=== PATIENT | male | born 1960 | race Caucasian/White ===

== ENCOUNTER 2016-12-02 17:38 | Emergency (ER) | payer MEDICAID ==
[2016-12-02] MEDS ORDERED: MVI, Adult with Vitamin K 10 ML, Thiamine 100 MG, Folic Acid 1 MG, Magnesium Sulfate 3 ... IV SCH ×5 (18:30)
[2016-12-02] MEDS ORDERED: Pantoprazole 40 MG Tab.CR PO SCH (18:30)
[2016-12-02] MEDS ORDERED: Magnesium Sulfate (4.06 MEQ/ML) 1 GM/2 ML SDV ONE (18:43)
[2016-12-02 20:31] VITALS: BP 132/75
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
--- NOTE | 2016-12-03 09:22 | CR ---
Chest 1V Frontal HISTORY: Cough FINDINGS: The heart and vascular structures are normal in appearance. No infiltrates or effusions ar e demonstrated. The skeletal structures are unremarkable. IMPRESSION: Negative exam.
== END 2016-12-02 21:24 | disposition other institution (70) ==
LOC: JP.ED 17:38
DX: F10.229 Alcohol dependence with intoxication, unspecified (principal); Z79.899 Other long term (current) drug therapy; Z79.84 Long term (current) use of oral hypoglycemic drugs; E11.9 Type 2 diabetes mellitus without complications; Z90.49 Acquired absence of other specified parts of digestive tract
CPT/HCPCS: 36415; 71010; 80053; 80305; 81001; 85025; 85610; 87804; 96365; 99284; 99285; A9270; G0480; J3411; J3475; J7040; J3490

== ENCOUNTER 2017-01-02 16:30 | Emergency (ER) | payer MEDICAID ==
[2017-01-02] MEDS ORDERED: Aluminum Hydroxide/Magnesium Hydroxide/Simethicone Susp 30 ML Cup PO ONE (18:21)
[2017-01-02] MEDS ORDERED: Sodium Chloride 0.9% 1,000 ML IV SCH (18:30)
--- NOTE | 2017-01-02 18:53 | EDM.PDOC ---
ED HISTORY OF PRESENT ILLNESS - General Chief Complaint: Chest Pain Stated Complaint: illness Time Seen by Provider: 01/02/17 18:10 Source: Reports: Patient History Limitations: Reports: No limitations - History of Present Illness INITIAL COMMENTS - FREE TEXT/NARRATIVE: This patient arrives by EMS with alcohol intoxication and asking to go to detox. is a known alcoholic and has been to detox number of times. He says he' s been drinking for about 2 days and drank a large bottle of vodka today. His last drink was about an hour before arrival for about 2 PM. He also complained of some vague substernal chest pain he says it lasted about an hour but then later said he still has a little bit now. - Related Data Allergies/ADRs: Allergies Allergy/AdvReac Type Severity Reaction Status Date / Time zolpidem tartrate Allergy Cannot Verified 01/02/17 16:43 [From Maite] Remember Home Meds: Home Meds Aspirin [Halfprin] 81 mg PO DAILY 10/17/14 [History] Gabapentin 900 mg PO BID 12/04/14 [History] Simvastatin 40 mg PO BEDTIME 12/04/14 [History] traZODone 100 - 200 mg PO BEDTIME 12/04/14 [History] Insulin Glarg,Human.Rec.Analog [Lantus Solostar] 30 unit SQ BEDTIME 04/03/15 [ History] Venlafaxine HCl [Venlafaxine ER] 225 mg PO DAILY 04/03/15 [History] Metoprolol Tartrate [Lopressor] 50 mg PO BID 04/05/15 [History] metFORMIN [Glucophage] 1,000 mg PO BIDAC 03/11/16 [History] Multivit-Min/FA/Lycopene/Lut [Certavite Sr-Antioxidant Tab] 1 tab PO DAILY 06/16 [History] Pantoprazole [ProTONIX] 40 mg PO DAILY #30 tab.cr 06/17/16 [Rx] Insulin Aspart [NovoLOG] 2 units SQ ASDIRECTED 08/21/16 [History] Lisinopril [Lisinopril] 1 tab PO DAILY 09/28/16 [History] Past Medical History Cardiovascular History: Reports: High cholesterol, Hypertension Other Cardiovascular History: Past chest pain Questionable [place] in past. Gastrointestinal History: Reports: Pancreatitis Musculoskeletal History: Reports: Fracture Other Musculoskeletal History: fx toe Neurological History: Reports: Head trauma Psychiatric History: Reports: Addiction, Anxiety, Depression, Other (see below) Other Psychiatric History: Alcohol abuse. Endocrine/Metabolic History: Reports: Diabetes, type II - Infectious Disease History Infectious Disease History: Reports: Chicken pox, Measles, Mumps - Past Surgical History HEENT Surgical History: Reports: Adenoidectomy GI Surgical History: Reports: Appendectomy Social & Family History - Family History Family Medical History: Noncontributory - Tobacco Use Smoking Status *Q: Light Tobacco Smoker Years of Tobacco use: 26 Packs/Tins Daily: 1 Used Tobacco, but Quit: No Second Hand Smoke Exposure: Yes - Caffeine Use Caffeine Use: Reports: Coffee, Soda - Alcohol Use Days Per Week of Alcohol Use: 7 Number of Drinks Per Day: 20 Total Drinks Per Week: 140 - Recreational Drug Use Recreational Drug Use: No ED ROS GENERAL - Review of Systems Review Of Systems: See Below Constitutional: Reports: no symptoms HEENT: Reports: No symptoms Respiratory: Reports: No Symptoms Cardiovascular: Reports: Chest pain Endocrine: Reports: no symptoms GI/Abdominal: Reports: No symptoms : Reports: no symptoms Musculoskeletal: Reports: no symptoms Skin: Reports: no symptoms Neurological: Reports: Other Psychiatric: Reports: No symptoms Hematologic/Lymphatic: Reports: no symptoms Immunologic: Reports: no symptoms ED EXAM, GENERAL - Physical Exam Exam: See Below Exam Limited By: No limitations General Appearance: alert, WD/WN, no apparent distress Eye Exam: bilateral eye: normal inspection Ears: normal external exam Nose: normal inspection Throat/Mouth: Normal inspection Head: atraumatic Neck: normal inspection Respiratory/Chest: lungs clear Cardiovascular: normal peripheral pulses, regular rate, rhythm, no murmur GI/Abdominal: non tender Extremities: normal inspection Neurological: alert, oriented, CN II-XII intact, normal cognition (Does not appear obviously intoxicated) Psychiatric: normal affect Skin Exam: Warm Course - Vital Signs Last Recorded V/S: Last Vital Signs Temp 37.7 C 01/02/17 19:25 Pulse 114 H 01/02/17 19:25 Resp 16 01/02/17 19:25 BP 163/78 H 01/02/17 19:25 Pulse Ox 93 L 01/02/17 19:25 - Orders/Labs/Meds Orders: Active Orders 24 hr Category Date Time Status EKG Documentation Completion [RC] ASDIRECTED Care 01/02/17 18:21 Active Sodium Chloride 0.9% [Normal Saline] 1,000 ml Med 01/02/17 18:30 Active IV ASDIRECTED Sodium Chloride 0.9% [Saline Flush] Med 01/02/17 18:20 Active 10 ml FLUSH ASDIRECTED PRN Saline Lock Insert [OM.PC] Urgent Oth 01/02/17 18:20 Ordered EKG 12 Lead [EK] Urgent Ther 01/02/17 18:20 Ordered Medication Orders Sodium Chloride (Normal Saline) 1,000 mls @ 999 mls/hr IV ASDIRECTED RIKKI Last Admin: 01/02/17 19:20 Dose: 999 mls/hr Sodium Chloride (Saline Flush) 10 ml FLUSH ASDIRECTED PRN PRN Reason: Keep Vein Open Last Admin: 01/02/17 19:23 Dose: 10 ml Labs: Laboratory Tests 01/02/17 01/02/17 01/02/17 Range/Units 18:31 18:31 18:31 WBC 9.1 (4.5-11.0) K/uL RBC 4.28 L (4.30-5.90) M/uL Hgb 14.1 (12.0-15.0) g/dL Hct 39.7 L (40.0-54.0) % MCV 93 (80-98) fL MCH 33 H (27-31) pg MCHC 36 (32-36) % Plt Count 239 (150-400) K/uL Neut % (Auto) 49 (36-66) % Lymph % (Auto) 44 (24-44) % [place] % (Auto) 7 H (2-6) % Eos % (Auto) 0 L (2-4) % Baso % (Auto) 1 (0-1) % Sodium 139 L (140-148) mmol/L Potassium 3.7 (3.6-5.2) mmol/L Chloride 98 L (100-108) mmol/L Carbon Dioxide 23 (21-32) mmol/L Anion Gap 21.7 H (5.0-14.0) mmol/L BUN 11 (7-18) mg/dL Creatinine 0.8 (0.8-1.3) mg/dL Est Cr Clr Drug Dosing 104.18 mL/min Estimated GFR (MDRD) > 60 (>60) Glucose 223 H (74-106) mg/dL Calcium 8.7 (8.5-10.1) mg/dL Total Bilirubin 0.4 (0.2-1.0) mg/dL AST 37 (15-37) U/L ALT 47 (12-78) U/L Alkaline Phosphatase 79 (46-116) U/L Troponin I < 0.017 (0.000-0.056) ng/mL Total Protein 7.5 (6.4-8.2) g/dL Albumin 4.0 (3.4-5.0) g/dL Globulin 3.5 (2.3-3.5) g/dL Albumin/Globulin Ratio 1.1 L (1.2-2.2) Urine Opiates Screen (NEGATIVE) Ur Oxycodone Screen (NEGATIVE) Urine Methadone Screen (NEGATIVE) Ur Propoxyphene Screen (NEGATIVE) Ur Barbiturates Screen (NEGATIVE) Ur Tricyclics Screen (NEGATIVE) Ur Phencyclidine Scrn (NEGATIVE) Ur Amphetamine Screen (NEGATIVE) U Methamphetamines Scrn (NEGATIVE) Urine MDMA Screen (NEGATIVE) U Benzodiazepines Scrn (NEGATIVE) U Cocaine Metab Screen (NEGATIVE) U Marijuana (THC) Screen (NEGATIVE) Ethyl Alcohol 317 mg/dL 01/02/17 Range/Units 18:36 WBC (4.5-11.0) K/uL RBC (4.30-5.90) M/uL Hgb (12.0-15.0) g/dL Hct (40.0-54.0) % MCV (80-98) fL MCH (27-31) pg MCHC (32-36) % Plt Count (150-400) K/uL Neut % (Auto) (36-66) % Lymph % (Auto) (24-44) % [place] % (Auto) (2-6) % Eos % (Auto) (2-4) % Baso % (Auto) (0-1) % Sodium (140-148) mmol/L Potassium (3.6-5.2) mmol/L Chloride (100-108) mmol/L Carbon Dioxide (21-32) mmol/L Anion Gap (5.0-14.0) mmol/L BUN (7-18) mg/dL Creatinine (0.8-1.3) mg/dL Est Cr Clr Drug Dosing mL/min Estimated GFR (MDRD) (>60) Glucose (74-106) mg/dL Calcium (8.5-10.1) mg/dL Total Bilirubin (0.2-1.0) mg/dL AST (15-37) U/L ALT (12-78) U/L Alkaline Phosphatase (46-116) U/L Troponin I (0.000-0.056) ng/mL Total Protein (6.4-8.2) g/dL Albumin (3.4-5.0) g/dL Globulin (2.3-3.5) g/dL Albumin/Globulin Ratio (1.2-2.2) Urine Opiates Screen Negative (NEGATIVE) Ur Oxycodone Screen Negative (NEGATIVE) Urine Methadone Screen Negative (NEGATIVE) Ur Propoxyphene Screen Negative (NEGATIVE) Ur Barbiturates Screen Negative (NEGATIVE) Ur Tricyclics Screen Negative (NEGATIVE) Ur Phencyclidine Scrn Negative (NEGATIVE) Ur Amphetamine Screen Negative (NEGATIVE) U Methamphetamines Scrn Negative (NEGATIVE) Urine MDMA Screen Negative (NEGATIVE) U Benzodiazepines Scrn Positive H (NEGATIVE) U Cocaine Metab Screen Negative (NEGATIVE) U Marijuana (THC) Screen Negative (NEGATIVE) Ethyl Alcohol mg/dL Meds: Medications Generic Name Dose Route Start Last Admin Trade Name Freq PRN Reason Stop Dose Admin Sodium Chloride 1,000 mls @ 999 mls/hr 01/02/17 18:30 01/02/17 19:20 Normal Saline IV 999 mls/hr ASDIRECTED RIKKI Administration Sodium Chloride 10 ml 01/02/17 18:20 01/02/17 19:23 Saline Flush FLUSH 10 ml ASDIRECTED PRN Administration Keep Vein Open Discontinued Medications Generic Name Dose Route Start Last Admin Trade Name Freq PRN Reason Stop Dose Admin Al Hydroxide/Mg Hydroxide 30 ml 01/02/17 18:21 01/02/17 19:23 Mag-Al Plus PO 01/02/17 18:22 30 ml ONETIME ONE Administration Ondansetron HCl 4 mg 01/02/17 20:29 Zofran IVPUSH 01/02/17 20:30 ONETIME ONE - Re-Assessments/Exams Free Text/Narrative Re-Assessment/Exam: 01/02/17 20:40 Old labs were reviewed on this patient. An EKG was done which shows a sinus tachycardia at 102 beats per minute there appears to be a Q wave in lead 3 and aVF suggesting an inferior infarct but that is unchanged since an EKG of 2015. The troponin is negative. It was felt that a repeat troponin is not needed. The patient had some slight chest discomfort while he was here. He didn't think that Maalox helped. He did eat a meal and several soft drinks. He threw up after that. He's anxious to go to detox now. He received Zofran 4 mg IV. It's believe he is medically stable to go to detox now. Departure - Departure Time of Disposition: 20:42 Disposition: Home, Self-Care 01 Condition: fair Clinical Impression: Alcohol intoxication Qualifiers: Complication of substance-induced condition: uncomplicated Qualified Code(s): F10.120 - Alcohol abuse with intoxication, uncomplicated Forms: ED Department Discharge Additional Instructions: You will be taken to [place] [facility] for alcohol detox. [facility] treatment for alcoholism would be helpful. - My Orders Last 24 Hours: My Active Orders 01/02/17 18:20 Sodium Chloride 0.9% [Saline Flush] 10 ml FLUSH ASDIRECTED PRN Saline Lock Insert [OM.PC] Urgent EKG 12 Lead [EK] Urgent 01/02/17 18:21 EKG Documentation Completion [RC] ASDIRECTED 01/02/17 18:30 Sodium Chloride 0.9% [Normal Saline] 1,000 ml IV ASDIRECTED - Assessment/Plan Last 24 Hours: My Active Orders 01/02/17 18:20 Sodium Chloride 0.9% [Saline Flush] 10 ml FLUSH ASDIRECTED PRN Saline Lock Insert [OM.PC] Urgent EKG 12 Lead [EK] Urgent 01/02/17 18:21 EKG Documentation Completion [RC] ASDIRECTED 01/02/17 18:30 Sodium Chloride 0.9% [Normal Saline] 1,000 ml IV ASDIRECTED
[2017-01-02] MEDS: Sodium Chloride 0.9% 10 ML Syringe FLUSH PRN ×2 (19:23→20:43)
[2017-01-02 19:27] VITALS: BP 163/78
[2017-01-02] MEDS ORDERED: Ondansetron 4 MG/2 ML SDV IVPUSH ONE (20:29)
== END 2017-01-02 21:05 | disposition home or self-care (01) ==
LOC: JP.ED 16:30
DX: F10.120 Alcohol abuse with intoxication, uncomplicated (principal); I25.2 Old myocardial infarction; I10 Essential (primary) hypertension; E78.00 Pure hypercholesterolemia, unspecified; F41.9 Anxiety disorder, unspecified; F32.9 Major depressive disorder, single episode, unspecified; E11.9 Type 2 diabetes mellitus without complications; F17.210 Nicotine dependence, cigarettes, uncomplicated; Z79.4 Long term (current) use of insulin; Z79.82 Long term (current) use of aspirin; Z79.899 Other long term (current) drug therapy; Z88.8 Allergy status to other drugs, medicaments and biological substances; Z90.49 Acquired absence of other specified parts of digestive tract; Z98.890 Other specified postprocedural states; Y90.8 Blood alcohol level of 240 mg/100 ml or more
CPT/HCPCS: 36415; 80053; 80305; 84484; 85025; 93005; 96361; 96374; 99285; A9270; G0480; J2405; J7040; J7050; 93010; 99284

== ENCOUNTER 2017-01-12 13:25 | Emergency (ER) | payer MEDICAID ==
[2017-01-12 13:37] VITALS: BP 142/80
--- NOTE | 2017-01-12 13:59 | EDM.PDOC ---
ED HPI GENERAL MEDICAL PROBLEM - General Chief Complaint: Drug or Alcohol Abuse Stated Complaint: EVEL Time Seen by Provider: 01/12/17 13:53 Source of Information: Reports: Patient, RN notes reviewed History Limitations: Reports: No limitations - History of Present Illness INITIAL COMMENTS - FREE TEXT/NARRATIVE: 56-year-old gentleman presents emergency department today asking to go to detox last used vodka today he drank 1 L has no other complaints, Head Pain Score (Numeric/FACES): 10 - Related Data Allergies Allergy/AdvReac Type Severity Reaction Status Date / Time zolpidem tartrate Allergy Cannot Verified 01/12/17 13:37 [From Ambien] Remember Home Meds: Home Meds Aspirin [Halfprin] 81 mg PO DAILY 10/17/14 [History] Gabapentin 900 mg PO BID 12/04/14 [History] Simvastatin 40 mg PO BEDTIME 12/04/14 [History] traZODone 100 - 200 mg PO BEDTIME 12/04/14 [History] Insulin Glarg,Human.Rec.Analog [Lantus Solostar] 35 unit SQ BEDTIME 04/03/15 [ History] Venlafaxine HCl [Venlafaxine ER] 150 mg PO DAILY 04/03/15 [History] Metoprolol Tartrate [Lopressor] 50 mg PO BID 04/05/15 [History] metFORMIN [Glucophage] 1,000 mg PO BIDAC 03/11/16 [History] Multivit-Min/FA/Lycopene/Lut [Certavite Sr-Antioxidant Tab] 1 tab PO DAILY 06/16 [History] Pantoprazole [ProTONIX] 40 mg PO DAILY #30 tab.cr 06/17/16 [Rx] Insulin Aspart [NovoLOG] 2 units SQ ASDIRECTED 08/21/16 [History] Lisinopril [Lisinopril] 1 tab PO DAILY 09/28/16 [History] Past Medical History Cardiovascular History: Reports: High cholesterol, Hypertension Other Cardiovascular History: Past chest pain Questionable [place] in past. Gastrointestinal History: Reports: Pancreatitis Musculoskeletal History: Reports: Fracture Other Musculoskeletal History: fx toe Neurological History: Reports: Head trauma Psychiatric History: Reports: Addiction, Anxiety, Depression, Other (see below) Other Psychiatric History: Alcohol abuse. Endocrine/Metabolic History: Reports: Diabetes, type II - Infectious Disease History Infectious Disease History: Reports: Chicken pox, Measles, Mumps - Past Surgical History HEENT Surgical History: Reports: Adenoidectomy GI Surgical History: Reports: Appendectomy Social & Family History - Family History Family Medical History: Noncontributory - Tobacco Use Smoking Status *Q: Light Tobacco Smoker Years of Tobacco use: 26 Packs/Tins Daily: 1 Used Tobacco, but Quit: No Second Hand Smoke Exposure: Yes - Caffeine Use Caffeine Use: Reports: Coffee, Soda - Alcohol Use Days Per Week of Alcohol Use: 7 Number of Drinks Per Day: 20 Total Drinks Per Week: 140 - Recreational Drug Use Recreational Drug Use: No ED ROS GENERAL - Review of Systems Review Of Systems: See Below Constitutional: Reports: no symptoms Respiratory: Reports: No Symptoms Cardiovascular: Reports: No symptoms GI/Abdominal: Reports: No symptoms : Reports: no symptoms Psychiatric: Reports: Other (Addiction) ED EXAM, GENERAL - Physical Exam Exam: See Below Exam Limited By: No limitations General Appearance: alert, WD/WN, no apparent distress Head: atraumatic, other (Superficial abrasion forehead estimate about a week old ) Respiratory/Chest: no respiratory distress, lungs clear, normal breath sounds, no accessory muscle use Cardiovascular: regular rate, rhythm, no murmur GI/Abdominal: soft, non tender Course - Vital Signs Last Recorded V/S: Last Vital Signs Temp 96.5 F 01/12/17 13:33 Pulse 98 01/12/17 13:33 Resp 16 01/12/17 13:33 BP 142/80 H 01/12/17 13:33 Pulse Ox 97 01/12/17 13:33 - Orders/Labs/Meds Labs: Laboratory Tests 01/12/17 01/12/17 01/12/17 Range/Units 14:07 14:07 14:07 WBC 5.0 (4.5-11.0) K/uL RBC 4.03 L (4.30-5.90) M/uL Hgb 13.1 (12.0-15.0) g/dL Hct 37.9 L (40.0-54.0) % MCV 94 (80-98) fL MCH 33 H (27-31) pg MCHC 35 (32-36) % Plt Count 109 L (150-400) K/uL Neut % (Auto) 60 (36-66) % Lymph % (Auto) 24 (24-44) % [place] % (Auto) 15 H (2-6) % Eos % (Auto) 1 L (2-4) % Baso % (Auto) 0 (0-1) % Sodium 139 L (140-148) mmol/L Potassium 4.1 (3.6-5.2) mmol/L Chloride 98 L (100-108) mmol/L Carbon Dioxide 26 (21-32) mmol/L Anion Gap 19.1 H (5.0-14.0) mmol/L BUN 11 (7-18) mg/dL Creatinine 0.9 (0.8-1.3) mg/dL Est Cr Clr Drug Dosing 92.60 mL/min Estimated GFR (MDRD) > 60 (>60) Glucose 231 H (74-106) mg/dL Calcium 8.1 L (8.5-10.1) mg/dL Total Bilirubin 0.6 (0.2-1.0) mg/dL AST 29 (15-37) U/L ALT 33 (12-78) U/L Alkaline Phosphatase 82 (46-116) U/L Total Protein 7.2 (6.4-8.2) g/dL Albumin 3.6 (3.4-5.0) g/dL Globulin 3.6 H (2.3-3.5) g/dL Albumin/Globulin Ratio 1.0 L (1.2-2.2) Urine Color Urine Appearance Urine pH (4.5-8.0) Ur Specific [place] (1.008-1.030) Urine Protein (NEGATIVE) mg/dL Urine Glucose (UA) (NEGATIVE) mg/dL Urine Ketones (NEGATIVE) mg/dL Urine Occult Blood (NEGATIVE) Urine Nitrite (NEGAITVE) Urine Bilirubin (NEGATIVE) Urine Urobilinogen (NORMAL) mg/dL Ur Leukocyte Esterase (NEGATIVE) Urine RBC (0-5) Urine WBC (0-5) Ur Epithelial Cells Amorphous Sediment Urine Bacteria Urine Mucus Urine Opiates Screen (NEGATIVE) Ur Oxycodone Screen (NEGATIVE) Urine Methadone Screen (NEGATIVE) Ur Propoxyphene Screen (NEGATIVE) Ur Barbiturates Screen (NEGATIVE) Ur Tricyclics Screen (NEGATIVE) Ur Phencyclidine Scrn (NEGATIVE) Ur Amphetamine Screen (NEGATIVE) U Methamphetamines Scrn (NEGATIVE) Urine MDMA Screen (NEGATIVE) U Benzodiazepines Scrn (NEGATIVE) U Cocaine Metab Screen (NEGATIVE) U Marijuana (THC) Screen (NEGATIVE) Ethyl Alcohol 173 mg/dL 01/12/17 01/12/17 Range/Units 14:13 14:15 WBC (4.5-11.0) K/uL RBC (4.30-5.90) M/uL Hgb (12.0-15.0) g/dL Hct (40.0-54.0) % MCV (80-98) fL MCH (27-31) pg MCHC (32-36) % Plt Count (150-400) K/uL Neut % (Auto) (36-66) % Lymph % (Auto) (24-44) % [place] % (Auto) (2-6) % Eos % (Auto) (2-4) % Baso % (Auto) (0-1) % Sodium (140-148) mmol/L Potassium (3.6-5.2) mmol/L Chloride (100-108) mmol/L Carbon Dioxide (21-32) mmol/L Anion Gap (5.0-14.0) mmol/L BUN (7-18) mg/dL Creatinine (0.8-1.3) mg/dL Est Cr Clr Drug Dosing mL/min Estimated GFR (MDRD) (>60) Glucose (74-106) mg/dL Calcium (8.5-10.1) mg/dL Total Bilirubin (0.2-1.0) mg/dL AST (15-37) U/L ALT (12-78) U/L Alkaline Phosphatase (46-116) U/L Total Protein (6.4-8.2) g/dL Albumin (3.4-5.0) g/dL Globulin (2.3-3.5) g/dL Albumin/Globulin Ratio (1.2-2.2) Urine Color Yellow Urine Appearance Slightly cloudy Urine pH 5.0 (4.5-8.0) Ur Specific [place] 1.025 (1.008-1.030) Urine Protein 30 H (NEGATIVE) mg/dL Urine Glucose (UA) 1000 H (NEGATIVE) mg/dL Urine Ketones 150 H (NEGATIVE) mg/dL Urine Occult Blood Moderate (NEGATIVE) Urine Nitrite Negative (NEGAITVE) Urine Bilirubin Negative (NEGATIVE) Urine Urobilinogen 1 (NORMAL) mg/dL Ur Leukocyte Esterase Negative (NEGATIVE) Urine RBC 5-10 H (0-5) Urine WBC 0-5 (0-5) Ur Epithelial Cells Moderate Amorphous Sediment Not seen Urine Bacteria Few Urine Mucus Moderate Urine Opiates Screen Negative (NEGATIVE) Ur Oxycodone Screen Negative (NEGATIVE) Urine Methadone Screen Negative (NEGATIVE) Ur Propoxyphene Screen Negative (NEGATIVE) Ur Barbiturates Screen Negative (NEGATIVE) Ur Tricyclics Screen Negative (NEGATIVE) Ur Phencyclidine Scrn Negative (NEGATIVE) Ur Amphetamine Screen Negative (NEGATIVE) U Methamphetamines Scrn Negative (NEGATIVE) Urine MDMA Screen Negative (NEGATIVE) U Benzodiazepines Scrn Positive H (NEGATIVE) U Cocaine Metab Screen Negative (NEGATIVE) U Marijuana (THC) Screen Negative (NEGATIVE) Ethyl Alcohol mg/dL Departure - Departure Time of Disposition: 14:48 Disposition: DC/Tfer to Inpt Rehab Fac 62 Condition: poor Clinical Impression: Alcohol intoxication Qualifiers: Complication of substance-induced condition: uncomplicated Qualified Code(s): F10.120 - Alcohol abuse with intoxication, uncomplicated Forms: ED Department Discharge - Assessment/Plan Plan: Assessment Acuity = chronic Site and laterality = alcohol abuse and dependence with intoxication complicated patient with known history of diabetes mellitus type II Etiology = alcohol abuse Manifestations = none Location of injury = home Lab values = CBC unremarkable CMP unremarkable urinalysis specific gravity 1.025 , protein elevated at 30 consistent proteinuria glucose elevated at 1000 consistent glucose urine ketones elevated at 150 and RBCs 5-10 consistent hematuria pattern is consistent with intravascular volume dictation, urine drug positive for benzodiazepines, alcohol elevated at 173 Plan We were able to secure a bed for him at [facility] Patient was in agreement with the plan all questions were answered, they were instructed to return to the emergency department or call for worsening symptoms. This note was dictated using [employer] voice recognition software please call with any questions.
== END 2017-01-12 16:00 ==
LOC: JP.ED 13:25
DX: F10.120 Alcohol abuse with intoxication, uncomplicated (principal); I10 Essential (primary) hypertension; E78.00 Pure hypercholesterolemia, unspecified; F41.9 Anxiety disorder, unspecified; F32.9 Major depressive disorder, single episode, unspecified; E11.9 Type 2 diabetes mellitus without complications; F17.210 Nicotine dependence, cigarettes, uncomplicated; Z90.49 Acquired absence of other specified parts of digestive tract; Z98.890 Other specified postprocedural states; Z79.82 Long term (current) use of aspirin; Z79.4 Long term (current) use of insulin; Z79.899 Other long term (current) drug therapy; Z88.8 Allergy status to other drugs, medicaments and biological substances; Y90.6 Blood alcohol level of 120-199 mg/100 ml
CPT/HCPCS: 36415; 80053; 80305; 81001; 85025; 99282; 99285; G0480

== ENCOUNTER 2017-01-30 22:26 | Emergency (ER) | payer MEDICAID ==
--- NOTE | 2017-01-30 22:51 | EDM.PDOC ---
ED HPI Behavioral Health - General Chief Complaint: Drug or Alcohol Abuse Stated Complaint: MED [place]IA [place] Time Seen by Provider: 01/30/17 22:48 Source: Reports: Patient, EMS, RN notes reviewed Exam Limitations: Reports: Intoxication - History of Present Illness INITIAL COMMENTS - FREE TEXT/NARRATIVE: 56-year-old gentleman presents emergency department today via EMS services he had fallen at home he is severely intoxicated denies any pain at this time he estimates he drinks 3-1.75 L of vodka today and was working on the fourth. Cannot obtain any review of systems or history from him at this time - Related Data Allergies Allergy/AdvReac Type Severity Reaction Status Date / Time zolpidem tartrate Allergy Cannot Verified 01/30/17 22:33 [From Maite] Remember Home Medications: Home Meds Aspirin [Halfprin] 81 mg PO DAILY 10/17/14 [History] Gabapentin 900 mg PO BID 12/04/14 [History] Simvastatin 40 mg PO BEDTIME 12/04/14 [History] traZODone 100 - 200 mg PO BEDTIME 12/04/14 [History] Insulin Glarg,Human.Rec.Analog [Lantus Solostar] 35 unit SQ BEDTIME 04/03/15 [ History] Venlafaxine HCl [Venlafaxine ER] 150 mg PO DAILY 04/03/15 [History] Metoprolol Tartrate [Lopressor] 50 mg PO BID 04/05/15 [History] metFORMIN [Glucophage] 1,000 mg PO BIDAC 03/11/16 [History] Multivit-Min/FA/Lycopene/Lut [Certavite Sr-Antioxidant Tab] 1 tab PO DAILY 06/16 [History] Pantoprazole [ProTONIX] 40 mg PO DAILY #30 tab.cr 06/17/16 [Rx] Insulin Aspart [NovoLOG] 2 units SQ ASDIRECTED 08/21/16 [History] Lisinopril [Lisinopril] 1 tab PO DAILY 09/28/16 [History] denies pain Pain Score (Numeric/FACES): 0 Past Medical History Cardiovascular History: Reports: High cholesterol, Hypertension Other Cardiovascular History: Past chest pain Questionable [place] in past. Gastrointestinal History: Reports: Pancreatitis Musculoskeletal History: Reports: Fracture Other Musculoskeletal History: fx toe Neurological History: Reports: Head trauma Psychiatric History: Reports: Addiction, Anxiety, Depression, Other (see below) Other Psychiatric History: Alcohol abuse. Endocrine/Metabolic History: Reports: Diabetes, type II - Infectious Disease History Infectious Disease History: Reports: Chicken pox, Measles, Mumps - Past Surgical History HEENT Surgical History: Reports: Adenoidectomy GI Surgical History: Reports: Appendectomy Social & Family History - Family History Family Medical History: Noncontributory - Tobacco Use Smoking Status *Q: Light Tobacco Smoker Years of Tobacco use: 26 Packs/Tins Daily: 1 Used Tobacco, but Quit: No Tobacco Use Comment: Patient is a current smoker Second Hand Smoke Exposure: Yes - Caffeine Use Caffeine Use: Reports: Coffee, Soda - Alcohol Use Days Per Week of Alcohol Use: 7 Number of Drinks Per Day: 20 Total Drinks Per Week: 140 - Recreational Drug Use Recreational Drug Use: No ED ROS GENERAL - Review of Systems Review Of Systems: Unable To Obtain (Do to intoxication) ED EXAM, BEHAVIORAL HEALTH - Physical Exam Exam: See Below Exam Limited By: Intoxication General Appearance: alert, no apparent distress Respiratory/Chest: no respiratory distress, lungs clear, normal breath sounds, no accessory muscle use Cardiovascular: regular rate, rhythm, no murmur COURSE, BEHAVIORAL HEALTH COMP - Course Vital Signs: Last Vital Signs Temp 99.1 F 01/31/17 00:57 Pulse 101 H 01/31/17 00:57 Resp 16 01/31/17 00:57 BP 132/84 01/31/17 00:57 Pulse Ox 95 01/31/17 00:57 Orders, Labs, Meds: Active Orders 24 hr Category Date Time Status LORazepam [Ativan] Med 01/31/17 03:46 Once 1 mg PO ONETIME ONE Laboratory Tests 01/30/17 01/30/17 01/30/17 Range/Units 23:37 23:45 23:45 WBC 6.6 (4.5-11.0) K/uL RBC 4.13 L (4.30-5.90) M/uL Hgb 13.9 (12.0-15.0) g/dL Hct 39.6 L (40.0-54.0) % MCV 96 (80-98) fL MCH 34 H (27-31) pg MCHC 35 (32-36) % Plt Count 89 L (150-400) K/uL Neut % (Auto) 37 (36-66) % Lymph % (Auto) 44 (24-44) % [place] % (Auto) 9 H (2-6) % Eos % (Auto) 9 H (2-4) % Baso % (Auto) 1 (0-1) % Sodium 137 L (140-148) mmol/L Potassium 4.8 (3.6-5.2) mmol/L Chloride 99 L (100-108) mmol/L Carbon Dioxide 24 (21-32) mmol/L Anion Gap 18.8 H (5.0-14.0) mmol/L BUN 9 (7-18) mg/dL Creatinine 0.7 L (0.8-1.3) mg/dL Est Cr Clr Drug Dosing TNP Estimated GFR (MDRD) > 60 (>60) Glucose 116 H (74-106) mg/dL Calcium 7.3 L (8.5-10.1) mg/dL Total Bilirubin 0.4 (0.2-1.0) mg/dL AST 74 H D (15-37) U/L ALT 65 D (12-78) U/L Alkaline Phosphatase 77 (46-116) U/L Total Protein 7.0 (6.4-8.2) g/dL Albumin 3.4 (3.4-5.0) g/dL Globulin 3.6 H (2.3-3.5) g/dL Albumin/Globulin Ratio 0.9 L (1.2-2.2) Ethyl Alcohol 419 mg/dL /03/14 Range/Units 03:20 WBC (4.5-11.0) K/uL RBC (4.30-5.90) M/uL Hgb (12.0-15.0) g/dL Hct (40.0-54.0) % MCV (80-98) fL MCH (27-31) pg MCHC (32-36) % Plt Count (150-400) K/uL Neut % (Auto) (36-66) % Lymph % (Auto) (24-44) % [place] % (Auto) (2-6) % Eos % (Auto) (2-4) % Baso % (Auto) (0-1) % Sodium (140-148) mmol/L Potassium (3.6-5.2) mmol/L Chloride (100-108) mmol/L Carbon Dioxide (21-32) mmol/L Anion Gap (5.0-14.0) mmol/L BUN (7-18) mg/dL Creatinine (0.8-1.3) mg/dL Est Cr Clr Drug Dosing Estimated GFR (MDRD) (>60) Glucose (74-106) mg/dL Calcium (8.5-10.1) mg/dL Total Bilirubin (0.2-1.0) mg/dL AST (15-37) U/L ALT (12-78) U/L Alkaline Phosphatase (46-116) U/L Total Protein (6.4-8.2) g/dL Albumin (3.4-5.0) g/dL Globulin (2.3-3.5) g/dL Albumin/Globulin Ratio (1.2-2.2) Ethyl Alcohol 314 mg/dL Medications Discontinued Medications Generic Name Dose Route Start Last Admin Trade Name Freq PRN Reason Stop Dose Admin Lorazepam 1 mg 01/31/17 01:48 01/31/17 01:54 Ativan IVPUSH 01/31/17 01:49 1 mg ONETIME ONE Administration Ondansetron HCl 4 mg 01/31/17 01:37 01/31/17 01:43 Zofran IVPUSH 01/31/17 01:38 4 mg ONETIME ONE Administration Departure - Departure Time of Disposition: 03:48 Disposition: DC/Tfer to Inpt Rehab Fac 62 Condition: poor Clinical Impression: Alcohol intoxication Qualifiers: Complication of substance-induced condition: uncomplicated Qualified Code(s): F10.120 - Alcohol abuse with intoxication, uncomplicated Alcohol dependence Qualifiers: Substance use status: uncomplicated Qualified Code(s): F10.20 - Alcohol dependence, uncomplicated Forms: ED Department Discharge Additional Instructions: stop using alcohol, return to ED with an increase in symptoms - My Orders Last 24 Hours: My Active Orders 01/31/17 03:46 LORazepam [Ativan] 1 mg PO ONETIME ONE - Assessment/Plan Last 24 Hours: My Active Orders 01/31/17 03:46 LORazepam [Ativan] 1 mg PO ONETIME ONE Plan: Assessment Acuity = chronic Site and laterality = alcohol abuse and intoxication Etiology = EtOH Manifestations = none Location of injury = home Lab values = cbc, cmp etoh over 400, did reach 319 Plan Requested to go to [facility] for detox Patient was in agreement with the plan all questions were answered, they were instructed to return to the emergency department or call for worsening symptoms. This note was dictated using [employer] voice recognition software please call with any questions.
[2017-01-31 00:58] VITALS: BP 132/84
[2017-01-31] MEDS ORDERED: Ondansetron 4 MG/2 ML SDV IVPUSH ONE (01:37)
[2017-01-31] MEDS ORDERED: LORazepam 2 MG/ML MDV IVPUSH ONE (01:48)
[2017-01-31] MEDS ORDERED: LORazepam 1 MG Tab PO ONE (03:46)
== END 2017-01-31 04:33 ==
LOC: JP.ED 22:26
DX: F10.220 Alcohol dependence with intoxication, uncomplicated (principal); E78.00 Pure hypercholesterolemia, unspecified; I10 Essential (primary) hypertension; F41.9 Anxiety disorder, unspecified; F32.9 Major depressive disorder, single episode, unspecified; F17.210 Nicotine dependence, cigarettes, uncomplicated; E11.9 Type 2 diabetes mellitus without complications; Z88.8 Allergy status to other drugs, medicaments and biological substances; Z79.82 Long term (current) use of aspirin; Z79.4 Long term (current) use of insulin; Z79.899 Other long term (current) drug therapy; Z90.49 Acquired absence of other specified parts of digestive tract
CPT/HCPCS: 36415; 80053; 85025; 96374; 99284; A9270; G0480; J2060; J2405

== ENCOUNTER 2017-02-07 19:45 | Emergency (ER) | payer MEDICAID ==
[2017-02-07 19:50] VITALS: BP 114/63
--- NOTE | 2017-02-07 20:16 | EDM.PDOC ---
[id number] [id number] [facility] Time Seen by Provider: 02/07/17 20:00 Source of Information: Reports: Patient, EMS History Limitations: Reports: Intoxication - History of Present Illness INITIAL COMMENTS - FREE TEXT/NARRATIVE: 48-year-old male who is a chronic alcoholic has been falling frequently over the past several days. He says they are "seizures". He does admit however that he feels lightheaded prior to falling. He's been drinking today but denies drinking the last 4 days. He has an abrasion on his left upper forehead , significant bruising and some swelling of his left upper arm. He is obviously intoxicated. Onset: Unknown/Unsure Left Shoulder Pain Score (Numeric/FACES): 5 - Related Data Allergies Allergy/AdvReac Type Severity Reaction Status Date / Time zolpidem tartrate Allergy Cannot Verified 01/30/17 22:33 [From Maite] Remember Home Meds: Home Meds Aspirin [Halfprin] 81 mg PO DAILY 10/17/14 [History] Gabapentin 900 mg PO BID 12/04/14 [History] Simvastatin 40 mg PO BEDTIME 12/04/14 [History] traZODone 100 - 200 mg PO BEDTIME 12/04/14 [History] Insulin Glarg,Human.Rec.Analog [Lantus Solostar] 35 unit SQ BEDTIME 04/03/15 [ History] Venlafaxine HCl [Venlafaxine ER] 150 mg PO DAILY 04/03/15 [History] Metoprolol Tartrate [Lopressor] 50 mg PO BID 04/05/15 [History] metFORMIN [Glucophage] 1,000 mg PO BIDAC 03/11/16 [History] Multivit-Min/FA/Lycopene/Lut [Certavite Sr-Antioxidant Tab] 1 tab PO DAILY 06/16 [History] Pantoprazole [ProTONIX] 40 mg PO DAILY #30 tab.cr 06/17/16 [Rx] Insulin Aspart [NovoLOG] 2 units SQ ASDIRECTED 08/21/16 [History] Lisinopril [Lisinopril] 1 tab PO DAILY 09/28/16 [History] Past Medical History Cardiovascular History: Reports: High Cholesterol, Hypertension Other Cardiovascular History: Past chest pain Questionable [place] in past. Gastrointestinal History: Reports: Pancreatitis Musculoskeletal History: Reports: Fracture Other Musculoskeletal History: fx toe Neurological History: Reports: Head Trauma Psychiatric History: Reports: Addiction, Anxiety, Depression, Other (See Below) Other Psychiatric History: Alcohol abuse. Endocrine/Metabolic History: Reports: Diabetes, Type II - Infectious Disease History Infectious Disease History: Reports: Chicken Pox, Measles, Mumps - Past Surgical History HEENT Surgical History: Reports: Adenoidectomy GI Surgical History: Reports: Appendectomy Social & Family History - Family History Family Medical History: Noncontributory - Tobacco Use Smoking Status *Q: Never Smoker Years of Tobacco use: 26 Packs/Tins Daily: 1 Used Tobacco, but Quit: No Second Hand Smoke Exposure: Yes - Caffeine Use Caffeine Use: Reports: Coffee, Soda - Alcohol Use Days Per Week of Alcohol Use: 7 Number of Drinks Per Day: 7 Total Drinks Per Week: 49 - Recreational Drug Use Recreational Drug Use: No ED ROS GENERAL - Review of Systems Review Of Systems: See Below Constitutional: Reports: Malaise. Denies: Fever, Chills Respiratory: Denies: Shortness of Breath Cardiovascular: Denies: Chest Pain GI/Abdominal: Denies: Abdominal Pain, Nausea, Vomiting Musculoskeletal: Reports: Other (Left shoulder pain and bruising) Skin: Reports: Bruising Neurological: Reports: Syncope, Other (Passing out or seizures) Psychiatric: Reports: Other (Chronic alcoholism) ED EXAM, GENERAL - Physical Exam Exam: See Below Exam Limited By: Intoxication General Appearance: Alert Eye Exam: Bilateral Eye: Normal Inspection Head: Other (Patient has a superficial abrasion on the left parietal scalp) Neck: Other (Some tenderness with palpation midline) Respiratory/Chest: No Respiratory Distress, Lungs Clear Cardiovascular: Regular Rate, Rhythm GI/Abdominal: Non-Tender Extremities: Other (Pain has marked bruising and swelling along with tenderness to palpation over the anterior left shoulder) Course - Vital Signs Last Recorded V/S: Last Vital Signs Temp 99.0 F 02/07/17 19:57 Pulse 103 H 02/07/17 19:57 Resp 20 02/07/17 19:57 BP 114/63 02/07/17 19:57 Pulse Ox 94 L 02/07/17 19:57 - Orders/Labs/Meds Orders: Active Orders 24 hr Category Date Time Status Cervical Spine wo Cont [CT] Stat Exams 02/07/17 19:58 Taken Head wo Cont [CT] Stat Exams 02/07/17 19:58 Taken Shoulder Comp Lt [CR] Stat Exams 02/07/17 20:14 Taken Labs: Laboratory Tests 02/07/17 02/07/17 02/07/17 Range/Units 20:15 20:15 20:15 WBC 9.6 (4.5-11.0) K/uL RBC 3.20 L (4.30-5.90) M/uL Hgb 10.8 L D (12.0-15.0) g/dL Hct 31.3 L (40.0-54.0) % MCV 98 (80-98) fL MCH 34 H (27-31) pg MCHC 35 (32-36) % Plt Count 98 L (150-400) K/uL Neut % (Auto) 71 H (36-66) % Lymph % (Auto) 14 L (24-44) % [place] % (Auto) 15 H (2-6) % Eos % (Auto) 0 L (2-4) % Baso % (Auto) 0 (0-1) % Sodium 134 L (140-148) mmol/L Potassium 3.8 (3.6-5.2) mmol/L Chloride 96 L (100-108) mmol/L Carbon Dioxide 21 (21-32) mmol/L Anion Gap 20.8 H (5.0-14.0) mmol/L BUN 12 (7-18) mg/dL Creatinine 1.2 D (0.8-1.3) mg/dL Est Cr Clr Drug Dosing 69.45 mL/min Estimated GFR (MDRD) > 60 (>60) Glucose 179 H (74-106) mg/dL Calcium 8.0 L (8.5-10.1) mg/dL Total Bilirubin 0.4 (0.2-1.0) mg/dL AST 31 (15-37) U/L ALT 40 (12-78) U/L Alkaline Phosphatase 82 (46-116) U/L Total Protein 6.7 (6.4-8.2) g/dL Albumin 3.3 L (3.4-5.0) g/dL Globulin 3.4 (2.3-3.5) g/dL Albumin/Globulin Ratio 1.0 L (1.2-2.2) Ethyl Alcohol 201 mg/dL - Re-Assessments/Exams Free Text/Narrative Re-Assessment/Exam: 02/07/17 21:51 CBC, CMP, EtOH and left shoulder x-ray were obtained as well as a head and cervical spine CT. EtOH was 0.201. Left shoulder x-ray showed a comminuted humeral neck fracture involving the humeral head. His arm was immobilized with a sling. Rest of his labs are actually reassuring. Patient remained stable and was interested in getting to be discharged with followup with orthopedics next week. He is to keep his arm in a sling and see Dr. Moses on Thursday. Departure - Departure Time of Disposition: 22:31 Disposition: Home, Self-Care 01 Condition: fair Clinical Impression: Closed left humeral fracture Qualifiers: Encounter type: initial encounter Humerus Location: proximal Fracture alignment : nondisplaced Scalp abrasion Qualifiers: Encounter type: initial encounter Qualified Code(s): S00.01XA - Abrasion of scalp, initial encounter Alcohol intoxication Qualifiers: Complication of substance-induced condition: uncomplicated Qualified Code(s): F10.920 - Alcohol use, unspecified with intoxication, uncomplicated - Discharge Information Instructions: Intramedullary Nailing of Humeral Shaft Fractures, Care After, Abrasion, [id number] Referrals: PCP,None [Primary Care Provider] - Forms: ED Department Discharge Care Plan Goals: Return Thursday to be rechecked with Dr. Gilberto Moses of orthopedics. Ibuprofen or naproxen should help. Keep arm in sling until rechecked. Avoid intoxication. - My Orders Last 24 Hours: My Active Orders 02/07/17 19:58 Cervical Spine wo Cont [CT] Stat Head wo Cont [CT] Stat 02/07/17 20:14 Shoulder Comp Lt [CR] Stat - Assessment/Plan Last 24 Hours: My Active Orders 02/07/17 19:58 Cervical Spine wo Cont [CT] Stat Head wo Cont [CT] Stat 02/07/17 20:14 Shoulder Comp Lt [CR] Stat
--- NOTE | 2017-02-09 09:27 | CR ---
Shoulder Comp Lt HISTORY: fall, injury FINDINGS: There is a comminuted and impacted fracture neck of left humerus with avulsion of the grea ter tuberosity. Fracture fragments are mildly displaced. No other fracture or dislocation is identif ied. Hypertrophic changes distal clavicle could be degenerative or due to old trauma. Left upper ze[address] is clear. IMPRESSION: Acute, comminuted and impacted fracture proximal left humerus as above.
== END 2017-02-07 22:31 | disposition home or self-care (01) ==
LOC: JP.ED 19:45
DX: S42.255A Nondisplaced fracture of greater tuberosity of left humerus, initial encounter for closed fracture (principal); S00.01XA Abrasion of scalp, initial encounter; E78.00 Pure hypercholesterolemia, unspecified; I10 Essential (primary) hypertension; E11.9 Type 2 diabetes mellitus without complications; F41.9 Anxiety disorder, unspecified; F32.9 Major depressive disorder, single episode, unspecified; F10.920 Alcohol use, unspecified with intoxication, uncomplicated; Z88.8 Allergy status to other drugs, medicaments and biological substances; Z79.82 Long term (current) use of aspirin; Z79.4 Long term (current) use of insulin; Z79.84 Long term (current) use of oral hypoglycemic drugs; Z79.899 Other long term (current) drug therapy; Z90.49 Acquired absence of other specified parts of digestive tract; W19.XXXA Unspecified fall, initial encounter
CPT/HCPCS: 36415; 70450; 72125; 73030; 80053; 85025; 99284; 99285; G0480

== ENCOUNTER 2017-02-10 06:16 | Emergency (ER) | payer MEDICAID ==
[2017-02-10] MEDS ORDERED: HYDROmorphone 0.5 MG/0.5 ML Syringe IVPUSH ONE ×2 (06:53→08:49)
[2017-02-10] MEDS ORDERED: Sodium Chloride 0.9% 10 ML Syringe FLUSH PRN (06:54)
[2017-02-10] MEDS ORDERED: Sodium Chloride 0.9% 1,000 ML IV SCH (07:00)
--- NOTE | 2017-02-10 07:00 | EDM.PDOC ---
<Bob Colón - Last Filed: 02/10/17 19:21> ED HPI GENERAL MEDICAL PROBLEM - General Chief Complaint: Upper Extremity Injury/Pain Stated Complaint: MEDICAL VIA [facility] Time Seen by Provider: 02/10/17 06:35 Source of Information: Reports: Patient, EMS History Limitations: Reports: No Limitations - History of Present Illness INITIAL COMMENTS - FREE TEXT/NARRATIVE: 48-year-old male seen 2 days ago after a fall sustaining a left humeral head fracture and a scalp abrasion has developed more pain over the past 2 days and has fallen again striking the back of his head and his knees. He was in so much pain he can't open his pill bottles were like cigarettes. He does have a significant increase in the amount of bruising over the upper left arm. He claims he has not drank in the last 2 days. Location: Reports: Head, Upper Extremity, Left, Lower Extremity, Left, Lower Extremity, Right Severity: Severe Associated Symptoms: Reports: Confusion, Syncope (Recurring falls). Denies: Fever/Chills, Nausea/Vomiting Left Shoulder Pain Score (Numeric/FACES): 10 - Related Data Allergies Allergy/AdvReac Type Severity Reaction Status Date / Time zolpidem tartrate Allergy Cannot Verified 02/10/17 06:22 [From Maite] Remember Home Meds: Home Meds Aspirin [Halfprin] 81 mg PO DAILY 10/17/14 [History] Gabapentin 900 mg PO BID 12/04/14 [History] Simvastatin 40 mg PO BEDTIME 12/04/14 [History] traZODone 100 - 200 mg PO BEDTIME 12/04/14 [History] Insulin Glarg,Human.Rec.Analog [Lantus Solostar] 35 unit SQ BEDTIME 04/03/15 [ History] Venlafaxine HCl [Venlafaxine ER] 150 mg PO DAILY 04/03/15 [History] Metoprolol Tartrate [Lopressor] 50 mg PO BID 04/05/15 [History] metFORMIN [Glucophage] 1,000 mg PO BIDAC 03/11/16 [History] Multivit-Min/FA/Lycopene/Lut [Certavite Sr-Antioxidant Tab] 1 tab PO DAILY 06/16 [History] Pantoprazole [ProTONIX] 40 mg PO DAILY #30 tab.cr 06/17/16 [Rx] Insulin Aspart [NovoLOG] 2 units SQ ASDIRECTED 08/21/16 [History] Lisinopril [Lisinopril] 1 tab PO DAILY 09/28/16 [History] Past Medical History Cardiovascular History: Reports: High Cholesterol, Hypertension Other Cardiovascular History: Past chest pain Questionable ID in past. Gastrointestinal History: Reports: Pancreatitis Musculoskeletal History: Reports: Fracture, Other (See Below) Other Musculoskeletal History: fx toe L humeral fracture. Neurological History: Reports: Head Trauma Psychiatric History: Reports: Addiction, Anxiety, Depression, Other (See Below) Other Psychiatric History: Alcohol abuse. Endocrine/Metabolic History: Reports: Diabetes, Type II - Infectious Disease History Infectious Disease History: Reports: Chicken Pox - Past Surgical History HEENT Surgical History: Reports: Adenoidectomy GI Surgical History: Reports: Appendectomy Social & Family History - Family History Family Medical History: Noncontributory - Tobacco Use Smoking Status *Q: Current Every Day Smoker Years of Tobacco use: 26 Packs/Tins Daily: 1 Used Tobacco, but Quit: No Second Hand Smoke Exposure: Yes - Caffeine Use Caffeine Use: Reports: Coffee, Soda - Alcohol Use Days Per Week of Alcohol Use: 7 Number of Drinks Per Day: 7 Total Drinks Per Week: 49 - Recreational Drug Use Recreational Drug Use: No Review of Systems - Review of Systems Review Of Systems: See Below Constitutional: Denies: Fever Eyes: Denies: Blurred Vision Mouth/Throat: Reports: No Symptoms Respiratory: Denies: Shortness of Breath, Cough GI/Abdominal: Denies: Abdominal Pain Musculoskeletal: Reports: Shoulder Pain, Other (Bilateral knee discomfort) Skin: Reports: Bruising (Marked bruising over the left upper arm, abrasions on his scalp) Neurological: Reports: Syncope ("Keeps passing out"). Denies: Headache Trauma Exam - Physical Exam Exam: See Below Exam Limited By: No Limitations General Appearance: Reports: Mild Distress (Appears very uncomfortable) Head: Reports: Other (Superficial abrasions are present on the left occiput and parietal scalp) Eyes: Bilateral Eye: EOMI Neck: Reports: Non-Tender Respiratory Exam: Reports: No Respiratory Distress Cardiovascular: Reports: Regular Rate, Rhythm, Tachycardia GI/Abdominal: Reports: Soft Extremities: Other (Marked left upper arm edema and bruising with exquisite tenderness to palpation) Neurologic: Reports: Oriented x 3 Course - Vital Signs Last Recorded V/S: Last Vital Signs Temp 37.3 C 02/10/17 06:32 Pulse 121 H 02/10/17 10:50 Resp 17 02/10/17 10:50 BP 166/108 H 02/10/17 10:50 Pulse Ox 96 02/10/17 10:50 - Orders/Labs/Meds Labs: Laboratory Tests 02/10/17 02/10/17 02/10/17 Range/Units 07:02 07:02 07:02 WBC 7.1 (4.5-11.0) K/uL RBC 3.20 L (4.30-5.90) M/uL Hgb 10.9 L (12.0-15.0) g/dL Hct 30.8 L (40.0-54.0) % MCV 96 (80-98) fL MCH 34 H (27-31) pg MCHC 35 (32-36) % Plt Count 147 L (150-400) K/uL Neut % (Auto) 69 H (36-66) % Lymph % (Auto) 15 L (24-44) % Gilliam % (Auto) 16 H (2-6) % Eos % (Auto) 0 L (2-4) % Baso % (Auto) 0 (0-1) % PT 9.7 (9.5-12.0) sec INR 0.92 (0.80-1.20) Sodium 134 L (140-148) mmol/L Potassium 4.1 (3.6-5.2) mmol/L Chloride 95 L (100-108) mmol/L Carbon Dioxide 25 (21-32) mmol/L Anion Gap 18.1 H (5.0-14.0) mmol/L BUN 14 (7-18) mg/dL Creatinine 0.9 (0.8-1.3) mg/dL Est Cr Clr Drug Dosing TNP Estimated GFR (MDRD) > 60 (>60) Glucose 283 H (74-106) mg/dL Calcium 8.0 L (8.5-10.1) mg/dL Total Bilirubin 0.8 D (0.2-1.0) mg/dL AST 72 H D (15-37) U/L ALT 65 (12-78) U/L Alkaline Phosphatase 144 H D (46-116) U/L Total Protein 6.9 (6.4-8.2) g/dL Albumin 3.1 L (3.4-5.0) g/dL Globulin 3.8 H (2.3-3.5) g/dL Albumin/Globulin Ratio 0.8 L (1.2-2.2) Ethyl Alcohol mg/dL 02/10/17 Range/Units 07:02 WBC (4.5-11.0) K/uL RBC (4.30-5.90) M/uL Hgb (12.0-15.0) g/dL Hct (40.0-54.0) % MCV (80-98) fL MCH (27-31) pg MCHC (32-36) % Plt Count (150-400) K/uL Neut % (Auto) (36-66) % Lymph % (Auto) (24-44) % Gilliam % (Auto) (2-6) % Eos % (Auto) (2-4) % Baso % (Auto) (0-1) % PT (9.5-12.0) sec INR (0.80-1.20) Sodium (140-148) mmol/L Potassium (3.6-5.2) mmol/L Chloride (100-108) mmol/L Carbon Dioxide (21-32) mmol/L Anion Gap (5.0-14.0) mmol/L BUN (7-18) mg/dL Creatinine (0.8-1.3) mg/dL Est Cr Clr Drug Dosing Estimated GFR (MDRD) (>60) Glucose (74-106) mg/dL Calcium (8.5-10.1) mg/dL Total Bilirubin (0.2-1.0) mg/dL AST (15-37) U/L ALT (12-78) U/L Alkaline Phosphatase (46-116) U/L Total Protein (6.4-8.2) g/dL Albumin (3.4-5.0) g/dL Globulin (2.3-3.5) g/dL Albumin/Globulin Ratio (1.2-2.2) Ethyl Alcohol 19 mg/dL Meds: Medications Discontinued Medications Generic Name Dose Route Start Last Admin Trade Name Freq PRN Reason Stop Dose Admin Hydromorphone HCl 0.5 mg 02/10/17 06:53 02/10/17 06:59 Dilaudid IVPUSH 02/10/17 06:54 0.5 mg ONETIME ONE Administration Hydromorphone HCl 0.5 mg 02/10/17 08:49 02/10/17 09:35 Dilaudid IVPUSH 02/10/17 08:50 0.5 mg ONETIME ONE Administration Hydromorphone HCl 1 mg 02/10/17 11:03 02/10/17 11:07 Dilaudid IM 02/10/17 11:04 1 mg ONETIME ONE Administration Hydromorphone HCl 1 mg 02/10/17 11:08 Dilaudid IVPUSH 02/10/17 11:09 ONETIME ONE Sodium Chloride 1,000 mls @ 500 mls/hr 02/10/17 07:00 02/10/17 07:01 Normal Saline IV 500 mls/hr ASDIRECTED RIKKI Administration Lorazepam 0.5 mg 02/10/17 09:19 02/10/17 09:30 Ativan IVPUSH 02/10/17 09:20 0.5 mg ONETIME ONE Administration Ondansetron HCl 4 mg 02/10/17 07:03 02/10/17 07:05 Zofran IVPUSH 02/10/17 07:04 4 mg ONETIME ONE Administration Ondansetron HCl Confirm 02/10/17 07:03 Zofran Administered 02/10/17 07:04 Dose 4 mg .ROUTE .STK-MED ONE Sodium Chloride 10 ml 02/10/17 06:54 02/10/17 06:59 Saline Flush FLUSH 10 ml ASDIRECTED PRN Administration Keep Vein Open - Re-Assessments/Exams Free Text/Narrative Re-Assessment/Exam: 02/10/17 06:59 IV hydration was initiated, a CT of the head and the left shoulder were obtained. CBC CMP EtOH, pro time were obtained. Patient was given 0.5 mg of Dilaudid IV. Departure - Departure Time of Disposition: 11:17 Disposition: DC/Tfer to Acute Hospital 02 Condition: fair Clinical Impression: Subdural hematoma Closed left humeral fracture Qualifiers: Encounter type: initial encounter Humerus Location: proximal Fracture alignment : nondisplaced - Discharge Information Referrals: PCP,None [Primary Care Provider] - Forms: ED Department Discharge Care Plan Goals: Patient was transferred to [place] for definitive care <Gildardo Boylee - Last Filed: 02/13/17 21:13> Course - Re-Assessments/Exams Free Text/Narrative Re-Assessment/Exam: 02/10/17 08:31 pt was found to have a thin 4-5 mm subdural which is definitely new. He has a very communited left shoulder. Neurosurgery was contacted regarding the subdural and they are reviewing it at this time.. This can probably be reviewed in the next 6 hours with another cat scan. It was mentioned that people who drink have a platlet dysfuntion . Often platlets hould be given to the pt. 02/13/17 21:11 Pt remained stable. There are no beds available for him to be admitted . He was transfered to [facility].
[2017-02-10] MEDS ORDERED: Ondansetron 4 MG/2 ML SDV ONE (07:03)
[2017-02-10] MEDS ORDERED: Ondansetron 4 MG/2 ML SDV IVPUSH ONE (07:03)
[2017-02-10] MEDS ORDERED: LORazepam 2 MG/ML MDV IVPUSH ONE (09:19)
[2017-02-10] MEDS ORDERED: HYDROmorphone 1 MG/ML Syringe IM ONE (11:03)
[2017-02-10] MEDS ORDERED: HYDROmorphone 1 MG/ML Syringe IVPUSH ONE (11:08)
[2017-02-10 11:16] VITALS: BP 166/108
== END 2017-02-10 11:20 ==
LOC: JP.ED 06:16
DX: S06.5X0A Traumatic subdural hemorrhage without loss of consciousness, initial encounter (principal); S42.255A Nondisplaced fracture of greater tuberosity of left humerus, initial encounter for closed fracture; S42.265A Nondisplaced fracture of lesser tuberosity of left humerus, initial encounter for closed fracture; S42.215A Unspecified nondisplaced fracture of surgical neck of left humerus, initial encounter for closed fracture; S40.022A Contusion of left upper arm, initial encounter; S00.01XA Abrasion of scalp, initial encounter; E78.00 Pure hypercholesterolemia, unspecified; I10 Essential (primary) hypertension; F41.9 Anxiety disorder, unspecified; F32.9 Major depressive disorder, single episode, unspecified; F17.210 Nicotine dependence, cigarettes, uncomplicated; E11.9 Type 2 diabetes mellitus without complications; Z90.49 Acquired absence of other specified parts of digestive tract; Z98.890 Other specified postprocedural states; Z88.8 Allergy status to other drugs, medicaments and biological substances; Z79.82 Long term (current) use of aspirin; Z79.899 Other long term (current) drug therapy; Z79.4 Long term (current) use of insulin; W01.10XA Fall on same level from slipping, tripping and stumbling with subsequent striking against unspecified object, initial encounter
CPT/HCPCS: 36415; 70450; 73200; 80053; 85025; 85610; 96361; 96374; 96375; 96376; 99284; 99285; G0480; J1170; J2060; J2405; J7040; J7050

== ENCOUNTER 2017-03-31 11:50 | Emergency (ER) | payer MEDICAID ==
[2017-03-31 12:14] VITALS: BP 170/94
[2017-03-31] MEDS ORDERED: fentaNYL 100 MCG/2 ML SDV IVPUSH ONE (12:51)
[2017-03-31] MEDS ORDERED: LORazepam 2 MG/ML MDV IVPUSH ONE (12:52)
--- NOTE | 2017-03-31 12:59 | EDM.PDOC ---
ED HPI GENERAL MEDICAL PROBLEM - General Chief Complaint: Drug or Alcohol Abuse Stated Complaint: MEDICAL VIA [facility] Time Seen by Provider: 03/31/17 12:41 Source of Information: Reports: Patient, Old Records, RN Notes Reviewed History Limitations: Reports: No Limitations - History of Present Illness INITIAL COMMENTS - FREE TEXT/NARRATIVE: 56-year-old gentleman presents emergency department today with complaint of pain all over difficulty breathing and anxiety, he has known history of alcohol abuse disorder was recently placed in detention for ongoing care for left humeral fracture, he did well while in the detention he is now out he has pain medication of oxycodone extended release morphine he states he panicked today because his pain got so severe took 3 extended release morphine's at one time and then became more agitated the point where he called EMS services - Related Data Allergies Allergy/AdvReac Type Severity Reaction Status Date / Time zolpidem tartrate Allergy Cannot Verified 03/31/17 12:59 [From Maite] Remember Home Meds: Home Meds Aspirin [Halfprin] 81 mg PO DAILY 10/17/14 [History] Gabapentin 900 mg PO BID 12/04/14 [History] Simvastatin 40 mg PO BEDTIME 12/04/14 [History] traZODone 100 - 200 mg PO BEDTIME 12/04/14 [History] Insulin Glarg,Human.Rec.Analog [Lantus Solostar] 35 unit SQ BEDTIME 04/03/15 [ History] Venlafaxine HCl [Venlafaxine ER] 150 mg PO DAILY 04/03/15 [History] Metoprolol Tartrate [Lopressor] 50 mg PO BID 04/05/15 [History] metFORMIN [Glucophage] 1,000 mg PO BIDAC 03/11/16 [History] Multivit-Min/FA/Lycopene/Lut [Certavite Sr-Antioxidant Tab] 1 tab PO DAILY 06/16 [History] Pantoprazole [ProTONIX] 40 mg PO DAILY #30 tab.cr 06/17/16 [Rx] Insulin Aspart [NovoLOG] 2 units SQ ASDIRECTED 08/21/16 [History] Lisinopril [Lisinopril] 1 tab PO DAILY 09/28/16 [History] Morphine Sulfate [Morphine Sulfate ER] 03/31/17 [History] Past Medical History Cardiovascular History: Reports: High Cholesterol, Hypertension Other Cardiovascular History: Past chest pain Questionable [place] in past. Gastrointestinal History: Reports: Pancreatitis Musculoskeletal History: Reports: Fracture, Other (See Below) Other Musculoskeletal History: fx toe L humeral fracture. Neurological History: Reports: Head Trauma Psychiatric History: Reports: Addiction, Anxiety, Depression, Other (See Below) Other Psychiatric History: Alcohol abuse. Endocrine/Metabolic History: Reports: Diabetes, Type II - Infectious Disease History Infectious Disease History: Reports: Chicken Pox - Past Surgical History HEENT Surgical History: Reports: Adenoidectomy GI Surgical History: Reports: Appendectomy Social & Family History - Family History Family Medical History: Noncontributory - Tobacco Use Smoking Status *Q: Current Every Day Smoker Years of Tobacco use: 40 Packs/Tins Daily: 1 Used Tobacco, but Quit: No Second Hand Smoke Exposure: Yes - Caffeine Use Caffeine Use: Reports: Coffee, Soda - Alcohol Use Days Per Week of Alcohol Use: 7 Number of Drinks Per Day: 7 Total Drinks Per Week: 49 - Recreational Drug Use Recreational Drug Use: No ED ROS GENERAL - Review of Systems Review Of Systems: See Below Constitutional: Reports: No Symptoms HEENT: Reports: No Symptoms Respiratory: Reports: Shortness of Breath Cardiovascular: Reports: No Symptoms GI/Abdominal: Reports: No Symptoms : Reports: No Symptoms Musculoskeletal: Reports: Shoulder Pain Skin: Reports: No Symptoms Neurological: Reports: No Symptoms Psychiatric: Reports: Anxiety ED EXAM, BEHAVIORAL HEALTH - Physical Exam Exam: See Below Text/Narrative:: General: Male, anxious but not in distress, alert and oriented x3 HEENT: head is atraumatic normocephalic, eyes pupils equal round reactive to light, sclera clear no conjunctivitis appreciated. Ears tympanic membranes clear and blas landmarks and light reflex are present bilaterally canals are clear. Nose no septal deviation, nares are clear, no blood present. Mouth mucosa is moist and pink no erythema or exudate noted in soft palate, tongue is midline uvula is midline, dentition is poor. Neck: Supple no thyromegaly no tracheal deviation. Nodes: Cervical nodes subclavicular nodes nontender no palpable lymphadenopathy noted. Lungs: clear to auscultation bilaterally with symmetrical respirations, no adventitious noise appreciated. CV: Regular rate and rhythm S1 and S2 appreciated no murmurs rubs or gallops noted. Abdomen: Soft, nontender, no palpable masses or organomegaly appreciated, no distention no guarding bowel sounds are present,. Neuro: Cranial nerves II through XII grossly intact Skin: Warm and dry, intact Extremities: Bilateral pedal edema noted, pedal pulse is +2. COURSE, BEHAVIORAL HEALTH COMP - Course Vital Signs: Last Vital Signs Temp 97.1 F 03/31/17 12:13 Pulse 102 H 03/31/17 12:13 Resp 22 H 03/31/17 12:13 BP 170/94 H 03/31/17 12:13 Pulse Ox 97 03/31/17 12:13 Orders, Labs, Meds: Active Orders 24 hr Category Date Time Status Chest 2V [CR] Stat Exams 03/31/17 12:49 Taken Laboratory Tests 03/31/17 03/31/17 03/31/17 Range/Units 12:55 12:55 12:58 WBC 6.3 (4.5-11.0) K/uL RBC 4.06 L (4.30-5.90) M/uL Hgb 13.0 D (12.0-15.0) g/dL Hct 37.5 L (40.0-54.0) % MCV 92 (80-98) fL MCH 32 H (27-31) pg MCHC 35 (32-36) % Plt Count 253 (150-400) K/uL Neut % (Auto) 67 H (36-66) % Lymph % (Auto) 27 (24-44) % Cooke % (Auto) 6 (2-6) % Eos % (Auto) 0 L (2-4) % Baso % (Auto) 1 (0-1) % Sodium 137 L (140-148) mmol/L Potassium 4.7 (3.6-5.2) mmol/L Chloride 99 L (100-108) mmol/L Carbon Dioxide 22 (21-32) mmol/L Anion Gap 20.7 H (5.0-14.0) mmol/L BUN 11 (7-18) mg/dL Creatinine 0.8 (0.8-1.3) mg/dL Est Cr Clr Drug Dosing 103.92 mL/min Estimated GFR (MDRD) > 60 (>60) Glucose 187 H (74-106) mg/dL Calcium 8.8 (8.5-10.1) mg/dL Total Bilirubin 0.4 (0.2-1.0) mg/dL AST 22 (15-37) U/L ALT 21 (12-78) U/L Alkaline Phosphatase 100 (46-116) U/L Biu-V-Hmwenevbdql Pept 18 (5-125) pg/mL Total Protein 7.7 (6.4-8.2) g/dL Albumin 3.8 (3.4-5.0) g/dL Globulin 3.9 H (2.3-3.5) g/dL Albumin/Globulin Ratio 1.0 L (1.2-2.2) Urine Color Yellow Urine Appearance Clear Urine pH 5.0 (4.5-8.0) Ur Specific [place] 1.020 (1.008-1.030) Urine Protein Trace (NEGATIVE) mg/dL Urine Glucose (UA) 100 H (NEGATIVE) mg/dL Urine Ketones 50 H (NEGATIVE) mg/dL Urine Occult Blood Negative (NEGATIVE) Urine Nitrite Negative (NEGAITVE) Urine Bilirubin Negative (NEGATIVE) Urine Urobilinogen Normal (NORMAL) mg/dL Ur Leukocyte Esterase Negative (NEGATIVE) Urine RBC 0-5 (0-5) Urine WBC Not seen (0-5) Ur Epithelial Cells Not seen Amorphous Sediment Not seen Urine Bacteria Not seen Urine Mucus Not seen Urine Opiates Screen (NEGATIVE) Ur Oxycodone Screen (NEGATIVE) Urine Methadone Screen (NEGATIVE) Ur Propoxyphene Screen (NEGATIVE) Ur Barbiturates Screen (NEGATIVE) Ur Tricyclics Screen (NEGATIVE) Ur Phencyclidine Scrn (NEGATIVE) Ur Amphetamine Screen (NEGATIVE) U Methamphetamines Scrn (NEGATIVE) Urine MDMA Screen (NEGATIVE) U Benzodiazepines Scrn (NEGATIVE) U Cocaine Metab Screen (NEGATIVE) U Marijuana (THC) Screen (NEGATIVE) Ethyl Alcohol mg/dL 03/31/17 03/31/17 Range/Units 12:58 13:28 WBC (4.5-11.0) K/uL RBC (4.30-5.90) M/uL Hgb (12.0-15.0) g/dL Hct (40.0-54.0) % MCV (80-98) fL MCH (27-31) pg MCHC (32-36) % Plt Count (150-400) K/uL Neut % (Auto) (36-66) % Lymph % (Auto) (24-44) % Cooke % (Auto) (2-6) % Eos % (Auto) (2-4) % Baso % (Auto) (0-1) % Sodium (140-148) mmol/L Potassium (3.6-5.2) mmol/L Chloride (100-108) mmol/L Carbon Dioxide (21-32) mmol/L Anion Gap (5.0-14.0) mmol/L BUN (7-18) mg/dL Creatinine (0.8-1.3) mg/dL Est Cr Clr Drug Dosing mL/min Estimated GFR (MDRD) (>60) Glucose (74-106) mg/dL Calcium (8.5-10.1) mg/dL Total Bilirubin (0.2-1.0) mg/dL AST (15-37) U/L ALT (12-78) U/L Alkaline Phosphatase (46-116) U/L [id number] Pept (5-125) pg/mL Total Protein (6.4-8.2) g/dL Albumin (3.4-5.0) g/dL Globulin (2.3-3.5) g/dL Albumin/Globulin Ratio (1.2-2.2) Urine Color Urine Appearance Urine pH (4.5-8.0) Ur Specific [place] (1.008-1.030) Urine Protein (NEGATIVE) mg/dL Urine Glucose (UA) (NEGATIVE) mg/dL Urine Ketones (NEGATIVE) mg/dL Urine Occult Blood (NEGATIVE) Urine Nitrite (NEGAITVE) Urine Bilirubin (NEGATIVE) Urine Urobilinogen (NORMAL) mg/dL Ur Leukocyte Esterase (NEGATIVE) Urine RBC (0-5) Urine WBC (0-5) Ur Epithelial Cells Amorphous Sediment Urine Bacteria Urine Mucus Urine Opiates Screen Positive H (NEGATIVE) Ur Oxycodone Screen Positive H (NEGATIVE) Urine Methadone Screen Negative (NEGATIVE) Ur Propoxyphene Screen Negative (NEGATIVE) Ur Barbiturates Screen Negative (NEGATIVE) Ur Tricyclics Screen Negative (NEGATIVE) Ur Phencyclidine Scrn Negative (NEGATIVE) Ur Amphetamine Screen Negative (NEGATIVE) U Methamphetamines Scrn Negative (NEGATIVE) Urine MDMA Screen Negative (NEGATIVE) U Benzodiazepines Scrn Negative (NEGATIVE) U Cocaine Metab Screen Negative (NEGATIVE) U Marijuana (THC) Screen Negative (NEGATIVE) Ethyl Alcohol 99 mg/dL Medications Discontinued Medications Generic Name Dose Route Start Last Admin Trade Name Freq PRN Reason Stop Dose Admin Fentanyl 100 mcg 03/31/17 12:51 Sublimaze IVPUSH 03/31/17 12:52 ONETIME ONE Lorazepam 1 mg 03/31/17 12:52 Ativan IVPUSH 03/31/17 12:53 ONETIME ONE Departure - Departure Time of Disposition: 14:05 Disposition: Home, Self-Care 01 Condition: Poor Clinical Impression: Anxiety - Discharge Information Forms: ED Department Discharge Additional Instructions: Use Ativan as needed to help control symptoms, Please followup with your primary care provider in 7-10 days if not better, please call return to the emergency department with worsening of symptoms. - My Orders Last 24 Hours: My Active Orders 03/31/17 12:49 Chest 2V [CR] Stat - Assessment/Plan Last 24 Hours: My Active Orders 03/31/17 12:49 Chest 2V [CR] Stat Plan: Assessment Acuity = acute Site and laterality = panic attack complicated patient with known history of alcohol abuse and dependence and a left humerus fracture on chronic opiates Etiology = generalized anxiety Manifestations = dyspnea now resolved Location of injury = Home Lab values = CBC within normal limits, sodium low at 137 consistent hyponatremia , glucose elevated at 100 consistent glucose urea specific gravity 1.02 consistent with intravascular volume depletion ketones elevated at 50 consistent ketonuria chest x-ray I did review films myself I cannot appreciate any acute process, the official read from radiology is pending urine drug screen positive for opiates and oxycodone a call level is 99 Plan I did review lab and x-ray results with him he had some relief with the Ativan provided prescription for 10 Ativan discharged home follow-up primary care 3-5 days for reevaluation Patient was in agreement with the plan all questions were answered, they were instructed to return to the emergency department or call for worsening symptoms. This note was dictated using [employer] voice recognition software please call with any questions.
--- NOTE | 2017-04-01 08:41 | CR ---
Heart size within normal limits. Pulmonary vasculature within normal limits. No focal consolidation. Remote left rib fractures.
== END 2017-03-31 14:25 | disposition home or self-care (01) ==
LOC: JP.ED 11:50
DX: F41.9 Anxiety disorder, unspecified (principal); E78.00 Pure hypercholesterolemia, unspecified; I10 Essential (primary) hypertension; F17.210 Nicotine dependence, cigarettes, uncomplicated; E11.9 Type 2 diabetes mellitus without complications; F32.9 Major depressive disorder, single episode, unspecified; Z90.49 Acquired absence of other specified parts of digestive tract; Z88.8 Allergy status to other drugs, medicaments and biological substances; Z79.82 Long term (current) use of aspirin; Z79.4 Long term (current) use of insulin; Z79.84 Long term (current) use of oral hypoglycemic drugs; Z79.899 Other long term (current) drug therapy
CPT/HCPCS: 36415; 71020; 80053; 80305; 81001; 83880; 85025; 96374; 99284; G0480; J2060; 99283

== ENCOUNTER 2017-04-06 13:07 | Emergency (ER) | payer MEDICAID ==
[2017-04-06 13:23] VITALS: BP 155/83
--- NOTE | 2017-04-06 14:38 | EDM.PDOC ---
[id number]: MEDICAL VIA AMBULANCE Time Seen by Provider: 04/06/17 14:00 Source of Information: Reports: Patient, EMS History Limitations: Reports: Altered Mental Status, Intoxication - History of Present Illness INITIAL COMMENTS - FREE TEXT/NARRATIVE: 56-year-old male chronic alcoholic arrives by EMS intoxicated, after taking several extra pain pills but not taking his regular medications. He has no specific complaint for calling the ambulance other than he is hungry, he's been drinking, and as usual he just wants to be taken care of. He continues to wear his left arm in a sling from a fracture 2 months ago. He had a follow-up with orthopedics this morning that he missed. He has abrasions on his knees from falling, and is again intoxicated. As soon as he was dropped off by the ambulance he turned on the TV and asked for something to eat. Onset: Unknown/Unsure Severity: Moderate Associated Symptoms: Reports: Confusion (Chronic). Denies: Fever/Chills, Nausea /Vomiting, Shortness of Breath - Related Data Allergies Allergy/AdvReac Type Severity Reaction Status Date / Time zolpidem tartrate Allergy Cannot Verified 03/31/17 12:59 [From Maite] Remember Home Meds: Home Meds Aspirin [Halfprin] 81 mg PO DAILY 10/17/14 [History] Gabapentin 900 mg PO BID 12/04/14 [History] Simvastatin 40 mg PO BEDTIME 12/04/14 [History] traZODone 100 - 200 mg PO BEDTIME 12/04/14 [History] Insulin Glarg,Human.Rec.Analog [Lantus Solostar] 35 unit SQ BEDTIME 04/03/15 [ History] Venlafaxine HCl [Venlafaxine ER] 150 mg PO DAILY 04/03/15 [History] Metoprolol Tartrate [Lopressor] 50 mg PO BID 04/05/15 [History] metFORMIN [Glucophage] 1,000 mg PO BIDAC 03/11/16 [History] Multivit-Min/FA/Lycopene/Lut [Certavite Sr-Antioxidant Tab] 1 tab PO DAILY 06/16 [History] Pantoprazole [ProTONIX] 40 mg PO DAILY #30 tab.cr 06/17/16 [Rx] Insulin Aspart [NovoLOG] 2 units SQ ASDIRECTED 08/21/16 [History] Morphine Sulfate [Morphine Sulfate ER] 1 tab PO Q12H PRN 03/31/17 [History] Ergocalciferol (Vitamin D2) [Vitamin D2] 1 tab PO DAILY 04/03/17 [History] Lisinopril [Zestril] 20 mg PO DAILY 04/03/17 [History] Magnesium Oxide [Magnesium] 800 mg PO BID 04/03/17 [History] Venlafaxine HCl [Venlafaxine ER] 75 mg PO DAILY 04/03/17 [History] Past Medical History Cardiovascular History: Reports: High Cholesterol, Hypertension Other Cardiovascular History: Past chest pain Questionable [place] in past. Gastrointestinal History: Reports: Pancreatitis Musculoskeletal History: Reports: Fracture, Other (See Below) Other Musculoskeletal History: fx toe L humeral fracture. Neurological History: Reports: Head Trauma Psychiatric History: Reports: Addiction, Anxiety, Depression, Other (See Below) Other Psychiatric History: Alcohol abuse. Endocrine/Metabolic History: Reports: Diabetes, Type II - Infectious Disease History Infectious Disease History: Reports: Chicken Pox - Past Surgical History HEENT Surgical History: Reports: Adenoidectomy GI Surgical History: Reports: Appendectomy Social & Family History - Family History Family Medical History: Noncontributory - Tobacco Use Smoking Status *Q: Current Every Day Smoker Years of Tobacco use: 40 Packs/Tins Daily: 1 Used Tobacco, but Quit: No Second Hand Smoke Exposure: Yes - Caffeine Use Caffeine Use: Reports: Coffee, Soda - Alcohol Use Days Per Week of Alcohol Use: 7 Number of Drinks Per Day: 10 Total Drinks Per Week: 70 - Recreational Drug Use Recreational Drug Use: No ED ROS GENERAL - Review of Systems Review Of Systems: See Below Constitutional: Reports: Malaise. Denies: Fever, Chills HEENT: Reports: No Symptoms Respiratory: Denies: Shortness of Breath Cardiovascular: Denies: Chest Pain GI/Abdominal: Denies: Abdominal Pain : Reports: No Symptoms Musculoskeletal: Reports: Arm Pain (Left-sided, pain for the last 2 months) Skin: Reports: Bruising, Other (Numerous abrasions and bruises on his lower extremities) Neurological: Reports: Confusion, Other (Intoxicated) Psychiatric: Denies: Suicidal Ideation ED EXAM, BEHAVIORAL HEALTH - Physical Exam Exam: See Below Exam Limited By: Intoxication General Appearance: Alert, No Apparent Distress Eye Exam: Bilateral Eye: Abnormal EOM (No jaundice), EOMI Neck: Normal Inspection, Supple Respiratory/Chest: Lungs Clear Cardiovascular: Regular Rate, Rhythm GI/Abdominal: Non-Tender Extremities: Other (Left arm is in a sling and has palpation tenderness to the upper arm. Ambulates without difficulty but has several abrasions on his anterior knees and bruises in different stages of healing) Neurological: Alert, Oriented x 3 Psychiatric: Flat Affect, Other (Intoxicated with alcohol) COURSE, BEHAVIORAL HEALTH COMP - Course Vital Signs: Last Vital Signs Temp 100.1 F 04/06/17 13:39 Pulse 101 H 04/06/17 13:39 Resp 15 04/06/17 13:39 BP 155/83 H 04/06/17 13:39 Pulse Ox 95 04/06/17 13:39 Orders, Labs, Meds: Laboratory Tests 04/06/17 04/06/17 04/06/17 Range/Units 13:25 13:25 13:25 WBC 11.6 H (4.5-11.0) K/uL RBC 3.77 L (4.30-5.90) M/uL Hgb 12.0 (12.0-15.0) g/dL Hct 34.5 L (40.0-54.0) % MCV 92 (80-98) fL MCH 32 H (27-31) pg MCHC 35 (32-36) % Plt Count 148 L (150-400) K/uL Neut % (Auto) 75 H (36-66) % Lymph % (Auto) 19 L (24-44) % [place] % (Auto) 6 (2-6) % Eos % (Auto) 0 L (2-4) % Baso % (Auto) 0 (0-1) % Sodium 133 L (140-148) mmol/L Potassium 3.3 L (3.6-5.2) mmol/L Chloride 95 L (100-108) mmol/L Carbon Dioxide 20 L (21-32) mmol/L Anion Gap 21.3 H (5.0-14.0) mmol/L BUN 7 (7-18) mg/dL Creatinine 0.9 (0.8-1.3) mg/dL Est Cr Clr Drug Dosing 92.60 mL/min Estimated GFR (MDRD) > 60 (>60) Glucose 269 H (74-106) mg/dL Calcium 8.0 L (8.5-10.1) mg/dL Creatine Kinase 1793 H (39-308) U/L Urine Color Urine Appearance Urine pH (4.5-8.0) Ur Specific [place] (1.008-1.030) Urine Protein (NEGATIVE) mg/dL Urine Glucose (UA) (NEGATIVE) mg/dL Urine Ketones (NEGATIVE) mg/dL Urine Occult Blood (NEGATIVE) Urine Nitrite (NEGAITVE) Urine Bilirubin (NEGATIVE) Urine Urobilinogen (NORMAL) mg/dL Ur Leukocyte Esterase (NEGATIVE) Urine RBC (0-5) Urine WBC (0-5) Ur Epithelial Cells Amorphous Sediment Urine Bacteria Urine Mucus Ethyl Alcohol 265 mg/dL 04/06/17 Range/Units 14:06 WBC (4.5-11.0) K/uL RBC (4.30-5.90) M/uL Hgb (12.0-15.0) g/dL Hct (40.0-54.0) % MCV (80-98) fL MCH (27-31) pg MCHC (32-36) % Plt Count (150-400) K/uL Neut % (Auto) (36-66) % Lymph % (Auto) (24-44) % [place] % (Auto) (2-6) % Eos % (Auto) (2-4) % Baso % (Auto) (0-1) % Sodium (140-148) mmol/L Potassium (3.6-5.2) mmol/L Chloride (100-108) mmol/L Carbon Dioxide (21-32) mmol/L Anion Gap (5.0-14.0) mmol/L BUN (7-18) mg/dL Creatinine (0.8-1.3) mg/dL Est Cr Clr Drug Dosing mL/min Estimated GFR (MDRD) (>60) Glucose (74-106) mg/dL Calcium (8.5-10.1) mg/dL Creatine Kinase (39-308) U/L Urine Color Yellow Urine Appearance Slightly cloudy Urine pH 5.0 (4.5-8.0) Ur Specific [place] 1.015 (1.008-1.030) Urine Protein 30 H (NEGATIVE) mg/dL Urine Glucose (UA) 1000 H (NEGATIVE) mg/dL Urine Ketones 50 H (NEGATIVE) mg/dL Urine Occult Blood Large (NEGATIVE) Urine Nitrite Negative (NEGAITVE) Urine Bilirubin Negative (NEGATIVE) Urine Urobilinogen Normal (NORMAL) mg/dL Ur Leukocyte Esterase Negative (NEGATIVE) Urine RBC 0-5 (0-5) Urine WBC 0-5 (0-5) Ur Epithelial Cells Rare Amorphous Sediment Not seen Urine Bacteria Not seen Urine Mucus Rare Ethyl Alcohol mg/dL Re-Assessment/Re-Exam: EtOH was 0.265. This started the process to get this patient admitted into a [facility] human services worker evaluation recommended detox while awaiting [facility] bed to open. [facility] was kind enough to accept the patient in 3 days of his medications were obtained through his pharmacy. Hopefully he can be discharged from pain management directly into [facility]. Departure - Departure Time of Disposition: 15:55 Disposition: DC/Tfer to Other 70 Condition: Fair Clinical Impression: Alcohol abuse - Discharge Information Instructions: Alcohol Use Disorder Referrals: PCP,None [Primary Care Provider] - Forms: ED Department Discharge Care Plan Goals: Patient will spend the next 2-3 days in [place] for detox and observation before being admitted hopefully to [facility] in the near future.
== END 2017-04-06 15:56 | disposition other institution (70) ==
LOC: JP.ED 13:07
DX: F10.129 Alcohol abuse with intoxication, unspecified (principal); Y90.8 Blood alcohol level of 240 mg/100 ml or more; F17.210 Nicotine dependence, cigarettes, uncomplicated; E11.9 Type 2 diabetes mellitus without complications; E78.00 Pure hypercholesterolemia, unspecified; I10 Essential (primary) hypertension; F41.9 Anxiety disorder, unspecified; F32.9 Major depressive disorder, single episode, unspecified; Z90.49 Acquired absence of other specified parts of digestive tract; Z98.890 Other specified postprocedural states; Z79.899 Other long term (current) drug therapy; Z79.84 Long term (current) use of oral hypoglycemic drugs; Z79.82 Long term (current) use of aspirin; Z88.8 Allergy status to other drugs, medicaments and biological substances
CPT/HCPCS: 36415; 80048; 81001; 82550; 85025; 99284; G0480

== ENCOUNTER 2017-04-11 16:28 | Emergency (ER) | payer MEDICAID ==
[2017-04-11 16:36] VITALS: BP 138/71
--- NOTE | 2017-04-11 18:13 | EDM.PDOC ---
ED HPI GENERAL MEDICAL PROBLEM - General Chief Complaint: General Stated Complaint: [place] [place] Time Seen by Provider: 04/11/17 17:07 Source of Information: Reports: Patient History Limitations: Reports: No Limitations - History of Present Illness INITIAL COMMENTS - FREE TEXT/NARRATIVE: This patient is here saying that he needs to go to detox. He's been drinking vodka all day long. Very recently he was in the ER and he was sent to a detox and then put in a halfway however he left the halfway to go drink. Now he also complains of pain in his shoulders legs knees and most everything else. He does have a home to go to - Related Data Allergies Allergy/AdvReac Type Severity Reaction Status Date / Time zolpidem tartrate Allergy Cannot Verified 03/31/17 12:59 [From Maite] Remember Home Meds: Home Meds Aspirin [Halfprin] 81 mg PO DAILY 10/17/14 [History] Gabapentin 900 mg PO BID 12/04/14 [History] Simvastatin 40 mg PO BEDTIME 12/04/14 [History] traZODone 100 - 200 mg PO BEDTIME 12/04/14 [History] Insulin Glarg,Human.Rec.Analog [Lantus Solostar] 35 unit SQ BEDTIME 04/03/15 [ History] Venlafaxine HCl [Venlafaxine ER] 150 mg PO DAILY 04/03/15 [History] Metoprolol Tartrate [Lopressor] 50 mg PO BID 04/05/15 [History] metFORMIN [Glucophage] 1,000 mg PO BIDAC 03/11/16 [History] Multivit-Min/FA/Lycopene/Lut [Certavite Sr-Antioxidant Tab] 1 tab PO DAILY 06/16 [History] Pantoprazole [ProTONIX] 40 mg PO DAILY #30 tab.cr 06/17/16 [Rx] Insulin Aspart [NovoLOG] 2 units SQ ASDIRECTED 08/21/16 [History] Morphine Sulfate [Morphine Sulfate ER] 1 tab PO Q12H PRN 03/31/17 [History] Ergocalciferol (Vitamin D2) [Vitamin D2] 1 tab PO DAILY 04/03/17 [History] Lisinopril [Zestril] 20 mg PO DAILY 04/03/17 [History] Magnesium Oxide [Magnesium] 800 mg PO BID 04/03/17 [History] Venlafaxine HCl [Venlafaxine ER] 75 mg PO DAILY 04/03/17 [History] Past Medical History Cardiovascular History: Reports: High Cholesterol, Hypertension Other Cardiovascular History: Past chest pain Questionable [place] in past. Gastrointestinal History: Reports: Pancreatitis Musculoskeletal History: Reports: Fracture, Other (See Below) Other Musculoskeletal History: fx toe L humeral fracture. Neurological History: Reports: Head Trauma Psychiatric History: Reports: Addiction, Anxiety, Depression, Other (See Below) Other Psychiatric History: Alcohol abuse. Endocrine/Metabolic History: Reports: Diabetes, Type II - Infectious Disease History Infectious Disease History: Reports: Chicken Pox - Past Surgical History HEENT Surgical History: Reports: Adenoidectomy GI Surgical History: Reports: Appendectomy Social & Family History - Family History Family Medical History: Noncontributory - Tobacco Use Smoking Status *Q: Current Every Day Smoker Years of Tobacco use: 20 Packs/Tins Daily: 1 Used Tobacco, but Quit: No Second Hand Smoke Exposure: Yes - Caffeine Use Caffeine Use: Reports: Coffee - Alcohol Use Days Per Week of Alcohol Use: 7 Number of Drinks Per Day: 3 Total Drinks Per Week: 21 Date of Last Drink: 04/11/17 Time of Last Drink: 15:00 - Recreational Drug Use Recreational Drug Use: No ED ROS GENERAL - Review of Systems Review Of Systems: ROS reveals no pertinent complaints other than HPI. ED EXAM, GENERAL - Physical Exam Exam: See Below Exam Limited By: No Limitations General Appearance: Alert, No Apparent Distress (He does not appear to be in any distress. He is not obviously intoxicated. He does have a foul odor that must be masking the alcohol odor), Obese Eye Exam: Bilateral Eye: Normal Inspection Throat/Mouth: Normal Inspection Head: Atraumatic Respiratory/Chest: Lungs Clear Cardiovascular: Regular Rate, Rhythm GI/Abdominal: Non-Tender Extremities: Other (He has a number of abrasions to both knees that appear to be about a week old. He has his left arm in a sling however he was observed multiple times reaching around and over his head and so forth with his left arm and it didn't seem to bother him.) Neurological: Alert, Oriented, CN II-XII Intact, Normal Cognition (Does not appear to be obviously intoxicated), No Motor/Sensory Deficits Psychiatric: Normal Affect Skin Exam: Warm, Dry Course - Vital Signs Last Recorded V/S: Last Vital Signs Temp 36.6 C 04/11/17 16:56 Pulse 103 H 04/11/17 16:56 Resp 16 04/11/17 16:56 BP 138/71 04/11/17 16:56 Pulse Ox 93 L 04/11/17 16:56 - Orders/Labs/Meds Labs: Laboratory Tests 04/11/17 04/11/17 04/11/17 Range/Units 17:23 17:23 17:23 WBC 7.2 (4.5-11.0) K/uL RBC 3.90 L (4.30-5.90) M/uL Hgb 12.3 (12.0-15.0) g/dL Hct 36.8 L (40.0-54.0) % MCV 94 (80-98) fL MCH 32 H (27-31) pg MCHC 33 (32-36) % Plt Count 134 L (150-400) K/uL Neut % (Auto) 54 (36-66) % Lymph % (Auto) 38 (24-44) % [place] % (Auto) 6 (2-6) % Eos % (Auto) 1 L (2-4) % Baso % (Auto) 1 (0-1) % Sodium 142 (140-148) mmol/L Potassium 3.6 (3.6-5.2) mmol/L Chloride 105 (100-108) mmol/L Carbon Dioxide 25 (21-32) mmol/L Anion Gap 12.0 (5.0-14.0) mmol/L BUN 12 D (7-18) mg/dL Creatinine 0.9 (0.8-1.3) mg/dL Est Cr Clr Drug Dosing 92.60 mL/min Estimated GFR (MDRD) > 60 (>60) Glucose 135 H (74-106) mg/dL Calcium 8.0 L (8.5-10.1) mg/dL Total Bilirubin 0.2 (0.2-1.0) mg/dL AST 39 H D (15-37) U/L ALT 50 D (12-78) U/L Alkaline Phosphatase 100 (46-116) U/L Total Protein 6.6 (6.4-8.2) g/dL Albumin 3.1 L (3.4-5.0) g/dL Globulin 3.5 (2.3-3.5) g/dL Albumin/Globulin Ratio 0.9 L (1.2-2.2) Ethyl Alcohol 271 mg/dL - Re-Assessments/Exams Free Text/Narrative Re-Assessment/Exam: 04/11/17 18:11 Labs were reviewed on this patient. He did receive approximately 1 L IV normal saline. We do not feel that this patient would benefit from going to detox or alcohol rehabilitation. He will be discharged home Departure - Departure Time of Disposition: 18:12 Disposition: Home, Self-Care 01 Condition: Fair Clinical Impression: Alcoholism - Discharge Information Forms: ED Department Discharge Additional Instructions: Avoid excess alcohol use. Be sure to eat a good diet every day. Be sure to drink plenty of liquids besides alcohol
== END 2017-04-11 18:53 | disposition home or self-care (01) ==
LOC: JP.ED 16:28
DX: F10.20 Alcohol dependence, uncomplicated (principal); E78.00 Pure hypercholesterolemia, unspecified; I10 Essential (primary) hypertension; F41.9 Anxiety disorder, unspecified; F32.9 Major depressive disorder, single episode, unspecified; E11.9 Type 2 diabetes mellitus without complications; Z88.8 Allergy status to other drugs, medicaments and biological substances; Z79.82 Long term (current) use of aspirin; Z79.899 Other long term (current) drug therapy; Z79.4 Long term (current) use of insulin; Z98.890 Other specified postprocedural states; F17.210 Nicotine dependence, cigarettes, uncomplicated; Z90.49 Acquired absence of other specified parts of digestive tract; Y90.8 Blood alcohol level of 240 mg/100 ml or more
CPT/HCPCS: 36415; 80053; 85025; 99285; G0480; 99283

== ENCOUNTER 2017-06-05 03:28 | Emergency (ER) | payer MEDICAID ==
[2017-06-05] MEDS ORDERED: Thiamine 100 MG Tab PO ONE (04:17)
[2017-06-05] MEDS ORDERED: Folic Acid 1 MG Tab PO ONE (04:17)
[2017-06-05] MEDS ORDERED: Ketorolac 30 MG/ML SDV IVPUSH ONE (04:25)
[2017-06-05] MEDS ORDERED: Sodium Chloride 0.9% 1,000 ML IV SCH (04:30)
--- NOTE | 2017-06-05 04:30 | EDM.PDOC ---
ED HPI GENERAL MEDICAL PROBLEM - General Chief Complaint: Upper Extremity Injury/Pain Stated Complaint: MEDICAL [facility]IA [facility] Time Seen by Provider: 06/05/17 04:01 Source of Information: Reports: Patient History Limitations: Reports: No Limitations, Intoxication (has been drinking) - History of Present Illness INITIAL COMMENTS - FREE TEXT/NARRATIVE: 56 year old male arrives by ambulance with ongoing left shoulder pain. Hx of injury this spring with x-ray/CT showing a comminuted fracture of left proximal humerus. Wearing a sling since, ongoing pain. States started drinking heavily since yesterday AM, up to one liter of vodka. This per staff is a fairly common occurance. He states he drinks for the pain, but not helping. Has chronic pain in legs secondary to neuropathy from his diabetes, has gabapentine to take for this, but has not taken this due to drinking. Would like to stop drinking, last time in treatment 4 years ago. Lives home alone. Has been prescribed PT, but has not gone. Duration: Chronic Location: Reports: Upper Extremity, Left Quality: Reports: Throbbing Severity: Moderate Improves with: Reports: Immobilization, Rest Worsens with: Reports: Movement Context: Reports: Activity Associated Symptoms: Reports: No Other Symptoms Treatments MEDIA REPORTER: Reports: Acetaminophen, Other (see below) (alcohol) Left Arm Pain Score (Numeric/FACES): 10 - Related Data Allergies Allergy/AdvReac Type Severity Reaction Status Date / Time zolpidem tartrate Allergy Cannot Verified 03/31/17 12:59 [From Maite] Remember Home Meds: Home Meds Aspirin [Halfprin] 81 mg PO DAILY 10/17/14 [History] Gabapentin 900 mg PO BID 12/04/14 [History] Simvastatin 40 mg PO BEDTIME 12/04/14 [History] traZODone 100 - 200 mg PO BEDTIME 12/04/14 [History] Insulin Glarg,Human.Rec.Analog [Lantus Solostar] 35 unit SQ BEDTIME 04/03/15 [ History] Venlafaxine HCl [Venlafaxine ER] 150 mg PO DAILY 04/03/15 [History] Metoprolol Tartrate [Lopressor] 50 mg PO BID 04/05/15 [History] metFORMIN [Glucophage] 1,000 mg PO BIDAC 03/11/16 [History] Multivit-Min/FA/Lycopene/Lut [Certavite Sr-Antioxidant Tab] 1 tab PO DAILY 06/16 [History] Pantoprazole [ProTONIX] 40 mg PO DAILY #30 tab.cr 06/17/16 [Rx] Insulin Aspart [NovoLOG] 2 units SQ ASDIRECTED 08/21/16 [History] Ergocalciferol (Vitamin D2) [Vitamin D2] 1 tab PO DAILY 04/03/17 [History] Lisinopril [Zestril] 20 mg PO DAILY 04/03/17 [History] Magnesium Oxide [Magnesium] 800 mg PO BID 04/03/17 [History] Venlafaxine HCl [Venlafaxine ER] 75 mg PO DAILY 04/03/17 [History] Past Medical History Cardiovascular History: Reports: High Cholesterol, Hypertension Other Cardiovascular History: Past chest pain Questionable [place] in past. Gastrointestinal History: Reports: Pancreatitis Musculoskeletal History: Reports: Fracture, Other (See Below) Other Musculoskeletal History: fx toe L humeral fracture. Neurological History: Reports: Head Trauma Psychiatric History: Reports: Addiction, Anxiety, Depression, Other (See Below) Other Psychiatric History: Alcohol abuse. Endocrine/Metabolic History: Reports: Diabetes, Type II - Infectious Disease History Infectious Disease History: Reports: Chicken Pox - Past Surgical History HEENT Surgical History: Reports: Adenoidectomy GI Surgical History: Reports: Appendectomy Social & Family History - Family History Family Medical History: Noncontributory - Tobacco Use Smoking Status *Q: Current Every Day Smoker Years of Tobacco use: 40 Packs/Tins Daily: 1 Used Tobacco, but Quit: No Second Hand Smoke Exposure: Yes - Caffeine Use Caffeine Use: Reports: Soda - Alcohol Use Days Per Week of Alcohol Use: 7 Number of Drinks Per Day: 3 Total Drinks Per Week: 21 - Recreational Drug Use Recreational Drug Use: No Review of Systems - Review of Systems Review Of Systems: See Below Constitutional: Reports: No Symptoms Eyes: Reports: No Symptoms Ears: Reports: No Symptoms Nose: Reports: No Symptoms Mouth/Throat: Reports: No Symptoms Respiratory: Reports: No Symptoms Cardiovascular: Reports: No Symptoms GI/Abdominal: Reports: No Symptoms Musculoskeletal: Reports: Other (left shoulder pain as above) Skin: Reports: No Symptoms Neurological: Reports: No Symptoms Psychiatric: Reports: Other (has been drinking) ED EXAM, GENERAL - Physical Exam Exam: See Below Exam Limited By: Intoxication General Appearance: Alert, No Apparent Distress Nose: Normal Inspection Throat/Mouth: Normal Inspection Head: Atraumatic, Normocephalic Neck: Normal Inspection, Supple Respiratory/Chest: No Respiratory Distress, Lungs Clear, Normal Breath Sounds Cardiovascular: Regular Rate, Rhythm, No Edema GI/Abdominal: Soft, Non-Tender, No Distention Rectal (Males) Exam: Perirectal Abscess Extremities: Other (wearing left arm sling, removed. Minimal pain to palpation. Hurts as he tries to Abduct shoulder, has limited external rotation) Neurological: Alert, No Motor/Sensory Deficits Psychiatric: Other (recurrently stating that he is in pain and that is why he drinks) Skin Exam: Warm, Dry Course - Vital Signs Last Recorded V/S: Last Vital Signs Temp 36.6 C 06/05/17 03:40 Pulse 102 H 06/05/17 04:39 Resp 19 06/05/17 04:39 BP 134/79 06/05/17 04:39 Pulse Ox 95 06/05/17 04:39 - Orders/Labs/Meds Orders: Active Orders 24 hr Category Date Time Status Vital Signs [RC] PER UNIT ROUTINE Care 06/05/17 04:17 Active Shoulder Comp Lt [CR] Stat Exams 06/05/17 04:20 Taken Sodium Chloride 0.9% [Normal Saline] 1,000 ml Med 06/05/17 04:30 Active IV ASDIRECTED Resuscitation Status Routine Resus Stat 06/05/17 04:17 Ordered Medication Orders Sodium Chloride (Normal Saline) 1,000 mls @ 125 mls/hr IV ASDIRECTED RIKKI Last Admin: 06/05/17 04:35 Dose: 125 mls/hr Labs: Laboratory Tests 06/05/17 06/05/17 06/05/17 Range/Units 04:37 04:37 04:37 WBC 7.3 (4.5-11.0) K/uL RBC 4.13 L (4.30-5.90) M/uL Hgb 12.9 (12.0-15.0) g/dL Hct 36.8 L (40.0-54.0) % MCV 89 (80-98) fL MCH 31 (27-31) pg MCHC 35 (32-36) % Plt Count 196 (150-400) K/uL Neut % (Auto) 50 (36-66) % Lymph % (Auto) 41 (24-44) % [place] % (Auto) 7 H (2-6) % Eos % (Auto) 1 L (2-4) % Baso % (Auto) 1 (0-1) % Sodium 139 L (140-148) mmol/L Potassium 4.1 (3.6-5.2) mmol/L Chloride 101 (100-108) mmol/L Carbon Dioxide 23 (21-32) mmol/L Anion Gap 19.1 H (5.0-14.0) mmol/L BUN 13 (7-18) mg/dL Creatinine 0.8 (0.8-1.3) mg/dL Est Cr Clr Drug Dosing 104.18 mL/min Estimated GFR (MDRD) > 60 (>60) Glucose 152 H (74-106) mg/dL Calcium 8.1 L (8.5-10.1) mg/dL Total Bilirubin 0.2 (0.2-1.0) mg/dL AST 21 (15-37) U/L ALT 27 (12-78) U/L Alkaline Phosphatase 77 (46-116) U/L Total Protein 7.5 (6.4-8.2) g/dL Albumin 3.6 (3.4-5.0) g/dL Globulin 3.9 H (2.3-3.5) g/dL Albumin/Globulin Ratio 0.9 L (1.2-2.2) Ethyl Alcohol 201 mg/dL Meds: Medications Generic Name Dose Route Start Last Admin Trade Name Freq PRN Reason Stop Dose Admin Sodium Chloride 1,000 mls @ 125 mls/hr 06/05/17 04:30 06/05/17 04:35 Normal Saline IV 125 mls/hr ASDIRECTED RIKKI Administration Discontinued Medications Generic Name Dose Route Start Last Admin Trade Name Freq PRN Reason Stop Dose Admin Folic Acid 1 mg 06/05/17 04:17 06/05/17 04:36 Folic Acid PO 06/05/17 04:18 1 mg ONETIME ONE Administration Ketorolac Tromethamine 30 mg 06/05/17 04:25 06/05/17 04:35 Toradol IVPUSH 06/05/17 04:26 30 mg ONETIME ONE Administration Thiamine HCl 100 mg 06/05/17 04:17 06/05/17 04:36 Vitamin B-1 PO 06/05/17 04:18 100 mg ONETIME ONE Administration - Radiology Interpretation Free Text/Narrative:: comminuted fracture of left humeral head, appears old, no acute changes - Re-Assessments/Exams Free Text/Narrative Re-Assessment/Exam: 06/05/17 05:26 after admit, given toradol for pain with some relief Imaging of left shoulder with old comminuted fracture of left humeral head, no acute changes Labwork with Etoh of .201, other labs normal States that he has an orthopedic referral, has not followed through with appointment He is interested in going to detox this AM, sober up with follow-up with ortho jn Alvarez called and they will have a bed available at 9 AM Patient will be discharged to home, will get a ride from [facility]. He will call detox at 9 AM and they can pick him up with his meds he needs to follow-up with orthopedics, he has a referral in place 06/05/17 05:37 Departure - Departure Time of Disposition: 05:40 Disposition: Home, Self-Care 01 Clinical Impression: Chronic left shoulder pain, Acute alcohol dependence syndrome, Alcoholism - Discharge Information Referrals: PCP,None [Primary Care Provider] - Forms: ED Department Discharge Additional Instructions: Go home by [facility]. Call detox at 9 AM for admit there, they will drive you there, bring your meds Follow-up with orthopedics, you have a referral in place - My Orders Last 24 Hours: My Active Orders 06/05/17 04:17 Vital Signs [RC] PER UNIT ROUTINE Resuscitation Status Routine 06/05/17 04:20 Shoulder Comp Lt [CR] Stat 06/05/17 04:30 Sodium Chloride 0.9% [Normal Saline] 1,000 ml IV ASDIRECTED - Assessment/Plan Last 24 Hours: My Active Orders 06/05/17 04:17 Vital Signs [RC] PER UNIT ROUTINE Resuscitation Status Routine 06/05/17 04:20 Shoulder Comp Lt [CR] Stat 06/05/17 04:30 Sodium Chloride 0.9% [Normal Saline] 1,000 ml IV ASDIRECTED
[2017-06-05 04:42] VITALS: BP 134/79
--- NOTE | 2017-06-05 10:41 | CR ---
Left shoulder Comparison: to January 2017. Findings: There is considerable deformity of the humeral head and neck. There is an impacted fracture which is without change in alignment from the January exam. There is callus formation. There is inferior subluxation of the humeral head. Impression: 1. Considerable deformity of the proximal humerus with evidence of a healing comminuted fracture.
== END 2017-06-05 06:34 | disposition home or self-care (01) ==
LOC: JP.ED 03:28
DX: M25.512 Pain in left shoulder (principal); G89.29 Other chronic pain; F10.229 Alcohol dependence with intoxication, unspecified; E11.40 Type 2 diabetes mellitus with diabetic neuropathy, unspecified; F17.210 Nicotine dependence, cigarettes, uncomplicated; I10 Essential (primary) hypertension; E78.00 Pure hypercholesterolemia, unspecified; F41.9 Anxiety disorder, unspecified; F32.9 Major depressive disorder, single episode, unspecified; Z90.49 Acquired absence of other specified parts of digestive tract; Z79.82 Long term (current) use of aspirin; Z79.84 Long term (current) use of oral hypoglycemic drugs; Z79.4 Long term (current) use of insulin; Z79.899 Other long term (current) drug therapy; Z88.8 Allergy status to other drugs, medicaments and biological substances; Y90.7 Blood alcohol level of 200-239 mg/100 ml
CPT/HCPCS: 36415; 73030; 80053; 85025; 96361; 96374; 99284; A9270; G0480; J1885; J7040

== ENCOUNTER 2017-06-08 02:50 | Emergency (ER) | payer MEDICAID ==
[2017-06-08] MEDS ORDERED: Thiamine 100 MG in Sodium Chloride 0.9% 100 ML IV ONE (02:58)
[2017-06-08] MEDS ORDERED: Sodium Chloride 0.9% 1,000 ML IV SCH (03:00)
[2017-06-08 04:47] VITALS: BP 147/86
[2017-06-08] MEDS ORDERED: LORazepam 2 MG/ML MDV IVPUSH ONE (04:48)
--- NOTE | 2017-06-08 06:17 | EDM.PDOC ---
ED HPI GENERAL MEDICAL PROBLEM - General Chief Complaint: Chest Pain Stated Complaint: MEDICAL VIA TRI Time Seen by Provider: 06/08/17 02:54 Source of Information: Reports: Patient History Limitations: Reports: Intoxication - History of Present Illness INITIAL COMMENTS - FREE TEXT/NARRATIVE: History of present illness: [56-year-old male presenting by ambulance in a state of intoxication but complaining of chest pain. He is known to this emergency room. His initial EKG showed sinus tachycardia but no current ischemia or injury. And his initial troponin was negative. Patient is a known alcoholic and admits drinking a liter of vodka today I visited with him for a while and he mentioned that he would like to go to [place] and get help there but we can't get a [place] driver you tell 7:30. He starting having some trouble with withdrawals and so 2 mg of Ativan were given IV. His chest pain resolved spontaneously. And at the time of this dictation he is chest pain free. On presentation is deemed to be a poor historian as he is been drinking and I don't feel we can get a reliable trustworthy history from him.] Review of systems: As per history of present illness and below otherwise all systems reviewed and negative. Past medical history: As per history of present illness and as reviewed below otherwise noncontributory. Surgical history: As per history of present illness and as reviewed below otherwise noncontributory. Social history: No reported history of drug or alcohol abuse. Family history: As per history of present illness and as reviewed below otherwise noncontributory. Physical exam: Gen.: Although you can smell alcohol on him he is not slurring his speech and he is cooperative. HEENT: Atraumatic, normocephalic, pupils reactive, negative for conjunctival pallor or scleral icterus, mucous membranes moist, throat clear, neck supple, nontender, trachea midline. Lungs: Clear to auscultation, breath sounds equal bilaterally, chest nontender. Heart: S1S2, regular, negative for clicks, rubs, or JVD. Abdomen: Soft, nondistended, nontender. Negative for masses or hepatosplenomegaly. Pelvis: Stable nontender. Genitourinary: Deferred. Rectal: Deferred. Extremities: Atraumatic, negative for cords or calf pain. Neurovascular unremarkable. Neuro: Awake, alert, oriented. Exam nonfocal. Diagnostics: [CBC and complete metabolic panel were obtained serum alcohol was 236] Therapeutics: [He received IV fluids while here and IV thiamine and did have a meal at the point that he started feeling the is going into alcohol withdrawal and developed some jitteriness we did give him 2 mg of Ativan IV and he fell asleep. I just checked on him and he is easily arousable and satting well] Impression: [EtOH intoxication Atypical chest pain] Plan: [As soon as a medivan comes he will be discharged. My understanding is the minivan will take him home. I'm wishing that he would go to [place] to try to get help but I think that will be up to him and the [place] driver of the medivan.] Definitive disposition and diagnosis as appropriate pending reevaluation and review of above. chest pain Pain Score (Numeric/FACES): 8 - Related Data Allergies Allergy/AdvReac Type Severity Reaction Status Date / Time zolpidem tartrate Allergy Cannot Verified 03/31/17 12:59 [From Michelleien] Remember Home Meds: Home Meds Aspirin [Halfprin] 81 mg PO DAILY 10/17/14 [History] Gabapentin 900 mg PO BID 12/04/14 [History] Simvastatin 40 mg PO BEDTIME 12/04/14 [History] traZODone 100 - 200 mg PO BEDTIME 12/04/14 [History] Insulin Glarg,Human.Rec.Analog [Lantus Solostar] 35 unit SQ BEDTIME 04/03/15 [ History] Venlafaxine HCl [Venlafaxine ER] 150 mg PO DAILY 04/03/15 [History] Metoprolol Tartrate [Lopressor] 50 mg PO BID 04/05/15 [History] metFORMIN [Glucophage] 1,000 mg PO BIDAC 03/11/16 [History] Multivit-Min/FA/Lycopene/Lut [Certavite Sr-Antioxidant Tab] 1 tab PO DAILY 06/16 [History] Pantoprazole [ProTONIX] 40 mg PO DAILY #30 tab.cr 06/17/16 [Rx] Insulin Aspart [NovoLOG] 2 units SQ ASDIRECTED 08/21/16 [History] Ergocalciferol (Vitamin D2) [Vitamin D2] 1 tab PO DAILY 04/03/17 [History] Lisinopril [Zestril] 20 mg PO DAILY 04/03/17 [History] Magnesium Oxide [Magnesium] 800 mg PO BID 04/03/17 [History] Venlafaxine HCl [Venlafaxine ER] 75 mg PO DAILY 04/03/17 [History] Past Medical History Cardiovascular History: Reports: High Cholesterol, Hypertension Other Cardiovascular History: Past chest pain Questionable [place] in past. Respiratory History: Reports: None Gastrointestinal History: Reports: Pancreatitis Genitourinary History: Reports: None Musculoskeletal History: Reports: Fracture, Other (See Below) Other Musculoskeletal History: fx toe L humeral fracture. Neurological History: Reports: Head Trauma Psychiatric History: Reports: Addiction, Anxiety, Depression, Other (See Below) Other Psychiatric History: Alcohol abuse. Endocrine/Metabolic History: Reports: Diabetes, Type II Hematologic History: Reports: None Immunologic History: Reports: None Oncologic (Cancer) History: Reports: None Dermatologic History: Reports: None - Infectious Disease History Infectious Disease History: Reports: Chicken Pox - Past Surgical History Head Surgeries/Procedures: Reports: None HEENT Surgical History: Reports: Adenoidectomy Respiratory Surgical History: Reports: None GI Surgical History: Reports: Appendectomy Oncologic Surgical History: Reports: None Dermatological Surgical History: Reports: None Social & Family History - Family History Family Medical History: Noncontributory - Tobacco Use Smoking Status *Q: Current Every Day Smoker Years of Tobacco use: 30 Packs/Tins Daily: 0.5 Used Tobacco, but Quit: No Second Hand Smoke Exposure: Yes - Caffeine Use Caffeine Use: Reports: Soda - Alcohol Use Days Per Week of Alcohol Use: 7 Number of Drinks Per Day: 3 Total Drinks Per Week: 21 - Recreational Drug Use Recreational Drug Use: No ED ROS GENERAL - Review of Systems Review Of Systems: ROS reveals no pertinent complaints other than HPI. ED EXAM, GENERAL - Physical Exam Exam: See Below Course - Vital Signs Last Recorded V/S: Last Vital Signs Temp 37.0 C 06/08/17 02:54 Pulse 97 06/08/17 04:46 Resp 18 06/08/17 04:46 BP 147/86 H 06/08/17 04:46 Pulse Ox 95 06/08/17 04:46 - Orders/Labs/Meds Orders: Active Orders 24 hr Category Date Time Status EKG Documentation Completion [RC] ASDIRECTED Care 06/08/17 02:56 Active Chest 1V Frontal [CR] Stat Exams 06/08/17 02:56 Taken DRUG SCREEN, URINE [URCHEM] Stat Lab 06/08/17 02:56 Uncollected UA W/MICROSCOPIC [URIN] Stat Lab 06/08/17 02:55 Uncollected Sodium Chloride 0.9% [Normal Saline] 1,000 ml Med 06/08/17 03:00 Active IV ASDIRECTED EKG 12 Lead [EK] Stat Ther 06/08/17 02:55 Ordered Medication Orders Sodium Chloride (Normal Saline) 1,000 mls @ 250 mls/hr IV ASDIRECTED RIKKI Last Admin: 06/08/17 03:31 Dose: 250 mls/hr Labs: Laboratory Tests 06/08/17 06/08/17 06/08/17 Range/Units 03:09 03:09 03:09 WBC 7.9 (4.5-11.0) K/uL RBC 4.07 L (4.30-5.90) M/uL Hgb 12.7 (12.0-15.0) g/dL Hct 35.9 L (40.0-54.0) % MCV 88 (80-98) fL MCH 31 (27-31) pg MCHC 35 (32-36) % Plt Count 173 (150-400) K/uL Neut % (Auto) 65 (36-66) % Lymph % (Auto) 25 (24-44) % [place] % (Auto) 9 H (2-6) % Eos % (Auto) 0 L (2-4) % Baso % (Auto) 0 (0-1) % PT 10.1 (9.5-12.0) sec INR 0.95 (0.80-1.20) Sodium 135 L (140-148) mmol/L Potassium 3.5 L (3.6-5.2) mmol/L Chloride 97 L (100-108) mmol/L Carbon Dioxide 22 (21-32) mmol/L Anion Gap 19.5 H (5.0-14.0) mmol/L BUN 9 (7-18) mg/dL Creatinine 0.8 (0.8-1.3) mg/dL Est Cr Clr Drug Dosing 103.92 mL/min Estimated GFR (MDRD) > 60 (>60) Glucose 264 H (74-106) mg/dL Calcium 7.8 L (8.5-10.1) mg/dL Total Bilirubin 0.4 D (0.2-1.0) mg/dL AST 32 (15-37) U/L ALT 34 (12-78) U/L Alkaline Phosphatase 76 (46-116) U/L Troponin I < 0.017 (0.000-0.056) ng/mL Total Protein 7.2 (6.4-8.2) g/dL Albumin 3.7 (3.4-5.0) g/dL Globulin 3.5 (2.3-3.5) g/dL Albumin/Globulin Ratio 1.1 L (1.2-2.2) Ethyl Alcohol mg/dL 06/08/17 Range/Units 03:09 WBC (4.5-11.0) K/uL RBC (4.30-5.90) M/uL Hgb (12.0-15.0) g/dL Hct (40.0-54.0) % MCV (80-98) fL MCH (27-31) pg MCHC (32-36) % Plt Count (150-400) K/uL Neut % (Auto) (36-66) % Lymph % (Auto) (24-44) % [place] % (Auto) (2-6) % Eos % (Auto) (2-4) % Baso % (Auto) (0-1) % PT (9.5-12.0) sec INR (0.80-1.20) Sodium (140-148) mmol/L Potassium (3.6-5.2) mmol/L Chloride (100-108) mmol/L Carbon Dioxide (21-32) mmol/L Anion Gap (5.0-14.0) mmol/L BUN (7-18) mg/dL Creatinine (0.8-1.3) mg/dL Est Cr Clr Drug Dosing mL/min Estimated GFR (MDRD) (>60) Glucose (74-106) mg/dL Calcium (8.5-10.1) mg/dL Total Bilirubin (0.2-1.0) mg/dL AST (15-37) U/L ALT (12-78) U/L Alkaline Phosphatase (46-116) U/L Troponin I (0.000-0.056) ng/mL Total Protein (6.4-8.2) g/dL Albumin (3.4-5.0) g/dL Globulin (2.3-3.5) g/dL Albumin/Globulin Ratio (1.2-2.2) Ethyl Alcohol 236 mg/dL Meds: Medications Generic Name Dose Route Start Last Admin Trade Name Franciscoq PRN Reason Stop Dose Admin Sodium Chloride 1,000 mls @ 250 mls/hr 06/08/17 03:00 06/08/17 03:31 Normal Saline IV 250 mls/hr ASDIRECTED RIKKI Administration Discontinued Medications Generic Name Dose Route Start Last Admin Trade Name Franciscoq PRN Reason Stop Dose Admin Thiamine HCl 100 mg/ Sodium 101 mls @ 202 mls/hr 06/08/17 02:58 06/08/17 03: 30 Chloride IV 06/08/17 02:59 202 mls/hr ONETIME ONE Administration Lorazepam 2 mg 06/08/17 04:48 06/08/17 04:56 Ativan IVPUSH 06/08/17 04:49 2 mg ONETIME ONE Administration Departure - Departure Time of Disposition: 06:20 Disposition: Home, Self-Care 01 Condition: Good Clinical Impression: Atypical chest pain Alcohol intoxication Qualifiers: Complication of substance-induced condition: uncomplicated Qualified Code(s): F10.920 - Alcohol use, unspecified with intoxication, uncomplicated - Discharge Information Referrals: PCP,None [Primary Care Provider] - - My Orders Last 24 Hours: My Active Orders 06/08/17 02:55 UA W/MICROSCOPIC [URIN] Stat EKG 12 Lead [EK] Stat 06/08/17 02:56 EKG Documentation Completion [RC] ASDIRECTED Chest 1V Frontal [CR] Stat DRUG SCREEN, URINE [URCHEM] Stat 06/08/17 03:00 Sodium Chloride 0.9% [Normal Saline] 1,000 ml IV ASDIRECTED - Assessment/Plan Last 24 Hours: My Active Orders 06/08/17 02:55 UA W/MICROSCOPIC [URIN] Stat EKG 12 Lead [EK] Stat 06/08/17 02:56 EKG Documentation Completion [RC] ASDIRECTED Chest 1V Frontal [CR] Stat DRUG SCREEN, URINE [URCHEM] Stat 06/08/17 03:00 Sodium Chloride 0.9% [Normal Saline] 1,000 ml IV ASDIRECTED
--- NOTE | 2017-06-08 09:30 | CR ---
Mild-moderate cardiomegaly. Pulmonary vasculature within normal limits. No focal consolidation. Defor mity of the left proximal humerus. Correlate for prior trauma.
== END 2017-06-08 07:49 | disposition home or self-care (01) ==
LOC: JP.ED 02:50
DX: R07.89 Other chest pain (principal); F10.120 Alcohol abuse with intoxication, uncomplicated; Y90.7 Blood alcohol level of 200-239 mg/100 ml; I10 Essential (primary) hypertension; F17.210 Nicotine dependence, cigarettes, uncomplicated; E78.00 Pure hypercholesterolemia, unspecified; E11.9 Type 2 diabetes mellitus without complications; Z98.890 Other specified postprocedural states; Z90.49 Acquired absence of other specified parts of digestive tract; Z79.82 Long term (current) use of aspirin; Z79.84 Long term (current) use of oral hypoglycemic drugs; Z79.899 Other long term (current) drug therapy; Z88.8 Allergy status to other drugs, medicaments and biological substances
CPT/HCPCS: 36415; 71010; 80053; 84484; 85025; 85610; 93005; 96361; 96365; 96375; 99285; G0480; J2060; J3411; J7030; J7040; 93010

== ENCOUNTER 2017-07-01 13:32 | Emergency (ER) | payer MEDICAID ==
[~2017-07-01 13:32] MED LIST: LORazepam 2 MG/ML MDV ONE
[2017-07-01] MEDS ORDERED: LORazepam 2 MG/ML MDV IVPUSH ONE (13:51)
[2017-07-01 14:06] VITALS: BP 130/67
[2017-07-01] MEDS ORDERED: LORazepam 1 MG Tab PO ONE ×2 (14:08→15:52)
--- NOTE | 2017-07-01 15:47 | EDM.PDOC ---
ED HPI GENERAL MEDICAL PROBLEM - General Chief Complaint: Drug or Alcohol Abuse Stated Complaint: MEDICAL VIA AMBULANCE Time Seen by Provider: 07/01/17 14:00 Source of Information: Reports: Patient, EMS Notes Reviewed, Other (pt was very agitated on arrival. He had been drinking alot and had run out of his etoh. ) History Limitations: Reports: No Limitations - History of Present Illness INITIAL COMMENTS - FREE TEXT/NARRATIVE: Pt arrived with feeling very agitated. He called the ambulance and when they got there all of his alchol bottles were empty. Onset: Today Duration: Hour(s):, Other (pt has been drinking heavily. He states this is because his shoulder hurts so bad. ) Location: Reports: Upper Extremity, Left Associated Symptoms: Reports: Other (pt does have alot of pain in his rt shoulder. ) Left Shoulder Pain Score (Numeric/FACES): 10 - Related Data Allergies Allergy/AdvReac Type Severity Reaction Status Date / Time zolpidem tartrate Allergy Cannot Verified 07/01/17 14:26 [From Maite] Remember Home Meds: Home Meds Aspirin [Halfprin] 81 mg PO DAILY 10/17/14 [History] Gabapentin 900 mg PO BID 12/04/14 [History] Simvastatin 40 mg PO BEDTIME 12/04/14 [History] traZODone 100 - 200 mg PO BEDTIME 12/04/14 [History] Insulin Glarg,Human.Rec.Analog [Lantus Solostar] 35 unit SQ BEDTIME 04/03/15 [ History] Venlafaxine HCl [Venlafaxine ER] 150 mg PO DAILY 04/03/15 [History] Metoprolol Tartrate [Lopressor] 50 mg PO BID 04/05/15 [History] metFORMIN [Glucophage] 1,000 mg PO BIDAC 03/11/16 [History] Multivit-Min/FA/Lycopene/Lut [Certavite Sr-Antioxidant Tab] 1 tab PO DAILY 06/16 [History] Pantoprazole [ProTONIX] 40 mg PO DAILY #30 tab.cr 06/17/16 [Rx] Insulin Aspart [NovoLOG] 2 units SQ ASDIRECTED 08/21/16 [History] Ergocalciferol (Vitamin D2) [Vitamin D2] 1 tab PO DAILY 04/03/17 [History] Lisinopril [Zestril] 20 mg PO DAILY 04/03/17 [History] Magnesium Oxide [Magnesium] 800 mg PO BID 04/03/17 [History] Venlafaxine HCl [Venlafaxine ER] 75 mg PO DAILY 04/03/17 [History] Past Medical History Cardiovascular History: Reports: High Cholesterol, Hypertension Other Cardiovascular History: Past chest pain Questionable [place] in past. Respiratory History: Reports: None Gastrointestinal History: Reports: Pancreatitis Genitourinary History: Reports: None Musculoskeletal History: Reports: Fracture, Other (See Below) Other Musculoskeletal History: fx toe L humeral fracture. Neurological History: Reports: Head Trauma Psychiatric History: Reports: Addiction, Anxiety, Depression, Other (See Below) Other Psychiatric History: Alcohol abuse. Endocrine/Metabolic History: Reports: Diabetes, Type II Hematologic History: Reports: None Immunologic History: Reports: None Oncologic (Cancer) History: Reports: None Dermatologic History: Reports: None - Infectious Disease History Infectious Disease History: Reports: Other (See Below) Other Infectious Disease History: unknown - Past Surgical History HEENT Surgical History: Reports: Adenoidectomy Respiratory Surgical History: Reports: None GI Surgical History: Reports: Appendectomy Oncologic Surgical History: Reports: None Dermatological Surgical History: Reports: None Social & Family History - Family History Family Medical History: Noncontributory - Tobacco Use Smoking Status *Q: Current Every Day Smoker Years of Tobacco use: 32 Packs/Tins Daily: 1 Used Tobacco, but Quit: No Second Hand Smoke Exposure: Yes - Caffeine Use Caffeine Use: Reports: Coffee, Soda - Alcohol Use Days Per Week of Alcohol Use: 7 Number of Drinks Per Day: 3 Total Drinks Per Week: 21 - Recreational Drug Use Recreational Drug Use: No ED ROS GENERAL - Review of Systems Review Of Systems: See Below Constitutional: Reports: No Symptoms HEENT: Reports: No Symptoms Respiratory: Reports: No Symptoms Cardiovascular: Reports: No Symptoms Endocrine: Reports: No Symptoms GI/Abdominal: Reports: No Symptoms : Reports: No Symptoms Musculoskeletal: Reports: Other (pt has pain in his left arm. ) Skin: Reports: No Symptoms - Physical Exam Exam: See Below Text/Narrative:: pt arrived with being very agitated and conpative . At first he wanted to go to [facility] and when there was no bed he insisted on going home. Exam Limited By: Other (agitated. He was given ativan 1 mg. y) General Appearance: Alert, Anxious, Mild Distress, Other (pupils equal and reactive. ) Ears: Normal TMs Throat/Mouth: Normal Inspection Head Exam: Atraumatic Neck: Normal Inspection Respiratory/Chest: No Respiratory Distress Cardiovascular: Regular Rate, Rhythm GI/Abdominal: Soft, Other (mild tenderness) (Male) Exam: Deferred Rectal (Males) Exam: Deferred Neuro Exam (Abbreviated): Alert, Oriented, Normal Cognition Back Exam: Normal Inspection Extremities: Normal Inspection Psychiatric: Anxious, Other ( intoxicated. ) Course - Vital Signs Last Recorded V/S: Last Vital Signs Temp 36.8 C 07/01/17 14:20 Pulse 74 07/01/17 14:20 Resp 18 07/01/17 14:20 BP 130/67 07/01/17 14:20 Pulse Ox 94 L 07/01/17 14:20 - Orders/Labs/Meds Labs: Laboratory Tests 07/01/17 07/01/17 07/01/17 Range/Units 13:51 14:06 14:06 WBC 9.4 (4.5-11.0) K/uL RBC 4.88 (4.30-5.90) M/uL Hgb 15.2 H D (12.0-15.0) g/dL Hct 43.6 (40.0-54.0) % MCV 89 (80-98) fL MCH 31 (27-31) pg MCHC 35 (32-36) % Plt Count 313 (150-400) K/uL Neut % (Auto) 60 (36-66) % Lymph % (Auto) 34 (24-44) % [place] % (Auto) 6 (2-6) % Eos % (Auto) 0 L (2-4) % Baso % (Auto) 0 (0-1) % Sodium 138 L (140-148) mmol/L Potassium 4.1 (3.6-5.2) mmol/L Chloride 98 L (100-108) mmol/L Carbon Dioxide 24 (21-32) mmol/L Anion Gap 20.1 H (5.0-14.0) mmol/L BUN 13 (7-18) mg/dL Creatinine 0.9 (0.8-1.3) mg/dL Est Cr Clr Drug Dosing TNP Estimated GFR (MDRD) > 60 (>60) Glucose 162 H (74-106) mg/dL Calcium 8.7 (8.5-10.1) mg/dL Total Bilirubin 0.3 (0.2-1.0) mg/dL AST 31 (15-37) U/L ALT 33 (12-78) U/L Alkaline Phosphatase 91 (46-116) U/L Total Protein 7.8 (6.4-8.2) g/dL Albumin 4.1 (3.4-5.0) g/dL Globulin 3.7 H (2.3-3.5) g/dL Albumin/Globulin Ratio 1.1 L (1.2-2.2) Urine Color Urine Appearance Urine pH (4.5-8.0) Ur Specific [place] (1.008-1.030) Urine Protein (NEGATIVE) mg/dL Urine Glucose (UA) (NEGATIVE) mg/dL Urine Ketones (NEGATIVE) mg/dL Urine Occult Blood (NEGATIVE) Urine Nitrite (NEGAITVE) Urine Bilirubin (NEGATIVE) Urine Urobilinogen (NORMAL) mg/dL Ur Leukocyte Esterase (NEGATIVE) Urine RBC (0-5) Urine WBC (0-5) Ur Epithelial Cells Amorphous Sediment Urine Bacteria Urine Mucus Urine Opiates Screen (NEGATIVE) Ur Oxycodone Screen (NEGATIVE) Urine Methadone Screen (NEGATIVE) Ur Propoxyphene Screen (NEGATIVE) Ur Barbiturates Screen (NEGATIVE) Ur Tricyclics Screen (NEGATIVE) Ur Phencyclidine Scrn (NEGATIVE) Ur Amphetamine Screen (NEGATIVE) U Methamphetamines Scrn (NEGATIVE) Urine MDMA Screen (NEGATIVE) U Benzodiazepines Scrn (NEGATIVE) U Cocaine Metab Screen (NEGATIVE) U Marijuana (THC) Screen (NEGATIVE) Ethyl Alcohol 272 mg/dL 07/01/17 07/01/17 Range/Units 14:06 15:01 WBC (4.5-11.0) K/uL RBC (4.30-5.90) M/uL Hgb (12.0-15.0) g/dL Hct (40.0-54.0) % MCV (80-98) fL MCH (27-31) pg MCHC (32-36) % Plt Count (150-400) K/uL Neut % (Auto) (36-66) % Lymph % (Auto) (24-44) % [place] % (Auto) (2-6) % Eos % (Auto) (2-4) % Baso % (Auto) (0-1) % Sodium (140-148) mmol/L Potassium (3.6-5.2) mmol/L Chloride (100-108) mmol/L Carbon Dioxide (21-32) mmol/L Anion Gap (5.0-14.0) mmol/L BUN (7-18) mg/dL Creatinine (0.8-1.3) mg/dL Est Cr Clr Drug Dosing Estimated GFR (MDRD) (>60) Glucose (74-106) mg/dL Calcium (8.5-10.1) mg/dL Total Bilirubin (0.2-1.0) mg/dL AST (15-37) U/L ALT (12-78) U/L Alkaline Phosphatase (46-116) U/L Total Protein (6.4-8.2) g/dL Albumin (3.4-5.0) g/dL Globulin (2.3-3.5) g/dL Albumin/Globulin Ratio (1.2-2.2) Urine Color Yellow Urine Appearance Slightly cloudy Urine pH 5.0 (4.5-8.0) Ur Specific [place] 1.030 (1.008-1.030) Urine Protein 100 H (NEGATIVE) mg/dL Urine Glucose (UA) Normal (NEGATIVE) mg/dL Urine Ketones 50 H (NEGATIVE) mg/dL Urine Occult Blood Moderate (NEGATIVE) Urine Nitrite Negative (NEGAITVE) Urine Bilirubin Negative (NEGATIVE) Urine Urobilinogen Normal (NORMAL) mg/dL Ur Leukocyte Esterase Negative (NEGATIVE) Urine RBC 0-5 (0-5) Urine WBC 0-5 (0-5) Ur Epithelial Cells Rare Amorphous Sediment Not seen Urine Bacteria Rare Urine Mucus Moderate Urine Opiates Screen Negative (NEGATIVE) Ur Oxycodone Screen Negative (NEGATIVE) Urine Methadone Screen Negative (NEGATIVE) Ur Propoxyphene Screen Negative (NEGATIVE) Ur Barbiturates Screen Negative (NEGATIVE) Ur Tricyclics Screen Negative (NEGATIVE) Ur Phencyclidine Scrn Negative (NEGATIVE) Ur Amphetamine Screen Negative (NEGATIVE) U Methamphetamines Scrn Negative (NEGATIVE) Urine MDMA Screen Negative (NEGATIVE) U Benzodiazepines Scrn Positive H (NEGATIVE) U Cocaine Metab Screen Negative (NEGATIVE) U Marijuana (THC) Screen Negative (NEGATIVE) Ethyl Alcohol mg/dL Meds: Medications Discontinued Medications Generic Name Dose Route Start Last Admin Trade Name Vincent PRN Reason Stop Dose Admin Lorazepam 1 mg 07/01/17 13:51 Ativan IVPUSH 07/01/17 13:52 ONETIME ONE Lorazepam 1 mg 07/01/17 14:08 07/01/17 14:29 Ativan PO 07/01/17 14:09 1 mg ONETIME ONE Administration Lorazepam 1 mg 07/01/17 15:52 07/01/17 16:15 Ativan PO 07/01/17 15:53 1 mg ONETIME ONE Administration Lorazepam Confirm 07/01/17 13:26 Ativan Administered 07/01/17 13:27 Dose 2 mg .ROUTE .[facility] ONE - Re-Assessments/Exams Free Text/Narrative Re-Assessment/Exam: 07/01/17 15:49 pt has a etoh of .263. His other labs look good. he does not want to go anywhere else other than [facility]. They are full so he stated he would call them tomorrow. His was given 1 mg of ativan and this was repeated before he left the hosp in [facility]. 07/03/17 07:36 Departure - Departure Time of Disposition: 15:51 Disposition: Home, Self-Care 01 Condition: Fair Clinical Impression: Intoxication - Discharge Information Instructions: Alcohol Intoxication, [id number] Referrals: PCP,None [Primary Care Provider] - Forms: ED Department Discharge Care Plan Goals: to home by nAtoine Mercedes He will call [facility] tomorrow to try to go there.
== END 2017-07-01 16:38 | disposition home or self-care (01) ==
LOC: JP.ED 13:32
DX: F10.129 Alcohol abuse with intoxication, unspecified (principal); I10 Essential (primary) hypertension; E78.00 Pure hypercholesterolemia, unspecified; F32.9 Major depressive disorder, single episode, unspecified; E11.9 Type 2 diabetes mellitus without complications; F17.210 Nicotine dependence, cigarettes, uncomplicated; Z90.49 Acquired absence of other specified parts of digestive tract; Z98.890 Other specified postprocedural states; Z79.82 Long term (current) use of aspirin; Z79.899 Other long term (current) drug therapy; Z88.8 Allergy status to other drugs, medicaments and biological substances; Z79.4 Long term (current) use of insulin; Y90.8 Blood alcohol level of 240 mg/100 ml or more
CPT/HCPCS: 36415; 80053; 80305; 81001; 85025; 96374; 99284; A9270; G0480; 99283

== ENCOUNTER 2017-07-03 18:14 | Emergency (ER) | payer MEDICAID ==
[2017-07-03] MEDS ORDERED: MVI, Adult with Vitamin K 10 ML, Thiamine 100 MG, Folic Acid 1 MG, Magnesium Sulfate 3 ... IV SCH ×5 (19:00)
--- NOTE | 2017-07-03 19:18 | EDM.PDOC ---
ED HPI GENERAL MEDICAL PROBLEM - General Chief Complaint: General Stated Complaint: FALL VIA [facility] Time Seen by Provider: 07/03/17 18:50 Source of Information: Reports: Patient History Limitations: Reports: Altered Mental Status, Intoxication - History of Present Illness INITIAL COMMENTS - FREE TEXT/NARRATIVE: Devendra presents to the ER tonight with complaints of fall, headache and left shoulder pain. He reports he fell and hit his head and shoulder. He states he is not sure when he fell, he informed nursing staff he fell yesterday. He presents disheveled, with dried vomitus to his clothing. Onset: Unknown/Unsure Location: Reports: Head, Upper Extremity, Left Quality: Reports: Ache Severity: Moderate Improves with: Reports: Rest Worsens with: Reports: Movement Associated Symptoms: Reports: Other (ETOH on board) Treatments CAMPUS MANAGER: Reports: IV/IO, Other (see below) (IV per EMS prior to arrival) Left Arm Pain Score (Numeric/FACES): 10 - Related Data Allergies Allergy/AdvReac Type Severity Reaction Status Date / Time zolpidem tartrate Allergy Cannot Verified 07/01/17 14:26 [From Maite] Remember Home Meds: Home Meds Aspirin [Halfprin] 81 mg PO DAILY 10/17/14 [History] Gabapentin 900 mg PO BID 12/04/14 [History] Simvastatin 40 mg PO BEDTIME 12/04/14 [History] traZODone 100 - 200 mg PO BEDTIME 12/04/14 [History] Insulin Glarg,Human.Rec.Analog [Lantus Solostar] 35 unit SQ BEDTIME 04/03/15 [ History] Venlafaxine HCl [Venlafaxine ER] 150 mg PO DAILY 04/03/15 [History] Metoprolol Tartrate [Lopressor] 50 mg PO BID 04/05/15 [History] metFORMIN [Glucophage] 1,000 mg PO BIDAC 03/11/16 [History] Multivit-Min/FA/Lycopene/Lut [Certavite Sr-Antioxidant Tab] 1 tab PO DAILY 06/16 [History] Pantoprazole [ProTONIX] 40 mg PO DAILY #30 tab.cr 06/17/16 [Rx] Insulin Aspart [NovoLOG] 2 units SQ ASDIRECTED 08/21/16 [History] Ergocalciferol (Vitamin D2) [Vitamin D2] 1 tab PO DAILY 04/03/17 [History] Lisinopril [Zestril] 20 mg PO DAILY 04/03/17 [History] Magnesium Oxide [Magnesium] 800 mg PO BID 04/03/17 [History] Venlafaxine HCl [Venlafaxine ER] 75 mg PO DAILY 04/03/17 [History] Past Medical History Cardiovascular History: Reports: High Cholesterol, Hypertension Other Cardiovascular History: Past chest pain Questionable [place] in past. Respiratory History: Reports: None Gastrointestinal History: Reports: Pancreatitis Genitourinary History: Reports: None Musculoskeletal History: Reports: Fracture, Other (See Below) Other Musculoskeletal History: fx toe L humeral fracture. Neurological History: Reports: Head Trauma Psychiatric History: Reports: Addiction, Anxiety, Depression, Other (See Below) Other Psychiatric History: Alcohol abuse. Endocrine/Metabolic History: Reports: Diabetes, Type II Hematologic History: Reports: None Immunologic History: Reports: None Oncologic (Cancer) History: Reports: None Dermatologic History: Reports: None - Infectious Disease History Infectious Disease History: Reports: Chicken Pox Other Infectious Disease History: unknown - Past Surgical History Head Surgeries/Procedures: Reports: None HEENT Surgical History: Reports: Adenoidectomy Respiratory Surgical History: Reports: None GI Surgical History: Reports: Appendectomy Oncologic Surgical History: Reports: None Dermatological Surgical History: Reports: None Social & Family History - Family History Family Medical History: Noncontributory - Tobacco Use Smoking Status *Q: Current Every Day Smoker Years of Tobacco use: 32 Packs/Tins Daily: 1 Used Tobacco, but Quit: No Second Hand Smoke Exposure: Yes - Caffeine Use Caffeine Use: Reports: Coffee, Soda - Alcohol Use Days Per Week of Alcohol Use: 7 Number of Drinks Per Day: 3 Total Drinks Per Week: 21 - Recreational Drug Use Recreational Drug Use: No ED ROS GENERAL - Review of Systems Review Of Systems: See Below Constitutional: Denies: Fever, Chills, Weakness HEENT: Reports: Nose Pain. Denies: Nosebleed Respiratory: Denies: Shortness of Breath, Wheezing, Cough, Sputum Cardiovascular: Denies: Chest Pain, Dyspnea on Exertion, Edema, Palpitations, Syncope Endocrine: Reports: No Symptoms GI/Abdominal: Reports: Nausea, Vomiting : Reports: No Symptoms Musculoskeletal: Reports: Shoulder Pain, Other (Left upper arm/shoulder pain) Skin: Reports: No Symptoms Neurological: Reports: Headache, Other (ETOH on board). Denies: Numbness, Seizure, Tingling, Weakness Psychiatric: Reports: Agitation Hematologic/Lymphatic: Reports: No Symptoms Immunologic: Reports: No Symptoms ED EXAM, GENERAL - Physical Exam Exam: See Below Free Text/Narrative:: Devendra presents today with complaints of left shoulder/humerus pain. He reports he fell, he is not sure when. However he did tell nursing staff he fell yesterday. He smells strongly of ETOH and has dried vomitus to clothing. Exam Limited By: Intoxication General Appearance: Mild Distress, Other (Intoxicated) Eye Exam: Bilateral Eye: EOMI, PERRL Ears: Normal External Exam, Normal Canal, Hearing Grossly Normal, Normal TMs Ear Exam: Bilateral Ear: Auricle Normal, Canal Normal, TM normal Nose: Normal Inspection, Normal Mucosa, No Blood, Nasal Swelling, Other (Dried scab to bridge of nose. ). No: Nasal Deformity Throat/Mouth: Normal Inspection, Normal Lips, Normal Voice, No Airway Compromise Head: Other (Abrasion/contusion to left forehead). No: Facial Swelling, Facial Tenderness, Sinus Tenderness Neck: Normal Inspection, Supple, Non-Tender, Full Range of Motion. No: Lymphadenopathy (R), Lymphadenopathy (L), Tender Lateral, Tender Midline Respiratory/Chest: No Respiratory Distress, Lungs Clear, Normal Breath Sounds, No Accessory Muscle Use, Chest Non-Tender Cardiovascular: Normal Peripheral Pulses, Regular Rate, Rhythm, No Edema, No Murmur Peripheral Pulses: 2+: Radial (L), Radial (R), Dorsalis Pedis (L), Dorsalis Pedis (R) GI/Abdominal: Normal Bowel Sounds, Soft, Non-Tender, No Distention, Other ( Large round abdomen) Back Exam: Normal Inspection, Full Range of Motion. No: CVA Tenderness (R), CVA Tenderness (L), Paraspinal Tenderness, Vertebral Tenderness Extremities: Normal Capillary Refill, Limited Range of Motion, Other ( Tenderness to left shoulder with palpation. ) Neurological: Inattentive, Slow to Respond Psychiatric: Flat Affect, Other (Intoxicated) Skin Exam: Warm, Dry, Other (Abrasion/contusion to left forehead, abrasion to bridge of nose. No sign of infection, no bleeding. ) Lymphatic: No Adenopathy Course - Vital Signs Last Recorded V/S: Last Vital Signs Temp 37.5 C 10/06/17 23:01 Pulse 120 H 07/03/17 23:01 Resp 16 07/03/17 23:01 BP 152/81 H 07/03/17 23:01 Pulse Ox 93 L 07/03/17 23:01 - Orders/Labs/Meds Orders: Active Orders 24 hr Category Date Time Status Head wo Cont [CT] Stat Exams 07/03/17 18:52 Taken Humerus Lt [CR] Stat Exams 07/03/17 18:52 Taken Shoulder Comp Lt [CR] Stat Exams 07/03/17 18:52 Taken MVI, Adult with Vitamin K [Infuvite Adult] 10 ml Med 07/03/17 19:00 Active Thiamine [Vitamin B-1] 100 mg Folic Acid 1 mg Magnesium Sulfate [Magnesium Sulfate 50%] 3 gm Sodium Chloride 0.9% [Normal Saline] 1,000 ml IV ASDIRECTED Medication Orders Multivitamins/Minerals 10 ml/Thiamine HCl 100 mg/ Folic Acid 1 mg/ Magnesium Sulfate 3 gm/ Sodium Chloride 1,017.2 mls @ 999 mls/hr IV ASDIRECTED RIKKI Last Admin: 07/03/17 19:27 Dose: 999 mls/hr Labs: Laboratory Tests 07/03/17 07/03/17 07/03/17 Range/Units 19:05 19:05 19:05 WBC 9.0 (4.5-11.0) K/uL RBC 4.40 (4.30-5.90) M/uL Hgb 13.8 (12.0-15.0) g/dL Hct 39.0 L (40.0-54.0) % MCV 89 (80-98) fL MCH 31 (27-31) pg MCHC 35 (32-36) % Plt Count 259 (150-400) K/uL Neut % (Auto) 63 (36-66) % Lymph % (Auto) 30 (24-44) % [place] % (Auto) 6 (2-6) % Eos % (Auto) 0 L (2-4) % Baso % (Auto) 0 (0-1) % Sodium 137 L (140-148) mmol/L Potassium 3.7 (3.6-5.2) mmol/L Chloride 98 L (100-108) mmol/L Carbon Dioxide 21 (21-32) mmol/L Anion Gap 21.7 H (5.0-14.0) mmol/L BUN 13 (7-18) mg/dL Creatinine 0.8 (0.8-1.3) mg/dL Est Cr Clr Drug Dosing 104.18 mL/min Estimated GFR (MDRD) > 60 (>60) Glucose 145 H (74-106) mg/dL Calcium 7.9 L (8.5-10.1) mg/dL Total Bilirubin 0.4 (0.2-1.0) mg/dL AST 34 (15-37) U/L ALT 34 (12-78) U/L Alkaline Phosphatase 81 (46-116) U/L Total Protein 7.0 (6.4-8.2) g/dL Albumin 3.8 (3.4-5.0) g/dL Globulin 3.2 (2.3-3.5) g/dL Albumin/Globulin Ratio 1.2 (1.2-2.2) Urine Opiates Screen (NEGATIVE) Ur Oxycodone Screen (NEGATIVE) Urine Methadone Screen (NEGATIVE) Ur Propoxyphene Screen (NEGATIVE) Ur Barbiturates Screen (NEGATIVE) Ur Tricyclics Screen (NEGATIVE) Ur Phencyclidine Scrn (NEGATIVE) Ur Amphetamine Screen (NEGATIVE) U Methamphetamines Scrn (NEGATIVE) Urine MDMA Screen (NEGATIVE) U Benzodiazepines Scrn (NEGATIVE) U Cocaine Metab Screen (NEGATIVE) U Marijuana (THC) Screen (NEGATIVE) Ethyl Alcohol 350 mg/dL 07/03/17 Range/Units 20:00 WBC (4.5-11.0) K/uL RBC (4.30-5.90) M/uL Hgb (12.0-15.0) g/dL Hct (40.0-54.0) % MCV (80-98) fL MCH (27-31) pg MCHC (32-36) % Plt Count (150-400) K/uL Neut % (Auto) (36-66) % Lymph % (Auto) (24-44) % [place] % (Auto) (2-6) % Eos % (Auto) (2-4) % Baso % (Auto) (0-1) % Sodium (140-148) mmol/L Potassium (3.6-5.2) mmol/L Chloride (100-108) mmol/L Carbon Dioxide (21-32) mmol/L Anion Gap (5.0-14.0) mmol/L BUN (7-18) mg/dL Creatinine (0.8-1.3) mg/dL Est Cr Clr Drug Dosing mL/min Estimated GFR (MDRD) (>60) Glucose (74-106) mg/dL Calcium (8.5-10.1) mg/dL Total Bilirubin (0.2-1.0) mg/dL AST (15-37) U/L ALT (12-78) U/L Alkaline Phosphatase (46-116) U/L Total Protein (6.4-8.2) g/dL Albumin (3.4-5.0) g/dL Globulin (2.3-3.5) g/dL Albumin/Globulin Ratio (1.2-2.2) Urine Opiates Screen Negative (NEGATIVE) Ur Oxycodone Screen Negative (NEGATIVE) Urine Methadone Screen Negative (NEGATIVE) Ur Propoxyphene Screen Negative (NEGATIVE) Ur Barbiturates Screen Negative (NEGATIVE) Ur Tricyclics Screen Negative (NEGATIVE) Ur Phencyclidine Scrn Negative (NEGATIVE) Ur Amphetamine Screen Negative (NEGATIVE) U Methamphetamines Scrn Negative (NEGATIVE) Urine MDMA Screen Negative (NEGATIVE) U Benzodiazepines Scrn Negative (NEGATIVE) U Cocaine Metab Screen Negative (NEGATIVE) U Marijuana (THC) Screen Negative (NEGATIVE) Ethyl Alcohol mg/dL Meds: Medications Generic Name Dose Route Start Last Admin Trade Name Freq PRN Reason Stop Dose Admin Multivitamins/Minerals 10 ml/ 1,017.2 mls @ 999 mls/hr 07/03/17 19:00 19:27 Thiamine HCl 100 mg/ Folic IV 999 mls/hr Acid 1 mg/ Magnesium Sulfate 3 ASDIRECTED RIKKI Administration gm/ Sodium Chloride Patient able to eat food, drink water without vomiting. - Radiology Interpretation Free Text/Narrative:: No acute findings noted of humerus/shoulder x-ray. Head CT report shows no acute intracranial abnormality or fracture identified. Patient request to go to [facility] for detox. [facility] contacted, will accept patient. - Re-Assessments/Exams Free Text/Narrative Re-Assessment/Exam: 07/03/17 23:06 Patient tolerating oral fluids well. Dr. Chung notified of patient status, vital signs. He agrees with plan of discharge to [facility]. Departure - Departure Time of Disposition: 21:34 Disposition: DC/Tfer to Other 70 Condition: Fair Clinical Impression: Intoxication, Alcoholism, Chronic left shoulder pain - Discharge Information Instructions: Alcohol Intoxication, [id number] Referrals: PCP,None [Primary Care Provider] - Forms: ED Department Discharge Additional Instructions: Stop drinking alcohol in a controlled environment to have assistance with withdrawals. Keep yourself hydrated, eat a healthy diet, exercise. Take chronic medications as instructed. Go to [facility] for detox. Follow up with your provider in 7 to 10 days for a recheck, possible referral to PT or ORTHO for chronic left shoulder pain. You may take ibuprofen or acetaminophen as needed for shoulder pain. Use bacitracin antibiotic, small amount to forehead and nose abrasions. Ice to contusion as needed for comfort. Continuing to drink as heavily as you do will cause permanent damage to your body, organs and brain. Return for worsening, issues or concerns. - My Orders Last 24 Hours: My Active Orders 07/03/17 18:52 Head wo Cont [CT] Stat Humerus Lt [CR] Stat Shoulder Comp Lt [CR] Stat 07/03/17 19:00 MVI, Adult with Vitamin K [Infuvite Adult] 10 ml Thiamine [Vitamin B-1] 100 mg Folic Acid 1 mg Magnesium Sulfate [Magnesium Sulfate 50%] 3 gm Sodium Chloride 0.9% [Normal Saline] 1,000 ml IV ASDIRECTED - Assessment/Plan Last 24 Hours: My Active Orders 07/03/17 18:52 Head wo Cont [CT] Stat Humerus Lt [CR] Stat Shoulder Comp Lt [CR] Stat 07/03/17 19:00 MVI, Adult with Vitamin K [Infuvite Adult] 10 ml Thiamine [Vitamin B-1] 100 mg Folic Acid 1 mg Magnesium Sulfate [Magnesium Sulfate 50%] 3 gm Sodium Chloride 0.9% [Normal Saline] 1,000 ml IV ASDIRECTED Assessment:: Intoxication Alcoholism Chronic left shoulder pain Plan: Stop drinking alcohol in a controlled environment to have assistance with withdrawals. Keep hydrated, eat a healthy diet, exercise. Take chronic medications as instructed. Go to [facility] for detox. Follow up with primary provider in 7 to 10 days for a recheck, possible referral to PT or ORTHO for chronic left shoulder pain. He may take ibuprofen or acetaminophen as needed for shoulder pain. Use bacitracin antibiotic, small amount to forehead and nose abrasions. Ice to contusion as needed for comfort. Return for worsening, issues or concerns.
[2017-07-03 23:03] VITALS: BP 152/81
--- NOTE | 2017-07-06 09:54 | CR ---
Left shoulder and humerus Comparison: 05 June 2017. Findings: Impacted humeral neck fracture with callus formation. There is inferior subluxation. There is no significant interval change in appearance. The mid and distal portions of the humerus are intac t. There are healing left-sided rib fractures. Impression: 1. Chronic fracture proximal humerus. 2. No acute posttraumatic findings are demonstrated.
== END 2017-07-03 23:25 | disposition other institution (70) ==
LOC: JP.ED 18:14
DX: F10.129 Alcohol abuse with intoxication, unspecified (principal); M25.512 Pain in left shoulder; G89.29 Other chronic pain; Y90.8 Blood alcohol level of 240 mg/100 ml or more; I10 Essential (primary) hypertension; E78.00 Pure hypercholesterolemia, unspecified; E11.9 Type 2 diabetes mellitus without complications; Z90.49 Acquired absence of other specified parts of digestive tract; Z98.890 Other specified postprocedural states; F17.210 Nicotine dependence, cigarettes, uncomplicated; Z79.82 Long term (current) use of aspirin; Z79.899 Other long term (current) drug therapy; Z88.8 Allergy status to other drugs, medicaments and biological substances; W19.XXXA Unspecified fall, initial encounter
CPT/HCPCS: 36415; 70450; 73030; 73060; 80053; 80305; 85025; 96365; 99285; G0480; J3411; J3475; J7040; 99284; J3490

== ENCOUNTER 2017-07-13 01:14 | Emergency (ER) | payer MEDICAID ==
[2017-07-13] MEDS ORDERED: Sodium Chloride 0.9% 1,000 ML IV STA (01:34)
--- NOTE | 2017-07-13 01:38 | EDM.PDOC ---
ED HPI GENERAL MEDICAL PROBLEM - General Chief Complaint: Drug or Alcohol Abuse Stated Complaint: MEDICAL VIA [facility] Time Seen by Provider: 07/13/17 01:26 Source of Information: Reports: Patient, EMS History Limitations: Reports: Intoxication - History of Present Illness INITIAL COMMENTS - FREE TEXT/NARRATIVE: 56 years old male patient brought in by ambulance with chief complaint of alcohol intoxication. Patient called ambulance requested to be brought to the ER because of chronic shoulder pain and also he wanted to go to [facility] for detox. He stated that he had a fall last week and he injured his left shoulder. Otherwise denies any head injury or loss of consciousness. He drank 1 L of vodka today. Denies any other drug use. Denies any chest pain or shortness breath. No abdominal pain diarrhea or constipation. Denies any headache. Denies any focal weakness or numbness anywhere. Denies any urinary symptom. Treatments PARCEL POST OFFICER: Reports: IV/IO, Other (see below) Other Treatments PARCEL POST OFFICER: NS TKO Left Arm Pain Score (Numeric/FACES): 1 - Related Data Allergies Allergy/AdvReac Type Severity Reaction Status Date / Time zolpidem tartrate Allergy Cannot Verified 07/13/17 01:25 [From Maite] Remember Home Meds: Home Meds Aspirin [Halfprin] 81 mg PO DAILY 10/17/14 [History] Gabapentin 900 mg PO BID 12/04/14 [History] Simvastatin 40 mg PO BEDTIME 12/04/14 [History] traZODone 100 - 200 mg PO BEDTIME 12/04/14 [History] Insulin Glarg,Human.Rec.Analog [Lantus Solostar] 35 unit SQ BEDTIME 04/03/15 [ History] Venlafaxine HCl [Venlafaxine ER] 150 mg PO DAILY 04/03/15 [History] Metoprolol Tartrate [Lopressor] 50 mg PO BID 04/05/15 [History] metFORMIN [Glucophage] 1,000 mg PO BIDAC 03/11/16 [History] Multivit-Min/FA/Lycopene/Lut [Certavite Sr-Antioxidant Tab] 1 tab PO DAILY 06/16 [History] Pantoprazole [ProTONIX] 40 mg PO DAILY #30 tab.cr 06/17/16 [Rx] Insulin Aspart [NovoLOG] 2 units SQ ASDIRECTED 08/21/16 [History] Ergocalciferol (Vitamin D2) [Vitamin D2] 1 tab PO DAILY 04/03/17 [History] Lisinopril [Zestril] 20 mg PO DAILY 04/03/17 [History] Magnesium Oxide [Magnesium] 800 mg PO BID 04/03/17 [History] Venlafaxine HCl [Venlafaxine ER] 75 mg PO DAILY 04/03/17 [History] Past Medical History Cardiovascular History: Reports: High Cholesterol, Hypertension Other Cardiovascular History: Past chest pain Questionable [place] in past. Respiratory History: Reports: None Gastrointestinal History: Reports: Pancreatitis Genitourinary History: Reports: None Musculoskeletal History: Reports: Fracture, Other (See Below) Other Musculoskeletal History: fx toe L humeral fracture. Neurological History: Reports: Head Trauma Psychiatric History: Reports: Addiction, Anxiety, Depression, Other (See Below) Other Psychiatric History: Alcohol abuse. Endocrine/Metabolic History: Reports: Diabetes, Type II Hematologic History: Reports: None Immunologic History: Reports: None Oncologic (Cancer) History: Reports: None Dermatologic History: Reports: None - Infectious Disease History Infectious Disease History: Reports: Chicken Pox Other Infectious Disease History: unknown - Past Surgical History Head Surgeries/Procedures: Reports: None HEENT Surgical History: Reports: Adenoidectomy Respiratory Surgical History: Reports: None GI Surgical History: Reports: Appendectomy Oncologic Surgical History: Reports: None Dermatological Surgical History: Reports: None Social & Family History - Family History Family Medical History: Noncontributory - Tobacco Use Smoking Status *Q: Current Every Day Smoker Years of Tobacco use: 32 Packs/Tins Daily: 1 Used Tobacco, but Quit: No Second Hand Smoke Exposure: Yes - Caffeine Use Caffeine Use: Reports: Coffee, Soda - Alcohol Use Days Per Week of Alcohol Use: 7 Number of Drinks Per Day: 3 Total Drinks Per Week: 21 - Recreational Drug Use Recreational Drug Use: No ED ROS GENERAL - Review of Systems Review Of Systems: ROS reveals no pertinent complaints other than HPI. - Physical Exam Exam: See Below Exam Limited By: No Limitations General Appearance: Alert, WD/WN, No Apparent Distress Head Exam: Atraumatic, Normocephalic, Facial Abrasions Neck: Normal Inspection, Supple, Non-Tender, Full Range of Motion Respiratory/Chest: No Respiratory Distress, Lungs Clear, Normal Breath Sounds, No Accessory Muscle Use, Chest Non-Tender Cardiovascular: Normal Peripheral Pulses, Regular Rate, Rhythm, No Edema, No Gallop, No JVD, No Murmur, No Rub GI/Abdominal: Normal Bowel Sounds, Soft, Non-Tender, No Organomegaly, No Distention, No Abnormal Bruit, No Mass Neuro Exam (Abbreviated): Alert, Oriented, CN II-XII Intact, Normal Reflexes, No Motor/Sensory Deficits, Other (mild intoxication) Back Exam: Normal Inspection, Full Range of Motion, NT Extremities: Normal Inspection, Non-Tender, No Pedal Edema, Normal Capillary Refill, Other (Chronic left shoulder pain. No swelling, erythema, deformity or tenderness. Pain limitations or range of motion. CMS intact.) Psychiatric: Normal Affect, Normal Mood Skin Exam: Warm, Dry, Intact, Normal Color, No Rash Course - Vital Signs Last Recorded V/S: Last Vital Signs Temp 37.0 C 07/13/17 01:19 Pulse 122 H 07/13/17 01:19 Resp 16 07/13/17 01:19 BP 169/99 H 07/13/17 01:19 Pulse Ox 92 L 07/13/17 01:19 - Orders/Labs/Meds Orders: Active Orders 24 hr Category Date Time Status Head wo Cont [CT] Stat Exams 07/13/17 01:36 Taken Shoulder Comp Lt [CR] Stat Exams 07/13/17 01:35 Taken Sodium Chloride 0.9% [Normal Saline] 1,000 ml Med 07/13/17 01:34 Active IV .BOLUS Medication Orders Sodium Chloride (Normal Saline) 1,000 mls @ 999 mls/hr IV .BOLUS STA Stop: 07/13/17 02:34 Last Admin: 07/13/17 02:04 Dose: 999 mls/hr Labs: Laboratory Tests 07/13/17 07/13/17 07/13/17 Range/Units 01:45 01:45 01:45 WBC 8.1 (4.5-11.0) K/uL RBC 4.09 L (4.30-5.90) M/uL Hgb 13.1 (12.0-15.0) g/dL Hct 36.2 L (40.0-54.0) % MCV 89 (80-98) fL MCH 32 H (27-31) pg MCHC 36 (32-36) % Plt Count 104 L (150-400) K/uL Neut % (Auto) 57 (36-66) % Lymph % (Auto) 32 (24-44) % [place] % (Auto) 11 H (2-6) % Eos % (Auto) 0 L (2-4) % Baso % (Auto) 0 (0-1) % Sodium 139 L (140-148) mmol/L Potassium 4.1 (3.6-5.2) mmol/L Chloride 99 L (100-108) mmol/L Carbon Dioxide 21 (21-32) mmol/L Anion Gap 23.1 H (5.0-14.0) mmol/L BUN 10 (7-18) mg/dL Creatinine 0.7 L (0.8-1.3) mg/dL Est Cr Clr Drug Dosing 118.77 mL/min Estimated GFR (MDRD) > 60 (>60) Glucose 200 H (74-106) mg/dL Calcium 7.8 L (8.5-10.1) mg/dL Salicylates 4.3 (2.0-20.0) mg/dL Acetaminophen 0.0 L (10.0-30.0) ug/mL Ethyl Alcohol mg/dL 07/13/17 Range/Units 01:45 WBC (4.5-11.0) K/uL RBC (4.30-5.90) M/uL Hgb (12.0-15.0) g/dL Hct (40.0-54.0) % MCV (80-98) fL MCH (27-31) pg MCHC (32-36) % Plt Count (150-400) K/uL Neut % (Auto) (36-66) % Lymph % (Auto) (24-44) % [place] % (Auto) (2-6) % Eos % (Auto) (2-4) % Baso % (Auto) (0-1) % Sodium (140-148) mmol/L Potassium (3.6-5.2) mmol/L Chloride (100-108) mmol/L Carbon Dioxide (21-32) mmol/L Anion Gap (5.0-14.0) mmol/L BUN (7-18) mg/dL Creatinine (0.8-1.3) mg/dL Est Cr Clr Drug Dosing mL/min Estimated GFR (MDRD) (>60) Glucose (74-106) mg/dL Calcium (8.5-10.1) mg/dL Salicylates (2.0-20.0) mg/dL Acetaminophen (10.0-30.0) ug/mL Ethyl Alcohol 324 mg/dL Meds: Medications Generic Name Dose Route Start Last Admin Trade Name Freq PRN Reason Stop Dose Admin Sodium Chloride 1,000 mls @ 999 mls/hr 07/13/17 01:34 07/13/17 02:04 Normal Saline IV 07/13/17 02:34 999 mls/hr .BOLUS STA Administration - Re-Assessments/Exams Free Text/Narrative Re-Assessment/Exam: 07/13/17 02:04 Patient was seen and examined shortly after arrival. Given 1 L normal saline bolus. Lab and imaging reviewed. Comminuted fracture of the head of the humerus on the left side. CT head did not show any sign of acute intracranial bleed. Official read by radiologist is still pending. Case was discussed with Dr. Garcia hospitalist recruiting consultant and he accepted admission for further management. ortho will be consulted in the morning. Shoulder immobilizer was applied. The patient will be admitted in stable condition. 07/13/17 02:32 Departure - Departure Time of Disposition: 02:31 Disposition: Admitted As Inpatient 64 Preliminary Cause of *Q: Cardiac Arrest Condition: Fair Clinical Impression: Fracture, humerus, head, Alcohol intoxication, Metabolic acidosis - Discharge Information Referrals: PCP,None [Primary Care Provider] - Forms: ED Department Discharge - My Orders Last 24 Hours: My Active Orders 07/13/17 01:34 Sodium Chloride 0.9% [Normal Saline] 1,000 ml IV .BOLUS 07/13/17 01:35 Shoulder Comp Lt [CR] Stat 07/13/17 01:36 Head wo Cont [CT] Stat - Assessment/Plan Last 24 Hours: My Active Orders 07/13/17 01:34 Sodium Chloride 0.9% [Normal Saline] 1,000 ml IV .BOLUS 07/13/17 01:35 Shoulder Comp Lt [CR] Stat 07/13/17 01:36 Head wo Cont [CT] Stat Plan: Admission to hospitalist Dr. Garcia and orthopedic consult in the morning
[2017-07-13] MEDS ORDERED: Ketorolac 30 MG/ML SDV IVPUSH ONE (03:52)
[2017-07-13 04:32] VITALS: BP 140/69
--- NOTE | 2017-07-13 11:11 | CR ---
Shoulder Comp Lt INDICATION: pain, injury FINDINGS: Comparison 07/03/2017. Again demonstrated is an impacted humeral neck fracture with callus f ormation and inferior subluxation. No significant change in alignment. Healing left rib fractures.
== END 2017-07-13 05:23 | disposition critical access hospital (66) ==
LOC: JP.ED 01:14
DX: S42.352A Displaced comminuted fracture of shaft of humerus, left arm, initial encounter for closed fracture (principal); E78.00 Pure hypercholesterolemia, unspecified; E87.2 Acidosis; I10 Essential (primary) hypertension; E11.9 Type 2 diabetes mellitus without complications; F17.210 Nicotine dependence, cigarettes, uncomplicated; Z88.8 Allergy status to other drugs, medicaments and biological substances; Z79.82 Long term (current) use of aspirin; Z79.899 Other long term (current) drug therapy; Z79.4 Long term (current) use of insulin
CPT/HCPCS: 36415; 70450; 73030; 80048; 85025; 96361; 96374; 99285; G0480; J1885; J7040; 99284

== ENCOUNTER 2017-09-06 14:53 | Emergency (ER) | payer MEDICAID ==
[2017-09-06 15:25] VITALS: BP 148/75
[2017-09-06] MEDS ORDERED: Ketorolac 60 MG/2 ML SDV IM ONE (15:31)
[2017-09-06] MEDS ORDERED: Acetaminophen/oxyCODONE 325-5 MG Tab PO ONE (15:32)
--- NOTE | 2017-09-06 16:33 | EDM.PDOC ---
ED HPI GENERAL MEDICAL PROBLEM - General Chief Complaint: Lower Extremity Injury/Pain Stated Complaint: R LEG & HIP PAIN Time Seen by Provider: 09/06/17 16:27 Source of Information: Reports: Patient History Limitations: Reports: No Limitations - History of Present Illness INITIAL COMMENTS - FREE TEXT/NARRATIVE: pt arrived with pain in the rt hip. He has numbness in his anterior rt leg and lower rt leg. He has pain which radiates down the post buttock area. Onset: Other ( last 2-3 days. ) Duration: Day(s):, Getting Worse Location: Reports: Lower Extremity, Right, Other ( back) Associated Symptoms: Reports: No Other Symptoms - Related Data Allergies Allergy/AdvReac Type Severity Reaction Status Date / Time zolpidem tartrate Allergy Cannot Verified 07/13/17 01:25 [From Maite] Remember Home Meds: Home Meds Aspirin [Halfprin] 81 mg PO DAILY 10/17/14 [History] Gabapentin 900 mg PO BID 12/04/14 [History] Simvastatin 40 mg PO BEDTIME 12/04/14 [History] traZODone 100 - 200 mg PO BEDTIME 12/04/14 [History] Insulin Glarg,Human.Rec.Analog [Lantus Solostar] 35 unit SQ BEDTIME 04/03/15 [ History] Venlafaxine HCl [Venlafaxine ER] 150 mg PO DAILY 04/03/15 [History] Metoprolol Tartrate [Lopressor] 50 mg PO BID 04/05/15 [History] metFORMIN [Glucophage] 1,000 mg PO BIDAC 03/11/16 [History] Multivit-Min/FA/Lycopene/Lut [Certavite Sr-Antioxidant Tab] 1 tab PO DAILY 06/16 [History] Pantoprazole [ProTONIX] 40 mg PO DAILY #30 tab.cr 06/17/16 [Rx] Insulin Aspart [NovoLOG] 2 units SQ ASDIRECTED 08/21/16 [History] Ergocalciferol (Vitamin D2) [Vitamin D2] 1 tab PO DAILY 04/03/17 [History] Lisinopril [Zestril] 20 mg PO DAILY 04/03/17 [History] Magnesium Oxide [Magnesium] 800 mg PO BID 04/03/17 [History] Venlafaxine HCl [Venlafaxine ER] 75 mg PO DAILY 04/03/17 [History] Celecoxib [CeleBREX] 1 tab PO BID 09/06/17 [History] Past Medical History Cardiovascular History: Reports: High Cholesterol, Hypertension Other Cardiovascular History: Past chest pain Questionable [place] in past. Respiratory History: Reports: None Gastrointestinal History: Reports: Pancreatitis Genitourinary History: Reports: None Musculoskeletal History: Reports: Fracture, Other (See Below) Other Musculoskeletal History: fx toe L humeral fracture. Neurological History: Reports: Head Trauma Psychiatric History: Reports: Addiction, Anxiety, Depression, Other (See Below) Other Psychiatric History: Alcohol abuse. Endocrine/Metabolic History: Reports: Diabetes, Type II Hematologic History: Reports: None Immunologic History: Reports: None Oncologic (Cancer) History: Reports: None Dermatologic History: Reports: None - Infectious Disease History Infectious Disease History: Reports: Chicken Pox Other Infectious Disease History: unknown - Past Surgical History Head Surgeries/Procedures: Reports: None HEENT Surgical History: Reports: Adenoidectomy Respiratory Surgical History: Reports: None GI Surgical History: Reports: Appendectomy Oncologic Surgical History: Reports: None Dermatological Surgical History: Reports: None Social & Family History - Family History Family Medical History: Noncontributory - Tobacco Use Smoking Status *Q: Current Every Day Smoker Years of Tobacco use: 30 Packs/Tins Daily: 0.3 Used Tobacco, but Quit: No Second Hand Smoke Exposure: Yes - Caffeine Use Caffeine Use: Reports: Coffee, Soda - Alcohol Use Days Per Week of Alcohol Use: 7 Number of Drinks Per Day: 3 Total Drinks Per Week: 21 Time of Last Drink: 15:52 - Recreational Drug Use Recreational Drug Use: No Review of Systems - Review of Systems Review Of Systems: See Below Constitutional: Reports: No Symptoms Eyes: Reports: No Symptoms Ears: Reports: No Symptoms Nose: Reports: No Symptoms Mouth/Throat: Reports: No Symptoms Respiratory: Reports: No Symptoms Cardiovascular: Reports: No Symptoms GI/Abdominal: Reports: No Symptoms Genitourinary: Reports: No Symptoms Musculoskeletal: Reports: Other ( severe pain in the rt hip and lower lumbar area. ) Skin: Reports: No Symptoms ED EXAM, GENERAL - Physical Exam Exam: See Below Free Text/Narrative:: pt has not been able to rest for the past 2-3 nites. Exam Limited By: No Limitations General Appearance: Alert, Moderate Distress Ears: Normal TMs Nose: Normal Inspection Throat/Mouth: Normal Inspection Head: Atraumatic Neck: Normal Inspection Respiratory/Chest: No Respiratory Distress Cardiovascular: Regular Rate, Rhythm GI/Abdominal: Soft, Non-Tender (Male) Exam: Deferred Rectal (Males) Exam: Deferred Back Exam: Other (pt is tender over the lower lumbar area. He is also tender over the rt hip. He has pain when he moves his leg. ) Neurological: Alert, Oriented, Normal Cognition Course - Vital Signs Last Recorded V/S: Last Vital Signs Temp 36.4 C 09/06/17 15:53 Pulse 84 09/06/17 15:53 Resp 18 09/06/17 15:53 BP 148/75 H 09/06/17 15:53 Pulse Ox 98 09/06/17 15:53 - Orders/Labs/Meds Orders: Active Orders 24 hr Category Date Time Status Hip Min 2V or 3V Rt [CR] Stat Exams 09/06/17 15:32 Taken Lumbar Spine 2 or 3V [CR] Stat Exams 09/06/17 15:33 Taken Meds: Medications Discontinued Medications Generic Name Dose Route Start Last Admin Trade Name Freq PRN Reason Stop Dose Admin Ketorolac Tromethamine 60 mg 09/06/17 15:31 09/06/17 15:44 Toradol IM 09/06/17 15:32 60 mg ONETIME ONE Administration Oxycodone/Acetaminophen 1 tab 09/06/17 15:32 09/06/17 15:43 Percocet 325-5 Mg PO 09/06/17 15:33 1 tab ONETIME ONE Administration - Re-Assessments/Exams Free Text/Narrative Re-Assessment/Exam: 09/06/17 16:32 xray of the hip show degenerative changes. His lumbar area also shows some degemerative changes. Departure - Departure Time of Disposition: 16:35 Disposition: Home, Self-Care 01 Condition: Fair Clinical Impression: Weakness of right leg, Degenerative arthritis of lumbar spine - Discharge Information Referrals: Enrique Harrell MD [Primary Care Provider] - Forms: ED Department Discharge Care Plan Goals: heat to the rt hip, rtc for an Mri of the lumbar spine, appt with Dr Gilberto Moses, tramodol 50mg q6h prn for pain. - My Orders Last 24 Hours: My Active Orders 09/06/17 15:32 Hip Min 2V or 3V Rt [CR] Stat 09/06/17 15:33 Lumbar Spine 2 or 3V [CR] Stat - Assessment/Plan Last 24 Hours: My Active Orders 09/06/17 15:32 Hip Min 2V or 3V Rt [CR] Stat 09/06/17 15:33 Lumbar Spine 2 or 3V [CR] Stat
--- NOTE | 2017-09-07 09:24 | CR ---
Moderate degenerative change right hip. No evidence for fracture.
--- NOTE | 2017-09-07 09:25 | CR ---
5 lumbar type vertebral bodies. Vertebral body heights are maintained. Mild disc height loss L4-5 and L5-S1. Facet arthropathy is evident greatest on the right within the lower lumbar spine at L4-5 and L5-S1.
== END 2017-09-06 17:22 | disposition home or self-care (01) ==
LOC: JP.ED 14:53
DX: M47.896 Other spondylosis, lumbar region (principal); M62.81 Muscle weakness (generalized); E11.9 Type 2 diabetes mellitus without complications; F17.210 Nicotine dependence, cigarettes, uncomplicated; Z88.8 Allergy status to other drugs, medicaments and biological substances; Z79.82 Long term (current) use of aspirin
CPT/HCPCS: 72100; 73502; 96372; 99283; A9270; J1885; 99284

== ENCOUNTER 2017-11-17 06:40 | Emergency (ER) | payer MEDICAID ==
--- NOTE | 2017-11-17 07:25 | EDM.PDOC ---
ED HPI GENERAL MEDICAL PROBLEM - General Chief Complaint: Lower Extremity Injury/Pain Stated Complaint: DRINKING Time Seen by Provider: 11/17/17 07:24 Source of Information: Reports: Patient, EMS History Limitations: Reports: No Limitations - History of Present Illness INITIAL COMMENTS - FREE TEXT/NARRATIVE: pt arrived complaining of severe rt hip and rt lower lumbar pain . He has a known disc at L4. He did have injections--probable epidural which was not very helpful. Onset: Gradual, Other (pain is severe. Pt is now back drinking. ) Duration: Day(s):, Getting Worse Location: Reports: Back, Other ( rt hip area, ) Quality: Reports: Sharp, Stabbing Associated Symptoms: Reports: Other (pt has pat drinking. ) Right Hip Pain Score (Numeric/FACES): 10 - Related Data Allergies Allergy/AdvReac Type Severity Reaction Status Date / Time zolpidem tartrate Allergy Cannot Verified 11/17/17 08:35 [From Maite] Remember Home Meds: Home Meds Aspirin [Halfprin] 81 mg PO DAILY 10/17/14 [History] Gabapentin 600 mg PO TID 12/04/14 [History] Simvastatin 40 mg PO BEDTIME 12/04/14 [History] traZODone 100 - 200 mg PO BEDTIME 12/04/14 [History] Venlafaxine HCl [Venlafaxine ER] 150 mg PO DAILY 04/03/15 [History] Metoprolol Tartrate [Lopressor] 50 mg PO BID 04/05/15 [History] metFORMIN [Glucophage] 1,000 mg PO BIDAC 03/11/16 [History] Multivit-Min/FA/Lycopene/Lut [Certavite Sr-Antioxidant Tab] 1 tab PO DAILY 06/16 [History] Pantoprazole [ProTONIX] 40 mg PO DAILY #30 tab.cr 06/17/16 [Rx] Lisinopril [Zestril] 10 mg PO DAILY 04/03/17 [History] Venlafaxine HCl [Venlafaxine ER] 75 mg PO DAILY 04/03/17 [History] Celecoxib [CeleBREX] 1 tab PO BID 09/06/17 [History] Acetaminophen 1 tab PO Q4H 11/17/17 [History] Albuterol [Ventolin HFA] 2 puff INH QID 11/17/17 [History] Insulin Glargine,Hum.Rec.Anlog [Basaglar Kwikpen U-100] 35 units SUBCUT DAILY [History] Insulin Glulisine [Apidra Solostar] 1 dose SUBCUT TID 11/17/17 [History] traMADol HCl [Tramadol HCl] 1 tab PO Q6H PRN 11/17/17 [History] Past Medical History Cardiovascular History: Reports: High Cholesterol, Hypertension Other Cardiovascular History: Past chest pain Questionable [place] in past. Respiratory History: Reports: None Gastrointestinal History: Reports: Pancreatitis Genitourinary History: Reports: None Musculoskeletal History: Reports: Fracture, Other (See Below) Other Musculoskeletal History: fx toe L humeral fracture. Neurological History: Reports: Head Trauma Psychiatric History: Reports: Addiction, Anxiety, Depression, Other (See Below) Other Psychiatric History: Alcohol abuse. Endocrine/Metabolic History: Reports: Diabetes, Type II Hematologic History: Reports: None Immunologic History: Reports: None Oncologic (Cancer) History: Reports: None Dermatologic History: Reports: None - Infectious Disease History Infectious Disease History: Reports: Chicken Pox Other Infectious Disease History: unknown - Past Surgical History Head Surgeries/Procedures: Reports: None HEENT Surgical History: Reports: Adenoidectomy Respiratory Surgical History: Reports: None GI Surgical History: Reports: Appendectomy Oncologic Surgical History: Reports: None Dermatological Surgical History: Reports: None Social & Family History - Family History Family Medical History: Noncontributory - Tobacco Use Smoking Status *Q: Current Every Day Smoker Years of Tobacco use: 26 Packs/Tins Daily: 0.5 Used Tobacco, but Quit: No Second Hand Smoke Exposure: Yes - Caffeine Use Caffeine Use: Reports: Coffee - Alcohol Use Days Per Week of Alcohol Use: 1 Number of Drinks Per Day: 2 Total Drinks Per Week: 2 - Recreational Drug Use Recreational Drug Use: No Review of Systems - Review of Systems Review Of Systems: See Below Constitutional: Reports: No Symptoms Eyes: Reports: No Symptoms Ears: Reports: Clear Discharge Nose: Reports: No Symptoms Mouth/Throat: Reports: No Symptoms Respiratory: Reports: No Symptoms Cardiovascular: Reports: No Symptoms GI/Abdominal: Reports: Nausea Genitourinary: Reports: No Symptoms Musculoskeletal: Reports: No Symptoms Skin: Reports: No Symptoms Neurological: Reports: Other (pt has been drinking and is intoxicated. ) Psychiatric: Reports: Anxiety, Other (pt is intoxicated. ) ED EXAM, GENERAL - Physical Exam Exam: See Below Free Text/Narrative:: pt arrived stating that he has severe pain i the rt hip and low back area. He has been drinking heavily again. He is interested in going to [facility] [employer]. r Exam Limited By: No Limitations General Appearance: Alert, Mild Distress, Other ( pupils equal nd reactive. ) Ears: Normal TMs Nose: Normal Inspection Throat/Mouth: Normal Inspection Head: Atraumatic Neck: Normal Inspection Respiratory/Chest: No Respiratory Distress Cardiovascular: Regular Rate, Rhythm GI/Abdominal: Soft, Non-Tender (Male) Exam: Deferred Rectal (Males) Exam: Deferred Back Exam: Normal Inspection Extremities: Other (pt has pain over the rt hip and rt buttock area. He has a known disc at the 4th lumbar nerve root. ) Neurological: Alert, Oriented, Normal Cognition Psychiatric: Normal Affect Course - Vital Signs Last Recorded V/S: Last Vital Signs Temp 37.2 C 11/17/17 06:49 Pulse 143 H 11/17/17 11:30 Resp 21 H 11/17/17 11:30 BP 157/64 H 11/17/17 12:35 Pulse Ox 94 L 11/17/17 09:00 - Orders/Labs/Meds Orders: Active Orders 24 hr Category Date Time Status Sodium Chloride 0.9% [Normal Saline] 1,000 ml Med 11/17/17 08:00 Active IV ASDIRECTED Sodium Chloride 0.9% [Normal Saline] 1,000 ml Med 11/17/17 09:45 Active IV ASDIRECTED Sodium Chloride 0.9% [Normal Saline] 1,000 ml Med 11/17/17 10:30 Active IV ASDIRECTED Sodium Chloride 0.9% [Saline Flush] Med 11/17/17 07:48 Active 10 ml FLUSH ASDIRECTED PRN Saline Lock Insert [OM.PC] Routine Oth 11/17/17 07:48 Ordered Medication Orders Sodium Chloride (Normal Saline) 1,000 mls @ 999 mls/hr IV ASDIRECTED RIKKI Last Admin: 11/17/17 08:20 Dose: 999 mls/hr Sodium Chloride (Normal Saline) 1,000 mls @ 999 mls/hr IV ASDIRECTED RIKKI Last Admin: 11/17/17 09:22 Dose: 999 mls/hr Sodium Chloride (Normal Saline) 1,000 mls @ 250 mls/hr IV ASDIRECTED RIKKI Last Admin: 11/17/17 10:26 Dose: 250 mls/hr Sodium Chloride (Saline Flush) 10 ml FLUSH ASDIRECTED PRN PRN Reason: Keep Vein Open Last Admin: 11/17/17 08:20 Dose: 10 ml Labs: Laboratory Tests 11/17/17 11/17/17 11/17/17 Range/Units 07:35 07:35 07:35 WBC 10.3 (4.5-11.0) K/uL RBC 4.40 (4.30-5.90) M/uL Hgb 14.0 (12.0-15.0) g/dL Hct 39.6 L (40.0-54.0) % MCV 90 (80-98) fL MCH 32 H (27-31) pg MCHC 35 (32-36) % Plt Count 202 (150-400) K/uL Neut % (Auto) 62 (36-66) % Lymph % (Auto) 28 (24-44) % [place] % (Auto) 9 H (2-6) % Eos % (Auto) 0 L (2-4) % Baso % (Auto) 0 (0-1) % Sodium 133 L (140-148) mmol/L Potassium 3.6 (3.6-5.2) mmol/L Chloride 95 L (100-108) mmol/L Carbon Dioxide 16 L (21-32) mmol/L Anion Gap 25.6 H (5.0-14.0) mmol/L BUN 12 (7-18) mg/dL Creatinine 0.8 (0.8-1.3) mg/dL Est Cr Clr Drug Dosing 102.66 mL/min Estimated GFR (MDRD) > 60 (>60) Glucose 226 H (74-106) mg/dL Calcium 8.4 L (8.5-10.1) mg/dL Total Bilirubin 0.5 (0.2-1.0) mg/dL AST 38 H (15-37) U/L ALT 37 (12-78) U/L Alkaline Phosphatase 70 (46-116) U/L Total Protein 6.5 (6.4-8.2) g/dL Albumin 3.7 (3.4-5.0) g/dL Globulin 2.8 (2.3-3.5) g/dL Albumin/Globulin Ratio 1.3 (1.2-2.2) Urine Color Urine Appearance Urine pH (4.5-8.0) Ur Specific [place] [address] (1.008-1.030) Urine Protein (NEGATIVE) mg/dL Urine Glucose (UA) (NEGATIVE) mg/dL Urine Ketones (NEGATIVE) mg/dL Urine Occult Blood (NEGATIVE) Urine Nitrite (NEGAITVE) Urine Bilirubin (NEGATIVE) Urine Urobilinogen (NORMAL) mg/dL Ur Leukocyte Esterase (NEGATIVE) Urine RBC (0-5) Urine WBC (0-5) Ur Epithelial Cells Amorphous Sediment Urine Bacteria Urine Mucus Urine Opiates Screen (NEGATIVE) Ur Oxycodone Screen (NEGATIVE) Urine Methadone Screen (NEGATIVE) Ur Propoxyphene Screen (NEGATIVE) Ur Barbiturates Screen (NEGATIVE) Ur Tricyclics Screen (NEGATIVE) Ur Phencyclidine Scrn (NEGATIVE) Ur Amphetamine Screen (NEGATIVE) U Methamphetamines Scrn (NEGATIVE) Urine MDMA Screen (NEGATIVE) U Benzodiazepines Scrn (NEGATIVE) U Cocaine Metab Screen (NEGATIVE) U Marijuana (THC) Screen (NEGATIVE) Ethyl Alcohol 213 mg/dL 11/17/17 11/17/17 Range/Units 08:19 08:19 WBC (4.5-11.0) K/uL RBC (4.30-5.90) M/uL Hgb (12.0-15.0) g/dL Hct (40.0-54.0) % MCV (80-98) fL MCH (27-31) pg MCHC (32-36) % Plt Count (150-400) K/uL Neut % (Auto) (36-66) % Lymph % (Auto) (24-44) % [place] % (Auto) (2-6) % Eos % (Auto) (2-4) % Baso % (Auto) (0-1) % Sodium (140-148) mmol/L Potassium (3.6-5.2) mmol/L Chloride (100-108) mmol/L Carbon Dioxide (21-32) mmol/L Anion Gap (5.0-14.0) mmol/L BUN (7-18) mg/dL Creatinine (0.8-1.3) mg/dL Est Cr Clr Drug Dosing mL/min Estimated GFR (MDRD) (>60) Glucose (74-106) mg/dL Calcium (8.5-10.1) mg/dL Total Bilirubin (0.2-1.0) mg/dL AST (15-37) U/L ALT (12-78) U/L Alkaline Phosphatase (46-116) U/L Total Protein (6.4-8.2) g/dL Albumin (3.4-5.0) g/dL Globulin (2.3-3.5) g/dL Albumin/Globulin Ratio (1.2-2.2) Urine Color Yellow Urine Appearance Slightly cloudy Urine pH 5.0 (4.5-8.0) Ur Specific [address] 1.025 (1.008-1.030) Urine Protein 30 H (NEGATIVE) mg/dL Urine Glucose (UA) 1000 H (NEGATIVE) mg/dL Urine Ketones 150 H (NEGATIVE) mg/dL Urine Occult Blood Moderate (NEGATIVE) Urine Nitrite Negative (NEGAITVE) Urine Bilirubin Negative (NEGATIVE) Urine Urobilinogen Normal (NORMAL) mg/dL Ur Leukocyte Esterase Negative (NEGATIVE) Urine RBC 0-5 (0-5) Urine WBC 5-10 H (0-5) Ur Epithelial Cells Moderate Amorphous Sediment Not seen Urine Bacteria Not seen Urine Mucus Moderate Urine Opiates Screen Negative (NEGATIVE) Ur Oxycodone Screen Negative (NEGATIVE) Urine Methadone Screen Negative (NEGATIVE) Ur Propoxyphene Screen Negative (NEGATIVE) Ur Barbiturates Screen Negative (NEGATIVE) Ur Tricyclics Screen Negative (NEGATIVE) Ur Phencyclidine Scrn Negative (NEGATIVE) Ur Amphetamine Screen Negative (NEGATIVE) U Methamphetamines Scrn Negative (NEGATIVE) Urine MDMA Screen Negative (NEGATIVE) U Benzodiazepines Scrn Negative (NEGATIVE) U Cocaine Metab Screen Negative (NEGATIVE) U Marijuana (THC) Screen Negative (NEGATIVE) Ethyl Alcohol mg/dL Meds: Medications Generic Name Dose Route Start Last Admin Trade Name Freq PRN Reason Stop Dose Admin Sodium Chloride 1,000 mls @ 999 mls/hr 11/17/17 08:00 11/17/17 08:20 Normal Saline IV 999 mls/hr ASDIRECTED RIKKI Administration Sodium Chloride 1,000 mls @ 999 mls/hr 11/17/17 09:45 11/17/17 09:22 Normal Saline IV 999 mls/hr ASDIRECTED RIKKI Administration Sodium Chloride 1,000 mls @ 250 mls/hr 11/17/17 10:30 11/17/17 10:26 Normal Saline IV 250 mls/hr ASDIRECTED RIKKI Administration Sodium Chloride 10 ml 11/17/17 07:48 11/17/17 08:20 Saline Flush FLUSH 10 ml ASDIRECTED PRN Administration Keep Vein Open Discontinued Medications Generic Name Dose Route Start Last Admin Trade Name Freq PRN Reason Stop Dose Admin Ketorolac Tromethamine 30 mg 11/17/17 07:48 11/17/17 08:25 Toradol IVPUSH 11/17/17 07:49 30 mg ONETIME ONE Administration Lorazepam 1 mg 11/17/17 10:01 11/17/17 10:25 Ativan IVPUSH 11/17/17 10:02 1 mg ONETIME ONE Administration Lorazepam 1 mg 11/17/17 13:09 11/17/17 13:25 Ativan IVPUSH 11/17/17 13:10 1 mg ONETIME ONE Administration Lorazepam 1 mg 11/17/17 16:37 11/17/17 16:42 Ativan PO 11/17/17 16:38 1 mg ONETIME ONE Administration Ondansetron HCl 4 mg 11/17/17 16:38 11/17/17 16:42 Zofran IVPUSH 11/17/17 16:39 4 mg ONETIME ONE Administration Oxycodone/Acetaminophen 1 tab 11/17/17 10:02 11/17/17 10:24 Percocet 325-5 Mg PO 11/17/17 10:03 1 tab ONETIME ONE Administration - Re-Assessments/Exams Free Text/Narrative Re-Assessment/Exam: 11/17/17 17:17 pt was given 2 liters of fluid. This afternoon he is beginning to get shakey. He has been given ativan for that. He has had zoforan for his nausea. He did vomit once while he was here. 11/17/17 17:20 pt was given torodol 30mg iv. Departure - Departure Time of Disposition: 17:20 Disposition: DC/[facility]fer to [facility]Unit [facility] Condition: Fair Clinical Impression: Alcohol withdrawal, Lumbar disc disease - Discharge Information Referrals: PCP,None [Primary Care Provider] - Forms: ED Department Discharge Care Plan Goals: ice to rt hip area, resume his usual meds, consider placement in a sober house [facility]. - My Orders Last 24 Hours: My Active Orders 11/17/17 07:48 Sodium Chloride 0.9% [Saline Flush] 10 ml FLUSH ASDIRECTED PRN Saline Lock Insert [OM.PC] Routine 11/17/17 08:00 Sodium Chloride 0.9% [Normal Saline] 1,000 ml IV ASDIRECTED 11/17/17 09:45 Sodium Chloride 0.9% [Normal Saline] 1,000 ml IV ASDIRECTED 11/17/17 10:30 Sodium Chloride 0.9% [Normal Saline] 1,000 ml IV ASDIRECTED - Assessment/Plan Last 24 Hours: My Active Orders 11/17/17 07:48 Sodium Chloride 0.9% [Saline Flush] 10 ml FLUSH ASDIRECTED PRN Saline Lock Insert [OM.PC] Routine 11/17/17 08:00 Sodium Chloride 0.9% [Normal Saline] 1,000 ml IV ASDIRECTED 11/17/17 09:45 Sodium Chloride 0.9% [Normal Saline] 1,000 ml IV ASDIRECTED 11/17/17 10:30 Sodium Chloride 0.9% [Normal Saline] 1,000 ml IV ASDIRECTED
[2017-11-17] MEDS ORDERED: Ketorolac 30 MG/ML SDV IVPUSH ONE (07:48)
[2017-11-17] MEDS ORDERED: Sodium Chloride 0.9% 10 ML Syringe FLUSH PRN (07:48)
[2017-11-17] MEDS ORDERED: Sodium Chloride 0.9% 1,000 ML IV SCH ×3 (08:00→10:30)
[2017-11-17] MEDS ORDERED: LORazepam 2 MG/ML MDV IVPUSH ONE ×2 (10:01→13:09)
[2017-11-17] MEDS ORDERED: Acetaminophen/oxyCODONE 325-5 MG Tab PO ONE (10:02)
[2017-11-17] MEDS ORDERED: LORazepam 1 MG Tab PO ONE (16:37)
[2017-11-17] MEDS ORDERED: Ondansetron 4 MG/2 ML SDV IVPUSH ONE (16:38)
[2017-11-17] MEDS ORDERED: Metoprolol Tartrate 50 MG Tab PO ONE (17:36)
[2017-11-17 17:51] VITALS: BP 189/77
== END 2017-11-17 19:30 ==
LOC: JP.ED 06:40
DX: F10.239 Alcohol dependence with withdrawal, unspecified (principal); F10.229 Alcohol dependence with intoxication, unspecified; M51.9 Unspecified thoracic, thoracolumbar and lumbosacral intervertebral disc disorder; E78.00 Pure hypercholesterolemia, unspecified; I10 Essential (primary) hypertension; F17.210 Nicotine dependence, cigarettes, uncomplicated; E11.9 Type 2 diabetes mellitus without complications; Y90.7 Blood alcohol level of 200-239 mg/100 ml; Z88.8 Allergy status to other drugs, medicaments and biological substances; Z79.82 Long term (current) use of aspirin; Z79.899 Other long term (current) drug therapy
CPT/HCPCS: 36415; 80053; 80305; 81001; 85025; 96361; 96374; 96375; 96376; 99285; A9270; G0480; J1885; J2060; J2405; J7040; J7050

== ENCOUNTER 2017-12-13 18:01 | Emergency (ER) | payer MEDICAID ==
[2017-12-13] MEDS ORDERED: Aspirin 81 MG Tab.Chew PO ONE (18:44)
--- NOTE | 2017-12-13 18:50 | EDM.PDOC ---
ED HPI GENERAL MEDICAL PROBLEM - General Chief Complaint: Chest Pain Stated Complaint: MEDICAL Time Seen by Provider: 12/13/17 18:35 Source of Information: Reports: Patient History Limitations: Reports: No Limitations - History of Present Illness INITIAL COMMENTS - FREE TEXT/NARRATIVE: pt arrived with pain in the left chest which started today. he did drink a liter of vodka today. he smells very strongly of urine and seemes quite unkept. Onset: Today, Other ( left sided chest pain. ) Duration: Hour(s): Location: Reports: Chest, Other ( left arm. ) Associated Symptoms: Reports: Chest Pain, Cough, Shortness of Breath Treatments SHEET METAL INSULATOR: Reports: Aspirin, EKG, IV/IO Middle Chest Pain Score (Numeric/FACES): 9 - Related Data Allergies Allergy/AdvReac Type Severity Reaction Status Date / Time zolpidem tartrate Allergy Cannot Verified 11/17/17 08:35 [From Maite] Remember Home Meds: Home Meds Aspirin [Halfprin] 81 mg PO DAILY 10/17/14 [History] Gabapentin 600 mg PO TID 12/04/14 [History] Simvastatin 40 mg PO BEDTIME 12/04/14 [History] traZODone 100 - 200 mg PO BEDTIME 12/04/14 [History] Venlafaxine HCl [Venlafaxine ER] 150 mg PO DAILY 04/03/15 [History] Metoprolol Tartrate [Lopressor] 50 mg PO BID 04/05/15 [History] metFORMIN [Glucophage] 1,000 mg PO BIDAC 03/11/16 [History] Multivit-Min/FA/Lycopene/Lut [Certavite Sr-Antioxidant Tab] 1 tab PO DAILY 06/16 [History] Pantoprazole [ProTONIX] 40 mg PO DAILY #30 tab.cr 06/17/16 [Rx] Lisinopril [Zestril] 10 mg PO DAILY 04/03/17 [History] Venlafaxine HCl [Venlafaxine ER] 75 mg PO DAILY 04/03/17 [History] Celecoxib [CeleBREX] 1 tab PO BID 09/06/17 [History] Acetaminophen 1 tab PO Q4H 11/17/17 [History] Albuterol [Ventolin HFA] 2 puff INH QID 11/17/17 [History] Insulin Glargine,Hum.Rec.Anlog [Basaglar Hennyikpen U-100] 35 units SUBCUT DAILY [History] Insulin Glulisine [Apidra Solostar] 1 dose SUBCUT TID 11/17/17 [History] traMADol HCl [Tramadol HCl] 1 tab PO Q6H PRN 11/17/17 [History] Past Medical History Cardiovascular History: Reports: High Cholesterol, Hypertension Other Cardiovascular History: Past chest pain Questionable MT in past. Respiratory History: Reports: None Gastrointestinal History: Reports: Pancreatitis Genitourinary History: Reports: None Musculoskeletal History: Reports: Fracture, Other (See Below) Other Musculoskeletal History: fx toe L humeral fracture. Neurological History: Reports: Head Trauma Psychiatric History: Reports: Addiction, Anxiety, Depression, Other (See Below) Other Psychiatric History: Alcohol abuse. Endocrine/Metabolic History: Reports: Diabetes, Type II Hematologic History: Reports: None Immunologic History: Reports: None Oncologic (Cancer) History: Reports: None Dermatologic History: Reports: None - Infectious Disease History Infectious Disease History: Reports: Chicken Pox Other Infectious Disease History: unknown - Past Surgical History HEENT Surgical History: Reports: Adenoidectomy GI Surgical History: Reports: Appendectomy Oncologic Surgical History: Reports: None Social & Family History - Family History Family Medical History: Noncontributory - Tobacco Use Smoking Status *Q: Unknown Ever Smoked Years of Tobacco use: 26 Packs/Tins Daily: 0.5 Used Tobacco, but Quit: No Second Hand Smoke Exposure: Yes - Caffeine Use Caffeine Use: Reports: Coffee - Alcohol Use Days Per Week of Alcohol Use: 1 Number of Drinks Per Day: 2 Total Drinks Per Week: 2 - Recreational Drug Use Recreational Drug Use: No ED ROS GENERAL - Review of Systems Review Of Systems: See Below Constitutional: Reports: Diaphoresis HEENT: Reports: No Symptoms Respiratory: Reports: Shortness of Breath Cardiovascular: Reports: Chest Pain Endocrine: Reports: No Symptoms GI/Abdominal: Reports: Abdominal Pain, Other (pt hs pain in the upper abdoman. ) : Reports: Hematuria Musculoskeletal: Reports: No Symptoms Skin: Reports: No Symptoms ED EXAM, GENERAL - Physical Exam Exam: See Below Free Text/Narrative:: pt arrived intoxicated after drinking a liter of vodka. He was complaining of left sided chest pain. He did not get relief of his pain with nitro. He was given asa in the ambulance. He complaind of rt lower abdomanal pain. He is not vomiting. Exam Limited By: Intoxication General Appearance: Mild Distress, Other (pt is having left sided chest pain. ) Ears: Normal TMs Nose: Normal Inspection Throat/Mouth: Normal Inspection Head: Atraumatic Neck: Normal Inspection Respiratory/Chest: No Respiratory Distress Cardiovascular: Regular Rate, Rhythm, Other ( He is tender over the left shoulder which is chronic. He is mildly tender in the left chest. ) GI/Abdominal: Other (Pt seemes quite tender and this is localized in the rt lower abdoman. ) (Male) Exam: Normal Prostate Rectal (Males) Exam: Deferred Back Exam: Normal Inspection Extremities: Normal Inspection Neurological: Alert, Oriented, Normal Cognition Psychiatric: Normal Affect Course - Vital Signs Last Recorded V/S: Last Vital Signs Temp 37.2 C 12/13/17 18:04 Pulse 112 H 12/13/17 18:04 Resp 15 12/13/17 18:04 BP 174/74 H 12/13/17 19:27 Pulse Ox 95 12/13/17 18:04 - Orders/Labs/Meds Orders: Active Orders 24 hr Category Date Time Status Bladder Scan [RC] ONETIME Care 12/13/17 19:55 Active EKG Documentation Completion [RC] ASDIRECTED Care 12/13/17 18:14 Active Abdomen Pelvis w Cont [CT] Stat Exams 12/13/17 19:58 Taken Chest 1V Frontal [CR] Stat Exams 12/13/17 19:57 Taken CULTURE URINE [RM] Stat Lab 12/13/17 18:59 Received Nitroglycerin [Nitrostat] Med 12/13/17 18:45 Active 0.4 mg SL Q5M PRN Sodium Chloride 0.9% [Normal Saline] 1,000 ml Med 12/13/17 19:00 Active IV ASDIRECTED Sodium Chloride 0.9% [Normal Saline] 1,000 ml Med 12/13/17 20:00 Active IV ASDIRECTED Sodium Chloride 0.9% [Normal Saline] 100 ml Med 12/13/17 20:15 Active IV ASDIRECTED EKG 12 Lead [EK] Routine Ther 12/13/17 18:14 Ordered Medication Orders Sodium Chloride (Normal Saline) 1,000 mls @ 999 mls/hr IV ASDIRECTED RIKKI Last Admin: 12/13/17 18:59 Dose: 999 mls/hr Sodium Chloride (Normal Saline) 1,000 mls @ 999 mls/hr IV ASDIRECTED RIKKI Last Admin: 12/13/17 20:03 Dose: 999 mls/hr Sodium Chloride (Normal Saline) 100 mls @ 3 mls/sec IV ASDIRECTED RIKKI Last Admin: 12/13/17 20:43 Dose: 3 mls/sec Nitroglycerin (Nitrostat) 0.4 mg SL Q5M PRN PRN Reason: Chest Pain Last Admin: 12/13/17 19:27 Dose: 0.4 mg Admin: 12/13/17 19:17 Dose: 0.4 mg Labs: Laboratory Tests 12/13/17 12/13/17 12/13/17 Range/Units 18:13 18:13 18:13 WBC 8.6 (4.5-11.0) K/uL RBC 4.03 L (4.30-5.90) M/uL Hgb 13.3 (12.0-15.0) g/dL Hct 37.2 L (40.0-54.0) % MCV 92 (80-98) fL MCH 33 H (27-31) pg MCHC 36 (32-36) % Plt Count 185 (150-400) K/uL Neut % (Auto) 75 H (36-66) % Lymph % (Auto) 14 L (24-44) % Rowan % (Auto) 11 H (2-6) % Eos % (Auto) 0 L (2-4) % Baso % (Auto) 0 (0-1) % Sodium 132 L (140-148) mmol/L Potassium 3.8 (3.6-5.2) mmol/L Chloride 91 L (100-108) mmol/L Carbon Dioxide 14 L (21-32) mmol/L Anion Gap 30.8 H (5.0-14.0) mmol/L BUN 15 (7-18) mg/dL Creatinine 0.9 (0.8-1.3) mg/dL Est Cr Clr Drug Dosing 91.25 mL/min Estimated GFR (MDRD) > 60 (>60) Glucose 251 H (74-106) mg/dL Calcium 7.4 L (8.5-10.1) mg/dL Total Bilirubin 0.5 (0.2-1.0) mg/dL AST 36 (15-37) U/L ALT 36 (12-78) U/L Alkaline Phosphatase 123 H D (46-116) U/L Troponin I (0.000-0.056) ng/mL Total Protein 6.7 (6.4-8.2) g/dL Albumin 3.3 L (3.4-5.0) g/dL Globulin 3.4 (2.3-3.5) g/dL Albumin/Globulin Ratio 1.0 L (1.2-2.2) Lipase (73-393) U/L Urine Color Urine Appearance Urine pH (4.5-8.0) Ur Specific Cameron (1.008-1.030) Urine Protein (NEGATIVE) mg/dL Urine Glucose (UA) (NEGATIVE) mg/dL Urine Ketones (NEGATIVE) mg/dL Urine Occult Blood (NEGATIVE) Urine Nitrite (NEGAITVE) Urine Bilirubin (NEGATIVE) Urine Urobilinogen (NORMAL) mg/dL Ur Leukocyte Esterase (NEGATIVE) Urine RBC (0-5) Urine WBC (0-5) Ur Epithelial Cells Amorphous Sediment Urine Bacteria Urine Mucus Urine Other Urine Opiates Screen (NEGATIVE) Ur Oxycodone Screen (NEGATIVE) Urine Methadone Screen (NEGATIVE) Ur Propoxyphene Screen (NEGATIVE) Ur Barbiturates Screen (NEGATIVE) Ur Tricyclics Screen (NEGATIVE) Ur Phencyclidine Scrn (NEGATIVE) Ur Amphetamine Screen (NEGATIVE) U Methamphetamines Scrn (NEGATIVE) Urine MDMA Screen (NEGATIVE) U Benzodiazepines Scrn (NEGATIVE) U Cocaine Metab Screen (NEGATIVE) U Marijuana (THC) Screen (NEGATIVE) Ethyl Alcohol 261 mg/dL 12/13/17 12/13/17 12/13/17 Range/Units 18:20 18:42 18:49 WBC (4.5-11.0) K/uL RBC (4.30-5.90) M/uL Hgb (12.0-15.0) g/dL Hct (40.0-54.0) % MCV (80-98) fL MCH (27-31) pg MCHC (32-36) % Plt Count (150-400) K/uL Neut % (Auto) (36-66) % Lymph % (Auto) (24-44) % Rowan % (Auto) (2-6) % Eos % (Auto) (2-4) % Baso % (Auto) (0-1) % Sodium (140-148) mmol/L Potassium (3.6-5.2) mmol/L Chloride (100-108) mmol/L Carbon Dioxide (21-32) mmol/L Anion Gap (5.0-14.0) mmol/L BUN (7-18) mg/dL Creatinine (0.8-1.3) mg/dL Est Cr Clr Drug Dosing mL/min Estimated GFR (MDRD) (>60) Glucose (74-106) mg/dL Calcium (8.5-10.1) mg/dL Total Bilirubin (0.2-1.0) mg/dL AST (15-37) U/L ALT (12-78) U/L Alkaline Phosphatase (46-116) U/L Troponin I < 0.017 (0.000-0.056) ng/mL Total Protein (6.4-8.2) g/dL Albumin (3.4-5.0) g/dL Globulin (2.3-3.5) g/dL Albumin/Globulin Ratio (1.2-2.2) Lipase 162 (73-393) U/L Urine Color Yellow Urine Appearance Slightly cloudy Urine pH 5.0 (4.5-8.0) Ur Specific Cameron 1.025 (1.008-1.030) Urine Protein 30 H (NEGATIVE) mg/dL Urine Glucose (UA) 1000 H (NEGATIVE) mg/dL Urine Ketones 150 H (NEGATIVE) mg/dL Urine Occult Blood Moderate (NEGATIVE) Urine Nitrite Negative (NEGAITVE) Urine Bilirubin Negative (NEGATIVE) Urine Urobilinogen Normal (NORMAL) mg/dL Ur Leukocyte Esterase Negative (NEGATIVE) Urine RBC 5-10 H (0-5) Urine WBC 0-5 (0-5) Ur Epithelial Cells Few Amorphous Sediment Not seen Urine Bacteria Moderate Urine Mucus Few Urine Other Urine Opiates Screen (NEGATIVE) Ur Oxycodone Screen (NEGATIVE) Urine Methadone Screen (NEGATIVE) Ur Propoxyphene Screen (NEGATIVE) Ur Barbiturates Screen (NEGATIVE) Ur Tricyclics Screen (NEGATIVE) Ur Phencyclidine Scrn (NEGATIVE) Ur Amphetamine Screen (NEGATIVE) U Methamphetamines Scrn (NEGATIVE) Urine MDMA Screen (NEGATIVE) U Benzodiazepines Scrn (NEGATIVE) U Cocaine Metab Screen (NEGATIVE) U Marijuana (THC) Screen (NEGATIVE) Ethyl Alcohol mg/dL 12/13/17 12/13/17 Range/Units 20:44 20:50 WBC (4.5-11.0) K/uL RBC (4.30-5.90) M/uL Hgb (12.0-15.0) g/dL Hct (40.0-54.0) % MCV (80-98) fL MCH (27-31) pg MCHC (32-36) % Plt Count (150-400) K/uL Neut % (Auto) (36-66) % Lymph % (Auto) (24-44) % Rowan % (Auto) (2-6) % Eos % (Auto) (2-4) % Baso % (Auto) (0-1) % Sodium (140-148) mmol/L Potassium (3.6-5.2) mmol/L Chloride (100-108) mmol/L Carbon Dioxide (21-32) mmol/L Anion Gap (5.0-14.0) mmol/L BUN (7-18) mg/dL Creatinine (0.8-1.3) mg/dL Est Cr Clr Drug Dosing mL/min Estimated GFR (MDRD) (>60) Glucose (74-106) mg/dL Calcium (8.5-10.1) mg/dL Total Bilirubin (0.2-1.0) mg/dL AST (15-37) U/L ALT (12-78) U/L Alkaline Phosphatase (46-116) U/L Troponin I < 0.017 (0.000-0.056) ng/mL Total Protein (6.4-8.2) g/dL Albumin (3.4-5.0) g/dL Globulin (2.3-3.5) g/dL Albumin/Globulin Ratio (1.2-2.2) Lipase (73-393) U/L Urine Color Urine Appearance Urine pH (4.5-8.0) Ur Specific Cameron (1.008-1.030) Urine Protein (NEGATIVE) mg/dL Urine Glucose (UA) (NEGATIVE) mg/dL Urine Ketones (NEGATIVE) mg/dL Urine Occult Blood (NEGATIVE) Urine Nitrite (NEGAITVE) Urine Bilirubin (NEGATIVE) Urine Urobilinogen (NORMAL) mg/dL Ur Leukocyte Esterase (NEGATIVE) Urine RBC (0-5) Urine WBC (0-5) Ur Epithelial Cells Amorphous Sediment Urine Bacteria Urine Mucus Urine Other Urine Opiates Screen Negative (NEGATIVE) Ur Oxycodone Screen Negative (NEGATIVE) Urine Methadone Screen Negative (NEGATIVE) Ur Propoxyphene Screen Negative (NEGATIVE) Ur Barbiturates Screen Negative (NEGATIVE) Ur Tricyclics Screen Negative (NEGATIVE) Ur Phencyclidine Scrn Negative (NEGATIVE) Ur Amphetamine Screen Negative (NEGATIVE) U Methamphetamines Scrn Negative (NEGATIVE) Urine MDMA Screen Negative (NEGATIVE) U Benzodiazepines Scrn Positive H (NEGATIVE) U Cocaine Metab Screen Negative (NEGATIVE) U Marijuana (THC) Screen Negative (NEGATIVE) Ethyl Alcohol mg/dL Meds: Medications Generic Name Dose Route Start Last Admin Trade Name Freq PRN Reason Stop Dose Admin Sodium Chloride 1,000 mls @ 999 mls/hr 12/13/17 19:00 12/13/17 18:59 Normal Saline IV 999 mls/hr ASDIRECTED RIKKI Administration Sodium Chloride 1,000 mls @ 999 mls/hr 12/13/17 20:00 12/13/17 20:03 Normal Saline IV 999 mls/hr ASDIRECTED RIKKI Administration Sodium Chloride 100 mls @ 3 mls/sec 12/13/17 20:15 12/13/17 20:43 Normal Saline IV 3 mls/sec ASDIRECTED RIKKI Administration Nitroglycerin 0.4 mg 12/13/17 18:45 12/13/17 19:27 Nitrostat SL 0.4 mg Q5M PRN Administration Chest Pain Discontinued Medications Generic Name Dose Route Start Last Admin Trade Name Freq PRN Reason Stop Dose Admin Aspirin 324 mg 12/13/17 18:44 Aspirin PO 12/13/17 18:45 ONETIME ONE Iopamidol 150 ml 12/13/17 20:15 12/13/17 20:43 Isovue-300 (61%) IV 150 ml . DIRECTED RIKKI Administration Lorazepam 0.5 mg 12/13/17 21:19 Ativan IVPUSH 12/13/17 21:20 ONETIME ONE Ondansetron HCl 4 mg 12/13/17 19:27 12/13/17 19:32 Zofran IVPUSH 12/13/17 19:28 4 mg ONETIME ONE Administration - Re-Assessments/Exams Free Text/Narrative Re-Assessment/Exam: 12/13/17 20:40 pt had a normal trop. . He has a etoh greater than 3. He had a ekg which did not show acute findings. 12/13/17 20:44 chest xray does not reveal a infiltrate. 12/13/17 21:21 pt had a cat scan of the abdoman which did not reveal any acute findings. He had a second trop which was neg. I did talk to Dr Khanna regarding the pt and he felt that he did want him to go to detox. A letter was sent to [facility] regarding how vulerable this pt has become and he needs a shelter commitment. Departure - Departure Time of Disposition: 21:23 Disposition: DC/Tfer to [facility] Reason for Transfer *Q: Primary PCI Indicated Condition: Fair Clinical Impression: Acute alcohol intoxication, Chest wall pain, Personal care impairment Referrals: PCP,None [Primary Care Provider] - Forms: ED Department Discharge Care Plan Goals: transfer to [facility] . [facility] was made aware of the situation for Octaviano. - My Orders Last 24 Hours: My Active Orders 12/13/17 18:14 EKG Documentation Completion [RC] ASDIRECTED EKG 12 Lead [EK] Routine 12/13/17 18:45 Nitroglycerin [Nitrostat] 0.4 mg SL Q5M PRN 12/13/17 18:59 CULTURE URINE [RM] Stat 12/13/17 19:00 Sodium Chloride 0.9% [Normal Saline] 1,000 ml IV ASDIRECTED 12/13/17 19:55 Bladder Scan [RC] ONETIME 12/13/17 19:57 Chest 1V Frontal [CR] Stat 12/13/17 19:58 Abdomen Pelvis w Cont [CT] Stat 12/13/17 20:00 Sodium Chloride 0.9% [Normal Saline] 1,000 ml IV ASDIRECTED 12/13/17 20:15 Sodium Chloride 0.9% [Normal Saline] 100 ml IV ASDIRECTED - Assessment/Plan Last 24 Hours: My Active Orders 12/13/17 18:14 EKG Documentation Completion [RC] ASDIRECTED EKG 12 Lead [EK] Routine 12/13/17 18:45 Nitroglycerin [Nitrostat] 0.4 mg SL Q5M PRN 12/13/17 18:59 CULTURE URINE [RM] Stat 12/13/17 19:00 Sodium Chloride 0.9% [Normal Saline] 1,000 ml IV ASDIRECTED 12/13/17 19:55 Bladder Scan [RC] ONETIME 12/13/17 19:57 Chest 1V Frontal [CR] Stat 12/13/17 19:58 Abdomen Pelvis w Cont [CT] Stat 12/13/17 20:00 Sodium Chloride 0.9% [Normal Saline] 1,000 ml IV ASDIRECTED 12/13/17 20:15 Sodium Chloride 0.9% [Normal Saline] 100 ml IV ASDIRECTED
[2017-12-13] MEDS ORDERED: Sodium Chloride 0.9% 1,000 ML IV SCH ×2 (19:00→20:00)
[2017-12-13] MEDS: Nitroglycerin 0.4 MG Tab.SL SL PRN ×2 (19:17→19:27)
[2017-12-13] MEDS ORDERED: Ondansetron 4 MG/2 ML SDV IVPUSH ONE (19:27)
[2017-12-13] MEDS ORDERED: Sodium Chloride 0.9% 100 ML IV SCH (20:15)
[2017-12-13] MEDS ORDERED: Iopamidol 612 MG/ML 150 ML Bottle IV SCH (20:15)
[2017-12-13] MEDS ORDERED: LORazepam 2 MG/ML SDV IVPUSH ONE (21:19)
[2017-12-13 23:17] VITALS: BP 152/78
--- NOTE | 2017-12-14 08:55 | CR ---
Chest 1V Frontal FINDINGS: The heart and vascular structures are normal in appearance. No infiltrates or effusions are demonstrated. There is chronic deformity of the proximal humerus on the left. Impression: 1. No acute findings.
== END 2017-12-13 23:17 ==
LOC: JP.ED 18:01
DX: R07.89 Other chest pain (principal); F10.129 Alcohol abuse with intoxication, unspecified; E11.9 Type 2 diabetes mellitus without complications; E78.00 Pure hypercholesterolemia, unspecified; I10 Essential (primary) hypertension; F41.9 Anxiety disorder, unspecified; F32.9 Major depressive disorder, single episode, unspecified; Z88.8 Allergy status to other drugs, medicaments and biological substances; Z79.82 Long term (current) use of aspirin; Z79.899 Other long term (current) drug therapy; Z79.4 Long term (current) use of insulin; Z77.22 Contact with and (suspected) exposure to environmental tobacco smoke (acute) (chronic); Y90.8 Blood alcohol level of 240 mg/100 ml or more
CPT/HCPCS: 36415; 71045; 74177; 80053; 80305; 81001; 83690; 84484; 85025; 87086; 93005; 96361; 96374; 96375; 99285; A9270; G0480; J2060; J2405; J7030; J7040

== ENCOUNTER 2018-01-22 02:31 | Emergency (ER) | payer MEDICAID ==
[2018-01-22 02:46] VITALS: BP 150/82
[2018-01-22] MEDS ORDERED: Insulin Regular, Human 100 Units/ML 10 ML Vial SUBCUT ONE (03:29)
--- NOTE | 2018-01-22 03:42 | EDM.PDOCBH ---
ED HPI GENERAL MEDICAL PROBLEM - General Chief Complaint: Drug or Alcohol Abuse Stated Complaint: MEDICAL VIA TRI Time Seen by Provider: 01/22/18 03:10 Source of Information: Reports: Patient, EMS History Limitations: Reports: Intoxication - History of Present Illness INITIAL COMMENTS - FREE TEXT/NARRATIVE: 57-year-old male, chronic alcoholic who comes in by ambulance because he hasn't taken his medication for the last couple of days and has been drinking and wants to go to detox. He also has his usual complaints of chest pain, shoulder pain, hip pain, and "not doing well". Onset: Unknown/Unsure Associated Symptoms: Reports: Chest Pain. Denies: Fever/Chills, Shortness of Breath Treatments HOME SERVICE DIRECTOR: Reports: IV/IO - Related Data Allergies Allergy/AdvReac Type Severity Reaction Status Date / Time zolpidem tartrate Allergy Cannot Verified 01/22/18 02:46 [From Maite] Remember Home Meds: Home Meds Aspirin [Halfprin] 81 mg PO DAILY 10/17/14 [History] Gabapentin 600 mg PO TID 12/04/14 [History] Simvastatin 40 mg PO BEDTIME 12/04/14 [History] traZODone 100 - 200 mg PO BEDTIME 12/04/14 [History] Venlafaxine HCl [Venlafaxine ER] 150 mg PO DAILY 04/03/15 [History] Metoprolol Tartrate [Lopressor] 50 mg PO BID 04/05/15 [History] metFORMIN [Glucophage] 1,000 mg PO BIDAC 03/11/16 [History] Multivit-Min/FA/Lycopene/Lut [Certavite Sr-Antioxidant Tab] 1 tab PO DAILY 06/16 [History] Pantoprazole [ProTONIX] 40 mg PO DAILY #30 tab.cr 06/17/16 [Rx] Lisinopril [Zestril] 10 mg PO DAILY 04/03/17 [History] Venlafaxine HCl [Venlafaxine ER] 75 mg PO DAILY 04/03/17 [History] Celecoxib [CeleBREX] 1 tab PO BID 09/06/17 [History] Acetaminophen 1 tab PO Q4H 11/17/17 [History] Albuterol [Ventolin HFA] 2 puff INH QID 11/17/17 [History] Insulin Glargine,Hum.Rec.Anlog [Basaglar Hennyikpen U-100] 35 units SUBCUT DAILY [History] Insulin Glulisine [Apidra Solostar] 1 dose SUBCUT TID 11/17/17 [History] traMADol HCl [Tramadol HCl] 1 tab PO Q6H PRN 11/17/17 [History] Past Medical History Cardiovascular History: Reports: High Cholesterol, Hypertension Other Cardiovascular History: Past chest pain Questionable ID in past. Respiratory History: Reports: None Gastrointestinal History: Reports: Pancreatitis Genitourinary History: Reports: None Musculoskeletal History: Reports: Fracture, Other (See Below) Other Musculoskeletal History: fx toe L humeral fracture. Neurological History: Reports: Head Trauma Psychiatric History: Reports: Addiction, Anxiety, Depression, Other (See Below) Other Psychiatric History: Alcohol abuse. Endocrine/Metabolic History: Reports: Diabetes, Type II Hematologic History: Reports: None Immunologic History: Reports: None Oncologic (Cancer) History: Reports: None Dermatologic History: Reports: None - Infectious Disease History Infectious Disease History: Reports: Chicken Pox Other Infectious Disease History: unknown - Past Surgical History Head Surgeries/Procedures: Reports: None HEENT Surgical History: Reports: Adenoidectomy GI Surgical History: Reports: Appendectomy Oncologic Surgical History: Reports: None Social & Family History - Family History Family Medical History: Noncontributory - Tobacco Use Smoking Status *Q: Current Every Day Smoker Years of Tobacco use: 42 Packs/Tins Daily: 0.5 Used Tobacco, but Quit: No Second Hand Smoke Exposure: Yes - Caffeine Use Caffeine Use: Reports: Coffee, Soda - Alcohol Use Days Per Week of Alcohol Use: 7 Number of Drinks Per Day: 15 Total Drinks Per Week: 105 - Recreational Drug Use Recreational Drug Use: No ED ROS GENERAL - Review of Systems Review Of Systems: See Below Constitutional: Reports: Malaise. Denies: Fever, Chills Respiratory: Denies: Shortness of Breath Cardiovascular: Reports: Chest Pain GI/Abdominal: Denies: Abdominal Pain Musculoskeletal: Reports: Shoulder Pain, Arm Pain, Leg Pain Neurological: Denies: Headache ED EXAM, BEHAVIORAL HEALTH - Physical Exam Exam: See Below Exam Limited By: Intoxication General Appearance: Alert, No Apparent Distress Eye Exam: Bilateral Eye: EOMI (No jaundice) Head: Atraumatic Respiratory/Chest: No Respiratory Distress Cardiovascular: Regular Rate, Rhythm Extremities: Other (Despite him complaining of arm and leg pain he is moving his extremities without any apparent pain) Neurological: Other (Patient is obviously intoxicated) COURSE, BEHAVIORAL HEALTH COMP - Course Vital Signs: Last Vital Signs Temp 97.7 F 01/22/18 02:39 Pulse 102 H 01/22/18 02:39 Resp 16 01/22/18 02:39 BP 150/82 H 01/22/18 02:39 Pulse Ox 94 L 01/22/18 02:39 Orders, Labs, Meds: Laboratory Tests 01/22/18 01/22/18 Range/Units 03:13 03:13 Sodium 132 L (140-148) mmol/L Potassium 3.9 (3.6-5.2) mmol/L Chloride 93 L (100-108) mmol/L Carbon Dioxide 24 (21-32) mmol/L Anion Gap 18.9 H (5.0-14.0) mmol/L BUN 10 (7-18) mg/dL Creatinine 0.9 (0.8-1.3) mg/dL Est Cr Clr Drug Dosing 91.25 mL/min Estimated GFR (MDRD) > 60 (>60) Glucose 401 H* (74-106) mg/dL Calcium 7.5 L (8.5-10.1) mg/dL Ethyl Alcohol 245 mg/dL Medications Discontinued Medications Generic Name Dose Route Start Last Admin Trade Name Franciscoq PRN Reason Stop Dose Admin Insulin Human Regular 14 unit 01/22/18 03:29 01/22/18 03:36 Novolin R SUBCUT 01/22/18 03:30 14 units ONETIME ONE Administration Protocol Re-Assessment/Re-Exam: BMP and EtOH were obtained. Glucose was 401, he was given 14 units of regular insulin subcutaneously. EtOH is 0.245 so [facility] was called and they graciously accepted the patient yet again for detox. Departure - Departure Time of Disposition: 04:11 Disposition: DC/Tfer to Other 70 Condition: Fair Clinical Impression: Alcoholism - Discharge Information Instructions: Alcohol Intoxication, [id number] Referrals: PCP,None [Primary Care Provider] - Forms: ED Department Discharge Care Plan Goals: Patient will be transferred to [facility] for detox, hopefully then to a long- term treatment facility.
== END 2018-01-22 04:11 | disposition other institution (70) ==
LOC: JP.ED 02:31
DX: F10.229 Alcohol dependence with intoxication, unspecified (principal); E78.00 Pure hypercholesterolemia, unspecified; I10 Essential (primary) hypertension; E11.9 Type 2 diabetes mellitus without complications; F17.210 Nicotine dependence, cigarettes, uncomplicated; Z88.8 Allergy status to other drugs, medicaments and biological substances; Z79.82 Long term (current) use of aspirin; Z79.899 Other long term (current) drug therapy; Z79.4 Long term (current) use of insulin; Y90.8 Blood alcohol level of 240 mg/100 ml or more
CPT/HCPCS: 36415; 80048; 99285; G0480; A9270-GY

== ENCOUNTER 2018-03-04 10:12 | Emergency (ER) | payer MEDICAID ==
[2018-03-04] MEDS ORDERED: Lactated Ringers 1,000 ML IV ONE (10:26)
[2018-03-04] MEDS ORDERED: Metoclopramide 10 MG/2 ML SDV IVPUSH ONE (10:26)
[2018-03-04 10:31] VITALS: BP 156/77
--- NOTE | 2018-03-04 10:33 | EDM.PDOC ---
ED HPI GENERAL MEDICAL PROBLEM - General Chief Complaint: Diabetic Complaint Stated Complaint: HIGH BLOOD SUGAR Time Seen by Provider: 03/04/18 10:20 Source of Information: Reports: Patient, Old Records, RN History Limitations: Reports: No Limitations - History of Present Illness INITIAL COMMENTS - FREE TEXT/NARRATIVE: 57 yo male with chronic alcoholism was sent to the ER from his home for elevated BS of 381. Says he took extra insulin for this. He drank "four drinks" yesterday and has been vomiting since. No fever or diarrhea. No bleeding. Onset: Gradual Onset Date: 03/03/18 Duration: Hour(s):, Constant Location: Reports: Abdomen Quality: Reports: Ache Severity: Moderate Improves with: Reports: None Worsens with: Reports: None Context: Reports: Other (Heavy ETOH use, hx of diabetes) Associated Symptoms: Reports: Nausea/Vomiting. 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 ) Left Shoulder Pain Score (Numeric/FACES): 9 - Related Data Allergies Allergy/AdvReac Type Severity Reaction Status Date / Time zolpidem tartrate Allergy Cannot Verified 03/04/18 10:31 [From Maite] Remember Home Meds: Home Meds Aspirin [Halfprin] 81 mg PO DAILY 10/17/14 [History] Gabapentin 600 mg PO TID 12/04/14 [History] Simvastatin 40 mg PO BEDTIME 12/04/14 [History] traZODone 100 - 200 mg PO BEDTIME 12/04/14 [History] Venlafaxine HCl [Venlafaxine ER] 150 mg PO DAILY 04/03/15 [History] Metoprolol Tartrate [Lopressor] 50 mg PO BID 04/05/15 [History] metFORMIN [Glucophage] 1,000 mg PO BIDAC 03/11/16 [History] Multivit-Min/FA/Lycopene/Lut [Certavite Sr-Antioxidant Tab] 1 tab PO DAILY 06/16 [History] Pantoprazole [ProTONIX] 40 mg PO DAILY #30 tab.cr 06/17/16 [Rx] Lisinopril [Zestril] 10 mg PO DAILY 04/03/17 [History] Venlafaxine HCl [Venlafaxine ER] 75 mg PO DAILY 04/03/17 [History] Celecoxib [CeleBREX] 1 tab PO BID 09/06/17 [History] Acetaminophen 1 tab PO Q4H 11/17/17 [History] Albuterol [Ventolin HFA] 2 puff INH QID 11/17/17 [History] Insulin Glargine,Hum.Rec.Anlog [Basaglar Kwikpen U-100] 35 units SUBCUT DAILY [History] Insulin Glulisine [Apidra Solostar] 1 dose SUBCUT TID 11/17/17 [History] traMADol HCl [Tramadol HCl] 1 tab PO Q6H PRN 11/17/17 [History] Ondansetron [Zofran ODT] 4 mg PO Q6H PRN #7 tab.dis 03/04/18 [Rx] Past Medical History Cardiovascular History: Reports: High Cholesterol, Hypertension Other Cardiovascular History: Past chest pain Questionable CA in past. Respiratory History: Reports: None Gastrointestinal History: Reports: Pancreatitis Genitourinary History: Reports: None Musculoskeletal History: Reports: Fracture, Other (See Below) Other Musculoskeletal History: fx toe L humeral fracture. Neurological History: Reports: Head Trauma Psychiatric History: Reports: Addiction, Anxiety, Depression, Other (See Below) Other Psychiatric History: Alcohol abuse. Endocrine/Metabolic History: Reports: Diabetes, Type II Hematologic History: Reports: None Immunologic History: Reports: None Oncologic (Cancer) History: Reports: None Dermatologic History: Reports: None - Infectious Disease History Infectious Disease History: Reports: Chicken Pox Other Infectious Disease History: unknown - Past Surgical History Head Surgeries/Procedures: Reports: None HEENT Surgical History: Reports: Adenoidectomy GI Surgical History: Reports: Appendectomy Oncologic Surgical History: Reports: None Social & Family History - Family History Family Medical History: Noncontributory - Caffeine Use Caffeine Use: Reports: Coffee, Soda ED ROS GENERAL - Review of Systems Review Of Systems: See Below Constitutional: Reports: No Symptoms HEENT: Reports: No Symptoms Respiratory: Reports: No Symptoms Cardiovascular: Reports: No Symptoms GI/Abdominal: Reports: Abdominal Pain, Nausea, Vomiting. Denies: Constipation, Diarrhea, Distension, Flatus, Hematemesis, Hematochezia, Melena : Reports: No Symptoms Musculoskeletal: Reports: No Symptoms Skin: Reports: No Symptoms Neurological: Reports: No Symptoms ED EXAM GENERAL NO PERIP PULSE - Physical Exam Exam: See Below Exam Limited By: No Limitations General Appearance: Alert, WD/WN, No Apparent Distress, Obese Eye Exam: Bilateral Eye: Normal Inspection Ears: Normal External Exam, Normal Canal, Hearing Grossly Normal, Normal TMs Nose: Normal Inspection, Normal Mucosa, No Blood Throat/Mouth: Normal Lips, Normal Oropharynx, Normal Voice, No Airway Compromise , Other (dry oral mucosa) Head: Atraumatic, Normocephalic Neck: Normal Inspection Respiratory/Chest: No Respiratory Distress, Lungs Clear, Normal Breath Sounds, No Accessory Muscle Use Cardiovascular: Regular Rate, Rhythm GI/Abdominal: Normal Bowel Sounds, Soft, Tender (diffusely), Other (Obese) Back Exam: Normal Inspection. No: CVA Tenderness (R), CVA Tenderness (L) Extremities: Normal Inspection, Normal Range of Motion, Non-Tender, No Pedal Edema Neurological: Alert, Oriented, CN II-XII Intact, Normal Cognition, No Motor/ Sensory Deficits Psychiatric: Normal Affect, Normal Mood Skin Exam: Warm, Dry, Intact, Normal Color, No Rash Lymphatic: No Adenopathy Course - Vital Signs Text/Narrative:: Note: had barely gotten his Reglan and was already asking for food. Last Recorded V/S: Last Vital Signs Temp 37.2 C 03/04/18 10:27 Pulse 96 03/04/18 10:27 Resp 16 03/04/18 10:27 BP 156/77 H 03/04/18 10:27 Pulse Ox 93 L 03/04/18 10:27 - Orders/Labs/Meds Labs: Laboratory Tests 03/04/18 03/04/18 03/04/18 Range/Units 10:30 10:30 10:30 WBC 6.2 (4.5-11.0) K/uL RBC 4.12 L (4.30-5.90) M/uL Hgb 13.3 (12.0-15.0) g/dL Hct 38.7 L (40.0-54.0) % MCV 94 (80-98) fL MCH 32 H (27-31) pg MCHC 34 (32-36) % Plt Count 142 L (150-400) K/uL Sodium 132 L (140-148) mmol/L Potassium 4.4 (3.6-5.2) mmol/L Chloride 92 L (100-108) mmol/L Carbon Dioxide 18 L (21-32) mmol/L Anion Gap 26.4 H (5.0-14.0) mmol/L BUN 13 (7-18) mg/dL Creatinine 1.0 (0.8-1.3) mg/dL Est Cr Clr Drug Dosing 82.13 mL/min Estimated GFR (MDRD) > 60 (>60) Glucose 375 H (74-106) mg/dL Calcium 7.7 L (8.5-10.1) mg/dL Troponin I < 0.017 (0.000-0.056) ng/mL Lipase 85 (73-393) U/L Meds: Medications Discontinued Medications Generic Name Dose Route Start Last Admin Trade Name Freq PRN Reason Stop Dose Admin Al Hydroxide/Mg Hydroxide 30 ml 03/04/18 11:39 Mag-Al Plus PO 03/04/18 11:40 ONETIME ONE Lactated Ringer's 1,000 mls @ 1,000 mls/hr 03/04/18 10:26 03/04/18 10:57 Ringers, Lactated IV 03/04/18 11:25 1,000 mls/hr BOLUS ONE Administration Insulin Human Regular 12 unit 03/04/18 11:10 Novolin R SUBCUT 03/04/18 11:11 ONETIME ONE Protocol Metoclopramide HCl 10 mg 03/04/18 10:26 03/04/18 10:56 Reglan IVPUSH 03/04/18 10:27 10 mg ONETIME ONE Administration Departure - Departure Time of Disposition: 12:00 Disposition: Home, Self-Care 01 Condition: Good Clinical Impression: Elevated blood sugar Alcoholic gastritis Qualifiers: Chronicity: acute Gastritis bleeding: without bleeding Qualified Code(s): K29.20 - Alcoholic gastritis without bleeding Nausea and vomiting Qualifiers: Vomiting type: unspecified Vomiting Intractability: non-intractable Qualified Code(s): R11.2 - Nausea with vomiting, unspecified - Discharge Information Referrals: PCP,None [Primary Care Provider] - Forms: ED Department Discharge
[2018-03-04] MEDS ORDERED: Insulin Regular, Human 100 Units/ML 10 ML Vial SUBCUT ONE (11:10)
[2018-03-04] MEDS ORDERED: Aluminum Hydroxide/Magnesium Hydroxide/Simethicone Susp 30 ML Cup PO ONE (11:39)
== END 2018-03-04 12:21 | disposition home or self-care (01) ==
LOC: JP.ED 10:12
DX: K29.20 Alcoholic gastritis without bleeding (principal); E11.65 Type 2 diabetes mellitus with hyperglycemia; I10 Essential (primary) hypertension; Z79.899 Other long term (current) drug therapy; Z88.8 Allergy status to other drugs, medicaments and biological substances; Z79.84 Long term (current) use of oral hypoglycemic drugs
CPT/HCPCS: 36415; 80048; 83690; 84484; 85027; 96361; 96374; 99285; A9270; J2765; J7120

== ENCOUNTER 2018-03-18 05:54 | Emergency (ER) | payer MEDICAID ==
--- NOTE | 2018-03-18 06:21 | EDM.PDOC ---
<Gildardo Boylee - Last Filed: 03/18/18 07:42> ED HPI GENERAL MEDICAL PROBLEM - General Chief Complaint: Drug or Alcohol Abuse Stated Complaint: MEDICAL [facility] Time Seen by Provider: 03/18/18 06:18 - Related Data Allergies Allergy/AdvReac Type Severity Reaction Status Date / Time zolpidem tartrate Allergy Cannot Verified 03/18/18 06:03 [From Maite] Remember Home Meds: Home Meds Aspirin [Halfprin] 81 mg PO DAILY 10/17/14 [History] Gabapentin 600 mg PO TID 12/04/14 [History] Simvastatin 40 mg PO BEDTIME 12/04/14 [History] traZODone 100 - 200 mg PO BEDTIME 12/04/14 [History] Venlafaxine HCl [Venlafaxine ER] 150 mg PO DAILY 04/03/15 [History] Metoprolol Tartrate [Lopressor] 50 mg PO BID 04/05/15 [History] metFORMIN [Glucophage] 1,000 mg PO BIDAC 03/11/16 [History] Multivit-Min/FA/Lycopene/Lut [Certavite Sr-Antioxidant Tab] 1 tab PO DAILY 06/16 [History] Pantoprazole [ProTONIX] 40 mg PO DAILY #30 tab.cr 06/17/16 [Rx] Lisinopril [Zestril] 10 mg PO DAILY 04/03/17 [History] Venlafaxine HCl [Venlafaxine ER] 75 mg PO DAILY 04/03/17 [History] Celecoxib [CeleBREX] 1 tab PO BID 09/06/17 [History] Acetaminophen 500 mg PO Q4H 11/17/17 [History] Albuterol [Ventolin HFA] 2 puff INH QID 11/17/17 [History] Insulin Glargine,Hum.Rec.Anlog [Basaglar Kwikpen U-100] 35 units SUBCUT DAILY [History] Insulin Glulisine [Apidra Solostar] 1 dose SUBCUT TID 11/17/17 [History] Course - Vital Signs Last Recorded V/S: Last Vital Signs Temp 99.1 F 03/18/18 05:57 Pulse 99 03/18/18 06:25 Resp 14 03/18/18 06:25 BP 159/86 H 03/18/18 06:25 Pulse Ox 98 03/18/18 06:25 - Orders/Labs/Meds Orders: Active Orders 24 hr Category Date Time Status DRUG SCREEN, URINE [URCHEM] Stat Lab 03/18/18 07:29 Ordered UA W/MICROSCOPIC [URIN] Urgent Lab 03/18/18 07:29 Ordered Labs: Laboratory Tests 03/18/18 03/18/18 03/18/18 Range/Units 06:21 06:21 06:21 WBC 7.4 (4.5-11.0) K/uL RBC 4.06 L (4.30-5.90) M/uL Hgb 13.3 (12.0-15.0) g/dL Hct 38.1 L (40.0-54.0) % MCV 94 (80-98) fL MCH 33 H (27-31) pg MCHC 35 (32-36) % Plt Count 240 (150-400) K/uL Neut % (Auto) 68 H (36-66) % Lymph % (Auto) 24 (24-44) % [place] % (Auto) 7 H (2-6) % Eos % (Auto) 0 L (2-4) % Baso % (Auto) 1 (0-1) % Sodium 137 L (140-148) mmol/L Potassium 4.3 (3.6-5.2) mmol/L Chloride 97 L (100-108) mmol/L Carbon Dioxide 24 (21-32) mmol/L Anion Gap 20.3 H (5.0-14.0) mmol/L BUN 9 (7-18) mg/dL Creatinine 0.8 (0.8-1.3) mg/dL Est Cr Clr Drug Dosing 102.66 mL/min Estimated GFR (MDRD) > 60 (>60) Glucose 222 H (74-106) mg/dL Calcium 8.1 L (8.5-10.1) mg/dL Total Bilirubin 0.4 (0.2-1.0) mg/dL AST 28 (15-37) U/L ALT 38 (12-78) U/L Alkaline Phosphatase 66 (46-116) U/L Total Protein 7.0 (6.4-8.2) g/dL Albumin 3.8 (3.4-5.0) g/dL Globulin 3.2 (2.3-3.5) g/dL Albumin/Globulin Ratio 1.2 (1.2-2.2) Lipase (73-393) U/L Urine Color Urine Appearance Urine pH (4.5-8.0) Ur Specific [place] (1.008-1.030) Urine Protein (NEGATIVE) mg/dL Urine Glucose (UA) (NEGATIVE) mg/dL Urine Ketones (NEGATIVE) mg/dL Urine Occult Blood (NEGATIVE) Urine Nitrite (NEGAITVE) Urine Bilirubin (NEGATIVE) Urine Urobilinogen (NORMAL) mg/dL Ur Leukocyte Esterase (NEGATIVE) Urine RBC (0-5) Urine WBC (0-5) Ur Epithelial Cells Amorphous Sediment Urine Bacteria Urine Mucus Urine Other Urine Opiates Screen (NEGATIVE) Ur Oxycodone Screen (NEGATIVE) Urine Methadone Screen (NEGATIVE) Ur Propoxyphene Screen (NEGATIVE) Ur Barbiturates Screen (NEGATIVE) Ur Tricyclics Screen (NEGATIVE) Ur Phencyclidine Scrn (NEGATIVE) Ur Amphetamine Screen (NEGATIVE) U Methamphetamines Scrn (NEGATIVE) Urine MDMA Screen (NEGATIVE) U Benzodiazepines Scrn (NEGATIVE) U Cocaine Metab Screen (NEGATIVE) U Marijuana (THC) Screen (NEGATIVE) Ethyl Alcohol 143 mg/dL 03/18/18 03/18/18 03/18/18 Range/Units 06:21 07:29 07:29 WBC (4.5-11.0) K/uL RBC (4.30-5.90) M/uL Hgb (12.0-15.0) g/dL Hct (40.0-54.0) % MCV (80-98) fL MCH (27-31) pg MCHC (32-36) % Plt Count (150-400) K/uL Neut % (Auto) (36-66) % Lymph % (Auto) (24-44) % [place] % (Auto) (2-6) % Eos % (Auto) (2-4) % Baso % (Auto) (0-1) % Sodium (140-148) mmol/L Potassium (3.6-5.2) mmol/L Chloride (100-108) mmol/L Carbon Dioxide (21-32) mmol/L Anion Gap (5.0-14.0) mmol/L BUN (7-18) mg/dL Creatinine (0.8-1.3) mg/dL Est Cr Clr Drug Dosing mL/min Estimated GFR (MDRD) (>60) Glucose (74-106) mg/dL Calcium (8.5-10.1) mg/dL Total Bilirubin (0.2-1.0) mg/dL AST (15-37) U/L ALT (12-78) U/L Alkaline Phosphatase (46-116) U/L Total Protein (6.4-8.2) g/dL Albumin (3.4-5.0) g/dL Globulin (2.3-3.5) g/dL Albumin/Globulin Ratio (1.2-2.2) Lipase 52 L (73-393) U/L Urine Color Yellow Urine Appearance Slightly cloudy Urine pH 5.0 (4.5-8.0) Ur Specific [place] 1.020 (1.008-1.030) Urine Protein 30 H (NEGATIVE) mg/dL Urine Glucose (UA) 1000 H (NEGATIVE) mg/dL Urine Ketones 50 H (NEGATIVE) mg/dL Urine Occult Blood Negative (NEGATIVE) Urine Nitrite Negative (NEGAITVE) Urine Bilirubin Negative (NEGATIVE) Urine Urobilinogen Normal (NORMAL) mg/dL Ur Leukocyte Esterase Negative (NEGATIVE) Urine RBC Not seen (0-5) Urine WBC Not seen (0-5) Ur Epithelial Cells Few Amorphous Sediment Not seen Urine Bacteria Not seen Urine Mucus Moderate Urine Other Urine Opiates Screen Negative (NEGATIVE) Ur Oxycodone Screen Negative (NEGATIVE) Urine Methadone Screen Negative (NEGATIVE) Ur Propoxyphene Screen Negative (NEGATIVE) Ur Barbiturates Screen Negative (NEGATIVE) Ur Tricyclics Screen Negative (NEGATIVE) Ur Phencyclidine Scrn Negative (NEGATIVE) Ur Amphetamine Screen Negative (NEGATIVE) U Methamphetamines Scrn Negative (NEGATIVE) Urine MDMA Screen Negative (NEGATIVE) U Benzodiazepines Scrn Negative (NEGATIVE) U Cocaine Metab Screen Negative (NEGATIVE) U Marijuana (THC) Screen Negative (NEGATIVE) Ethyl Alcohol mg/dL Meds: Medications Discontinued Medications Generic Name Dose Route Start Last Admin Trade Name Freq PRN Reason Stop Dose Admin Hydromorphone HCl 0.5 mg 03/18/18 07:22 Dilaudid IM 03/18/18 07:23 ONETIME ONE Multivitamins/Minerals 10 ml/ 1,016.2 mls @ 500 mls/hr 03/18/18 06:11 06:33 Thiamine HCl 200 mg/ Folic IV 03/18/18 08:12 500 mls/hr Acid 1 mg/ Magnesium Sulfate 2 ONETIME ONE Administration gm/ Dextrose/Lactated Ringer' s Ondansetron HCl 4 mg 03/18/18 06:11 03/18/18 06:34 Zofran IVPUSH 03/18/18 06:12 4 mg ONETIME ONE Administration - Re-Assessments/Exams Free Text/Narrative Re-Assessment/Exam: 03/18/18 07:42 pt had a neg drug screen, his lab work is stable. He has been accepted at [facility]. A letter was sent to [facility] [employer] to remind them that a vulenerable adult has been reported on the pt. Departure - Departure Disposition: DC/Tfer to [facility]osp/Unit 65 Condition: Fair Clinical Impression: Intoxication - Discharge Information Referrals: PCP,None [Primary Care Provider] - Forms: ED Department Discharge Care Plan Goals: transfer to the [facility] - My Orders Last 24 Hours: My Active Orders 03/18/18 07:29 DRUG SCREEN, URINE [URCHEM] Stat UA W/MICROSCOPIC [URIN] Urgent - Assessment/Plan Last 24 Hours: My Active Orders 03/18/18 07:29 DRUG SCREEN, URINE [URCHEM] Stat UA W/MICROSCOPIC [URIN] Urgent <OfficerDavis - Last Filed: 03/18/18 18:01> ED HPI GENERAL MEDICAL PROBLEM - General Source of Information: Reports: Patient, EMS, RN Notes Reviewed History Limitations: Reports: Intoxication - History of Present Illness INITIAL COMMENTS - FREE TEXT/NARRATIVE: 57-year-old gentleman presents to the emergency department today via a EMS services for intoxication requesting to go to detox. He is well known to the emergency department well known history of alcohol abuse and dependence states he's been drinking vodka for the last several days he is unsure if he states in any of his medications admits to stop consuming alcohol last night. 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 Gastrointestinal History: Reports: Pancreatitis Musculoskeletal History: Reports: Fracture, Other (See Below) Other Musculoskeletal History: fx toe L humeral fracture. Neurological History: Reports: Head Trauma Psychiatric History: Reports: Addiction, Anxiety, Depression, Other (See Below) Other Psychiatric History: Alcohol abuse. Endocrine/Metabolic History: Reports: Diabetes, Type II - Infectious Disease History Infectious Disease History: Reports: Chicken Pox Other Infectious Disease History: unknown - Past Surgical History Head Surgeries/Procedures: Reports: None HEENT Surgical History: Reports: Adenoidectomy GI Surgical History: Reports: Appendectomy Oncologic Surgical History: Reports: None Social & Family History - Family History Family Medical History: Noncontributory - Tobacco Use Smoking Status *Q: Current Every Day Smoker Years of Tobacco use: 35 Packs/Tins Daily: 1 Second Hand Smoke Exposure: Yes - Caffeine Use Caffeine Use: Reports: Coffee, Soda - Recreational Drug Use Recreational Drug Use: No ED ROS GENERAL - Review of Systems Review Of Systems: See Below Constitutional: Reports: No Symptoms HEENT: Reports: No Symptoms Respiratory: Reports: No Symptoms Cardiovascular: Reports: No Symptoms GI/Abdominal: Reports: Nausea : Reports: No Symptoms Musculoskeletal: Reports: No Symptoms Skin: Reports: No Symptoms Neurological: Reports: No Symptoms ED EXAM, GENERAL - Physical Exam Exam: See Below Free Text/Narrative:: General: Male, intoxicated, alert HEENT: head is atraumatic normocephalic, eyes pupils equal round reactive to light, sclera clear no conjunctivitis appreciated. Ears tympanic membranes clear and blas landmarks and light reflex are present bilaterally canals are clear. Nose no septal deviation, nares are clear, no blood present. Mouth mucosa is moist and pink no erythema or exudate noted in soft palate, tongue is midline uvula is midline, dentition is intact. Neck: Supple no thyromegaly no tracheal deviation. Nodes: Cervical nodes subclavicular nodes nontender no palpable lymphadenopathy noted. Lungs: clear to auscultation bilaterally with symmetrical respirations, no adventitious noise appreciated. CV: Regular rate and rhythm S1 and S2 appreciated no murmurs rubs or gallops noted. Abdomen: Soft, nontender, no palpable masses or organomegaly appreciated, no distention no guarding bowel sounds are present, . Neuro: Cranial nerves II through XII grossly intact Skin: Warm and dry, intact Extremities: No lower extremity edema appreciated, Course - Orders/Labs/Meds Labs: Laboratory Tests 03/18/18 03/18/18 03/18/18 Range/Units 06:21 06:21 06:21 WBC 7.4 (4.5-11.0) K/uL RBC 4.06 L (4.30-5.90) M/uL Hgb 13.3 (12.0-15.0) g/dL Hct 38.1 L (40.0-54.0) % MCV 94 (80-98) fL MCH 33 H (27-31) pg MCHC 35 (32-36) % Plt Count 240 (150-400) K/uL Neut % (Auto) 68 H (36-66) % Lymph % (Auto) 24 (24-44) % [place] % (Auto) 7 H (2-6) % Eos % (Auto) 0 L (2-4) % Baso % (Auto) 1 (0-1) % Sodium 137 L (140-148) mmol/L Potassium 4.3 (3.6-5.2) mmol/L Chloride 97 L (100-108) mmol/L Carbon Dioxide 24 (21-32) mmol/L Anion Gap 20.3 H (5.0-14.0) mmol/L BUN 9 (7-18) mg/dL Creatinine 0.8 (0.8-1.3) mg/dL Est Cr Clr Drug Dosing 102.66 mL/min Estimated GFR (MDRD) > 60 (>60) Glucose 222 H (74-106) mg/dL Calcium 8.1 L (8.5-10.1) mg/dL Total Bilirubin 0.4 (0.2-1.0) mg/dL AST 28 (15-37) U/L ALT 38 (12-78) U/L Alkaline Phosphatase 66 (46-116) U/L Total Protein 7.0 (6.4-8.2) g/dL Albumin 3.8 (3.4-5.0) g/dL Globulin 3.2 (2.3-3.5) g/dL Albumin/Globulin Ratio 1.2 (1.2-2.2) Lipase (73-393) U/L Urine Color Urine Appearance Urine pH (4.5-8.0) Ur Specific [place] (1.008-1.030) Urine Protein (NEGATIVE) mg/dL Urine Glucose (UA) (NEGATIVE) mg/dL Urine Ketones (NEGATIVE) mg/dL Urine Occult Blood (NEGATIVE) Urine Nitrite (NEGAITVE) Urine Bilirubin (NEGATIVE) Urine Urobilinogen (NORMAL) mg/dL Ur Leukocyte Esterase (NEGATIVE) Urine RBC (0-5) Urine WBC (0-5) Ur Epithelial Cells Amorphous Sediment Urine Bacteria Urine Mucus Urine Other Urine Opiates Screen (NEGATIVE) Ur Oxycodone Screen (NEGATIVE) Urine Methadone Screen (NEGATIVE) Ur Propoxyphene Screen (NEGATIVE) Ur Barbiturates Screen (NEGATIVE) Ur Tricyclics Screen (NEGATIVE) Ur Phencyclidine Scrn (NEGATIVE) Ur Amphetamine Screen (NEGATIVE) U Methamphetamines Scrn (NEGATIVE) Urine MDMA Screen (NEGATIVE) U Benzodiazepines Scrn (NEGATIVE) U Cocaine Metab Screen (NEGATIVE) U Marijuana (THC) Screen (NEGATIVE) Ethyl Alcohol 143 mg/dL 03/18/18 03/18/18 03/18/18 Range/Units 06:21 07:29 07:29 WBC (4.5-11.0) K/uL RBC (4.30-5.90) M/uL Hgb (12.0-15.0) g/dL Hct (40.0-54.0) % MCV (80-98) fL MCH (27-31) pg MCHC (32-36) % Plt Count (150-400) K/uL Neut % (Auto) (36-66) % Lymph % (Auto) (24-44) % [place] % (Auto) (2-6) % Eos % (Auto) (2-4) % Baso % (Auto) (0-1) % Sodium (140-148) mmol/L Potassium (3.6-5.2) mmol/L Chloride (100-108) mmol/L Carbon Dioxide (21-32) mmol/L Anion Gap (5.0-14.0) mmol/L BUN (7-18) mg/dL Creatinine (0.8-1.3) mg/dL Est Cr Clr Drug Dosing mL/min Estimated GFR (MDRD) (>60) Glucose (74-106) mg/dL Calcium (8.5-10.1) mg/dL Total Bilirubin (0.2-1.0) mg/dL AST (15-37) U/L ALT (12-78) U/L Alkaline Phosphatase (46-116) U/L Total Protein (6.4-8.2) g/dL Albumin (3.4-5.0) g/dL Globulin (2.3-3.5) g/dL Albumin/Globulin Ratio (1.2-2.2) Lipase 52 L (73-393) U/L Urine Color Yellow Urine Appearance Slightly cloudy Urine pH 5.0 (4.5-8.0) Ur Specific [place] 1.020 (1.008-1.030) Urine Protein 30 H (NEGATIVE) mg/dL Urine Glucose (UA) 1000 H (NEGATIVE) mg/dL Urine Ketones 50 H (NEGATIVE) mg/dL Urine Occult Blood Negative (NEGATIVE) Urine Nitrite Negative (NEGAITVE) Urine Bilirubin Negative (NEGATIVE) Urine Urobilinogen Normal (NORMAL) mg/dL Ur Leukocyte Esterase Negative (NEGATIVE) Urine RBC Not seen (0-5) Urine WBC Not seen (0-5) Ur Epithelial Cells Few Amorphous Sediment Not seen Urine Bacteria Not seen Urine Mucus Moderate Urine Other Urine Opiates Screen Negative (NEGATIVE) Ur Oxycodone Screen Negative (NEGATIVE) Urine Methadone Screen Negative (NEGATIVE) Ur Propoxyphene Screen Negative (NEGATIVE) Ur Barbiturates Screen Negative (NEGATIVE) Ur Tricyclics Screen Negative (NEGATIVE) Ur Phencyclidine Scrn Negative (NEGATIVE) Ur Amphetamine Screen Negative (NEGATIVE) U Methamphetamines Scrn Negative (NEGATIVE) Urine MDMA Screen Negative (NEGATIVE) U Benzodiazepines Scrn Negative (NEGATIVE) U Cocaine Metab Screen Negative (NEGATIVE) U Marijuana (THC) Screen Negative (NEGATIVE) Ethyl Alcohol mg/dL Departure - Departure Time of Disposition: 18:01
[2018-03-18] MEDS: MVI, Adult with Vitamin K 10 ML, Thiamine 200 MG, Folic Acid 1 MG, Magnesium Sulfate 2 ... IV ONE ×5 (06:33)
[2018-03-18] MEDS: Ondansetron 4 MG/2 ML SDV IVPUSH ONE (06:34)
[2018-03-18 06:45] VITALS: BP 159/86
[2018-03-18] MEDS ORDERED: HYDROmorphone 0.5 MG/0.5 ML Syringe IM ONE (07:22)
--- NOTE | 2018-03-18 12:17 | LETTER ---
03/18/[address] [place] [address] RE: DARLYN GAITAN : 1960 To Whom It May Concern: Darlyn Gaitan has arrived at our ER again impaired and wanting to go to detox. He has not been using his medications and does not have any understanding of his medications at this point in time. I have filed a vulnerable adult report on him recently and I do not know what has been done, but the typical pattern for this patient is that he comes to the ER, he is sent to detox, he goes home and does exactly the same thing. This patient needs to be in a long-term supervised environment where he is taking his medications on a regular basis and where he is not drinking and making himself vulnerable. If you have questions of me, feel free to contact me. Sincerely, /[phone]
== END 2018-03-18 08:53 ==
LOC: JP.ED 05:54
DX: F10.129 Alcohol abuse with intoxication, unspecified (principal); F17.210 Nicotine dependence, cigarettes, uncomplicated; Y90.6 Blood alcohol level of 120-199 mg/100 ml; I10 Essential (primary) hypertension; E78.00 Pure hypercholesterolemia, unspecified; F41.9 Anxiety disorder, unspecified; F32.9 Major depressive disorder, single episode, unspecified; E11.9 Type 2 diabetes mellitus without complications; Z79.82 Long term (current) use of aspirin; Z79.899 Other long term (current) drug therapy; Z88.8 Allergy status to other drugs, medicaments and biological substances; Z79.4 Long term (current) use of insulin
CPT/HCPCS: 36415; 80053; 80305; 81001; 83690; 85025; 96365; 96366; 96372; 96375; 99285; G0480; J2405; J3411; J3475; J7042; J3490

== ENCOUNTER 2018-03-30 10:31 | Emergency (ER) | payer MEDICAID ==
[2018-03-30 10:44] VITALS: BP 144/75
--- NOTE | 2018-03-30 11:13 | EDM.PDOC ---
ED HPI GENERAL MEDICAL PROBLEM - General Chief Complaint: Drug or Alcohol Abuse Stated Complaint: MEDICAL VIA [facility] Time Seen by Provider: 03/30/18 10:56 Source of Information: Reports: Patient, RN Notes Reviewed History Limitations: Reports: Intoxication - History of Present Illness INITIAL COMMENTS - FREE TEXT/NARRATIVE: 57-year-old gentleman presents to the emergency department via EMS services with acute intoxication requesting placement at detoxification facility. He is well known to the emergency department has been here multiple times for similar complaints with different about this event is he had fallen within the last day or 2 has significant facial trauma on the left side as well as the left chest is complaining of shoulder pain and elbow pain. He recently consumed a 1.5 fifth of vodka and is impaired at this time Left Face Pain Score (Numeric/FACES): 10 - Related Data Allergies Allergy/AdvReac Type Severity Reaction Status Date / Time zolpidem tartrate Allergy Cannot Verified 03/30/18 10:43 [From Maite] Remember Home Meds: Home Meds Aspirin [Halfprin] 81 mg PO DAILY 10/17/14 [History] Gabapentin 600 mg PO TID 12/04/14 [History] Simvastatin 40 mg PO BEDTIME 12/04/14 [History] traZODone 100 - 200 mg PO BEDTIME 12/04/14 [History] Venlafaxine HCl [Venlafaxine ER] 150 mg PO DAILY 04/03/15 [History] Metoprolol Tartrate [Lopressor] 50 mg PO BID 04/05/15 [History] metFORMIN [Glucophage] 1,000 mg PO BIDAC 03/11/16 [History] Multivit-Min/FA/Lycopene/Lut [Certavite Sr-Antioxidant Tab] 1 tab PO DAILY 06/16 [History] Pantoprazole [ProTONIX] 40 mg PO DAILY #30 tab.cr 06/17/16 [Rx] Lisinopril [Zestril] 10 mg PO DAILY 04/03/17 [History] Venlafaxine HCl [Venlafaxine ER] 75 mg PO DAILY 04/03/17 [History] Celecoxib [CeleBREX] 1 tab PO BID 09/06/17 [History] Acetaminophen 500 mg PO Q4H 11/17/17 [History] Albuterol [Ventolin HFA] 2 puff INH QID 11/17/17 [History] Insulin Glargine,Hum.Rec.Anlog [Basaglar Kwikpen U-100] 35 units SUBCUT DAILY [History] Insulin Glulisine [Apidra Solostar] 1 dose SUBCUT TID 11/17/17 [History] Past Medical History Cardiovascular History: Reports: High Cholesterol, Hypertension Other Cardiovascular History: Past chest pain Questionable NH in past. Respiratory History: Reports: Asthma Gastrointestinal History: Reports: Pancreatitis Musculoskeletal History: Reports: Fracture, Other (See Below) Other Musculoskeletal History: fx toe L humeral fracture. Neurological History: Reports: Head Trauma Psychiatric History: Reports: Addiction, Anxiety, Depression, Other (See Below) Other Psychiatric History: Alcohol abuse. Endocrine/Metabolic History: Reports: Diabetes, Type II - Infectious Disease History Infectious Disease History: Reports: Measles Other Infectious Disease History: unknown - Past Surgical History Head Surgeries/Procedures: Reports: None HEENT Surgical History: Reports: Adenoidectomy GI Surgical History: Reports: Appendectomy Oncologic Surgical History: Reports: None Social & Family History - Family History Family Medical History: Noncontributory - Tobacco Use Smoking Status *Q: Current Every Day Smoker Years of Tobacco use: 32 Packs/Tins Daily: 0.5 Second Hand Smoke Exposure: No - Caffeine Use Caffeine Use: Reports: Coffee, Soda - Alcohol Use Date of Last Drink: 03/29/18 Time of Last Drink: 21:30 - Recreational Drug Use Recreational Drug Use: No ED ROS GENERAL - Review of Systems Review Of Systems: ROS reveals no pertinent complaints other than HPI. ( Difficult to obtain secondary to intoxication) ED EXAM, UPPER BACK/NECK PAIN - Physical Exam Exam: See Below Text/Narrative:: General: Male intoxicated, alert and smells of urine HEENT: head is facial swelling and ecchymosis is appreciated on the left side of the face with partial closure of the left eye normocephalic, eyes pupils equal round reactive to light, sclera clear no conjunctivitis appreciated, cannot follow commands for extraocular eye movements but eye movements appear to be intact. Ears tympanic membranes clear and blas landmarks and light reflex are present bilaterally canals are clear. Nose no septal deviation, nares are clear, no blood present. Mouth mucosa is moist and pink no erythema or exudate noted in soft palate, tongue is midline uvula is midline, dentition is intact. Neck: Supple no thyromegaly no tracheal deviation. Denies tenderness to palpation but does have distracting injuries Nodes: Cervical nodes subclavicular nodes nontender no palpable lymphadenopathy noted. Lungs: clear to auscultation bilaterally with symmetrical respirations, no adventitious noise appreciated. Large bruise is located on the left side of the chest and is tender to palpation approximately T4 level CV: Regular rate and rhythm S1 and S2 appreciated no murmurs rubs or gallops noted. Abdomen: Soft, nontender, no palpable masses or organomegaly appreciated, no distention no guarding bowel sounds are present, Neuro: Cranial nerves II through XII grossly intact Skin: Warm and dry, intact Extremities: No lower extremity edema appreciated, Course - Vital Signs Last Recorded V/S: Last Vital Signs Temp 97.7 F 03/30/18 10:54 Pulse 116 H 03/30/18 10:54 Resp 16 03/30/18 10:54 BP 144/75 H 03/30/18 10:54 Pulse Ox 93 L 03/30/18 10:54 - Orders/Labs/Meds Orders: Active Orders 24 hr Category Date Time Status DRUG SCREEN, URINE [URCHEM] Stat Lab 03/30/18 12:08 Ordered UA W/MICROSCOPIC [URIN] Urgent Lab 03/30/18 12:08 Ordered Iopamidol [Isovue-300 (61%)] Med 03/30/18 11:15 Active 100 ml IV . DIRECTED Lactated Ringers [Ringers, Lactated] 1,000 ml Med 03/30/18 11:15 Active IV ASDIRECTED Sodium Chloride 0.9% [Normal Saline] 100 ml Med 03/30/18 11:15 Active IV ASDIRECTED Medication Orders Lactated Ringer's (Ringers, Lactated) 1,000 mls @ 999 mls/hr IV ASDIRECTED RIKKI Last Admin: 03/30/18 12:12 Dose: 999 mls/hr Sodium Chloride (Normal Saline) 100 mls @ 3 mls/sec IV ASDIRECTED RIKKI Last Admin: 03/30/18 11:31 Dose: 3 mls/sec Iopamidol (Isovue-300 (61%)) 100 ml IV . DIRECTED RIKKI Last Admin: 03/30/18 11:31 Dose: 100 ml Labs: Laboratory Tests 0703/30/18 03/30/18 Range/Units 11:12 11:12 11:12 WBC 6.5 (4.5-11.0) K/uL RBC 3.88 L (4.30-5.90) M/uL Hgb 12.6 (12.0-15.0) g/dL Hct 36.5 L (40.0-54.0) % MCV 94 (80-98) fL MCH 33 H (27-31) pg MCHC 35 (32-36) % Plt Count 165 (150-400) K/uL Neut % (Auto) 64 (36-66) % Lymph % (Auto) 24 (24-44) % [place] % (Auto) 12 H (2-6) % Eos % (Auto) 1 L (2-4) % Baso % (Auto) 0 (0-1) % Sodium 141 (140-148) mmol/L Potassium 4.2 (3.6-5.2) mmol/L Chloride 100 (100-108) mmol/L Carbon Dioxide 24 (21-32) mmol/L Anion Gap 17.4 H (5.0-14.0) mmol/L BUN 9 (7-18) mg/dL Creatinine 0.8 (0.8-1.3) mg/dL Est Cr Clr Drug Dosing 96.19 mL/min Estimated GFR (MDRD) > 60 (>60) Glucose 195 H (74-106) mg/dL Calcium 8.1 L (8.5-10.1) mg/dL Total Bilirubin 0.5 (0.2-1.0) mg/dL AST 36 (15-37) U/L ALT 45 (12-78) U/L Alkaline Phosphatase 63 (46-116) U/L Total Protein 6.7 (6.4-8.2) g/dL Albumin 3.8 (3.4-5.0) g/dL Globulin 2.9 (2.3-3.5) g/dL Albumin/Globulin Ratio 1.3 (1.2-2.2) Urine Color Urine Appearance Urine pH (4.5-8.0) Ur Specific [place] (1.008-1.030) Urine Protein (NEGATIVE) mg/dL Urine Glucose (UA) (NEGATIVE) mg/dL Urine Ketones (NEGATIVE) mg/dL Urine Occult Blood (NEGATIVE) Urine Nitrite (NEGAITVE) Urine Bilirubin (NEGATIVE) Urine Urobilinogen (NORMAL) mg/dL Ur Leukocyte Esterase (NEGATIVE) Urine RBC (0-5) Urine WBC (0-5) Ur Epithelial Cells Amorphous Sediment Urine Bacteria Urine Mucus Urine Opiates Screen (NEGATIVE) Ur Oxycodone Screen (NEGATIVE) Urine Methadone Screen (NEGATIVE) Ur Propoxyphene Screen (NEGATIVE) Ur Barbiturates Screen (NEGATIVE) Ur Tricyclics Screen (NEGATIVE) Ur Phencyclidine Scrn (NEGATIVE) Ur Amphetamine Screen (NEGATIVE) U Methamphetamines Scrn (NEGATIVE) Urine MDMA Screen (NEGATIVE) U Benzodiazepines Scrn (NEGATIVE) U Cocaine Metab Screen (NEGATIVE) U Marijuana (THC) Screen (NEGATIVE) Ethyl Alcohol 194 mg/dL 03/30/18 03/30/18 Range/Units 12:08 12:08 WBC (4.5-11.0) K/uL RBC (4.30-5.90) M/uL Hgb (12.0-15.0) g/dL Hct (40.0-54.0) % MCV (80-98) fL MCH (27-31) pg MCHC (32-36) % Plt Count (150-400) K/uL Neut % (Auto) (36-66) % Lymph % (Auto) (24-44) % [place] % (Auto) (2-6) % Eos % (Auto) (2-4) % Baso % (Auto) (0-1) % Sodium (140-148) mmol/L Potassium (3.6-5.2) mmol/L Chloride (100-108) mmol/L Carbon Dioxide (21-32) mmol/L Anion Gap (5.0-14.0) mmol/L BUN (7-18) mg/dL Creatinine (0.8-1.3) mg/dL Est Cr Clr Drug Dosing mL/min Estimated GFR (MDRD) (>60) Glucose (74-106) mg/dL Calcium (8.5-10.1) mg/dL Total Bilirubin (0.2-1.0) mg/dL AST (15-37) U/L ALT (12-78) U/L Alkaline Phosphatase (46-116) U/L Total Protein (6.4-8.2) g/dL Albumin (3.4-5.0) g/dL Globulin (2.3-3.5) g/dL Albumin/Globulin Ratio (1.2-2.2) Urine Color Yellow Urine Appearance Clear Urine pH 5.0 (4.5-8.0) Ur Specific [place] 1.010 (1.008-1.030) Urine Protein Negative (NEGATIVE) mg/dL Urine Glucose (UA) 100 H (NEGATIVE) mg/dL Urine Ketones 50 H (NEGATIVE) mg/dL Urine Occult Blood Negative (NEGATIVE) Urine Nitrite Negative (NEGAITVE) Urine Bilirubin Negative (NEGATIVE) Urine Urobilinogen Normal (NORMAL) mg/dL Ur Leukocyte Esterase Negative (NEGATIVE) Urine RBC Not seen (0-5) Urine WBC 0-5 (0-5) Ur Epithelial Cells Few Amorphous Sediment Not seen Urine Bacteria Not seen Urine Mucus Not seen Urine Opiates Screen Negative (NEGATIVE) Ur Oxycodone Screen Negative (NEGATIVE) Urine Methadone Screen Negative (NEGATIVE) Ur Propoxyphene Screen Negative (NEGATIVE) Ur Barbiturates Screen Negative (NEGATIVE) Ur Tricyclics Screen Negative (NEGATIVE) Ur Phencyclidine Scrn Negative (NEGATIVE) Ur Amphetamine Screen Negative (NEGATIVE) U Methamphetamines Scrn Negative (NEGATIVE) Urine MDMA Screen Negative (NEGATIVE) U Benzodiazepines Scrn Presumptive positive H (NEGATIVE) U Cocaine Metab Screen Negative (NEGATIVE) U Marijuana (THC) Screen Negative (NEGATIVE) Ethyl Alcohol mg/dL Meds: Medications Generic Name Dose Route Start Last Admin Trade Name Freq PRN Reason Stop Dose Admin Lactated Ringer's 1,000 mls @ 999 mls/hr 03/30/18 11:15 03/30/18 12:12 Ringers, Lactated IV 999 mls/hr ASDIRECTED RIKKI Administration Sodium Chloride 100 mls @ 3 mls/sec 03/30/18 11:15 03/30/18 11:31 Normal Saline IV 3 mls/sec ASDIRECTED RIKKI Administration Iopamidol 100 ml 03/30/18 11:15 03/30/18 11:31 Isovue-300 (61%) IV 100 ml . DIRECTED RIKKI Administration Departure - Departure Time of Disposition: 13:42 Disposition: DC/Tfer to Inpt Rehab Fac 62 Condition: Good Clinical Impression: Alcohol abuse Acute alcohol intoxication Qualifiers: Complication of substance-induced condition: uncomplicated Qualified Code(s): F10.929 - Alcohol use, unspecified with intoxication, unspecified - Discharge Information Referrals: PCP,None [Primary Care Provider] - Forms: ED Department Discharge - My Orders Last 24 Hours: My Active Orders 03/30/18 11:15 Iopamidol [Isovue-300 (61%)] 100 ml IV . DIRECTED Lactated Ringers [Ringers, Lactated] 1,000 ml IV ASDIRECTED Sodium Chloride 0.9% [Normal Saline] 100 ml IV ASDIRECTED 03/30/18 12:08 DRUG SCREEN, URINE [URCHEM] Stat UA W/MICROSCOPIC [URIN] Urgent - Assessment/Plan Last 24 Hours: My Active Orders 03/30/18 11:15 Iopamidol [Isovue-300 (61%)] 100 ml IV . DIRECTED Lactated Ringers [Ringers, Lactated] 1,000 ml IV ASDIRECTED Sodium Chloride 0.9% [Normal Saline] 100 ml IV ASDIRECTED 03/30/18 12:08 DRUG SCREEN, URINE [URCHEM] Stat UA W/MICROSCOPIC [URIN] Urgent Plan: Assessment Acuity = acute Site and laterality = acute alcohol intoxication with recent facial trauma on the left side as well as chest wall trauma, left elbow contusion Etiology = EtOH Manifestations = none Location of injury = Home Lab values = CBC, CMP, urinalysis, urine drug screen all unremarkable alcohol at 194 CT scan head facial bones neck chest and elbow show no acute process Plan Recommend Tylenol or Motrin as needed for pain control he will be discharged to [facility] for alcohol detoxification This note was dictated using [employer] voice recognition software please call with any questions on syntax or grammar.
[2018-03-30] MEDS ORDERED: Iopamidol 612 MG/ML 100 ML Bottle IV SCH (11:15)
[2018-03-30] MEDS ORDERED: Lactated Ringers 1,000 ML IV SCH (11:15)
[2018-03-30] MEDS ORDERED: Sodium Chloride 0.9% 100 ML IV SCH (11:15)
--- NOTE | 2018-03-30 11:48 | CT ---
Head wo Cont INDICATION: Trauma, left facial injury TECHNIQUE: CT images of the head obtained without IV contrast. Dosage reduction and iterative reconstruction techniques employed. COMPARISON: 07/13/2017 FINDINGS: No acute intracranial abnormality. No hemorrhage, edema or mass effect. The ventricles ar e normal size. Skull intact. Soft tissue swelling on the left. IMPRESSION:No acute intracranial abnormality. Soft tissue swelling on the left.
--- NOTE | 2018-03-30 11:58 | CT ---
Max Facial Sinus wo Cont INDICATION: trauma Left facial injury EtOH TECHNIQUE: CT images of the facial bones obtained. Coronal and sagittal reformatted images obtained. Dosage reduction and iterative reconstruction techniques employed. COMPARISON: None FINDINGS: No facial bone fractures seen. Soft tissue swelling on the left. Mucosal thickening in the maxillary sinuses and ethmoid air cells. No air-fluid levels seen. Orbits are intact. Mandible is int act. The left mandibular condyle is in the partially opened position where as the right TMJ is closed . This appearance is similar to a CT head from 07/13/2017 and may be related to subluxed disc within the TMJ. IMPRESSION: No facial bone fracture. Soft tissue swelling on the left likely hematoma. Nonacute incid ental findings, as above.
--- NOTE | 2018-03-30 12:01 | CT ---
Cervical Spine wo Cont INDICATION: Trauma left facial injury EtOH TECHNIQUE: CT images of the cervical spine. Sagittal and coronal images reformatted. Dosage reduction and iterative reconstruction techniques employed. COMPARISON: 02/07/2017 FINDINGS: Reversal normal cervical lordosis again noted. No subluxations or acute compression deformi ties. Multilevel degenerative disc disease and hypertrophic change. Craniocervical junction is intact . Facet alignment intact. There is multilevel bilateral facet arthropathy unchanged. No significant p revertebral soft tissue swelling. Mild chronic loss of vertebral body height at C5 and C6 unchanged. IMPRESSION: Nothing acute. Chronic degenerative changes, as above.
--- NOTE | 2018-03-30 13:01 | CT ---
Chest w Cont INDICATION: Trauma left chest injury EtOH TECHNIQUE: CT images of the chest with IV contrast. Coronal reformatted images obtained. Dosage reduction and iterative reconstruction techniques employed. COMPARISON: None FINDINGS: No infiltrates, pleural effusions, or pneumothorax. No mediastinal hematoma. Coronary art josias calcifications. Old or healing multiple left rib fractures. Chronic posttraumatic changes left sh oulder. Degenerative disc disease cervical and thoracic spine. Fatty infiltration of the liver. 3.8 c m left adrenal mass unchanged from 12/04/2014. IMPRESSION: 1. No acute findings in the chest. 2. Numerous nonacute incidental findings, as above.
--- NOTE | 2018-03-30 13:03 | CR ---
Elbow Min 3V Lt INDICATION: trauma COMPARISON: None FINDINGS: 3 views. No fracture, dislocation, or other acute bony abnormality. No joint space narr owing.
== END 2018-03-30 14:45 ==
LOC: JP.ED 10:31
DX: F10.120 Alcohol abuse with intoxication, uncomplicated (principal); Y90.6 Blood alcohol level of 120-199 mg/100 ml; I10 Essential (primary) hypertension; E78.00 Pure hypercholesterolemia, unspecified; E11.9 Type 2 diabetes mellitus without complications; F41.9 Anxiety disorder, unspecified; F32.9 Major depressive disorder, single episode, unspecified; Z79.4 Long term (current) use of insulin; Z79.899 Other long term (current) drug therapy; Z88.8 Allergy status to other drugs, medicaments and biological substances; Z79.82 Long term (current) use of aspirin
CPT/HCPCS: 36415; 70450; 70486; 71260; 72125; 73080; 80053; 80305; 81001; 85025; 96360; 99285; G0480; J7030; J7120; Q9967

== ENCOUNTER 2018-10-12 02:59 | Emergency (ER) | payer MEDICAID ==
[2018-10-12] MEDS ORDERED: MVI, Adult with Vitamin K 10 ML, Thiamine 200 MG, Folic Acid 1 MG, Magnesium Sulfate 2 ... IV ONE ×5 (03:19)
[2018-10-12] MEDS ORDERED: LORazepam 2 MG/ML SDV IVPUSH ONE (03:21)
--- NOTE | 2018-10-12 03:23 | EDM.PDOCBH ---
<OfficerDavis - Last Filed: 10/12/18 03:20> ED HPI GENERAL MEDICAL PROBLEM - General Chief Complaint: Drug or Alcohol Abuse Stated Complaint: INTOXICATED Time Seen by Provider: 10/12/18 03:11 Source of Information: Reports: Patient, EMS, RN Notes Reviewed History Limitations: Reports: Intoxication - History of Present Illness INITIAL COMMENTS - FREE TEXT/NARRATIVE: 58-year-old gentleman presents to the emergency department today via EMS services, he is severely intoxicated stating he no longer wishes to live stated he fell yesterday he believes he lost consciousness was on the floor for unknown period of time. Difficult to obtain review of systems or any pertinent history secondary to the level of intoxication - Related Data Allergies Allergy/AdvReac Type Severity Reaction Status Date / Time zolpidem tartrate Allergy Cannot Verified 10/12/18 06:11 [From Maite] Remember Home Meds: Home Meds Aspirin [Halfprin] 81 mg PO DAILY 10/17/14 [History] Gabapentin 600 mg PO TID 12/04/14 [History] Simvastatin 40 mg PO BEDTIME 12/04/14 [History] traZODone 100 - 200 mg PO BEDTIME 12/04/14 [History] Venlafaxine HCl [Venlafaxine ER] 150 mg PO DAILY 04/03/15 [History] Metoprolol Tartrate [Lopressor] 25 mg PO BID 04/05/15 [History] metFORMIN [Glucophage] 1,000 mg PO BIDAC 03/11/16 [History] Multivit-Min/FA/Lycopene/Lut [Certavite Sr-Antioxidant Tab] 1 tab PO DAILY 06/16 [History] Pantoprazole [ProTONIX] 40 mg PO DAILY #30 tab.cr 06/17/16 [Rx] Lisinopril [Zestril] 10 mg PO DAILY 04/03/17 [History] Venlafaxine HCl [Venlafaxine ER] 75 mg PO DAILY 04/03/17 [History] Celecoxib [CeleBREX] 1 tab PO BID 09/06/17 [History] Acetaminophen 500 mg PO Q4H 11/17/17 [History] Albuterol [Ventolin HFA] 2 puff INH QID 11/17/17 [History] Insulin Glargine,Hum.Rec.Anlog [Basaglar Kwikpen U-100] 35 units SUBCUT DAILY [History] Insulin Glulisine [Apidra Solostar] 1 dose SUBCUT TID 11/17/17 [History] Ascorbic Acid 500 mg PO DAILY 06/30/18 [History] Past Medical History Cardiovascular History: Reports: High Cholesterol, Hypertension Other Cardiovascular History: Past chest pain Questionable [place] in past. Respiratory History: Reports: Asthma Gastrointestinal History: Reports: Pancreatitis Musculoskeletal History: Reports: Fracture, Other (See Below) Other Musculoskeletal History: fx toe L humeral fracture. Neurological History: Reports: Head Trauma Psychiatric History: Reports: Addiction, Anxiety, Depression, Other (See Below) Other Psychiatric History: Alcohol abuse. Endocrine/Metabolic History: Reports: Diabetes, Type II Hematologic History: Reports: None - Infectious Disease History Infectious Disease History: Reports: Measles Other Infectious Disease History: unknown - Past Surgical History Head Surgeries/Procedures: Reports: None HEENT Surgical History: Reports: Adenoidectomy GI Surgical History: Reports: Appendectomy Oncologic Surgical History: Reports: None Social & Family History - Family History Family Medical History: Noncontributory - Caffeine Use Caffeine Use: Reports: Coffee, Soda ED ROS GENERAL - Review of Systems Review Of Systems: Unable To Obtain ED EXAM, BEHAVIORAL HEALTH - Physical Exam Exam: See Below Exam Limited By: Intoxication General Appearance: Alert, No Apparent Distress Eye Exam: Bilateral Eye: EOMI, Normal Inspection, PERRL Ears: Normal External Exam Nose: Normal Inspection, Normal Mucosa, No Blood Throat/Mouth: Normal Inspection, Normal Lips, Normal Teeth, Normal Gums, Normal Oropharynx, Normal Voice, No Airway Compromise Head: Atraumatic, Normocephalic Neck: Normal Inspection, Supple, Non-Tender, Full Range of Motion Respiratory/Chest: No Respiratory Distress, Lungs Clear, Normal Breath Sounds, No Accessory Muscle Use, Chest Non-Tender Cardiovascular: Regular Rate, Rhythm, No Murmur GI/Abdominal: Soft, Non-Tender Neurological: Alert, CN II-XII Intact COURSE, BEHAVIORAL HEALTH COMP - Course Vital Signs: Last Vital Signs Temp 37.0 C 10/12/18 03:25 Pulse 102 H 10/12/18 06:20 Resp 20 10/12/18 06:20 BP 141/92 H 10/12/18 06:20 Pulse Ox 95 10/12/18 06:20 Orders, Labs, Meds: Active Orders 24 hr Category Date Time Status Head wo Cont [CT] Stat Exams 10/12/18 03:18 Taken Laboratory Tests 10/12/18 10/12/18 10/12/18 Range/Units 03:18 03:27 03:27 WBC 7.1 (4.5-11.0) K/uL RBC 4.14 L (4.30-5.90) M/uL Hgb 13.4 (12.0-15.0) g/dL Hct 37.3 L (40.0-54.0) % MCV 90 (80-98) fL MCH 32 H (27-31) pg MCHC 36 (32-36) % Plt Count 188 (150-400) K/uL Neut % (Auto) 44 (36-66) % Lymph % (Auto) 44 (24-44) % [place] % (Auto) 11 H (2-6) % Eos % (Auto) 0 L (2-4) % Baso % (Auto) 0 (0-1) % Sodium 135 L (140-148) mmol/L Potassium 3.8 (3.6-5.2) mmol/L Chloride 95 L (100-108) mmol/L Carbon Dioxide 24 (21-32) mmol/L Anion Gap 19.8 H (5.0-14.0) mmol/L BUN 8 (7-18) mg/dL Creatinine 0.9 (0.8-1.3) mg/dL Est Cr Clr Drug Dosing 90.34 mL/min Estimated GFR (MDRD) > 60 (>60) Glucose 275 H (74-106) mg/dL Calcium 8.8 (8.5-10.1) mg/dL Total Bilirubin 0.3 (0.2-1.0) mg/dL AST 26 (15-37) U/L ALT 35 (12-78) U/L Alkaline Phosphatase 65 (46-116) U/L Total Protein 7.3 (6.4-8.2) g/dL Albumin 3.8 (3.4-5.0) g/dL Globulin 3.5 (2.3-3.5) g/dL Albumin/Globulin Ratio 1.1 L (1.2-2.2) Salicylates 3.9 (2.0-20.0) mg/dL Acetaminophen < 2.0 L (10.0-30.0) ug/mL Ethyl Alcohol mg/dL 10/12/18 Range/Units 03:27 WBC (4.5-11.0) K/uL RBC (4.30-5.90) M/uL Hgb (12.0-15.0) g/dL Hct (40.0-54.0) % MCV (80-98) fL MCH (27-31) pg MCHC (32-36) % Plt Count (150-400) K/uL Neut % (Auto) (36-66) % Lymph % (Auto) (24-44) % [place] % (Auto) (2-6) % Eos % (Auto) (2-4) % Baso % (Auto) (0-1) % Sodium (140-148) mmol/L Potassium (3.6-5.2) mmol/L Chloride (100-108) mmol/L Carbon Dioxide (21-32) mmol/L Anion Gap (5.0-14.0) mmol/L BUN (7-18) mg/dL Creatinine (0.8-1.3) mg/dL Est Cr Clr Drug Dosing mL/min Estimated GFR (MDRD) (>60) Glucose (74-106) mg/dL Calcium (8.5-10.1) mg/dL Total Bilirubin (0.2-1.0) mg/dL AST (15-37) U/L ALT (12-78) U/L Alkaline Phosphatase (46-116) U/L Total Protein (6.4-8.2) g/dL Albumin (3.4-5.0) g/dL Globulin (2.3-3.5) g/dL Albumin/Globulin Ratio (1.2-2.2) Salicylates (2.0-20.0) mg/dL Acetaminophen (10.0-30.0) ug/mL Ethyl Alcohol 185 mg/dL Medications Discontinued Medications Generic Name Dose Route Start Last Admin Trade Name Freq PRN Reason Stop Dose Admin Multivitamins/Minerals 10 ml/ 1,016.2 mls @ 500 mls/hr 10/12/18 03:19 04:14 Thiamine HCl 200 mg/ Folic IV 10/12/18 05:20 500 mls/hr Acid 1 mg/ Magnesium Sulfate 2 ONETIME ONE Administration gm/ Dextrose/Lactated Ringer' s Lorazepam 1 mg 10/12/18 03:21 10/12/18 03:57 Ativan IVPUSH 10/12/18 03:22 1 mg ONETIME ONE Administration Lorazepam 2 mg 10/12/18 07:55 10/12/18 08:01 Ativan PO 10/12/18 07:56 2 mg ONETIME ONE Administration Ondansetron HCl 4 mg 10/12/18 03:37 10/12/18 03:57 Zofran IVPUSH 10/12/18 03:38 4 mg ONETIME ONE Administration Departure - Departure Disposition: DC/Tfer to Other 70 Clinical Impression: Alcohol abuse Alcohol intoxication Qualifiers: Complication of substance-induced condition: with unspecified complication Qualified Code(s): F10.929 - Alcohol use, unspecified with intoxication, unspecified - Discharge Information Referrals: PCP,None [Primary Care Provider] - Forms: ED Department Discharge Additional Instructions: Directly transferred from ER to [facility]. <Dominik Jones G - Last Filed: 10/12/18 11:18> ED HPI GENERAL MEDICAL PROBLEM Head Pain Score (Numeric/FACES): 10 COURSE, BEHAVIORAL HEALTH COMP - Course Medical Clearance: 10/12/18 11:17 To [facility] @ 1125h Departure - Departure Time of Disposition: 11:25 Condition: Fair - Discharge Information *PRESCRIPTION DRUG MONITORING PROGRAM REVIEWED*: No *COPY OF PRESCRIPTION DRUG MONITORING REPORT IN PATIENT CA: No
[2018-10-12] MEDS ORDERED: Ondansetron 4 MG/2 ML SDV IVPUSH ONE (03:37)
[2018-10-12 03:52] LABS: ACETAMINOPHEN < 2.0 ug/mL (10.0-30.0)
[2018-10-12 06:26] VITALS: BP 141/92
[2018-10-12] MEDS ORDERED: LORazepam 1 MG Tab PO ONE (07:55)
== END 2018-10-12 12:04 | disposition other institution (70) ==
LOC: JP.ED 02:59
DX: F10.129 Alcohol abuse with intoxication, unspecified (principal); I10 Essential (primary) hypertension; E11.9 Type 2 diabetes mellitus without complications; Y90.6 Blood alcohol level of 120-199 mg/100 ml; Z88.8 Allergy status to other drugs, medicaments and biological substances; Z79.82 Long term (current) use of aspirin; Z79.899 Other long term (current) drug therapy
CPT/HCPCS: 36415; 70450; 80053; 85025; 96365; 96366; 96375; 99284; 99285; A9270; G0480; J2060; J2405; J3411; J3475; J7042; J3490

== ENCOUNTER 2018-12-10 08:55 | Emergency (ER) | payer MEDICAID ==
[2018-12-10] MEDS ORDERED: Acetaminophen 325 MG Tab PO ONE (09:07)
[2018-12-10] MEDS ORDERED: Gabapentin 300 MG Cap PO ONE (09:07)
--- NOTE | 2018-12-10 09:15 | EDM.PDOCBH ---
ED HPI GENERAL MEDICAL PROBLEM - General Chief Complaint: Drug or Alcohol Abuse Stated Complaint: [facility] Time Seen by Provider: 12/10/18 09:10 Source of Information: Reports: Patient History Limitations: Reports: No Limitations - History of Present Illness INITIAL COMMENTS - FREE TEXT/NARRATIVE: pt is intoxicated and called an ambulance. He did go through 30 day treatment. He states he was dry for 3 mon. He started drinking last nite. He does look quite unkept like he may have started drinking earlier than last nite. He is being quite demanding. He does state that he needs to go to detox. Onset: Today, Other (pt states he started drinking last nite. ) Duration: Hour(s): Location: Reports: Generalized Associated Symptoms: Reports: Other (pt is intoxicated. ) Right Hand Pain Score (Numeric/FACES): 10 - Related Data Allergies Allergy/AdvReac Type Severity Reaction Status Date / Time zolpidem tartrate Allergy Cannot Verified 10/12/18 06:11 [From [facility]] Remember Home Meds: Home Meds Aspirin [Halfprin] 81 mg PO DAILY 10/17/14 [History] Gabapentin 600 mg PO TID 12/04/14 [History] Simvastatin 40 mg PO BEDTIME 12/04/14 [History] traZODone 100 - 200 mg PO BEDTIME 12/04/14 [History] Venlafaxine HCl [Venlafaxine ER] 150 mg PO DAILY 04/03/15 [History] Metoprolol Tartrate [Lopressor] 25 mg PO BID 04/05/15 [History] metFORMIN [Glucophage] 1,000 mg PO BIDAC 03/11/16 [History] Multivit-Min/FA/Lycopene/Lut [Certavite Sr-Antioxidant Tab] 1 tab PO DAILY 06/16 [History] Pantoprazole [ProTONIX] 40 mg PO DAILY #30 tab.cr 06/17/16 [Rx] Lisinopril [Zestril] 10 mg PO DAILY 04/03/17 [History] Venlafaxine HCl [Venlafaxine ER] 75 mg PO DAILY 04/03/17 [History] Celecoxib [CeleBREX] 1 tab PO BID 09/06/17 [History] Acetaminophen 500 mg PO Q4H 11/17/17 [History] Albuterol [Ventolin HFA] 2 puff INH QID 11/17/17 [History] Insulin Glargine,Hum.Rec.Anlog [Basaglar Kwikpen U-100] 35 units SUBCUT DAILY [History] Insulin Glulisine [Apidra Solostar] 1 dose SUBCUT TID 11/17/17 [History] Ascorbic Acid 500 mg PO DAILY 06/30/18 [History] Past Medical History Cardiovascular History: Reports: High Cholesterol, Hypertension Other Cardiovascular History: Past chest pain Questionable [facility] in past. Respiratory History: Reports: Asthma Gastrointestinal History: Reports: Pancreatitis Musculoskeletal History: Reports: Fracture, Other (See Below) Other Musculoskeletal History: fx toe L humeral fracture. Neurological History: Reports: Head Trauma Psychiatric History: Reports: Addiction, Anxiety, Depression, Other (See Below) Other Psychiatric History: Alcohol abuse. Endocrine/Metabolic History: Reports: Diabetes, Type II Hematologic History: Reports: None - Infectious Disease History Infectious Disease History: Reports: Measles Other Infectious Disease History: unknown - Past Surgical History Head Surgeries/Procedures: Reports: None HEENT Surgical History: Reports: Adenoidectomy GI Surgical History: Reports: Appendectomy Oncologic Surgical History: Reports: None Social & Family History - Family History Family Medical History: Noncontributory - Caffeine Use Caffeine Use: Reports: Coffee, Soda ED ROS GENERAL - Review of Systems Review Of Systems: See Below Constitutional: Reports: No Symptoms HEENT: Reports: No Symptoms Respiratory: Reports: No Symptoms Cardiovascular: Reports: No Symptoms Endocrine: Reports: No Symptoms GI/Abdominal: Reports: No Symptoms : Reports: No Symptoms, Other (pt smells strongly of urine. ) Musculoskeletal: Reports: No Symptoms Skin: Reports: No Symptoms Neurological: Reports: No Symptoms Psychiatric: Reports: No Symptoms ED EXAM, BEHAVIORAL HEALTH - Physical Exam Exam: See Below Text/Narrative:: pt arrived after drinking all nite. He started drinking last nite. He is hungrey and not sick to his stomach. Exam Limited By: No Limitations General Appearance: Alert, Mild Distress, Other (pt is having neuropaty pain in the rt hand. There is a abrasion on the rt hand. ) Ears: Normal TMs Nose: Normal Inspection Throat/Mouth: Normal Inspection Head: Atraumatic Neck: Normal Inspection Respiratory/Chest: No Respiratory Distress Cardiovascular: Regular Rate, Rhythm GI/Abdominal: Soft, Non-Tender (Male) Exam: Deferred Rectal (Males) Exam: Deferred Back Exam: Normal Inspection Extremities: Normal Inspection Neurological: Alert, Normal Cognition, Other ( pt is intoxicated. ) Psychiatric: Alert, Normal Cognition COURSE, BEHAVIORAL HEALTH COMP - Course Vital Signs: Last Vital Signs Temp 36.4 C 12/10/18 09:27 Pulse 102 H 12/10/18 09:27 Resp 18 12/10/18 09:27 BP 130/74 12/10/18 09:27 Pulse Ox Orders, Labs, Meds: Laboratory Tests 12/10/18 12/10/18 12/10/18 Range/Units 09:05 09:05 09:05 WBC 8.9 (4.5-11.0) K/uL RBC 4.20 L (4.30-5.90) M/uL Hgb 13.3 (12.0-15.0) g/dL Hct 38.7 L (40.0-54.0) % MCV 92 (80-98) fL MCH 32 H (27-31) pg MCHC 34 (32-36) % Plt Count 216 (150-400) K/uL Neut % (Auto) 63 (36-66) % Lymph % (Auto) 28 (24-44) % [place] % (Auto) 9 H (2-6) % Eos % (Auto) 0 L (2-4) % Baso % (Auto) 0 (0-1) % Sodium 135 L (140-148) mmol/L Potassium 4.0 (3.6-5.2) mmol/L Chloride 95 L (100-108) mmol/L Carbon Dioxide 17 L (21-32) mmol/L Anion Gap 27.0 H (5.0-14.0) mmol/L BUN 16 D (7-18) mg/dL Creatinine 0.9 (0.8-1.3) mg/dL Est Cr Clr Drug Dosing TNP Estimated GFR (MDRD) > 60 (>60) Glucose 237 H (74-106) mg/dL Calcium 8.9 (8.5-10.1) mg/dL Total Bilirubin 0.5 D (0.2-1.0) mg/dL AST 25 (15-37) U/L ALT 30 (12-78) U/L Alkaline Phosphatase 78 (46-116) U/L Troponin I (0.000-0.056) ng/mL Total Protein 7.1 (6.4-8.2) g/dL Albumin 3.9 (3.4-5.0) g/dL Globulin 3.2 (2.3-3.5) g/dL Albumin/Globulin Ratio 1.2 (1.2-2.2) Lipase (73-393) U/L Urine Color Urine Appearance Urine pH (4.5-8.0) Ur Specific [place] (1.008-1.030) Urine Protein (NEGATIVE) mg/dL Urine Glucose (UA) (NEGATIVE) mg/dL Urine Ketones (NEGATIVE) mg/dL Urine Occult Blood (NEGATIVE) Urine Nitrite (NEGAITVE) Urine Bilirubin (NEGATIVE) Urine Urobilinogen (NORMAL) mg/dL Ur Leukocyte Esterase (NEGATIVE) Urine RBC (0-5) Urine WBC (0-5) Ur Epithelial Cells Amorphous Sediment Urine Bacteria Urine Mucus Urine Other Urine Opiates Screen (NEGATIVE) Ur Oxycodone Screen (NEGATIVE) Urine Methadone Screen (NEGATIVE) Ur Propoxyphene Screen (NEGATIVE) Ur Barbiturates Screen (NEGATIVE) Ur Tricyclics Screen (NEGATIVE) Ur Phencyclidine Scrn (NEGATIVE) Ur Amphetamine Screen (NEGATIVE) U Methamphetamines Scrn (NEGATIVE) Urine MDMA Screen (NEGATIVE) U Benzodiazepines Scrn (NEGATIVE) U Cocaine Metab Screen (NEGATIVE) U Marijuana (THC) Screen (NEGATIVE) Ethyl Alcohol 186 mg/dL 12/10/18 12/10/18 12/10/18 Range/Units 09:05 09:40 10:06 WBC (4.5-11.0) K/uL RBC (4.30-5.90) M/uL Hgb (12.0-15.0) g/dL Hct (40.0-54.0) % MCV (80-98) fL MCH (27-31) pg MCHC (32-36) % Plt Count (150-400) K/uL Neut % (Auto) (36-66) % Lymph % (Auto) (24-44) % [place] % (Auto) (2-6) % Eos % (Auto) (2-4) % Baso % (Auto) (0-1) % Sodium (140-148) mmol/L Potassium (3.6-5.2) mmol/L Chloride (100-108) mmol/L Carbon Dioxide (21-32) mmol/L Anion Gap (5.0-14.0) mmol/L BUN (7-18) mg/dL Creatinine (0.8-1.3) mg/dL Est Cr Clr Drug Dosing Estimated GFR (MDRD) (>60) Glucose (74-106) mg/dL Calcium (8.5-10.1) mg/dL Total Bilirubin (0.2-1.0) mg/dL AST (15-37) U/L ALT (12-78) U/L Alkaline Phosphatase (46-116) U/L Troponin I < 0.017 (0.000-0.056) ng/mL Total Protein (6.4-8.2) g/dL Albumin (3.4-5.0) g/dL Globulin (2.3-3.5) g/dL Albumin/Globulin Ratio (1.2-2.2) Lipase 57 L (73-393) U/L Urine Color Yellow Urine Appearance Slightly cloudy Urine pH 5.0 (4.5-8.0) Ur Specific [place] 1.025 (1.008-1.030) Urine Protein Trace (NEGATIVE) mg/dL Urine Glucose (UA) >=1000 H (NEGATIVE) mg/dL Urine Ketones 150 H (NEGATIVE) mg/dL Urine Occult Blood Moderate (NEGATIVE) Urine Nitrite Negative (NEGAITVE) Urine Bilirubin Negative (NEGATIVE) Urine Urobilinogen Normal (NORMAL) mg/dL Ur Leukocyte Esterase Negative (NEGATIVE) Urine RBC 5-10 H (0-5) Urine WBC 0-5 (0-5) Ur Epithelial Cells Rare Amorphous Sediment Moderate Urine Bacteria Moderate Urine Mucus Many Urine Other See note Urine Opiates Screen (NEGATIVE) Ur Oxycodone Screen (NEGATIVE) Urine Methadone Screen (NEGATIVE) Ur Propoxyphene Screen (NEGATIVE) Ur Barbiturates Screen (NEGATIVE) Ur Tricyclics Screen (NEGATIVE) Ur Phencyclidine Scrn (NEGATIVE) Ur Amphetamine Screen (NEGATIVE) U Methamphetamines Scrn (NEGATIVE) Urine MDMA Screen (NEGATIVE) U Benzodiazepines Scrn (NEGATIVE) U Cocaine Metab Screen (NEGATIVE) U Marijuana (THC) Screen (NEGATIVE) Ethyl Alcohol mg/dL 12/10/18 Range/Units 10:06 WBC (4.5-11.0) K/uL RBC (4.30-5.90) M/uL Hgb (12.0-15.0) g/dL Hct (40.0-54.0) % MCV (80-98) fL MCH (27-31) pg MCHC (32-36) % Plt Count (150-400) K/uL Neut % (Auto) (36-66) % Lymph % (Auto) (24-44) % [place] % (Auto) (2-6) % Eos % (Auto) (2-4) % Baso % (Auto) (0-1) % Sodium (140-148) mmol/L Potassium (3.6-5.2) mmol/L Chloride (100-108) mmol/L Carbon Dioxide (21-32) mmol/L Anion Gap (5.0-14.0) mmol/L BUN (7-18) mg/dL Creatinine (0.8-1.3) mg/dL Est Cr Clr Drug Dosing Estimated GFR (MDRD) (>60) Glucose (74-106) mg/dL Calcium (8.5-10.1) mg/dL Total Bilirubin (0.2-1.0) mg/dL AST (15-37) U/L ALT (12-78) U/L Alkaline Phosphatase (46-116) U/L Troponin I (0.000-0.056) ng/mL Total Protein (6.4-8.2) g/dL Albumin (3.4-5.0) g/dL Globulin (2.3-3.5) g/dL Albumin/Globulin Ratio (1.2-2.2) Lipase (73-393) U/L Urine Color Urine Appearance Urine pH (4.5-8.0) Ur Specific [place] (1.008-1.030) Urine Protein (NEGATIVE) mg/dL Urine Glucose (UA) (NEGATIVE) mg/dL Urine Ketones (NEGATIVE) mg/dL Urine Occult Blood (NEGATIVE) Urine Nitrite (NEGAITVE) Urine Bilirubin (NEGATIVE) Urine Urobilinogen (NORMAL) mg/dL Ur Leukocyte Esterase (NEGATIVE) Urine RBC (0-5) Urine WBC (0-5) Ur Epithelial Cells Amorphous Sediment Urine Bacteria Urine Mucus Urine Other Urine Opiates Screen Negative (NEGATIVE) Ur Oxycodone Screen Negative (NEGATIVE) Urine Methadone Screen Negative (NEGATIVE) Ur Propoxyphene Screen Negative (NEGATIVE) Ur Barbiturates Screen Negative (NEGATIVE) Ur Tricyclics Screen Negative (NEGATIVE) Ur Phencyclidine Scrn Negative (NEGATIVE) Ur Amphetamine Screen Negative (NEGATIVE) U Methamphetamines Scrn Negative (NEGATIVE) Urine MDMA Screen Negative (NEGATIVE) U Benzodiazepines Scrn Negative (NEGATIVE) U Cocaine Metab Screen Negative (NEGATIVE) U Marijuana (THC) Screen Negative (NEGATIVE) Ethyl Alcohol mg/dL Medications Discontinued Medications Generic Name Dose Route Start Last Admin Trade Name Vincent PRN Reason Stop Dose Admin Acetaminophen 325 mg 12/10/18 09:07 12/10/18 09:45 Tylenol PO 12/10/18 09:08 325 mg NOW ONE Administration Gabapentin 600 mg 12/10/18 09:07 12/10/18 09:45 Neurontin PO 12/10/18 09:08 600 mg ONETIME ONE Administration Sodium Chloride 1,000 mls @ 999 mls/hr 12/10/18 09:30 12/10/18 09:47 Normal Saline IV 999 mls/hr ASDIRECTED RIKKI Administration Medical Clearance: 12/10/18 09:49 pt has a etoh level of .18. He is complaining of rt hand pain. 12/10/18 09:53 pt had an xray of the hand which was neg. 12/10/18 09:54 pt had a bs of 237. His other labs look good. He has the rt hand pain. He was given tylenol and gabapentin. [facility] and they do have a bed for him. Departure - Departure Time of Disposition: 10:00 Disposition: DC/Tfer to [facility]/Unit [facility] Condition: Fair Clinical Impression: Acute alcohol intoxication, Neuropathic pain of hand - Discharge Information Instructions: Alcohol Intoxication, [id number] Referrals: PCP,None [Primary Care Provider] - Forms: ED Department Discharge Care Plan Goals: To [facility].
[2018-12-10] MEDS ORDERED: Sodium Chloride 0.9% 1,000 ML IV SCH (09:30)
[2018-12-10 09:40] VITALS: BP 130/74
--- NOTE | 2018-12-10 10:10 | CRLCR ---
HISTORY: Right hand pain. TECHNIQUE: Three views of the right hand. COMPARISON: No prior. FINDINGS: There is no acute fracture or malalignment. Joint spaces are maintained. No erosions. No radiopaque foreign body or soft tissue gas. IMPRESSION: No acute fracture or malalignment. Dictated by Andrae Wayne MD @ 12/10/2018 10:08:30 AM Dictated by: Andrae Wayne MD @ 12/10/2018 10:08:35 (Electronically Signed)
== END 2018-12-10 10:55 ==
LOC: JP.ED 08:55
DX: F10.129 Alcohol abuse with intoxication, unspecified (principal); Y90.6 Blood alcohol level of 120-199 mg/100 ml; E11.40 Type 2 diabetes mellitus with diabetic neuropathy, unspecified; I10 Essential (primary) hypertension; E78.00 Pure hypercholesterolemia, unspecified; F41.9 Anxiety disorder, unspecified; F32.9 Major depressive disorder, single episode, unspecified; Z79.4 Long term (current) use of insulin; Z79.899 Other long term (current) drug therapy; Z79.82 Long term (current) use of aspirin; Z88.8 Allergy status to other drugs, medicaments and biological substances
CPT/HCPCS: 36415; 73130; 80053; 80305; 81001; 83690; 84484; 85025; 96360; 99285; A9270; G0480; J7030

== ENCOUNTER 2019-03-21 04:56 | Emergency (ER) | payer MEDICAID ==
[2019-03-21 05:09] VITALS: BP 140/76; PULSE 109
[2019-03-21] MEDS ORDERED: Bacitracin Oint 1 GM U/D Packet TOP ONE (05:44)
[2019-03-21] MEDS ORDERED: Lidocaine 1% 20 ML MDV INJECT ONE (05:44)
--- NOTE | 2019-03-21 06:00 | EDM.PDOCBH ---
<Maggi Boyle - Last Filed: 03/21/19 06:38> ED HPI GENERAL MEDICAL PROBLEM - General Chief Complaint: Drug or Alcohol Abuse Stated Complaint: [place] [facility] [place] Time Seen by Provider: 03/21/19 05:59 Source of Information: Reports: Patient, EMS, Old Records - History of Present Illness INITIAL COMMENTS - FREE TEXT/NARRATIVE: pt arrived intoxicated and he has fallen and has a old laceration which is gapping on the rt side of his face. He states he started drinking on thur. Onset: Other ( started thur. ) Duration: Hour(s): Location: Reports: Face, Generalized, Other (pt is intoxuicated. ) Associated Symptoms: Reports: Other (pt is having alot of pain in his rt hand from a neuropathy. He has been receiving PT for the hand. ) Face/Facial Pain Score (Numeric/FACES): 10 - Related Data Allergies Allergy/AdvReac Type Severity Reaction Status Date / Time zolpidem tartrate Allergy Cannot Verified 03/21/19 05:40 [From [facility]] Remember Home Meds: Home Meds Aspirin [Halfprin] 81 mg PO DAILY 10/17/14 [History] Gabapentin 600 mg PO TID 12/04/14 [History] Simvastatin 40 mg PO BEDTIME 12/04/14 [History] traZODone 100 - 200 mg PO BEDTIME 12/04/14 [History] Metoprolol Tartrate [Lopressor] 25 mg PO BID 04/05/15 [History] metFORMIN [Glucophage] 1,000 mg PO BIDAC 03/11/16 [History] Multivit-Min/FA/Lycopene/Lut [Certavite Sr-Antioxidant Tab] 1 tab PO DAILY 06/16 [History] Pantoprazole [ProTONIX] 40 mg PO DAILY #30 tab.cr 06/17/16 [Rx] Lisinopril [Zestril] 10 mg PO DAILY 04/03/17 [History] Celecoxib [CeleBREX] 1 tab PO BID 09/06/17 [History] Acetaminophen 500 mg PO Q4H PRN 11/17/17 [History] Albuterol [Ventolin HFA] 2 puff INH QID 11/17/17 [History] Ascorbic Acid 500 mg PO DAILY 06/30/18 [History] Admelog 2 units SQ ASDIRECTED 03/21/19 [History] Insulin Glargine,Hum.Rec.Anlog [Basaglar Kwikpen U-100] 45 unit SQ DAILY [History] Lisinopril [Prinivil] 10 mg PO DAILY 03/21/19 [History] Venlafaxine [Effexor XR] 225 mg PO DAILY 03/21/19 [History] Past Medical History Cardiovascular History: Reports: High Cholesterol, Hypertension Other Cardiovascular History: Past chest pain Questionable [place] in past. Respiratory History: Reports: Asthma Gastrointestinal History: Reports: Pancreatitis Musculoskeletal History: Reports: Fracture, Other (See Below) Other Musculoskeletal History: fx toe L humeral fracture. Neurological History: Reports: Head Trauma Psychiatric History: Reports: Addiction, Anxiety, Depression, Other (See Below) Other Psychiatric History: Alcohol abuse. Endocrine/Metabolic History: Reports: Diabetes, Type II Hematologic History: Reports: None - Infectious Disease History Infectious Disease History: Reports: Chicken Pox Other Infectious Disease History: unknown - Past Surgical History HEENT Surgical History: Reports: Adenoidectomy GI Surgical History: Reports: Appendectomy Social & Family History - Family History Family Medical History: Noncontributory - Tobacco Use Smoking Status *Q: Current Every Day Smoker Years of Tobacco use: 34 Packs/Tins Daily: 0.5 Used Tobacco, but Quit: No Second Hand Smoke Exposure: No - Caffeine Use Caffeine Use: Reports: Coffee, Soda - Alcohol Use Days Per Week of Alcohol Use: 7 Number of Drinks Per Day: 10 Total Drinks Per Week: 70 - Recreational Drug Use Recreational Drug Use: No ED ROS GENERAL - Review of Systems Review Of Systems: See Below Constitutional: Reports: Decreased Appetite HEENT: Reports: No Symptoms Respiratory: Reports: Other ( sob. ) Cardiovascular: Reports: No Symptoms Endocrine: Reports: No Symptoms GI/Abdominal: Reports: No Symptoms : Reports: No Symptoms, Other (pt does smell of urine) Musculoskeletal: Reports: No Symptoms Skin: Reports: No Symptoms Neurological: Reports: No Symptoms, Other (intoxicated. ) Psychiatric: Reports: No Symptoms ED EXAM, BEHAVIORAL HEALTH - Physical Exam Exam: See Below Text/Narrative:: pt arrived intoxicated and stated that he needed to go to detox. He has been drinking since . He has been dry since the last time he was there briefly in November. He did go through treatment in Sep and really has been doing better. Exam Limited By: No Limitations General Appearance: Alert, Anxious, Moderate Distress, Other (pt has neuropathy in the rt hand. ) Ears: Normal TMs Nose: Normal Inspection Throat/Mouth: Other (pt has a old laceration on the rt cheek which is old. ) Head: Facial Swelling Neck: Normal Inspection Respiratory/Chest: No Respiratory Distress Cardiovascular: Regular Rate, Rhythm GI/Abdominal: Soft, Non-Tender (Male) Exam: Deferred Rectal (Males) Exam: Deferred Back Exam: Normal Inspection Extremities: Normal Inspection Neurological: Alert, Normal Cognition, Other (pt is intoxicated. ) Psychiatric: Alert COURSE, BEHAVIORAL HEALTH COMP - Course Vital Signs: Last Vital Signs Temp 97.1 F 03/21/19 05:08 Pulse 109 H 03/21/19 05:08 Resp 20 03/21/19 05:08 BP 140/76 03/21/19 05:08 Pulse Ox 93 L 03/21/19 05:08 Orders, Labs, Meds: Laboratory Tests 03/21/19 03/21/19 03/21/19 Range/Units 05:43 05:57 05:57 WBC 9.7 (4.5-11.0) K/uL RBC 4.03 L (4.30-5.90) M/uL Hgb 12.6 (12.0-15.0) g/dL Hct 36.7 L (40.0-54.0) % MCV 91 (80-98) fL MCH 31 (27-31) pg MCHC 34 (32-36) % Plt Count 193 (150-400) K/uL Neut % (Auto) 57 (36-66) % Lymph % (Auto) 34 (24-44) % [place] % (Auto) 9 H (2-6) % Eos % (Auto) 0 L (2-4) % Baso % (Auto) 0 (0-1) % Sodium (140-148) mmol/L Potassium (3.6-5.2) mmol/L Chloride (100-108) mmol/L Carbon Dioxide (21-32) mmol/L Anion Gap (5.0-14.0) mmol/L BUN (7-18) mg/dL Creatinine (0.8-1.3) mg/dL Est Cr Clr Drug Dosing mL/min Estimated GFR (MDRD) (>60) Glucose (74-106) mg/dL Calcium (8.5-10.1) mg/dL Total Bilirubin (0.2-1.0) mg/dL AST (15-37) U/L ALT (12-78) U/L Alkaline Phosphatase (46-116) U/L Total Protein (6.4-8.2) g/dL Albumin (3.4-5.0) g/dL Globulin (2.3-3.5) g/dL Albumin/Globulin Ratio (1.2-2.2) Urine Color Yellow Urine Appearance Clear Urine pH 5.0 (4.5-8.0) Ur Specific [place] 1.015 (1.008-1.030) Urine Protein 30 H (NEGATIVE) mg/dL Urine Glucose (UA) 250 H (NEGATIVE) mg/dL Urine Ketones 50 H (NEGATIVE) mg/dL Urine Occult Blood Large (NEGATIVE) Urine Nitrite Negative (NEGAITVE) Urine Bilirubin Negative (NEGATIVE) Urine Urobilinogen Normal (NORMAL) mg/dL Ur Leukocyte Esterase Negative (NEGATIVE) Urine RBC 0-5 (0-5) Urine WBC Not seen (0-5) Ur Epithelial Cells Few Amorphous Sediment Not seen Urine Bacteria Not seen Urine Mucus Moderate Urine Opiates Screen (NEGATIVE) Ur Oxycodone Screen (NEGATIVE) Urine Methadone Screen (NEGATIVE) Ur Propoxyphene Screen (NEGATIVE) Ur Barbiturates Screen (NEGATIVE) Ur Tricyclics Screen (NEGATIVE) Ur Phencyclidine Scrn (NEGATIVE) Ur Amphetamine Screen (NEGATIVE) U Methamphetamines Scrn (NEGATIVE) Urine MDMA Screen (NEGATIVE) U Benzodiazepines Scrn (NEGATIVE) U Cocaine Metab Screen (NEGATIVE) U Marijuana (THC) Screen (NEGATIVE) Ethyl Alcohol 233 mg/dL 03/21/19 03/21/19 Range/Units 05:57 06:54 WBC (4.5-11.0) K/uL RBC (4.30-5.90) M/uL Hgb (12.0-15.0) g/dL Hct (40.0-54.0) % MCV (80-98) fL MCH (27-31) pg MCHC (32-36) % Plt Count (150-400) K/uL Neut % (Auto) (36-66) % Lymph % (Auto) (24-44) % [place] % (Auto) (2-6) % Eos % (Auto) (2-4) % Baso % (Auto) (0-1) % Sodium 135 L (140-148) mmol/L Potassium 4.1 (3.6-5.2) mmol/L Chloride 97 L (100-108) mmol/L Carbon Dioxide 22 (21-32) mmol/L Anion Gap 20.1 H (5.0-14.0) mmol/L BUN 12 (7-18) mg/dL Creatinine 0.9 (0.8-1.3) mg/dL Est Cr Clr Drug Dosing 90.12 mL/min Estimated GFR (MDRD) > 60 (>60) Glucose 269 H (74-106) mg/dL Calcium 8.4 L (8.5-10.1) mg/dL Total Bilirubin 0.3 (0.2-1.0) mg/dL AST 25 (15-37) U/L ALT 35 (12-78) U/L Alkaline Phosphatase 90 (46-116) U/L Total Protein 6.9 (6.4-8.2) g/dL Albumin 3.5 (3.4-5.0) g/dL Globulin 3.4 (2.3-3.5) g/dL Albumin/Globulin Ratio 1.0 L (1.2-2.2) Urine Color Urine Appearance Urine pH (4.5-8.0) Ur Specific [place] (1.008-1.030) Urine Protein (NEGATIVE) mg/dL Urine Glucose (UA) (NEGATIVE) mg/dL Urine Ketones (NEGATIVE) mg/dL Urine Occult Blood (NEGATIVE) Urine Nitrite (NEGAITVE) Urine Bilirubin (NEGATIVE) Urine Urobilinogen (NORMAL) mg/dL Ur Leukocyte Esterase (NEGATIVE) Urine RBC (0-5) Urine WBC (0-5) Ur Epithelial Cells Amorphous Sediment Urine Bacteria Urine Mucus Urine Opiates Screen Negative (NEGATIVE) Ur Oxycodone Screen Negative (NEGATIVE) Urine Methadone Screen Negative (NEGATIVE) Ur Propoxyphene Screen Negative (NEGATIVE) Ur Barbiturates Screen Negative (NEGATIVE) Ur Tricyclics Screen Negative (NEGATIVE) Ur Phencyclidine Scrn Negative (NEGATIVE) Ur Amphetamine Screen Negative (NEGATIVE) U Methamphetamines Scrn Negative (NEGATIVE) Urine MDMA Screen Negative (NEGATIVE) U Benzodiazepines Scrn Negative (NEGATIVE) U Cocaine Metab Screen Negative (NEGATIVE) U Marijuana (THC) Screen Negative (NEGATIVE) Ethyl Alcohol mg/dL Medications Discontinued Medications Generic Name Dose Route Start Last Admin Trade Name Vincent PRN Reason Stop Dose Admin Bacitracin 1 dose 03/21/19 05:44 03/21/19 06:43 Bacitracin Oint 1 Gm TOP 03/21/19 05:45 1 dose ONETIME ONE Administration Cephalexin 500 mg 03/21/19 06:25 03/21/19 06:43 Keflex PO 03/21/19 06:26 500 mg ONETIME ONE Administration Lidocaine HCl 20 ml 03/21/19 05:44 Xylocaine 1% INJECT 03/21/19 05:45 ONETIME ONE Lidocaine HCl 5 ml 03/21/19 06:00 03/21/19 06:43 Xylocaine-Mpf 1% INJECT 03/21/19 06:01 5 ml ONETIME ONE Administration Metformin HCl 1,000 mg 03/21/19 06:48 03/21/19 07:08 Glucophage PO 03/21/19 06:49 1,000 mg ONETIME ONE Administration Medical Clearance: 03/21/19 06:44 the wound on the face is gapping nd will need to be closed even though it looks like it is 2 days old. It was scrubbed well and injected with lidocaine. The edges were trimmed and it was loosely closed . It was 2/2 inch in length. He had a small 1./8 inch laceration avove this . 2 stitches were placed in the upper wound. The lower was closed in a layered fashion but loosely. He was given keflex 500mg and he will need to be on antibiotics. Departure - Departure Disposition: DC/Tfer to Other 70 Clinical Impression: Acute alcohol intoxication Qualifiers: Complication of substance-induced condition: uncomplicated Qualified Code(s): F10.920 - Alcohol use, unspecified with intoxication, uncomplicated Face lacerations Qualifiers: Encounter type: initial encounter Qualified Code(s): S01.81XA - Laceration without foreign body of other part of head, initial encounter - Discharge Information Instructions: Laceration Care, Adult Referrals: PCP,None [Primary Care Provider] - Forms: ED Department Discharge Care Plan Goals: Go to [facility] for detox, avoid alcohol in the future and have sutures removed in 5 days, on Thursday afternoon. Continue any current medications with the addition of cephalexin 500 mg 3 times a day until gone. <Bob Colón D - Last Filed: 03/21/19 12:39> COURSE, BEHAVIORAL HEALTH COMP - Course Re-Assessment/Re-Exam: Care turned over from Dr. Boyle pending the patient receiving his medications from home to be transferred to [facility]. He was placed on cephalexin 500 mg 3 times a day for the next 7 days, medications were required and he'll be transferred to [facility] for detox. Departure - Departure Time of Disposition: 12:04
[2019-03-21] MEDS ORDERED: Cephalexin 250 MG Cap PO ONE (06:25)
[2019-03-21] MEDS ORDERED: metFORMIN 500 MG Tab PO ONE (06:48)
== END 2019-03-21 12:05 | disposition other institution (70) ==
LOC: JP.ED 04:56
DX: S01.81XA Laceration without foreign body of other part of head, initial encounter (principal); F10.120 Alcohol abuse with intoxication, uncomplicated; Y90.7 Blood alcohol level of 200-239 mg/100 ml; I10 Essential (primary) hypertension; E78.00 Pure hypercholesterolemia, unspecified; J45.909 Unspecified asthma, uncomplicated; Z79.84 Long term (current) use of oral hypoglycemic drugs; Z79.4 Long term (current) use of insulin; Z88.8 Allergy status to other drugs, medicaments and biological substances; W19.XXXA Unspecified fall, initial encounter
CPT/HCPCS: 12011; 12051; 12053; 12054; 36415; 80053; 80305; 81001; 85025; 99283; 99285; A9270; G0480; J2001; 12013

== ENCOUNTER 2019-03-28 13:48 | Emergency (ER) | payer MEDICAID ==
[2019-03-28 13:55] VITALS: BP 138/70
--- NOTE | 2019-03-28 14:11 | EDM.PDOCBH ---
ED HPI GENERAL MEDICAL PROBLEM - General Chief Complaint: Drug or Alcohol Abuse Stated Complaint: DRINKING Time Seen by Provider: 03/28/19 14:00 Source of Information: Reports: Patient, EMS, Old Records History Limitations: Reports: No Limitations - History of Present Illness INITIAL COMMENTS - FREE TEXT/NARRATIVE: 58 yo male was brought in by EMS for alcohol intoxication after someone made a welfare call on him and found him intoxicated on the floor. EMS brought him to our ER. He just got out of [facility] a few days ago. Onset: Today Onset Date: 03/28/19 Duration: Hour(s): Location: Reports: Generalized Quality: Reports: Other (no pain reported.) Severity: Severe (intoxication) Improves with: Reports: Other (time) Worsens with: Reports: Other (alcohol consumption) Context: Reports: Other (see HPI) Associated Symptoms: Reports: Other (intoxication) Treatments PURCHASING AND FISCAL CLERK: Reports: IV/IO Right Hand Pain Score (Numeric/FACES): 7 - Related Data Allergies Allergy/AdvReac Type Severity Reaction Status Date / Time zolpidem tartrate Allergy Cannot Verified 03/28/19 15:07 [From Maite] Remember Home Meds: Home Meds Aspirin [Halfprin] 81 mg PO DAILY 10/17/14 [History] Gabapentin 600 mg PO TID 12/04/14 [History] Simvastatin 40 mg PO BEDTIME 12/04/14 [History] traZODone 100 - 200 mg PO BEDTIME 12/04/14 [History] Metoprolol Tartrate [Lopressor] 25 mg PO BID 04/05/15 [History] metFORMIN [Glucophage] 1,000 mg PO BIDAC 03/11/16 [History] Multivit-Min/FA/Lycopene/Lut [Certavite Sr-Antioxidant Tab] 1 tab PO DAILY 06/16 [History] Pantoprazole [ProTONIX] 40 mg PO DAILY #30 tab.cr 06/17/16 [Rx] Lisinopril [Zestril] 10 mg PO DAILY 04/03/17 [History] Celecoxib [CeleBREX] 1 tab PO BID 09/06/17 [History] Acetaminophen 500 mg PO Q4H PRN 11/17/17 [History] Albuterol [Ventolin HFA] 2 puff INH QID 11/17/17 [History] Ascorbic Acid 500 mg PO DAILY 06/30/18 [History] Admelog 2 units SQ ASDIRECTED 03/21/19 [History] Insulin Glargine,Hum.Rec.Anlog [Basaglizaiah Inmanikpen U-100] 45 unit SQ DAILY [History] Lisinopril [Prinivil] 10 mg PO DAILY 03/21/19 [History] Venlafaxine [Effexor XR] 225 mg PO DAILY 03/21/19 [History] Past Medical History Cardiovascular History: Reports: High Cholesterol, Hypertension Other Cardiovascular History: Past chest pain Questionable MS in past. Respiratory History: Reports: Asthma Gastrointestinal History: Reports: Pancreatitis Musculoskeletal History: Reports: Fracture, Other (See Below) Other Musculoskeletal History: fx toe L humeral fracture. Seen 03/21/19 for r hand pain ortho. Neurological History: Reports: Head Trauma Psychiatric History: Reports: Addiction, Anxiety, Depression, Other (See Below) Other Psychiatric History: Alcohol abuse. Endocrine/Metabolic History: Reports: Diabetes, Type II Hematologic History: Reports: None - Infectious Disease History Infectious Disease History: Reports: Chicken Pox Other Infectious Disease History: unknown - Past Surgical History Head Surgeries/Procedures: Reports: None HEENT Surgical History: Reports: Adenoidectomy GI Surgical History: Reports: Appendectomy Oncologic Surgical History: Reports: None Social & Family History - Family History Family Medical History: Noncontributory - Caffeine Use Caffeine Use: Reports: Coffee, Soda ED ROS GENERAL - Review of Systems Review Of Systems: See Below Constitutional: Reports: No Symptoms HEENT: Reports: No Symptoms Respiratory: Reports: No Symptoms Cardiovascular: Reports: No Symptoms Endocrine: Reports: No Symptoms GI/Abdominal: Reports: No Symptoms : Reports: No Symptoms Musculoskeletal: Reports: No Symptoms Skin: Reports: Other (superficial abrasions of knees/elbows) Neurological: Reports: Other (alcohol intoxication) ED EXAM, BEHAVIORAL HEALTH - Physical Exam Exam: See Below Exam Limited By: Intoxication General Appearance: Alert, WD/WN, No Apparent Distress, Obese Eye Exam: Bilateral Eye: Normal Inspection Ears: Normal External Exam, Normal Canal, Hearing Grossly Normal Nose: Normal Inspection, No Blood Throat/Mouth: Normal Inspection, Normal Lips, Normal Oropharynx, Normal Voice, No Airway Compromise Head: Atraumatic, Normocephalic Neck: Normal Inspection Respiratory/Chest: No Respiratory Distress, Wheezing (faint). No: Decreased Breath Sounds, Accessory Muscle Use, Retractions Cardiovascular: Regular Rate, Rhythm, No Edema GI/Abdominal: Normal Bowel Sounds, Soft, Non-Tender, No Distention, Other (obese ) Back Exam: Normal Inspection Extremities: Normal Inspection, Normal Range of Motion, Non-Tender, No Pedal Edema Neurological: Normal Mood/Affect, CN II-XII Intact, No Motor/Sensory Deficits, Other (slurred speech) Psychiatric: Flat Affect Skin Exam: Warm, Dry, Normal color, No rash, Wound/incision (superficial abrasions of knees/elbows) COURSE, BEHAVIORAL HEALTH COMP - Course Vital Signs: Last Vital Signs Temp 35.6 C 03/28/19 14:29 Pulse 107 H 03/28/19 14:29 Resp 20 03/28/19 14:29 BP 138/70 03/28/19 14:29 Pulse Ox 94 L 03/28/19 14:29 Orders, Labs, Meds: Active Orders 24 hr Category Date Time Status DRUG SCREEN, URINE [URCHEM] Stat Lab 03/28/19 13:55 Ordered Laboratory Tests 03/28/19 Range/Units 13:55 Ethyl Alcohol 350 mg/dL Medications Discontinued Medications Generic Name Dose Route Start Last Admin Trade Name Freq PRN Reason Stop Dose Admin Sodium Chloride 1,000 mls @ 1,000 mls/hr 03/28/19 15:03 03/28/19 14:00 Normal Saline IV 03/28/19 16:02 1,000 mls/hr .BOLUS ONE Administration Medical Clearance: 03/28/19 15:52 Accucheck 170, ate lunch here and had a liter of NS. Departure - Departure Time of Disposition: 18:00 Disposition: Home, Self-Care 01 Condition: Fair Clinical Impression: Alcohol abuse Alcohol intoxication Qualifiers: Complication of substance-induced condition: with unspecified complication Qualified Code(s): F10.929 - Alcohol use, unspecified with intoxication, unspecified - Discharge Information *PRESCRIPTION DRUG MONITORING PROGRAM REVIEWED*: No *COPY OF PRESCRIPTION DRUG MONITORING REPORT IN PATIENT CA: No Instructions: Alcohol Use Disorder Referrals: PCP,None [Primary Care Provider] - Forms: ED Department Discharge Additional Instructions: Follow up with your provider to discuss a plan for abstinence from your alcohol use/abuse disorder. No alcohol allowed in your life. - My Orders Last 24 Hours: My Active Orders 03/28/19 13:55 DRUG SCREEN, URINE [URCHEM] Stat - Assessment/Plan Last 24 Hours: My Active Orders 03/28/19 13:55 DRUG SCREEN, URINE [URCHEM] Stat
[2019-03-28] MEDS ORDERED: Sodium Chloride 0.9% 1,000 ML IV ONE (15:03)
== END 2019-03-28 17:49 | disposition home or self-care (01) ==
LOC: JP.ED 13:48
DX: S80.212A Abrasion, left knee, initial encounter (principal); S80.211A Abrasion, right knee, initial encounter; S50.312A Abrasion of left elbow, initial encounter; S50.311A Abrasion of right elbow, initial encounter; F10.229 Alcohol dependence with intoxication, unspecified; I10 Essential (primary) hypertension; J45.909 Unspecified asthma, uncomplicated; Z88.8 Allergy status to other drugs, medicaments and biological substances; Z79.4 Long term (current) use of insulin; Z79.899 Other long term (current) drug therapy; Z79.82 Long term (current) use of aspirin; Z98.890 Other specified postprocedural states; Z90.49 Acquired absence of other specified parts of digestive tract; X58.XXXA Exposure to other specified factors, initial encounter; Y90.8 Blood alcohol level of 240 mg/100 ml or more
CPT/HCPCS: 36415; 82962; 96360; 99284; G0480; J7030

== ENCOUNTER 2019-04-07 00:39 | Emergency (ER) | payer MEDICAID ==
--- NOTE | 2019-04-07 01:10 | EDM.PDOCBH ---
ED HPI GENERAL MEDICAL PROBLEM - General Chief Complaint: Drug or Alcohol Abuse Stated Complaint: MED[facility] Time Seen by Provider: 04/07/19 00:40 Source of Information: Reports: EMS History Limitations: Reports: Altered Mental Status, Intoxication - History of Present Illness INITIAL COMMENTS - FREE TEXT/NARRATIVE: 58-year-old male, chronic alcoholic who has recently been to detox several times called the ambulance tonight because he developed chest pain after drinking 2 bottles of vodka and becoming very intoxicated. This is his recurring typical presentation, he gets very intoxicated and then calls the ambulance complaining of chest pain or headache. His real motivation is to get back into detox. On arrival he said his chest pain is "gone" but is very intoxicated. He is incontinent of urine. No emesis. Onset: Unknown/Unsure Treatments FINANCIAL BROKERS: Reports: IV/IO, See EMS Report Middle Mid-Sternal Chest Pain Score (Numeric/FACES): 5 - Related Data Allergies Allergy/AdvReac Type Severity Reaction Status Date / Time zolpidem tartrate Allergy Cannot Verified 03/28/19 15:07 [From Maite] Remember Home Meds: Home Meds Aspirin [Halfprin] 81 mg PO DAILY 10/17/14 [History] Gabapentin 600 mg PO TID 12/04/14 [History] Simvastatin 40 mg PO BEDTIME 12/04/14 [History] traZODone 100 - 200 mg PO BEDTIME 12/04/14 [History] Metoprolol Tartrate [Lopressor] 25 mg PO BID 04/05/15 [History] metFORMIN [Glucophage] 1,000 mg PO BIDAC 03/11/16 [History] Multivit-Min/FA/Lycopene/Lut [Certavite Sr-Antioxidant Tab] 1 tab PO DAILY 06/16 [History] Pantoprazole [ProTONIX] 40 mg PO DAILY #30 tab.cr 06/17/16 [Rx] Lisinopril [Zestril] 10 mg PO DAILY 04/03/17 [History] Celecoxib [CeleBREX] 1 tab PO BID 09/06/17 [History] Acetaminophen 500 mg PO Q4H PRN 11/17/17 [History] Albuterol [Ventolin HFA] 2 puff INH QID 11/17/17 [History] Ascorbic Acid 500 mg PO DAILY 06/30/18 [History] Admelog 2 units SQ ASDIRECTED 03/21/19 [History] Insulin Glargine,Hum.Rec.Anlog [Kylieaglizaiah Barrospen U-100] 45 unit SQ DAILY [History] Lisinopril [Prinivil] 10 mg PO DAILY 03/21/19 [History] Venlafaxine [Effexor XR] 225 mg PO DAILY 03/21/19 [History] Past Medical History Cardiovascular History: Reports: High Cholesterol, Hypertension Other Cardiovascular History: Past chest pain Questionable HI in past. Respiratory History: Reports: Asthma Gastrointestinal History: Reports: Pancreatitis Musculoskeletal History: Reports: Fracture, Other (See Below) Other Musculoskeletal History: fx toe L humeral fracture. Seen 03/21/19 for r hand pain ortho. Neurological History: Reports: Head Trauma Psychiatric History: Reports: Addiction, Anxiety, Depression, Other (See Below) Other Psychiatric History: Alcohol abuse. Endocrine/Metabolic History: Reports: Diabetes, Type II Hematologic History: Reports: None - Infectious Disease History Infectious Disease History: Reports: Chicken Pox Other Infectious Disease History: unknown - Past Surgical History Head Surgeries/Procedures: Reports: None HEENT Surgical History: Reports: Adenoidectomy GI Surgical History: Reports: Appendectomy Oncologic Surgical History: Reports: None Social & Family History - Family History Family Medical History: Noncontributory - Tobacco Use Smoking Status *Q: Current Every Day Smoker Years of Tobacco use: 2 Packs/Tins Daily: 45 - Caffeine Use Caffeine Use: Reports: Coffee, Soda Caffeine Use Comment: daily intake - Alcohol Use Days Per Week of Alcohol Use: 7 Number of Drinks Per Day: 10 Total Drinks Per Week: 70 Date of Last Drink: 04/06/19 Time of Last Drink: 23:59 - Recreational Drug Use Recreational Drug Use: No ED ROS GENERAL - Review of Systems Review Of Systems: Unable To Obtain (Patient is too intoxicated to carry on a conversation) ED EXAM, BEHAVIORAL HEALTH - Physical Exam Exam: See Below Exam Limited By: Intoxication General Appearance: Lethargic, Other (Patient is arousable and will answer questions but just lays his head back down refusing to answer any further) Head: Atraumatic Respiratory/Chest: No Respiratory Distress Neurological: Disoriented to Time Psychiatric: Disoriented, Inattentive (Very intoxicated) Skin Exam: Warm, Dry COURSE, BEHAVIORAL HEALTH COMP - Course Vital Signs: Last Vital Signs Temp 96.9 F 04/07/19 01:03 Pulse 84 04/07/19 01:03 Resp 20 04/07/19 01:03 BP 138/71 04/07/19 01:03 Pulse Ox 94 L 04/07/19 01:03 Orders, Labs, Meds: Laboratory Tests 04/07/19 04/07/19 Range/Units 00:47 00:47 Troponin I < 0.017 (0.000-0.056) ng/mL Ethyl Alcohol 355 mg/dL Re-Assessment/Re-Exam: EtOH and troponin were obtained. [facility] was consulted and and they do have a bed for him. Troponin was negative, EtOH 0.355. Patient became more cooperative and able to clean himself up for transport to [facility]. Departure - Departure Time of Disposition: 02:31 Disposition: DC/Tfer to Other 70 Clinical Impression: Acute alcohol intoxication Qualifiers: Complication of substance-induced condition: uncomplicated Qualified Code(s): F10.920 - Alcohol use, unspecified with intoxication, uncomplicated - Discharge Information Instructions: Alcohol Intoxication, Edie-ut-Kiso Referrals: PCP,None [Primary Care Provider] - Forms: ED Department Discharge Care Plan Goals: Patient will be transported to [facility] for detox
[2019-04-07 01:16] VITALS: BP 138/71; PULSE 84
== END 2019-04-07 02:36 | disposition other institution (70) ==
LOC: JP.ED 00:39
DX: F10.120 Alcohol abuse with intoxication, uncomplicated (principal); Y90.8 Blood alcohol level of 240 mg/100 ml or more; F17.210 Nicotine dependence, cigarettes, uncomplicated; I10 Essential (primary) hypertension; E78.00 Pure hypercholesterolemia, unspecified; F41.9 Anxiety disorder, unspecified; F32.9 Major depressive disorder, single episode, unspecified; E11.9 Type 2 diabetes mellitus without complications; Z79.4 Long term (current) use of insulin; Z79.899 Other long term (current) drug therapy; Z88.8 Allergy status to other drugs, medicaments and biological substances; Z79.82 Long term (current) use of aspirin
CPT/HCPCS: 36415; 84484; 99285; G0480; 99283

== ENCOUNTER 2019-04-17 09:26 | Emergency (ER) | payer MEDICAID ==
[2019-04-17 09:37] VITALS: BP 121/64; PULSE 77
[2019-04-17] MEDS ORDERED: Bacitracin Oint 1 GM U/D Packet TOP ONE (09:58)
--- NOTE | 2019-04-17 10:05 | EDM.PDOC ---
ED HPI GENERAL MEDICAL PROBLEM - General Chief Complaint: Skin Complaint Stated Complaint: SUELLEN MCQUEEN SENT OVER Time Seen by Provider: 04/17/19 09:59 Source of Information: Reports: Patient History Limitations: Reports: No Limitations - History of Present Illness INITIAL COMMENTS - FREE TEXT/NARRATIVE: pt arrived with a history of having a old wound closed when he was here before when he went to detox. he was started on antibiotic at that time because the old wound was a potential for infection. Onset: Other (pt hs not had the stitchjes out since that time which is about 3- 4 weeks ago, ) Duration: Hour(s): Location: Reports: Face Associated Symptoms: Reports: No Other Symptoms - Related Data Allergies Allergy/AdvReac Type Severity Reaction Status Date / Time zolpidem tartrate Allergy Cannot Verified 03/28/19 15:07 [From Maite] Remember Home Meds: Home Meds Aspirin [Halfprin] 81 mg PO DAILY 10/17/14 [History] Gabapentin 600 mg PO TID 12/04/14 [History] Simvastatin 40 mg PO BEDTIME 12/04/14 [History] traZODone 100 - 200 mg PO BEDTIME 12/04/14 [History] Metoprolol Tartrate [Lopressor] 25 mg PO BID 04/05/15 [History] metFORMIN [Glucophage] 1,000 mg PO BIDAC 03/11/16 [History] Multivit-Min/FA/Lycopene/Lut [Certavite Sr-Antioxidant Tab] 1 tab PO DAILY 06/16 [History] Pantoprazole [ProTONIX] 40 mg PO DAILY #30 tab.cr 06/17/16 [Rx] Lisinopril [Zestril] 10 mg PO DAILY 04/03/17 [History] Celecoxib [CeleBREX] 1 tab PO BID 09/06/17 [History] Acetaminophen 500 mg PO Q4H PRN 11/17/17 [History] Albuterol [Ventolin HFA] 2 puff INH QID 11/17/17 [History] Ascorbic Acid 500 mg PO DAILY 06/30/18 [History] Admelog 2 units SQ ASDIRECTED 03/21/19 [History] Insulin Glargine,Hum.Rec.Anlog [Basaglar Kwikpen U-100] 45 unit SQ DAILY [History] Lisinopril [Prinivil] 10 mg PO DAILY 03/21/19 [History] Venlafaxine [Effexor XR] 225 mg PO DAILY 03/21/19 [History] Past Medical History Cardiovascular History: Reports: High Cholesterol, Hypertension Other Cardiovascular History: Past chest pain Questionable OR in past. Respiratory History: Reports: Asthma Gastrointestinal History: Reports: Pancreatitis Musculoskeletal History: Reports: Fracture, Other (See Below) Other Musculoskeletal History: fx toe L humeral fracture. Seen 03/21/19 for r hand pain ortho. Neurological History: Reports: Head Trauma Psychiatric History: Reports: Addiction, Anxiety, Depression, Other (See Below) Other Psychiatric History: Alcohol abuse. Endocrine/Metabolic History: Reports: Diabetes, Type II Hematologic History: Reports: None - Infectious Disease History Infectious Disease History: Reports: Chicken Pox Other Infectious Disease History: unknown - Past Surgical History Head Surgeries/Procedures: Reports: None HEENT Surgical History: Reports: Adenoidectomy GI Surgical History: Reports: Appendectomy Oncologic Surgical History: Reports: None Social & Family History - Family History Family Medical History: Noncontributory - Tobacco Use Smoking Status *Q: Unknown Ever Smoked - Caffeine Use Caffeine Use: Reports: Coffee, Soda Caffeine Use Comment: daily intake - Recreational Drug Use Recreational Drug Use: No ED ROS GENERAL - Review of Systems Review Of Systems: See Below Constitutional: Reports: No Symptoms HEENT: Reports: Other (pt has stitches that need to be removed from 3-4 weeks ago. ) Respiratory: Reports: No Symptoms Cardiovascular: Reports: No Symptoms Endocrine: Reports: No Symptoms GI/Abdominal: Reports: No Symptoms : Reports: No Symptoms ED EXAM, SKIN/RASH Exam: See Below Text/Narrative:: pt arrived with a lump on the site where the old raged wound was closed/ Exam Limited By: No Limitations General Appearance: Alert Head: Other (pt had 3 stitches still in and these were removed. There is a lump in the center of the wound, With some pressure from the inside of the mouth a small amount of serosanuanous fluid was expressed from the wound and it did flatten down. This fluid was cultured. Devendra is advised to massage the area to promote drainage. ) Neck: Lymphadenopathy (R), Lymphadenopathy (L) Course - Vital Signs Last Recorded V/S: Last Vital Signs Temp 35.9 C 04/17/19 09:37 Pulse 77 07/21/19 09:37 Resp 16 04/17/19 09:37 BP 121/64 04/17/19 09:37 Pulse Ox 95 04/17/19 09:37 - Orders/Labs/Meds Orders: Active Orders 24 hr Category Date Time Status Bacitracin [Bacitracin Oint 1 GM] Med 04/17/19 09:58 Once 1 dose TOP ONETIME ONE Departure - Departure Time of Disposition: 10:05 Disposition: Home, Self-Care 01 Condition: Fair Clinical Impression: Visit for suture removal, Drainage from wound - Discharge Information Referrals: PCP,None [Primary Care Provider] - Care Plan Goals: warm pack the wound, massage daily to express any serosanguou fluid from the site. keflex 500 mg tid for 1 week. - My Orders Last 24 Hours: My Active Orders 04/17/19 09:58 Bacitracin [Bacitracin Oint 1 GM] 1 dose TOP ONETIME ONE - Assessment/Plan Last 24 Hours: My Active Orders 04/17/19 09:58 Bacitracin [Bacitracin Oint 1 GM] 1 dose TOP ONETIME ONE
== END 2019-04-17 10:19 | disposition home or self-care (01) ==
LOC: JP.ED 09:26
DX: T81.89XA Other complications of procedures, not elsewhere classified, initial encounter (principal); E78.00 Pure hypercholesterolemia, unspecified; I10 Essential (primary) hypertension; J45.909 Unspecified asthma, uncomplicated; F41.9 Anxiety disorder, unspecified; F32.9 Major depressive disorder, single episode, unspecified; E11.9 Type 2 diabetes mellitus without complications; Z88.8 Allergy status to other drugs, medicaments and biological substances; Z79.82 Long term (current) use of aspirin; Z79.899 Other long term (current) drug therapy; Z79.4 Long term (current) use of insulin
CPT/HCPCS: 87070; 87077; 87186; 87205; 99282

== ENCOUNTER 2019-11-11 01:03 | Emergency (ER) | payer MEDICAID ==
[2019-11-11 01:14] VITALS: BP 174/93; PULSE 126
--- NOTE | 2019-11-11 01:25 | EDM.PDOC ---
ED HPI GENERAL MEDICAL PROBLEM - General Stated Complaint: MEDICAL [facility]IA [facility] Time Seen by Provider: 11/11/19 01:05 Source of Information: Reports: Patient, EMS History Limitations: Reports: Intoxication - History of Present Illness INITIAL COMMENTS - FREE TEXT/NARRATIVE: 59-year-old male with chronic alcoholism, had been living at [facility] assisted living until a few weeks ago when he moved back home. He arrives by ambulance tonight after drinking 2 L of vodka today, saying he has not been taking his medicines and drinking daily. He does not feel good, I am really not sure why he called the ambulance other than significant intoxication which he has done many times in the past. He usually brings in his medications with him and asks to go to detox but he did not bring his medicines this time. He was given 4 mg of IV Zofran in route due to nausea and vomiting. He has no hematemesis. Onset: Unknown/Unsure - Related Data Allergies Allergy/AdvReac Type Severity Reaction Status Date / Time zolpidem tartrate Allergy Cannot Verified 03/28/19 15:07 [From Maite] Remember Home Meds: Home Meds Aspirin [Halfprin] 81 mg PO DAILY 10/17/14 [History] Gabapentin 300 mg PO TID 12/04/14 [History] traZODone 100 - 200 mg PO BEDTIME 12/04/14 [History] Metoprolol Tartrate [Lopressor] 25 mg PO BID 04/05/15 [History] metFORMIN [Glucophage] 1,000 mg PO BIDAC 03/11/16 [History] Multivit-Min/FA/Lycopen/Lutein [Certavite Sr-Antioxidant Tab] 1 tab PO DAILY [History] Pantoprazole [ProTONIX] 40 mg PO DAILY #30 tab.cr 06/17/16 [Rx] Lisinopril [Zestril] 10 mg PO DAILY 04/03/17 [History] Celecoxib [CeleBREX] 1 tab PO BID 09/06/17 [History] Acetaminophen 500 mg PO Q4H PRN 11/17/17 [History] Albuterol [Ventolin HFA] 2 puff INH QID 11/17/17 [History] Ascorbic Acid 500 mg PO DAILY 06/30/18 [History] Venlafaxine [Effexor XR] 225 mg PO DAILY 03/21/19 [History] lisinopriL [Prinivil] 10 mg PO DAILY 03/21/19 [History] Insulin Aspart [NovoLOG] 0 - 12 unit SUBCUT QID PRN 11/11/19 [History] Insulin Glarg,Human.Rec.Analog [Lantus Solostar] 50 unit SUBCUT DAILY 11/11/19 [ History] Past Medical History Cardiovascular History: Reports: High Cholesterol, Hypertension Other Cardiovascular History: Past chest pain Questionable [place] in past. Respiratory History: Reports: Asthma Gastrointestinal History: Reports: Pancreatitis Musculoskeletal History: Reports: Fracture, Other (See Below) Other Musculoskeletal History: fx toe L humeral fracture. Seen 03/21/19 for r hand pain ortho. Neurological History: Reports: Head Trauma Psychiatric History: Reports: Addiction, Anxiety, Depression, Other (See Below) Other Psychiatric History: Alcohol abuse. Endocrine/Metabolic History: Reports: Diabetes, Type II Hematologic History: Reports: None - Infectious Disease History Infectious Disease History: Reports: Chicken Pox Other Infectious Disease History: unknown - Past Surgical History Head Surgeries/Procedures: Reports: None HEENT Surgical History: Reports: Adenoidectomy GI Surgical History: Reports: Appendectomy Oncologic Surgical History: Reports: None Social & Family History - Family History Family Medical History: Noncontributory - Tobacco Use Smoking Status *Q: Heavy Tobacco Smoker Years of Tobacco use: 45 Packs/Tins Daily: 1 - Caffeine Use Caffeine Use: Reports: Coffee, Soda Caffeine Use Comment: daily intake - Recreational Drug Use Recreational Drug Use: No ED ROS GENERAL - Review of Systems Review Of Systems: See Below Constitutional: Reports: Malaise Respiratory: Denies: Shortness of Breath Cardiovascular: Denies: Chest Pain GI/Abdominal: Reports: Nausea, Vomiting. Denies: Abdominal Pain Neurological: Reports: Other (Complaining about his hands and feet hurting from his "neuropathy") Psychiatric: Reports: Confusion (Due to the daily intoxication) ED EXAM, GENERAL - Physical Exam Exam: See Below Exam Limited By: Intoxication General Appearance: Alert, No Apparent Distress Eye Exam: Bilateral Eye: EOMI Head: Atraumatic Respiratory/Chest: No Respiratory Distress, Wheezing (A few scattered expiratory wheezes bilaterally) Cardiovascular: Regular Rate, Rhythm, Tachycardia GI/Abdominal: Soft, Non-Tender Extremities: Other (Trace symmetric edema at the ankles) Neurological: Alert, Confused Psychiatric: Flat Affect Skin Exam: Warm, Dry Course - Vital Signs Last Recorded V/S: Last Vital Signs Temp 99.4 F 11/11/19 01:14 Pulse 126 H 11/11/19 01:14 Resp 20 11/11/19 01:14 BP 174/93 H 11/11/19 01:14 Pulse Ox 98 11/11/19 01:14 - Orders/Labs/Meds Labs: Laboratory Tests 11/11/19 11/11/19 11/11/19 Range/Units 01:20 01:20 01:20 WBC 13.1 H (4.5-11.0) K/uL RBC 4.41 (4.30-5.90) M/uL Hgb 13.2 (12.0-15.0) g/dL Hct 39.5 L (40.0-54.0) % MCV 90 (80-98) fL MCH 30 (27-31) pg MCHC 33 (32-36) % Plt Count 235 (150-400) K/uL Neut % (Auto) 67 H (36-66) % Lymph % (Auto) 24 (24-44) % Gove % (Auto) 9 H (2-6) % Eos % (Auto) 0 L (2-4) % Baso % (Auto) 0 (0-1) % Sodium 133 L (140-148) mmol/L Potassium 4.3 (3.6-5.2) mmol/L Chloride 94 L (100-108) mmol/L Carbon Dioxide 16 L (21-32) mmol/L Anion Gap 27.3 H (5.0-14.0) mmol/L BUN 19 H D (7-18) mg/dL Creatinine 1.0 (0.8-1.3) mg/dL Est Cr Clr Drug Dosing 80.10 mL/min Estimated GFR (MDRD) > 60 (>60) Glucose 297 H (74-106) mg/dL Calcium 7.9 L (8.5-10.1) mg/dL Ethyl Alcohol 211 mg/dL Meds: Medications Discontinued Medications Generic Name Dose Route Start Last Admin Trade Name Freq PRN Reason Stop Dose Admin Al Hydroxide/Mg Hydroxide 30 ml 11/11/19 02:45 11/11/19 02:48 Mag-Al Plus PO 11/11/19 02:46 30 ml ONETIME ONE Administration Multivitamins/Minerals 10 ml/ 1,017.2 mls @ 1,000 mls/hr 11/11/19 01:30 11/11 01:43 Thiamine HCl 100 mg/ Folic IV 1,000 mls/hr Acid 1 mg/ Magnesium Sulfate 3 ASDIRECTED RIKKI Administration gm/ Sodium Chloride Insulin Glargine 25 units 11/11/19 02:25 11/11/19 02:47 Lantus Solostar SUBCUT 11/11/19 02:26 25 units ONETIME ONE Administration - Re-Assessments/Exams Free Text/Narrative Re-Assessment/Exam: 11/11/19 01:56 An IV was started, the patient was given 1 L banana bag while waiting for CBC BMP as well as an EtOH. EtOH is 0.211, hemoglobin normal, white count 13.2. Glucose is 270, so he was given 25 units of long-acting insulin subcutaneous. He claims he has not had his insulin for several days. 11/11/19 01:57 Patient kept asking for "medicines for his hangover". After his banana bag we will try to attempt to get the patient home. I do not think this patient has the capability of living by himself however as he is unable to stop drinking and calling the ambulance. 11/11/19 03:22 Patient was complaining of some epigastric discomfort so was given oral Maalox which did help him somewhat. He kept saying he was "withdrawing" however we explained to him that he was physically intoxicated and that was impossible. He then asked to be discharged, we attempted to get a Medivan ride for him in the morning and he could stay in the lobby until its time for his ride to take him back to [place]. Departure - Departure Time of Disposition: 03:24 Disposition: Home, Self-Care 01 Clinical Impression: Acute alcohol intoxication Qualifiers: Complication of substance-induced condition: uncomplicated Qualified Code(s): F10.920 - Alcohol use, unspecified with intoxication, uncomplicated - Discharge Information Instructions: Alcohol Intoxication Referrals: PCP,None [Primary Care Provider] - Forms: ED Department Discharge Care Plan Goals: Stay hydrated with water, and resume your regular medications when you are home and avoid any further intake of alcohol. Sepsis Event Note - Evaluation Sepsis Screening Result: No Definite Risk - Focused Exam Vital Signs: Vital Signs Temp Pulse Resp BP Pulse Ox 11/11/19 01:14 99.4 F 126 H 20 174/93 H 98 11/11/19 01:13 99.4 F 126 H 20 174/93 H 98 Date Exam was Performed: 11/11/19 Time Exam was Performed: 05:19
[2019-11-11] MEDS ORDERED: MVI, Adult with Vitamin K 10 ML, Thiamine 100 MG, Folic Acid 1 MG, Magnesium Sulfate 3 ... IV SCH ×5 (01:30)
[2019-11-11] MEDS ORDERED: Insulin Glargine,Human Rec. Analog 100 Units/ML 3 ML Pen SUBCUT ONE (02:25)
[2019-11-11] MEDS ORDERED: Aluminum Hydroxide/Magnesium Hydroxide/Simethicone Susp 30 ML Cup PO ONE (02:45)
== END 2019-11-11 03:38 | disposition home or self-care (01) ==
LOC: JP.ED 01:03
DX: F10.220 Alcohol dependence with intoxication, uncomplicated (principal); I10 Essential (primary) hypertension; E11.9 Type 2 diabetes mellitus without complications; F32.9 Major depressive disorder, single episode, unspecified; F41.9 Anxiety disorder, unspecified; F17.210 Nicotine dependence, cigarettes, uncomplicated; Z88.8 Allergy status to other drugs, medicaments and biological substances; Z79.82 Long term (current) use of aspirin; Z79.899 Other long term (current) drug therapy; Z79.4 Long term (current) use of insulin
CPT/HCPCS: 36415; 80048; 80307; 85025; 96365; 99284; 99285; A9270; J1815; J3411; J3475; J7030; J3490

== ENCOUNTER 2019-11-11 06:40 | Emergency (ER) | payer MEDICAID ==
--- NOTE | 2019-11-11 07:17 | EDM.PDOCBH ---
ED HPI GENERAL MEDICAL PROBLEM - General Chief Complaint: Drug or Alcohol Abuse Stated Complaint: [facility] Time Seen by Provider: 11/11/19 07:05 Source of Information: Reports: Patient, Old Records, Provider (Dr. Colón), RN History Limitations: Reports: No Limitations - History of Present Illness INITIAL COMMENTS - FREE TEXT/NARRATIVE: 59 yo chronic alcoholic was seen last night for intoxication and was requesting detox. He hadn't brought along any of his meds so went home and returned via EMS with his meds again requesting detox. Had been living in an assisted living facility for awhile so had been sober, since he checked himself out he has been drinking again. Not consistently taking his regular meds. Onset: Unknown/Unsure Duration: Chronic Location: Reports: Generalized Quality: Reports: Other (no pain reported) Severity: Moderate Improves with: Reports: Other (not drinking) Worsens with: Reports: Other (ETOH consumption) Context: Reports: Other (see HPI) Associated Symptoms: Reports: No Other Symptoms Treatments [employer]CE[employer]: Reports: Other (see below) (none) - Related Data Allergies Allergy/AdvReac Type Severity Reaction Status Date / Time zolpidem tartrate Allergy Cannot Verified 03/28/19 15:07 [From Ambien] Remember Home Meds: Home Meds Aspirin [Halfprin] 81 mg PO DAILY 10/17/14 [History] Gabapentin 300 mg PO TID 12/04/14 [History] traZODone 100 - 200 mg PO BEDTIME 12/04/14 [History] Metoprolol Tartrate [Lopressor] 25 mg PO BID 04/05/15 [History] metFORMIN [Glucophage] 1,000 mg PO BIDAC 03/11/16 [History] Multivit-Min/FA/Lycopen/Lutein [Certavite Sr-Antioxidant Tab] 1 tab PO DAILY [History] Pantoprazole [ProTONIX] 40 mg PO DAILY #30 tab.cr 06/17/16 [Rx] Lisinopril [Zestril] 10 mg PO DAILY 04/03/17 [History] Celecoxib [CeleBREX] 1 tab PO BID 09/06/17 [History] Acetaminophen 500 mg PO Q4H PRN 11/17/17 [History] Albuterol [Ventolin HFA] 2 puff INH QID 11/17/17 [History] Ascorbic Acid 500 mg PO DAILY 06/30/18 [History] Venlafaxine [Effexor XR] 225 mg PO DAILY 03/21/19 [History] lisinopriL [Prinivil] 10 mg PO DAILY 03/21/19 [History] Insulin Aspart [NovoLOG] 0 - 12 unit SUBCUT QID PRN 11/11/19 [History] Insulin Glarg,Human.Rec.Analog [Lantus Solostar] 50 unit SUBCUT DAILY 11/11/19 [ History] Past Medical History Cardiovascular History: Reports: High Cholesterol, Hypertension Other Cardiovascular History: Past chest pain Questionable [place] in past. Respiratory History: Reports: Asthma Gastrointestinal History: Reports: Pancreatitis Musculoskeletal History: Reports: Fracture, Other (See Below) Other Musculoskeletal History: fx toe L humeral fracture. Seen 03/21/19 for r hand pain ortho. Neurological History: Reports: Head Trauma Psychiatric History: Reports: Addiction, Anxiety, Depression, Other (See Below) Other Psychiatric History: Alcohol abuse. Endocrine/Metabolic History: Reports: Diabetes, Type II Hematologic History: Reports: None - Infectious Disease History Infectious Disease History: Reports: Chicken Pox Other Infectious Disease History: unknown - Past Surgical History Head Surgeries/Procedures: Reports: None HEENT Surgical History: Reports: Adenoidectomy GI Surgical History: Reports: Appendectomy Oncologic Surgical History: Reports: None Social & Family History - Family History Family Medical History: Noncontributory - Tobacco Use Smoking Status *Q: Current Every Day Smoker Years of Tobacco use: 45 Packs/Tins Daily: 1 - Caffeine Use Caffeine Use: Reports: Coffee, Soda Caffeine Use Comment: daily intake - Recreational Drug Use Recreational Drug Use: No ED ROS GENERAL - Review of Systems Review Of Systems: See Below Constitutional: Reports: No Symptoms HEENT: Reports: No Symptoms Respiratory: Reports: No Symptoms Cardiovascular: Reports: No Symptoms GI/Abdominal: Reports: No Symptoms : Reports: No Symptoms Musculoskeletal: Reports: No Symptoms Skin: Reports: No Symptoms Neurological: Reports: Other (intoxication) ED EXAM, BEHAVIORAL HEALTH - Physical Exam Exam: See Below Exam Limited By: No Limitations General Appearance: WD/WN, No Apparent Distress, Lethargic (due to intoxication) , Obese Eye Exam: Bilateral Eye: Normal Inspection Ears: Normal External Exam, Normal Canal, Hearing Grossly Normal Nose: Normal Inspection, No Blood Throat/Mouth: Normal Inspection, Normal Oropharynx, Normal Voice, No Airway Compromise Head: Atraumatic, Normocephalic Neck: Normal Inspection Respiratory/Chest: No Respiratory Distress, Lungs Clear, Normal Breath Sounds, No Accessory Muscle Use Cardiovascular: Regular Rate, Rhythm, No Edema GI/Abdominal: Soft, Non-Tender Extremities: Normal Inspection, No Pedal Edema Neurological: CN II-XII Intact, No Motor/Sensory Deficits, Other (sleeping) COURSE, BEHAVIORAL HEALTH COMP - Course Vital Signs: Last Vital Signs Temp 37.1 C 11/11/19 06:50 Pulse 102 H 11/11/19 06:50 Resp 20 11/11/19 06:50 BP 156/79 H 11/11/19 06:50 Pulse Ox 98 11/11/19 06:50 Departure - Departure Time of Disposition: 07:17 Disposition: Home, Self-Care 01 Condition: Fair Clinical Impression: Alcohol abuse, Morbid obesity, Medical non-compliance Alcohol intoxication Qualifiers: Complication of substance-induced condition: with unspecified complication Qualified Code(s): F10.929 - Alcohol use, unspecified with intoxication, unspecified - Discharge Information *PRESCRIPTION DRUG MONITORING PROGRAM REVIEWED*: No *COPY OF PRESCRIPTION DRUG MONITORING REPORT IN PATIENT CA: No Referrals: PCP,None [Primary Care Provider] - Sepsis Event Note - Evaluation Sepsis Screening Result: No Definite Risk - Focused Exam Vital Signs: Vital Signs Temp Pulse Resp BP Pulse Ox 11/11/19 06:50 37.1 C 102 H 20 156/79 H 98 11/11/19 06:49 37.1 C 102 H 20 156/79 H 98 Date Exam was Performed: 11/11/19 Time Exam was Performed: 07:12
[2019-11-11 07:26] VITALS: BP 171/75; PULSE 105
== END 2019-11-11 08:33 | disposition home or self-care (01) ==
LOC: JP.ED 06:40
DX: F10.120 Alcohol abuse with intoxication, uncomplicated (principal); E66.01 Morbid (severe) obesity due to excess calories; I10 Essential (primary) hypertension; J45.909 Unspecified asthma, uncomplicated; F32.9 Major depressive disorder, single episode, unspecified; F41.9 Anxiety disorder, unspecified; E11.9 Type 2 diabetes mellitus without complications; F17.210 Nicotine dependence, cigarettes, uncomplicated; Z91.19 Patient's noncompliance with other medical treatment and regimen; Z88.8 Allergy status to other drugs, medicaments and biological substances; Z79.82 Long term (current) use of aspirin; Z79.899 Other long term (current) drug therapy; Z79.4 Long term (current) use of insulin
CPT/HCPCS: 99284

== ENCOUNTER 2019-12-16 05:30 | Emergency (ER) | payer MEDICAID ==
[2019-12-16] MEDS ORDERED: Sodium Chloride 0.9% 10 ML Syringe FLUSH PRN (05:33)
[2019-12-16] MEDS ORDERED: Diltiazem 25 MG/5 ML SDV IVPUSH ONE (05:34)
--- NOTE | 2019-12-16 05:39 | EDM.PDOC ---
<OfficerDavis - Last Filed: 12/16/19 09:07> ED HPI GENERAL MEDICAL PROBLEM - General Chief Complaint: Chest Pain Stated Complaint: MEDICAL VIA [facility] Time Seen by Provider: 12/16/19 05:30 - Related Data Allergies Allergy/AdvReac Type Severity Reaction Status Date / Time zolpidem tartrate Allergy sleep walks Verified 12/16/19 05:32 [From Maite] Home Meds: Home Meds Aspirin [Halfprin] 81 mg PO DAILY 10/17/14 [History] Gabapentin 300 mg PO TID 12/04/14 [History] traZODone 100 - 200 mg PO BEDTIME 12/04/14 [History] metFORMIN [Glucophage] 1,000 mg PO BIDAC 03/11/16 [History] Multivit-Min/FA/Lycopen/Lutein [Certavite Sr-Antioxidant Tab] 1 tab PO DAILY [History] Pantoprazole [ProTONIX] 40 mg PO DAILY #30 tab.cr 06/17/16 [Rx] Celecoxib [CeleBREX] 100 mg PO BID 09/06/17 [History] Acetaminophen 500 mg PO Q4H PRN 11/17/17 [History] Albuterol [Ventolin HFA] 2 puff INH QID 11/17/17 [History] Ascorbic Acid 500 mg PO DAILY 06/30/18 [History] Venlafaxine [Effexor XR] 225 mg PO DAILY 03/21/19 [History] lisinopriL [Prinivil] 10 mg PO DAILY 03/21/19 [History] Insulin Aspart [NovoLOG] 0 - 12 unit SUBCUT QID PRN 11/11/19 [History] Insulin Glarg,Human.Rec.Analog [Lantus Solostar] 60 unit SUBCUT DAILY 11/11/19 [ History] Diclofenac Sodium [Voltaren] 4 gm TOP TID PRN 12/08/19 [History] Metoprolol Tartrate 25 mg PO BID 12/08/19 [History] Liraglutide [Victoza 3-Amos] 0.6 mg SQ DAILY 12/16/19 [History] Course - Vital Signs Last Recorded V/S: Last Vital Signs Temp 98.1 F 12/16/19 05:56 Pulse 101 H 12/16/19 08:49 Resp 18 12/16/19 08:49 BP 112/63 12/16/19 08:49 Pulse Ox 91 L 12/16/19 08:49 - Orders/Labs/Meds Orders: Active Orders 24 hr Category Date Time Status Saline Lock Insert [OM.PC] Routine Oth 12/16/19 05:33 Ordered Labs: Laboratory Tests 12/16/19 12/16/19 12/16/19 Range/Units 05:42 05:42 05:42 WBC 11.1 H (4.5-11.0) K/uL RBC 4.26 L (4.30-5.90) M/uL Hgb 13.1 (12.0-15.0) g/dL Hct 38.6 L (40.0-54.0) % MCV 91 (80-98) fL MCH 31 (27-31) pg MCHC 34 (32-36) % Plt Count 165 (150-400) K/uL Neut % (Auto) 68 H (36-66) % Lymph % (Auto) 25 (24-44) % Boone % (Auto) 7 H (2-6) % Eos % (Auto) 1 L (2-4) % Baso % (Auto) 0 (0-1) % PT (9.5-12.0) sec INR (0.80-1.20) Sodium 137 L (140-148) mmol/L Potassium 3.7 (3.6-5.2) mmol/L Chloride 98 L (100-108) mmol/L Carbon Dioxide 21 (21-32) mmol/L Anion Gap 21.7 H (5.0-14.0) mmol/L BUN 11 (7-18) mg/dL Creatinine 0.9 (0.8-1.3) mg/dL Est Cr Clr Drug Dosing 89.00 mL/min Estimated GFR (MDRD) > 60 (>60) Glucose 258 H (74-106) mg/dL Calcium 8.1 L (8.5-10.1) mg/dL Magnesium 1.2 L (1.8-2.4) mg/dL Total Bilirubin 0.4 (0.2-1.0) mg/dL AST 25 (15-37) U/L ALT 37 (12-78) U/L Alkaline Phosphatase 76 (46-116) U/L Troponin I < 0.017 (0.000-0.056) ng/mL Total Protein 6.9 (6.4-8.2) g/dL Albumin 3.8 (3.4-5.0) g/dL Globulin 3.1 (2.3-3.5) g/dL Albumin/Globulin Ratio 1.2 (1.2-2.2) Ethyl Alcohol 277 mg/dL 12/16/19 Range/Units 08:09 WBC (4.5-11.0) K/uL RBC (4.30-5.90) M/uL Hgb (12.0-15.0) g/dL Hct (40.0-54.0) % MCV (80-98) fL MCH (27-31) pg MCHC (32-36) % Plt Count (150-400) K/uL Neut % (Auto) (36-66) % Lymph % (Auto) (24-44) % Boone % (Auto) (2-6) % Eos % (Auto) (2-4) % Baso % (Auto) (0-1) % PT 10.5 (9.5-12.0) sec INR 0.97 (0.80-1.20) Sodium (140-148) mmol/L Potassium (3.6-5.2) mmol/L Chloride (100-108) mmol/L Carbon Dioxide (21-32) mmol/L Anion Gap (5.0-14.0) mmol/L BUN (7-18) mg/dL Creatinine (0.8-1.3) mg/dL Est Cr Clr Drug Dosing mL/min Estimated GFR (MDRD) (>60) Glucose (74-106) mg/dL Calcium (8.5-10.1) mg/dL Magnesium (1.8-2.4) mg/dL Total Bilirubin (0.2-1.0) mg/dL AST (15-37) U/L ALT (12-78) U/L Alkaline Phosphatase (46-116) U/L Troponin I (0.000-0.056) ng/mL Total Protein (6.4-8.2) g/dL Albumin (3.4-5.0) g/dL Globulin (2.3-3.5) g/dL Albumin/Globulin Ratio (1.2-2.2) Ethyl Alcohol mg/dL Meds: Medications Discontinued Medications Generic Name Dose Route Start Last Admin Trade Name Freq PRN Reason Stop Dose Admin Apixaban 5 mg 12/16/19 08:12 12/16/19 08:19 Eliquis PO 12/16/19 08:13 5 mg ONETIME ONE Administration Aspirin 324 mg 12/16/19 05:57 12/16/19 06:15 Aspirin PO 12/16/19 05:58 324 mg ONETIME ONE Administration Diltiazem HCl 25 mg 12/16/19 05:34 12/16/19 05:40 Diltiazem IVPUSH 12/16/19 05:35 25 mg ONETIME ONE Administration Insulin Human Regular 8 unit 12/16/19 06:44 12/16/19 06:51 Humulin R SUBCUT 12/16/19 06:45 8 units ONETIME ONE Administration Magnesium Oxide 400 mg 12/16/19 06:36 12/16/19 06:50 Magnesium Oxide PO 12/16/19 06:37 400 mg ONETIME ONE Administration Metoprolol Tartrate 5 mg 12/16/19 05:56 12/16/19 06:19 Lopressor IVPUSH 12/16/19 05:57 5 mg ONETIME ONE Administration Metoprolol Tartrate 50 mg 12/16/19 06:48 12/16/19 06:51 Lopressor PO 12/16/19 06:49 50 mg ONETIME ONE Administration Metoprolol Tartrate 25 mg 12/16/19 08:11 12/16/19 08:19 Lopressor PO 12/16/19 08:12 25 mg ONETIME ONE Administration Sodium Chloride 10 ml 12/16/19 05:33 12/16/19 05:40 Saline Flush FLUSH 10 ml ASDIRECTED PRN Administration Keep Vein Open Departure - Departure Time of Disposition: 09:08 Disposition: DC/Tfer to Inpt Rehab Fac 62 Condition: Poor Clinical Impression: Atrial fibrillation with RVR Acute alcohol intoxication Qualifiers: Complication of substance-induced condition: uncomplicated Qualified Code(s): F10.920 - Alcohol use, unspecified with intoxication, uncomplicated - Discharge Information Instructions: Atrial Fibrillation, [id number] Referrals: PCP,None [Primary Care Provider] - Forms: ED Department Discharge Additional Instructions: Increase your metoprolol from 25 mg twice a day to 50 mg twice a day start Eliquis 5 mg twice a day please follow-up with your primary care provider upon discharge from [facility] Sepsis Event Note - Focused Exam Vital Signs: Vital Signs Temp Pulse Pulse Resp BP BP Pulse Ox 12/16/19 08:49 101 H 18 112/63 91 L 12/16/19 08:19 101 H 99 14 123/61 123/61 92 L 12/16/19 07:19 99 15 131/69 94 L 12/16/19 06:51 118 H 123/66 12/16/19 06:19 156 H 113/77 12/16/19 05:56 98.1 F 152 H 17 155/77 H 92 L 12/16/19 05:53 148 H 17 115/76 91 L 12/16/19 05:48 157 H 17 117/67 90 L 12/16/19 05:44 149 H 17 119/74 92 L Date Exam was Performed: 12/16/19 Time Exam was Performed: 09:08 - My Orders Last 24 Hours: My Active Orders 12/16/19 05:33 Saline Lock Insert [OM.PC] Routine - Assessment/Plan Last 24 Hours: My Active Orders 12/16/19 05:33 Saline Lock Insert [OM.PC] Routine Plan: Took over care from Dr. Bernardo at 7 AM Assessment Acuity = acute Site and laterality = atrial fibrillation with rapid ventricular response Etiology = unknown Manifestations = none Location of injury = Home Lab values = CBC unremarkable CMP reveals a glucose at 258 consistent hyperglycemia troponin was negative alcohol was elevated 277 EKG demonstrates atrial fibrillation Plan Initially was treated with a Cardizem bolus minimal effect and then 5 mg of metoprolol iv which did have a good response he was restarted on his home medication of metoprolol 25 mg twice daily. He has no documented history of atrial fibrillation his chads 2 Vas score is at 2 which puts him at 2.2% risk for stroke. Did discuss options with him he would like to try Eliquis however unknown if insurance will cover this medication called and discussed case with hospitalist on-call at 8 AM agreed with the plan to anticoagulate he is rate controlled on metoprolol however increase the metoprolol to 50 twice daily and then follow-up with his primary after detoxification from alcohol. Elected to try Eliquis 5 mg p.o. twice daily This note was dictated using [employer] voice recognition software please call with any questions on syntax or grammar. <ElvinnatanBob stewart David - Last Filed: 12/16/19 17:43> ED HPI GENERAL MEDICAL PROBLEM - General Source of Information: Reports: Patient, EMS History Limitations: Reports: Intoxication - History of Present Illness INITIAL COMMENTS - FREE TEXT/NARRATIVE: 59-year-old male, chronic alcoholic and diabetic who has not been taking his medications for the last several days and drinking heavily. He called the ambulance tonight because of "chest pain". Once he got here he said he wanted to go to detox. He is very intoxicated, and this is his typical routine where he calls complaining of either chest pain or a headache and then asks for detox when he gets here. Unfortunately this time he is in atrial fibrillation with RVR. I cannot find where this has occurred in the past. He denies any nausea or vomiting, he does have some peripheral edema. Onset: Unknown/Unsure Associated Symptoms: Reports: Other (Very intoxicated) chest pain Pain Score (Numeric/FACES): 5 Past Medical History Cardiovascular History: Reports: High Cholesterol, Hypertension Other Cardiovascular History: Past chest pain Questionable [place] in past. Respiratory History: Reports: Asthma Gastrointestinal History: Reports: Pancreatitis Musculoskeletal History: Reports: Fracture, Other (See Below) Other Musculoskeletal History: fx toe L humeral fracture. Seen 03/21/19 for r hand pain ortho. Neurological History: Reports: Head Trauma Psychiatric History: Reports: Addiction, Anxiety, Depression, Other (See Below) Other Psychiatric History: Alcohol abuse. Endocrine/Metabolic History: Reports: Diabetes, Type II Hematologic History: Reports: None - Infectious Disease History Infectious Disease History: Reports: Chicken Pox Other Infectious Disease History: unknown - Past Surgical History Head Surgeries/Procedures: Reports: None HEENT Surgical History: Reports: Adenoidectomy GI Surgical History: Reports: Appendectomy Oncologic Surgical History: Reports: None Social & Family History - Family History Family Medical History: Noncontributory - Caffeine Use Caffeine Use: Reports: Coffee, Soda Caffeine Use Comment: daily intake ED ROS GENERAL - Review of Systems Review Of Systems: Unable To Obtain (Patient is just too intoxicated to answer questions consistently, just keeps repeating he needs to go to detox) Reason Not Obtained: Patient is too intoxicated ED EXAM, GENERAL - Physical Exam Exam: See Below Exam Limited By: Intoxication General Appearance: Alert, No Apparent Distress Eye Exam: Bilateral Eye: Conjunctival Injection (No jaundice) Head: Atraumatic Neck: Supple Respiratory/Chest: No Respiratory Distress, Wheezing (Widespread expiratory wheezes) Cardiovascular: Tachycardia, Irregularly Irregular GI/Abdominal: Normal Bowel Sounds, Soft, Non-Tender, Other (Very obese) Extremities: Other (1+ pitting edema below the knees bilaterally) Neurological: Alert Psychiatric: Flat Affect Skin Exam: Warm, Dry Course - Vital Signs Last Recorded V/S: Last Vital Signs Temp 98.1 F 12/16/19 05:56 Pulse 101 H 12/16/19 08:49 Resp 18 12/16/19 08:49 BP 112/63 12/16/19 08:49 Pulse Ox 91 L 12/16/19 08:49 - Orders/Labs/Meds Orders: Active Orders 24 hr Category Date Time Status Saline Lock Insert [OM.PC] Routine Oth 12/16/19 05:33 Ordered Labs: Laboratory Tests 12/16/19 12/16/19 12/16/19 Range/Units 05:42 05:42 05:42 WBC 11.1 H (4.5-11.0) K/uL RBC 4.26 L (4.30-5.90) M/uL Hgb 13.1 (12.0-15.0) g/dL Hct 38.6 L (40.0-54.0) % MCV 91 (80-98) fL MCH 31 (27-31) pg MCHC 34 (32-36) % Plt Count 165 (150-400) K/uL Neut % (Auto) 68 H (36-66) % Lymph % (Auto) 25 (24-44) % Boone % (Auto) 7 H (2-6) % Eos % (Auto) 1 L (2-4) % Baso % (Auto) 0 (0-1) % PT (9.5-12.0) sec INR (0.80-1.20) Sodium 137 L (140-148) mmol/L Potassium 3.7 (3.6-5.2) mmol/L Chloride 98 L (100-108) mmol/L Carbon Dioxide 21 (21-32) mmol/L Anion Gap 21.7 H (5.0-14.0) mmol/L BUN 11 (7-18) mg/dL Creatinine 0.9 (0.8-1.3) mg/dL Est Cr Clr Drug Dosing 89.00 mL/min Estimated GFR (MDRD) > 60 (>60) Glucose 258 H (74-106) mg/dL Calcium 8.1 L (8.5-10.1) mg/dL Magnesium 1.2 L (1.8-2.4) mg/dL Total Bilirubin 0.4 (0.2-1.0) mg/dL AST 25 (15-37) U/L ALT 37 (12-78) U/L Alkaline Phosphatase 76 (46-116) U/L Troponin I < 0.017 (0.000-0.056) ng/mL Total Protein 6.9 (6.4-8.2) g/dL Albumin 3.8 (3.4-5.0) g/dL Globulin 3.1 (2.3-3.5) g/dL Albumin/Globulin Ratio 1.2 (1.2-2.2) Ethyl Alcohol 277 mg/dL 12/16/19 Range/Units 08:09 WBC (4.5-11.0) K/uL RBC (4.30-5.90) M/uL Hgb (12.0-15.0) g/dL Hct (40.0-54.0) % MCV (80-98) fL MCH (27-31) pg MCHC (32-36) % Plt Count (150-400) K/uL Neut % (Auto) (36-66) % Lymph % (Auto) (24-44) % Boone % (Auto) (2-6) % Eos % (Auto) (2-4) % Baso % (Auto) (0-1) % PT 10.5 (9.5-12.0) sec INR 0.97 (0.80-1.20) Sodium (140-148) mmol/L Potassium (3.6-5.2) mmol/L Chloride (100-108) mmol/L Carbon Dioxide (21-32) mmol/L Anion Gap (5.0-14.0) mmol/L BUN (7-18) mg/dL Creatinine (0.8-1.3) mg/dL Est Cr Clr Drug Dosing mL/min Estimated GFR (MDRD) (>60) Glucose (74-106) mg/dL Calcium (8.5-10.1) mg/dL Magnesium (1.8-2.4) mg/dL Total Bilirubin (0.2-1.0) mg/dL AST (15-37) U/L ALT (12-78) U/L Alkaline Phosphatase (46-116) U/L Troponin I (0.000-0.056) ng/mL Total Protein (6.4-8.2) g/dL Albumin (3.4-5.0) g/dL Globulin (2.3-3.5) g/dL Albumin/Globulin Ratio (1.2-2.2) Ethyl Alcohol mg/dL Meds: Medications Discontinued Medications Generic Name Dose Route Start Last Admin Trade Name Freq PRN Reason Stop Dose Admin Apixaban 5 mg 12/16/19 08:12 12/16/19 08:19 Eliquis PO 12/16/19 08:13 5 mg ONETIME ONE Administration Aspirin 324 mg 12/16/19 05:57 12/16/19 06:15 Aspirin PO 12/16/19 05:58 324 mg ONETIME ONE Administration Diltiazem HCl 25 mg 12/16/19 05:34 12/16/19 05:40 Diltiazem IVPUSH 12/16/19 05:35 25 mg ONETIME ONE Administration Insulin Human Regular 8 unit 12/16/19 06:44 12/16/19 06:51 Humulin R SUBCUT 12/16/19 06:45 8 units ONETIME ONE Administration Magnesium Oxide 400 mg 12/16/19 06:36 12/16/19 06:50 Magnesium Oxide PO 12/16/19 06:37 400 mg ONETIME ONE Administration Metoprolol Tartrate 5 mg 12/16/19 05:56 12/16/19 06:19 Lopressor IVPUSH 12/16/19 05:57 5 mg ONETIME ONE Administration Metoprolol Tartrate 50 mg 12/16/19 06:48 12/16/19 06:51 Lopressor PO 12/16/19 06:49 50 mg ONETIME ONE Administration Metoprolol Tartrate 25 mg 12/16/19 08:11 12/16/19 08:19 Lopressor PO 12/16/19 08:12 25 mg ONETIME ONE Administration Sodium Chloride 10 ml 12/16/19 05:33 12/16/19 05:40 Saline Flush FLUSH 10 ml ASDIRECTED PRN Administration Keep Vein Open - Re-Assessments/Exams Free Text/Narrative Re-Assessment/Exam: 12/16/19 05:55 EKG by EMS reviewed and shows atrial fibrillation with RVR. An IV was started, CBC, CMP, EtOH, magnesium were obtained and the patient was allowed to take 2 puffs off of his albuterol inhaler. He was given 324 mg of chewable aspirin. We will attempt to get some rate control with 25 mg of IV Cardizem initially. Cardizem had little effect, IV metoprolol 5 mg will be given. 12/16/19 06:49 Patient's response to metoprolol was much better than the Cardizem. His rate slowed to 104 to 116. Troponin returned 0. Magnesium was 1.2, so the patient was given 400 mg of oral magnesium. Glucose was 258 so patient was given 8 units of subcutaneous insulin. Patient is not a candidate for elective cardioversion not only due to the unknown time frame of his atrial fibrillation but he likely has a stomach full of alcohol. He had an excellent response to the IV metoprolol so was given 50 mg of oral metoprolol. If he spontaneously converts to sinus rhythm in the next 1 to 2 hours, he may be able to go directly to detox, Dr. Rubio of the hospitalist service was informed of his presence and if he does not convert he will need admission. Care was turned over to Officer at shift change Sepsis Event Note - Focused Exam Vital Signs: Vital Signs Temp Pulse Pulse Resp BP BP Pulse Ox 12/16/19 08:49 101 H 18 112/63 91 L 12/16/19 08:19 101 H 99 14 123/61 123/61 92 L 12/16/19 07:19 99 15 131/69 94 L 12/16/19 06:51 118 H 123/66 12/16/19 06:19 156 H 113/77 12/16/19 05:56 98.1 F 152 H 17 155/77 H 92 L 12/16/19 05:53 148 H 17 115/76 91 L 12/16/19 05:48 157 H 17 117/67 90 L 12/16/19 05:44 149 H 17 119/74 92 L Date Exam was Performed: 12/16/19 Time Exam was Performed: 17:34 - My Orders Last 24 Hours: My Active Orders 12/16/19 05:33 Saline Lock Insert [OM.PC] Routine - Assessment/Plan Last 24 Hours: My Active Orders 12/16/19 05:33 Saline Lock Insert [OM.PC] Routine
[2019-12-16] MEDS ORDERED: Metoprolol Tartrate 5 MG/5 ML SDV IVPUSH ONE (05:56)
[2019-12-16] MEDS ORDERED: Aspirin 81 MG Tab.Chew PO ONE (05:57)
[2019-12-16] MEDS ORDERED: Magnesium Oxide 400 MG Tab PO ONE (06:36)
[2019-12-16] MEDS ORDERED: Insulin Regular, Human 100 Units/ML 3 ML Vial SUBCUT ONE (06:44)
[2019-12-16] MEDS ORDERED: Metoprolol Tartrate 50 MG Tab PO ONE (06:48)
[2019-12-16] MEDS ORDERED: Metoprolol Tartrate 25 MG Tab PO ONE (08:11)
[2019-12-16] MEDS ORDERED: Apixaban 5 MG Tab PO ONE (08:12)
[2019-12-16 09:25] VITALS: BP 112/63; PULSE 101
== END 2019-12-16 09:26 ==
LOC: JP.ED 05:30
DX: I48.91 Unspecified atrial fibrillation (principal); F10.120 Alcohol abuse with intoxication, uncomplicated; Y90.8 Blood alcohol level of 240 mg/100 ml or more; I10 Essential (primary) hypertension; E11.9 Type 2 diabetes mellitus without complications; E78.00 Pure hypercholesterolemia, unspecified; F41.9 Anxiety disorder, unspecified; F32.9 Major depressive disorder, single episode, unspecified; Z79.82 Long term (current) use of aspirin; Z88.8 Allergy status to other drugs, medicaments and biological substances; Z79.4 Long term (current) use of insulin; Z79.899 Other long term (current) drug therapy
CPT/HCPCS: 36415; 80053; 80307; 83735; 84484; 85025; 85610; 96374; 96375; 99284; 99285; A9270; J1815; J3490

== ENCOUNTER 2020-02-04 13:30 | Emergency (ER) | payer MEDICAID ==
[2020-02-04 14:03] VITALS: BP 150/76; PULSE 108
[2020-02-04] MEDS ORDERED: Aspirin 81 MG Tab.Chew PO ONE (14:11)
[2020-02-04] MEDS ORDERED: Albuterol/Ipratropium 3.0-0.5 MG/3 ML Neb Soln NEB ONE (14:13)
--- NOTE | 2020-02-04 14:17 | EDM.PDOC ---
ED HPI GENERAL MEDICAL PROBLEM - General Chief Complaint: Chest Pain Stated Complaint: MEDICAL VIA [facility] Time Seen by Provider: 02/04/20 14:06 Source of Information: Reports: Patient, EMS, RN Notes Reviewed History Limitations: Reports: No Limitations - History of Present Illness INITIAL COMMENTS - FREE TEXT/NARRATIVE: 59-year-old gentleman presents emergency department a complaint of chest pain, he states his been having chest pain for about a week he rates the pain 10 out of 10 which has been going on for 2 weeks straight he does admit to consuming a large amount of alcohol he did arrive by EMS today they state they found an empty liter of vodka by his bedside. He is clearly impaired difficult to obtain history from him he states he is short of breath but no nausea vomiting no diaphoresis states he does not want to go to detox - Related Data Allergies Allergy/AdvReac Type Severity Reaction Status Date / Time zolpidem tartrate Allergy sleep walks Verified 02/04/20 13:46 [From Maite] Home Meds: Home Meds Aspirin [Halfprin] 81 mg PO DAILY 10/17/14 [History] Gabapentin 300 mg PO TID 12/04/14 [History] traZODone 100 - 200 mg PO BEDTIME 12/04/14 [History] metFORMIN [Glucophage] 1,000 mg PO BIDAC 03/11/16 [History] Multivit-Min/FA/Lycopen/Lutein [Certavite Sr-Antioxidant Tab] 1 tab PO DAILY [History] Pantoprazole [ProTONIX] 40 mg PO DAILY #30 tab.cr 06/17/16 [Rx] Celecoxib [CeleBREX] 100 mg PO BID 09/06/17 [History] Acetaminophen 500 mg PO Q4H PRN 11/17/17 [History] Albuterol [Ventolin HFA] 2 puff INH QID 11/17/17 [History] Ascorbic Acid 500 mg PO DAILY 06/30/18 [History] Venlafaxine [Effexor XR] 225 mg PO DAILY 03/21/19 [History] lisinopriL [Prinivil] 10 mg PO DAILY 03/21/19 [History] Insulin Aspart [NovoLOG] 0 - 12 unit SUBCUT QID PRN 11/11/19 [History] Insulin Glarg,Human.Rec.Analog [Lantus Solostar] 60 unit SUBCUT DAILY 11/11/19 [ History] Diclofenac Sodium [Voltaren] 4 gm TOP TID PRN 12/08/19 [History] Metoprolol Tartrate 25 mg PO BID 12/08/19 [History] Liraglutide [Victoza 3-Amos] 0.6 mg SQ DAILY 12/16/19 [History] Past Medical History Cardiovascular History: Reports: High Cholesterol, Hypertension Other Cardiovascular History: Past chest pain Questionable [place] in past. Respiratory History: Reports: Asthma Gastrointestinal History: Reports: Pancreatitis Musculoskeletal History: Reports: Fracture, Other (See Below) Other Musculoskeletal History: fx toe L humeral fracture. Seen 03/21/19 for r hand pain ortho. Neurological History: Reports: Head Trauma Psychiatric History: Reports: Addiction, Anxiety, Depression, Other (See Below) Other Psychiatric History: Alcohol abuse. Endocrine/Metabolic History: Reports: Diabetes, Type II Hematologic History: Reports: None - Infectious Disease History Infectious Disease History: Reports: Chicken Pox Other Infectious Disease History: unknown - Past Surgical History Head Surgeries/Procedures: Reports: None HEENT Surgical History: Reports: Adenoidectomy GI Surgical History: Reports: Appendectomy Oncologic Surgical History: Reports: None Social & Family History - Family History Family Medical History: Noncontributory - Tobacco Use Smoking Status *Q: Current Every Day Smoker Years of Tobacco use: 40 Packs/Tins Daily: 0.5 - Caffeine Use Caffeine Use: Reports: Coffee, Soda Caffeine Use Comment: daily intake - Alcohol Use Days Per Week of Alcohol Use: 7 Number of Drinks Per Day: 10 Total Drinks Per Week: 70 - Recreational Drug Use Recreational Drug Use: No ED ROS GENERAL - Review of Systems Review Of Systems: See Below Constitutional: Reports: Diaphoresis HEENT: Reports: No Symptoms Respiratory: Reports: Shortness of Breath, Cough, Sputum Cardiovascular: Reports: Chest Pain, Dyspnea on Exertion GI/Abdominal: Denies: Nausea, Vomiting : Reports: No Symptoms ED EXAM, GENERAL - Physical Exam Exam: See Below Exam Limited By: Intoxication General Appearance: Alert, No Apparent Distress Respiratory/Chest: Decreased Breath Sounds, Wheezing Cardiovascular: Regular Rate, Rhythm, No Murmur GI/Abdominal: Soft, Non-Tender Extremities: Pedal Edema Course - Vital Signs Last Recorded V/S: Last Vital Signs Temp 97.3 F 02/04/20 13:59 Pulse 108 H 02/04/20 13:59 Resp 14 02/04/20 13:59 BP 150/76 H 02/04/20 13:59 Pulse Ox 94 L 02/04/20 13:59 - Orders/Labs/Meds Orders: Active Orders 24 hr Category Date Time Status Cardiac Monitoring [RC] .As Directed Care 02/04/20 14:11 Active RT Aerosol Therapy [RC] ASDIRECTED Care 02/04/20 14:13 Active Chest 2V [CR] Stat Exams 02/04/20 14:12 Taken Labs: Laboratory Tests 02/04/20 02/04/20 02/04/20 Range/Units 14:11 14:11 14:11 WBC 8.4 (4.5-11.0) K/uL RBC 4.37 (4.30-5.90) M/uL Hgb 14.0 (12.0-15.0) g/dL Hct 39.2 L (40.0-54.0) % MCV 90 (80-98) fL MCH 32 H (27-31) pg MCHC 36 (32-36) % Plt Count 199 (150-400) K/uL Neut % (Auto) 64 (36-66) % Lymph % (Auto) 29 (24-44) % [place] % (Auto) 7 H (2-6) % Eos % (Auto) 0 L (2-4) % Baso % (Auto) 0 (0-1) % Sodium 132 L (140-148) mmol/L Potassium 3.9 (3.6-5.2) mmol/L Chloride 92 L (100-108) mmol/L Carbon Dioxide 20 L (21-32) mmol/L Anion Gap 23.9 H (5.0-14.0) mmol/L BUN 9 (7-18) mg/dL Creatinine 0.9 (0.8-1.3) mg/dL Est Cr Clr Drug Dosing 91.80 mL/min Estimated GFR (MDRD) > 60 (>60) Glucose 259 H (74-106) mg/dL Calcium 8.2 L (8.5-10.1) mg/dL Total Bilirubin 0.4 (0.2-1.0) mg/dL AST 25 (15-37) U/L ALT 40 (12-78) U/L Alkaline Phosphatase 78 (46-116) U/L Troponin I < 0.017 (0.000-0.056) ng/mL NT-Pro-B Natriuret Pep 12 (5-125) pg/mL Total Protein 7.2 (6.4-8.2) g/dL Albumin 3.7 (3.4-5.0) g/dL Globulin 3.5 (2.3-3.5) g/dL Albumin/Globulin Ratio 1.1 L (1.2-2.2) Ethyl Alcohol 431 mg/dL Meds: Medications Discontinued Medications Generic Name Dose Route Start Last Admin Trade Name Freq PRN Reason Stop Dose Admin Albuterol/Ipratropium 3 ml 02/04/20 14:13 02/04/20 14:58 Duoneb 3.0-0.5 Mg/3 Ml NEB 02/04/20 14:14 3 ml ONETIME ONE Administration Aspirin 324 mg 02/04/20 14:11 Aspirin PO 02/04/20 14:12 ONETIME ONE Departure - Departure Time of Disposition: 16:00 Disposition: Home, Self-Care 01 Condition: Poor Clinical Impression: Acute alcohol intoxication Qualifiers: Complication of substance-induced condition: uncomplicated Qualified Code(s): F10.920 - Alcohol use, unspecified with intoxication, uncomplicated Referrals: PCP,None [Primary Care Provider] - Forms: ED Department Discharge Sepsis Event Note - Evaluation Sepsis Screening Result: No Definite Risk - Focused Exam Vital Signs: Vital Signs Temp Pulse Resp BP Pulse Ox 02/04/20 13:59 97.3 F 108 H 14 150/76 H 94 L Date Exam was Performed: 02/04/20 Time Exam was Performed: 15:59 - My Orders Last 24 Hours: My Active Orders 02/04/20 14:11 Cardiac Monitoring [RC] .As Directed 02/04/20 14:12 Chest 2V [CR] Stat 02/04/20 14:13 RT Aerosol Therapy [RC] ASDIRECTED - Assessment/Plan Last 24 Hours: My Active Orders 02/04/20 14:11 Cardiac Monitoring [RC] .As Directed 02/04/20 14:12 Chest 2V [CR] Stat 02/04/20 14:13 RT Aerosol Therapy [RC] ASDIRECTED Plan: Assessment Acuity = acute Site and laterality = alcohol intoxication Etiology = EtOH Manifestations = none Location of injury = Home Lab values = CBC unremarkable troponin was negative glucose elevated at 259 consistent with hyperglycemia EtOH level 431 Plan He did not want to go to [place] initially he then changed his mind we called unfortunately they had no beds available he was not willing to travel to any place else he elected to find his own ride home and was discharged to the waiting room This note was dictated using [employer] voice recognition software please call with any questions on syntax or grammar.
--- NOTE | 2020-02-06 10:51 | CR ---
CHEST: 2 view CLINICAL HISTORY:Chest pain COMPARISON:CT March 2018 FINDINGS: The heart size, pulmonary vascularity and hilar structures are normal. No infiltrate effusion or pneumothorax is seen. IMPRESSION: No acute cardiopulmonary process.
== END 2020-02-04 16:53 | disposition left against medical advice (07) ==
LOC: JP.ED 13:30
DX: F10.120 Alcohol abuse with intoxication, uncomplicated (principal); Y90.8 Blood alcohol level of 240 mg/100 ml or more; I10 Essential (primary) hypertension; J45.909 Unspecified asthma, uncomplicated; F41.9 Anxiety disorder, unspecified; F32.9 Major depressive disorder, single episode, unspecified; E11.9 Type 2 diabetes mellitus without complications; F17.210 Nicotine dependence, cigarettes, uncomplicated; Z90.49 Acquired absence of other specified parts of digestive tract; Z88.8 Allergy status to other drugs, medicaments and biological substances; Z79.899 Other long term (current) drug therapy; Z79.4 Long term (current) use of insulin; Z79.82 Long term (current) use of aspirin
CPT/HCPCS: 36415; 71046; 71046-26; 80053; 80307; 83880; 84484; 85025; 94640; 99284; 99285-25; J7620-GY

== ENCOUNTER 2020-02-05 14:04 | Emergency (ER) | payer MEDICAID ==
--- NOTE | 2020-02-05 14:18 | EDM.PDOC ---
ED HPI GENERAL MEDICAL PROBLEM - General Stated Complaint: MEDICAL VIA TRI Time Seen by Provider: 02/05/20 14:15 Source of Information: Reports: Patient, EMS, RN Notes Reviewed History Limitations: Reports: Intoxication - History of Present Illness INITIAL COMMENTS - FREE TEXT/NARRATIVE: 59-year-old gentleman presents emergency department with a complaint of chest pain, I had the opportunity to evaluate him yesterday for the same complaint at which time he was severely intoxicated, he is brought in by EMS today again severely intoxicated - Related Data Allergies Allergy/AdvReac Type Severity Reaction Status Date / Time zolpidem tartrate Allergy sleep walks Verified 02/04/20 13:46 [From Ambien] Home Meds: Home Meds Aspirin [Halfprin] 81 mg PO DAILY 10/17/14 [History] Gabapentin 300 mg PO TID 12/04/14 [History] traZODone 100 - 200 mg PO BEDTIME 12/04/14 [History] metFORMIN [Glucophage] 1,000 mg PO BIDAC 03/11/16 [History] Multivit-Min/FA/Lycopen/Lutein [Certavite Sr-Antioxidant Tab] 1 tab PO DAILY [History] Pantoprazole [ProTONIX] 40 mg PO DAILY #30 tab.cr 06/17/16 [Rx] Celecoxib [CeleBREX] 100 mg PO BID 09/06/17 [History] Acetaminophen 500 mg PO Q4H PRN 11/17/17 [History] Albuterol [Ventolin HFA] 2 puff INH QID 11/17/17 [History] Ascorbic Acid 500 mg PO DAILY 06/30/18 [History] Venlafaxine [Effexor XR] 225 mg PO DAILY 03/21/19 [History] lisinopriL [Prinivil] 10 mg PO DAILY 03/21/19 [History] Insulin Aspart [NovoLOG] 0 - 12 unit SUBCUT QID PRN 11/11/19 [History] Insulin Glarg,Human.Rec.Analog [Lantus Solostar] 60 unit SUBCUT DAILY 11/11/19 [ History] Diclofenac Sodium [Voltaren] 4 gm TOP TID PRN 12/08/19 [History] Metoprolol Tartrate 25 mg PO BID 12/08/19 [History] Liraglutide [Victoza 3-Amos] 0.6 mg SQ DAILY 12/16/19 [History] Past Medical History Cardiovascular History: Reports: High Cholesterol, Hypertension Other Cardiovascular History: Past chest pain Questionable [place] in past. Respiratory History: Reports: Asthma Gastrointestinal History: Reports: Pancreatitis Musculoskeletal History: Reports: Fracture, Other (See Below) Other Musculoskeletal History: fx toe L humeral fracture. Seen 03/21/19 for r hand pain ortho. Neurological History: Reports: Head Trauma Psychiatric History: Reports: Addiction, Anxiety, Depression, Other (See Below) Other Psychiatric History: Alcohol abuse. Endocrine/Metabolic History: Reports: Diabetes, Type II Hematologic History: Reports: None - Infectious Disease History Infectious Disease History: Reports: Chicken Pox Other Infectious Disease History: unknown - Past Surgical History Head Surgeries/Procedures: Reports: None HEENT Surgical History: Reports: Adenoidectomy GI Surgical History: Reports: Appendectomy Oncologic Surgical History: Reports: None Social & Family History - Family History Family Medical History: Noncontributory - Caffeine Use Caffeine Use: Reports: Coffee, Soda Caffeine Use Comment: daily intake ED ROS GENERAL - Review of Systems Review Of Systems: Unable To Obtain Reason Not Obtained: Intoxication ED EXAM, GENERAL - Physical Exam Exam: See Below Exam Limited By: Intoxication General Appearance: Alert, No Apparent Distress Respiratory/Chest: No Respiratory Distress, Lungs Clear, Normal Breath Sounds, No Accessory Muscle Use, Chest Non-Tender Cardiovascular: Regular Rate, Rhythm, No Murmur Course - Vital Signs Last Recorded V/S: Last Vital Signs Temp 97.3 F 02/05/20 15:15 Pulse 99 02/05/20 15:15 Resp 14 02/05/20 15:15 BP 147/78 H 02/05/20 15:15 Pulse Ox 96 02/05/20 15:15 - Orders/Labs/Meds Orders: Active Orders 24 hr Category Date Time Status Cardiac Monitoring [RC] .As Directed Care 02/05/20 14:16 Active EKG Documentation Completion [RC] ASDIRECTED Care 02/05/20 14:16 Active EKG 12 Lead [EK] Stat Ther 02/05/20 14:16 Ordered Labs: Laboratory Tests 02/05/20 02/05/20 02/05/20 Range/Units 14:31 14:31 14:31 WBC 8.9 (4.5-11.0) K/uL RBC 4.45 (4.30-5.90) M/uL Hgb 13.9 (12.0-15.0) g/dL Hct 40.2 (40.0-54.0) % MCV 90 (80-98) fL MCH 31 (27-31) pg MCHC 35 (32-36) % Plt Count 159 (150-400) K/uL Neut % (Auto) 76 H (36-66) % Lymph % (Auto) 17 L (24-44) % [place] % (Auto) 7 H (2-6) % Eos % (Auto) 0 L (2-4) % Baso % (Auto) 0 (0-1) % Sodium 133 L (140-148) mmol/L Potassium 3.9 (3.6-5.2) mmol/L Chloride 94 L (100-108) mmol/L Carbon Dioxide 17 L (21-32) mmol/L Anion Gap 25.9 H (5.0-14.0) mmol/L BUN 11 (7-18) mg/dL Creatinine 0.9 (0.8-1.3) mg/dL Est Cr Clr Drug Dosing TNP Estimated GFR (MDRD) > 60 (>60) Glucose 249 H (74-106) mg/dL Calcium 7.9 L (8.5-10.1) mg/dL Total Bilirubin 0.3 (0.2-1.0) mg/dL AST 32 (15-37) U/L ALT 44 (12-78) U/L Alkaline Phosphatase 76 (46-116) U/L Troponin I < 0.017 (0.000-0.056) ng/mL Total Protein 6.7 (6.4-8.2) g/dL Albumin 3.4 (3.4-5.0) g/dL Globulin 3.3 (2.3-3.5) g/dL Albumin/Globulin Ratio 1.0 L (1.2-2.2) Ethyl Alcohol 383 mg/dL Departure - Departure Time of Disposition: 15:37 Disposition: Home, Self-Care 01 Condition: Poor Clinical Impression: Acute alcohol intoxication Qualifiers: Complication of substance-induced condition: uncomplicated Qualified Code(s): F10.920 - Alcohol use, unspecified with intoxication, uncomplicated Instructions: Alcohol Intoxication, [id number] Referrals: PCP,None [Primary Care Provider] - Additional Instructions: Please stop using alcohol Sepsis Event Note - Focused Exam Vital Signs: Vital Signs Temp Pulse Resp BP Pulse Ox 02/05/20 15:15 97.3 F 99 14 147/78 H 96 Date Exam was Performed: 02/05/20 Time Exam was Performed: 15:36 - My Orders Last 24 Hours: My Active Orders 02/05/20 14:16 Cardiac Monitoring [RC] .As Directed EKG Documentation Completion [RC] ASDIRECTED EKG 12 Lead [EK] Stat - Assessment/Plan Last 24 Hours: My Active Orders 02/05/20 14:16 Cardiac Monitoring [RC] .As Directed EKG Documentation Completion [RC] ASDIRECTED EKG 12 Lead [EK] Stat Plan: Assessment Acuity = chronic Site and laterality = alcohol intoxication Etiology = EtOH Manifestations = none Location of injury = Home Lab values = CBC, CMP, troponin unremarkable EKG demonstrates sinus rhythm Plan There are no open beds at the detoxification facility he declined to be transferred anyplace else decided to just go home This note was dictated using [employer] voice recognition software please call with any questions on syntax or grammar.
[2020-02-05 15:16] VITALS: BP 147/78; PULSE 99
== END 2020-02-05 15:55 | disposition home or self-care (01) ==
LOC: JP.ED 14:04
DX: F10.120 Alcohol abuse with intoxication, uncomplicated (principal); E11.9 Type 2 diabetes mellitus without complications; I10 Essential (primary) hypertension; F41.9 Anxiety disorder, unspecified; F32.9 Major depressive disorder, single episode, unspecified; J45.909 Unspecified asthma, uncomplicated; E78.00 Pure hypercholesterolemia, unspecified; Z79.4 Long term (current) use of insulin; Y90.8 Blood alcohol level of 240 mg/100 ml or more; Z88.8 Allergy status to other drugs, medicaments and biological substances; Z79.82 Long term (current) use of aspirin; Z79.899 Other long term (current) drug therapy
CPT/HCPCS: 36415; 80053; 80307; 84484; 85025; 93005; 93010; 99283; 99285-25

== ENCOUNTER 2020-02-06 10:31 | Emergency (ER) | payer MEDICAID ==
--- NOTE | 2020-02-06 10:42 | EDM.PDOC ---
ED HPI GENERAL MEDICAL PROBLEM - General Chief Complaint: Drug or Alcohol Abuse Stated Complaint: DRUNK Time Seen by Provider: 02/06/20 10:39 Source of Information: Reports: Patient, EMS, RN Notes Reviewed History Limitations: Reports: Intoxication - History of Present Illness INITIAL COMMENTS - FREE TEXT/NARRATIVE: 59-year-old gentleman presents emergency department a complaint of chest pain, I have had the opportunity to evaluate this gentleman every morning for the last 3 days same complaint his alcohol has ranged anywhere from 3 50-4 50 troponin has always been negative, we have offered him detoxification but he will only go to the [facility] unfortunately the facility has been full over the weekend and he has declined transport to another detoxification facility outside of [facility] department has given him a ride home both on Thursday and Thursday. Chest Pain Score (Numeric/FACES): 8 - Related Data Allergies Allergy/AdvReac Type Severity Reaction Status Date / Time zolpidem tartrate Allergy sleep walks Verified 02/04/20 13:46 [From [facility]] Home Meds: Home Meds Aspirin [Halfprin] 81 mg PO DAILY 10/17/14 [History] Gabapentin 300 mg PO TID 12/04/14 [History] traZODone 100 - 200 mg PO BEDTIME 12/04/14 [History] metFORMIN [Glucophage] 1,000 mg PO BIDAC 03/11/16 [History] Multivit-Min/FA/Lycopen/Lutein [Certavite Sr-Antioxidant Tab] 1 tab PO DAILY [History] Pantoprazole [ProTONIX] 40 mg PO DAILY #30 tab.cr 06/17/16 [Rx] Celecoxib [CeleBREX] 100 mg PO BID 09/06/17 [History] Acetaminophen 500 mg PO Q4H PRN 11/17/17 [History] Albuterol [Ventolin HFA] 2 puff INH QID 11/17/17 [History] Ascorbic Acid 500 mg PO DAILY 06/30/18 [History] Venlafaxine [Effexor XR] 225 mg PO DAILY 03/21/19 [History] lisinopriL [Prinivil] 10 mg PO DAILY 03/21/19 [History] Insulin Aspart [NovoLOG] 0 - 12 unit SUBCUT QID PRN 11/11/19 [History] Insulin Glarg,Human.Rec.Analog [Lantus Solostar] 60 unit SUBCUT DAILY 11/11/19 [ History] Diclofenac Sodium [Voltaren] 4 gm TOP TID PRN 12/08/19 [History] Metoprolol Tartrate 25 mg PO BID 12/08/19 [History] Liraglutide [Victoza 3-Amos] 0.6 mg SQ DAILY 12/16/19 [History] Past Medical History Cardiovascular History: Reports: High Cholesterol, Hypertension Other Cardiovascular History: Past chest pain Questionable [place] in past. Respiratory History: Reports: Asthma Gastrointestinal History: Reports: Pancreatitis Musculoskeletal History: Reports: Fracture, Other (See Below) Other Musculoskeletal History: fx toe L humeral fracture. Seen 03/21/19 for r hand pain ortho. Neurological History: Reports: Head Trauma Psychiatric History: Reports: Addiction, Anxiety, Depression, Other (See Below) Other Psychiatric History: Alcohol abuse. Endocrine/Metabolic History: Reports: Diabetes, Type II Hematologic History: Reports: None - Infectious Disease History Infectious Disease History: Reports: Chicken Pox Other Infectious Disease History: unknown - Past Surgical History Head Surgeries/Procedures: Reports: None HEENT Surgical History: Reports: Adenoidectomy GI Surgical History: Reports: Appendectomy Oncologic Surgical History: Reports: None Social & Family History - Family History Family Medical History: Noncontributory - Caffeine Use Caffeine Use: Reports: Coffee, Soda Caffeine Use Comment: daily intake ED ROS GENERAL - Review of Systems Review Of Systems: Unable To Obtain Reason Not Obtained: Intoxicated ED EXAM, GENERAL - Physical Exam Exam: See Below Exam Limited By: Intoxication General Appearance: Alert, No Apparent Distress Respiratory/Chest: No Respiratory Distress, Lungs Clear, Normal Breath Sounds, No Accessory Muscle Use, Chest Non-Tender Cardiovascular: Regular Rate, Rhythm, No Murmur GI/Abdominal: Soft, Non-Tender Course - Vital Signs Last Recorded V/S: Last Vital Signs Temp 98.0 F 02/06/20 10:51 Pulse 112 H 02/06/20 14:24 Resp 20 02/06/20 10:51 BP 150/65 H 02/06/20 16:06 Pulse Ox 90 L 02/06/20 14:24 - Orders/Labs/Meds Orders: Active Orders 24 hr Category Date Time Status Cardiac Monitoring [RC] .As Directed Care 02/06/20 10:33 Active EKG Documentation Completion [RC] ASDIRECTED Care 02/06/20 10:36 Active EKG 12 Lead [EK] Stat Ther 02/06/20 10:36 Ordered Labs: Laboratory Tests 02/06/20 02/06/20 02/06/20 Range/Units 10:47 10:47 10:47 WBC 8.9 (4.5-11.0) K/uL RBC 4.30 (4.30-5.90) M/uL Hgb 13.4 (12.0-15.0) g/dL Hct 38.9 L (40.0-54.0) % MCV 91 (80-98) fL MCH 31 (27-31) pg MCHC 34 (32-36) % Plt Count 133 L (150-400) K/uL Neut % (Auto) 77 H (36-66) % Lymph % (Auto) 15 L (24-44) % [place] % (Auto) 8 H (2-6) % Eos % (Auto) 0 L (2-4) % Baso % (Auto) 0 (0-1) % Sodium 131 L (140-148) mmol/L Potassium 3.7 (3.6-5.2) mmol/L Chloride 93 L (100-108) mmol/L Carbon Dioxide 17 L (21-32) mmol/L Anion Gap 24.7 H (5.0-14.0) mmol/L BUN 12 (7-18) mg/dL Creatinine 0.9 (0.8-1.3) mg/dL Est Cr Clr Drug Dosing 89.00 mL/min Estimated GFR (MDRD) > 60 (>60) Glucose 259 H (74-106) mg/dL Calcium 7.5 L (8.5-10.1) mg/dL Troponin I < 0.017 (0.000-0.056) ng/mL Ethyl Alcohol 378 mg/dL Departure - Departure Time of Disposition: 16:36 Disposition: DC/Tfer to Inpt Rehab Fac 62 Reason for Transfer *Q: Other Condition: Poor Clinical Impression: Acute alcohol intoxication Qualifiers: Complication of substance-induced condition: uncomplicated Qualified Code(s): F10.920 - Alcohol use, unspecified with intoxication, uncomplicated Referrals: PCP,None [Primary Care Provider] - Forms: ED Department Discharge Additional Instructions: Please report to Darlene Alvarez recommend decrease use of alcohol Sepsis Event Note - Focused Exam Vital Signs: Vital Signs Temp Pulse Resp BP Pulse Ox 02/06/20 16:06 150/65 H 02/06/20 14:24 112 H 139/64 90 L 02/06/20 13:55 113 H 155/72 H 92 L 02/06/20 13:48 120 H 122/77 93 L 02/06/20 12:24 101 H 145/71 H 90 L 02/06/20 11:54 103 H 133/72 90 L 02/06/20 11:24 100 140/68 94 L 02/06/20 10:54 106 H 163/77 H 02/06/20 10:51 98.0 F 112 H 20 170/79 H 95 02/06/20 10:38 98.0 F 112 H 20 170/79 H 95 Date Exam was Performed: 02/06/20 Time Exam was Performed: 16:35 - My Orders Last 24 Hours: My Active Orders 02/06/20 10:33 Cardiac Monitoring [RC] .As Directed 02/06/20 10:36 EKG Documentation Completion [RC] ASDIRECTED EKG 12 Lead [EK] Stat - Assessment/Plan Last 24 Hours: My Active Orders 02/06/20 10:33 Cardiac Monitoring [RC] .As Directed 02/06/20 10:36 EKG Documentation Completion [RC] ASDIRECTED EKG 12 Lead [EK] Stat Plan: Assessment Acuity = acute Site and laterality = alcohol intoxication Etiology = EtOH Manifestations = none Location of injury = Home Lab values = CBC, CMP troponin unremarkable, alcohol level was 378 Plan He was somewhat unstable this morning after several glasses of water and a meal in the emergency department he was more stable [facility] did accept him for detoxification treatment he will be transferred via [facility] transport vehicle This note was dictated using [employer] voice recognition software please call with any questions on syntax or grammar.
[2020-02-06 16:26] VITALS: BP 150/65; PULSE 112
== END 2020-02-06 17:15 ==
LOC: JP.ED 10:31
DX: F10.120 Alcohol abuse with intoxication, uncomplicated (principal); I10 Essential (primary) hypertension; E11.9 Type 2 diabetes mellitus without complications; Z88.8 Allergy status to other drugs, medicaments and biological substances; Z79.82 Long term (current) use of aspirin; Z79.899 Other long term (current) drug therapy; Z79.4 Long term (current) use of insulin
CPT/HCPCS: 36415; 80048; 80307; 84484; 85025; 93005; 93010; 99284; 99285-25

== ENCOUNTER 2020-02-11 11:40 | Emergency (ER) | payer MEDICAID ==
[2020-02-11] MEDS ORDERED: Prochlorperazine 10 MG Tab PO ONE (11:58)
--- NOTE | 2020-02-11 11:59 | EDM.PDOC ---
ED HPI GENERAL MEDICAL PROBLEM - General Chief Complaint: Behavioral/Psych Stated Complaint: MED VIA NOR[facility] Time Seen by Provider: 02/11/20 11:45 Source of Information: Reports: EMS History Limitations: Reports: No Limitations - History of Present Illness INITIAL COMMENTS - FREE TEXT/NARRATIVE: Patient is here with multiple vague complaints. When I first walked in the room and asked him why he is here he started on a tirade about [facility] not giving him his usual medications. Also complains of left-sided chest pain abdominal pain numbness and pain in his feet headache nausea and vomiting this morning. Review of the patient's chart shows that he was here on February 03, , and with similar complaints. Evaluation specifically with regards to his cardiac status was always negative. Patient states he is very anxious. Onset: Today - Related Data Allergies Allergy/AdvReac Type Severity Reaction Status Date / Time zolpidem tartrate AdvReac sleep walks Verified 02/11/20 12:07 [From [facility]] Home Meds: Home Meds Aspirin [Halfprin] 81 mg PO DAILY 10/17/14 [History] Gabapentin 300 mg PO TID 12/04/14 [History] traZODone 100 - 200 mg PO BEDTIME 12/04/14 [History] metFORMIN [Glucophage] 1,000 mg PO BIDAC 03/11/16 [History] Multivit-Min/FA/Lycopen/Lutein [Certavite Sr-Antioxidant Tab] 1 tab PO DAILY [History] Pantoprazole [ProTONIX] 40 mg PO DAILY #30 tab.cr 06/17/16 [Rx] Celecoxib [CeleBREX] 100 mg PO BID 09/06/17 [History] Acetaminophen 500 mg PO Q4H PRN 11/17/17 [History] Albuterol [Ventolin HFA] 2 puff INH QID 11/17/17 [History] Ascorbic Acid 500 mg PO DAILY 06/30/18 [History] Venlafaxine [Effexor XR] 225 mg PO DAILY 03/21/19 [History] lisinopriL [Prinivil] 10 mg PO DAILY 03/21/19 [History] Insulin Aspart [NovoLOG] 0 - 12 unit SUBCUT QID PRN 11/11/19 [History] Insulin Glarg,Human.Rec.Analog [Lantus Solostar] 60 unit SUBCUT DAILY 11/11/19 [ History] Diclofenac Sodium [Voltaren] 4 gm TOP TID PRN 12/08/19 [History] Metoprolol Tartrate 25 mg PO BID 12/08/19 [History] Liraglutide [Victoza 3-Amos] 0.6 mg SQ DAILY 12/16/19 [History] Past Medical History Cardiovascular History: Reports: High Cholesterol, Hypertension Other Cardiovascular History: Past chest pain Questionable [place] in past. Respiratory History: Reports: Asthma Gastrointestinal History: Reports: Pancreatitis Musculoskeletal History: Reports: Fracture, Other (See Below) Other Musculoskeletal History: fx toe L humeral fracture. Seen 03/21/19 for r hand pain ortho. Neurological History: Reports: Head Trauma Psychiatric History: Reports: Addiction, Anxiety, Depression, Other (See Below) Other Psychiatric History: Alcohol abuse. Endocrine/Metabolic History: Reports: Diabetes, Type II Hematologic History: Reports: None - Infectious Disease History Infectious Disease History: Reports: Chicken Pox Other Infectious Disease History: unknown - Past Surgical History Head Surgeries/Procedures: Reports: None HEENT Surgical History: Reports: Adenoidectomy GI Surgical History: Reports: Appendectomy Oncologic Surgical History: Reports: None Social & Family History - Family History Family Medical History: Noncontributory - Caffeine Use Caffeine Use: Reports: Coffee, Soda Caffeine Use Comment: daily intake - Living Situation & Occupation Living situation: Reports: Other (Is here from detox facility) ED ROS GENERAL - Review of Systems Review Of Systems: See Below Constitutional: Reports: Malaise, Weakness Respiratory: Reports: Shortness of Breath Cardiovascular: Reports: Chest Pain Endocrine: Reports: Fatigue GI/Abdominal: Reports: Abdominal Pain Musculoskeletal: Reports: Leg Pain, Foot Pain Psychiatric: Reports: Agitation, Anxiety ED EXAM, GENERAL - Physical Exam Exam: See Below Exam Limited By: No Limitations General Appearance: Alert, Anxious, Obese Eye Exam: Bilateral Eye: Normal Inspection Ears: Normal External Exam Nose: Normal Inspection Throat/Mouth: Normal Inspection, Other (Patient claims he is dehydrated but his mucous membranes are moist.) Neck: Normal Inspection. No: Carotid Bruit Respiratory/Chest: No Respiratory Distress, Lungs Clear, Normal Breath Sounds Cardiovascular: Normal Peripheral Pulses, Regular Rate, Rhythm EKG INTERPRETATION EKG Date: 02/11/20 Time: 12:25 Rhythm: NSR [place]: Normal P-Wave: Present QRS: Normal ST-T: Normal Course - Vital Signs Text/Narrative:: After laboratory work was drawn in order to check blood glucose, patient is provided a lunch tray. I did order Compazine for nausea and anxiety. The patient has a slight elevation of blood glucose but is not in ketoacidosis he is on metformin. He ate a lunch tray while here in the emergency department. Wide elevation of liver enzymes consistent with his history of alcohol abuse. Medications were discussed with the institution that he came from. They acknowledge that they are aware of all of the medications that he is supposed to be on. He has not performed a co-pay and they cannot administer his psychiatric medications because of this. A new prescription will not help the situation. A older adult social work specialist has been consulted by the facility. Last Recorded V/S: Last Vital Signs Temp 36.8 C 02/11/20 12:09 Pulse 50 L 02/11/20 12:09 Resp 14 02/11/20 12:09 BP 115/58 L 02/11/20 12:09 Pulse Ox 96 02/11/20 12:09 - Orders/Labs/Meds Orders: Active Orders 24 hr Category Date Time Status EKG Documentation Completion [RC] ASDIRECTED Care 02/11/20 11:57 Active Chest 2V [CR] Routine Exams 02/11/20 11:55 Taken EKG 12 Lead [EK] Urgent Ther 02/11/20 11:56 Ordered Labs: Laboratory Tests 02/11/20 02/11/20 02/11/20 Range/Units 12:10 12:10 12:10 WBC 7.1 (4.5-11.0) K/uL RBC 4.08 L (4.30-5.90) M/uL Hgb 12.6 (12.0-15.0) g/dL Hct 37.9 L (40.0-54.0) % MCV 93 (80-98) fL MCH 31 (27-31) pg MCHC 33 (32-36) % Plt Count 113 L (150-400) K/uL Sodium 136 L (140-148) mmol/L Potassium 3.0 L (3.6-5.2) mmol/L Chloride 98 L (100-108) mmol/L Carbon Dioxide 30 (21-32) mmol/L Anion Gap 11.0 (5.0-14.0) mmol/L BUN 8 (7-18) mg/dL Creatinine 0.9 (0.8-1.3) mg/dL Est Cr Clr Drug Dosing 89.00 mL/min Estimated GFR (MDRD) > 60 (>60) Glucose 218 H (74-106) mg/dL Lactic Acid (0.4-2.0) mmol/L Calcium 8.4 L (8.5-10.1) mg/dL Total Bilirubin 0.3 (0.2-1.0) mg/dL AST 55 H (15-37) U/L ALT 84 H (12-78) U/L Alkaline Phosphatase 63 (46-116) U/L Troponin I < 0.017 (0.000-0.056) ng/mL Total Protein 5.8 L (6.4-8.2) g/dL Albumin 2.8 L (3.4-5.0) g/dL Globulin 3.0 (2.3-3.5) g/dL Albumin/Globulin Ratio 0.9 L (1.2-2.2) Urine Color (YELLOW) Urine Appearance (CLEAR) Urine pH (5.0-8.0) Ur Specific [place] (1.008-1.030) Urine Protein (NEGATIVE) mg/dL Urine Glucose (UA) (NEGATIVE) mg/dL Urine Ketones (NEGATIVE) mg/dL Urine Occult Blood (NEGATIVE) Urine Nitrite (NEGATIVE) Urine Bilirubin (NEGATIVE) Urine Urobilinogen (0.2-1.0) EU/dL Ur Leukocyte Esterase (NEGATIVE) Urine RBC (0-5) Urine WBC (0-5) Ur Epithelial Cells Urine Bacteria Urine Mucus 02/11/20 02/11/20 Range/Units 12:10 12:28 WBC (4.5-11.0) K/uL RBC (4.30-5.90) M/uL Hgb (12.0-15.0) g/dL Hct (40.0-54.0) % MCV (80-98) fL MCH (27-31) pg MCHC (32-36) % Plt Count (150-400) K/uL Sodium (140-148) mmol/L Potassium (3.6-5.2) mmol/L Chloride (100-108) mmol/L Carbon Dioxide (21-32) mmol/L Anion Gap (5.0-14.0) mmol/L BUN (7-18) mg/dL Creatinine (0.8-1.3) mg/dL Est Cr Clr Drug Dosing mL/min Estimated GFR (MDRD) (>60) Glucose (74-106) mg/dL Lactic Acid 1.3 (0.4-2.0) mmol/L Calcium (8.5-10.1) mg/dL Total Bilirubin (0.2-1.0) mg/dL AST (15-37) U/L ALT (12-78) U/L Alkaline Phosphatase (46-116) U/L Troponin I (0.000-0.056) ng/mL Total Protein (6.4-8.2) g/dL Albumin (3.4-5.0) g/dL Globulin (2.3-3.5) g/dL Albumin/Globulin Ratio (1.2-2.2) Urine Color Yellow (YELLOW) Urine Appearance Clear (CLEAR) Urine pH 7.0 (5.0-8.0) Ur Specific [place] 1.025 (1.008-1.030) Urine Protein Trace H (NEGATIVE) mg/dL Urine Glucose (UA) 500 H (NEGATIVE) mg/dL Urine Ketones 15 H (NEGATIVE) mg/dL Urine Occult Blood Negative (NEGATIVE) Urine Nitrite Negative (NEGATIVE) Urine Bilirubin Negative (NEGATIVE) Urine Urobilinogen >=8.0 H (0.2-1.0) EU/dL Ur Leukocyte Esterase Negative (NEGATIVE) Urine RBC Not seen (0-5) Urine WBC Not seen (0-5) Ur Epithelial Cells Not seen Urine Bacteria Not seen Urine Mucus Moderate Meds: Medications Discontinued Medications Generic Name Dose Route Start Last Admin Trade Name Freq PRN Reason Stop Dose Admin Prochlorperazine Maleate 10 mg 02/11/20 11:58 02/11/20 12:26 Compazine PO 02/11/20 11:59 10 mg ONETIME ONE Administration - Radiology Interpretation Free Text/Narrative:: X-ray shows no acute changes Departure - Departure Time of Disposition: 13:05 Disposition: Home, Self-Care 01 Condition: Good Clinical Impression: Anxiety - Discharge Information Instructions: Living With Anxiety Referrals: PCP,None [Primary Care Provider] - Forms: ED Department Discharge Sepsis Event Note - Focused Exam Vital Signs: Vital Signs Temp Pulse Resp BP Pulse Ox 02/11/20 12:09 36.8 C 50 L 14 115/58 L 96 Date Exam was Performed: 02/11/20 Time Exam was Performed: 13:00 - My Orders Last 24 Hours: My Active Orders 02/11/20 11:55 Chest 2V [CR] Routine 02/11/20 11:56 EKG 12 Lead [EK] Urgent 02/11/20 11:57 EKG Documentation Completion [RC] ASDIRECTED - Assessment/Plan Last 24 Hours: My Active Orders 02/11/20 11:55 Chest 2V [CR] Routine 02/11/20 11:56 EKG 12 Lead [EK] Urgent 02/11/20 11:57 EKG Documentation Completion [RC] ASDIRECTED
[2020-02-11 12:11] VITALS: BP 115/58; PULSE 50
--- NOTE | 2020-02-12 11:18 | CRLCR ---
Clinical INDICATION: Chest pain. COMPARISON: 02/04/2020. FINDINGS: The heart is normal in size. The lungs are clear. The pulmonary vasculature and pleural surfaces appear normal. There is mild hypertrophic spurring of the mid thoracic spine. IMPRESSION: No acute process identified. Dictated by Terrence Boss MD @ Feb 12 2020 11:15AM Signed by Dr. Terrence Boss @ Feb 12 2020 11:16AM
== END 2020-02-11 14:01 | disposition home or self-care (01) ==
LOC: JP.ED 11:40
DX: F41.9 Anxiety disorder, unspecified (principal); E11.9 Type 2 diabetes mellitus without complications; J45.909 Unspecified asthma, uncomplicated; I10 Essential (primary) hypertension; Z79.4 Long term (current) use of insulin; F32.9 Major depressive disorder, single episode, unspecified; Z79.82 Long term (current) use of aspirin; Z79.899 Other long term (current) drug therapy
CPT/HCPCS: 36415; 71046; 80053; 81001; 83605; 84484; 85027; 93005; 99283; 99285; A9270; 93010; Q0164

== ENCOUNTER 2020-04-25 04:22 | Emergency (ER) | payer MEDICAID ==
[2020-04-25] MEDS ORDERED: Sodium Chloride 0.9% 1,000 ML IV SCH (04:45)
--- NOTE | 2020-04-25 05:56 | EDM.PDOCBH ---
ED HPI GENERAL MEDICAL PROBLEM - General Chief Complaint: Drug or Alcohol Abuse Stated Complaint: MEDICAL VIA TRI Time Seen by Provider: 04/25/20 04:55 Source of Information: Reports: Patient History Limitations: Reports: No Limitations - History of Present Illness INITIAL COMMENTS - FREE TEXT/NARRATIVE: pt has been drinking steady for several days. He has no chest pain. H at first stated he did not want to go to [facility] and then consented to go. Onset: Gradual, Other ( pt has been drinking for several days. ) Duration: Hour(s): Location: Reports: Generalized, Other ( pt is intoxicated. ) Associated Symptoms: Reports: No Other Symptoms - Related Data Allergies Allergy/AdvReac Type Severity Reaction Status Date / Time zolpidem tartrate AdvReac sleep walks Verified 02/11/20 12:07 [From [facility]] Home Meds: Home Meds Aspirin [Halfprin] 81 mg PO DAILY 10/17/14 [History] Gabapentin 300 mg PO TID 12/04/14 [History] traZODone 100 - 200 mg PO BEDTIME 12/04/14 [History] metFORMIN [Glucophage] 1,000 mg PO BIDAC 03/11/16 [History] Multivit-Min/FA/Lycopen/Lutein [Certavite Sr-Antioxidant Tab] 1 tab PO DAILY 06/16/16 [History] Pantoprazole [ProTONIX] 40 mg PO DAILY #30 tab.cr 06/17/16 [Rx] Celecoxib [CeleBREX] 100 mg PO BID 09/06/17 [History] Acetaminophen 500 mg PO Q4H PRN 11/17/17 [History] Albuterol [Ventolin HFA] 2 puff INH QID 11/17/17 [History] Ascorbic Acid 500 mg PO DAILY 06/30/18 [History] Venlafaxine [Effexor XR] 225 mg PO DAILY 03/21/19 [History] lisinopriL [Prinivil] 10 mg PO DAILY 03/21/19 [History] Insulin Aspart [NovoLOG] 0 - 12 unit SUBCUT QID PRN 11/11/19 [History] Insulin Glarg,Human.Rec.Analog [Lantus Solostar] 60 unit SUBCUT DAILY 11/11/19 [History] Diclofenac Sodium [Voltaren] 4 gm TOP TID PRN 12/08/19 [History] Metoprolol Tartrate 25 mg PO BID 12/08/19 [History] Liraglutide [Victoza 3-Amos] 0.6 mg SQ DAILY 12/16/19 [History] Past Medical History Cardiovascular History: Reports: High Cholesterol, Hypertension Other Cardiovascular History: Past chest pain Questionable MD in past. Respiratory History: Reports: Asthma Gastrointestinal History: Reports: Pancreatitis Musculoskeletal History: Reports: Fracture, Other (See Below) Other Musculoskeletal History: fx toe L humeral fracture. Seen 03/21/19 for r hand pain ortho. Neurological History: Reports: Head Trauma Psychiatric History: Reports: Addiction, Anxiety, Depression, Other (See Below) Other Psychiatric History: Alcohol abuse. Endocrine/Metabolic History: Reports: Diabetes, Type II Hematologic History: Reports: None - Infectious Disease History Infectious Disease History: Reports: Chicken Pox Other Infectious Disease History: unknown - Past Surgical History Head Surgeries/Procedures: Reports: None HEENT Surgical History: Reports: Adenoidectomy GI Surgical History: Reports: Appendectomy Oncologic Surgical History: Reports: None Social & Family History - Family History Family Medical History: Noncontributory - Tobacco Use Smoking Status *Q: Never Smoker - Caffeine Use Caffeine Use: Reports: None Caffeine Use Comment: daily intake - Alcohol Use Days Per Week of Alcohol Use: 7 Number of Drinks Per Day: 7 Total Drinks Per Week: 49 - Recreational Drug Use Recreational Drug Use: No - Living Situation & Occupation Living situation: Reports: Other (Is here from detox facility) ED ROS GENERAL - Review of Systems Review Of Systems: See Below Constitutional: Reports: No Symptoms HEENT: Reports: No Symptoms Respiratory: Reports: No Symptoms Cardiovascular: Reports: No Symptoms Endocrine: Reports: No Symptoms GI/Abdominal: Reports: No Symptoms, Nausea : Reports: No Symptoms ED EXAM, BEHAVIORAL HEALTH - Physical Exam Exam: See Below Text/Narrative:: pt arrived very intoxicated. He had no complaints ofpain. He is willing to go to [facility]. Exam Limited By: No Limitations General Appearance: Alert, No Apparent Distress, Anxious Ears: Normal TMs Nose: Normal Inspection Throat/Mouth: Normal Inspection Head: Atraumatic Neck: Normal Inspection Respiratory/Chest: No Respiratory Distress Cardiovascular: Regular Rate, Rhythm, Tachycardia GI/Abdominal: Soft, Non-Tender (Male) Exam: Deferred Rectal (Males) Exam: Deferred Back Exam: Normal Inspection Extremities: Normal Inspection Neurological: Alert, Other (pt is very intoxicated. ) Psychiatric: Alert, Other (intoxicated. ) COURSE, BEHAVIORAL HEALTH COMP - Course Vital Signs: Last Vital Signs Temp 36.6 C 04/25/20 04:54 Pulse 116 H 04/25/20 06:25 Resp 18 04/25/20 04:54 BP 168/84 H 04/25/20 06:25 Pulse Ox 97 04/25/20 04:54 Orders, Labs, Meds: Laboratory Tests 04/25/20 04/25/20 04/25/20 Range/Units 04:54 04:54 04:55 WBC 13.8 H (4.5-11.0) K/uL RBC 4.78 (4.30-5.90) M/uL Hgb 14.8 D (12.0-15.0) g/dL Hct 42.7 (40.0-54.0) % MCV 89 (80-98) fL MCH 31 (27-31) pg MCHC 35 (32-36) % Plt Count 275 (150-400) K/uL Neut % (Auto) 73 H (36-66) % Lymph % (Auto) 20 L (24-44) % Ramsey % (Auto) 7 H (2-6) % Eos % (Auto) 0 L (2-4) % Baso % (Auto) 0 (0-1) % Sodium (140-148) mmol/L Potassium (3.6-5.2) mmol/L Chloride (100-108) mmol/L Carbon Dioxide (21-32) mmol/L Anion Gap (5.0-14.0) mmol/L BUN (7-18) mg/dL Creatinine (0.8-1.3) mg/dL Est Cr Clr Drug Dosing Estimated GFR (MDRD) (>60) Glucose (74-106) mg/dL Calcium (8.5-10.1) mg/dL Total Bilirubin (0.2-1.0) mg/dL AST (15-37) U/L ALT (12-78) U/L Alkaline Phosphatase (46-116) U/L Total Protein (6.4-8.2) g/dL Albumin (3.4-5.0) g/dL Globulin (2.3-3.5) g/dL Albumin/Globulin Ratio (1.2-2.2) Urine Color Yellow (YELLOW) Urine Appearance Clear (CLEAR) Urine pH 5.5 (5.0-8.0) Ur Specific [place] >= 1.030 (1.008-1.030) Urine Protein 100 H (NEGATIVE) mg/dL Urine Glucose (UA) 100 H (NEGATIVE) mg/dL Urine Ketones 80 H (NEGATIVE) mg/dL Urine Occult Blood Moderate H (NEGATIVE) Urine Nitrite Negative (NEGATIVE) Urine Bilirubin Negative (NEGATIVE) Urine Urobilinogen 0.2 (0.2-1.0) EU/dL Ur Leukocyte Esterase Negative (NEGATIVE) Urine RBC 0-5 (0-5) Urine WBC 0-5 (0-5) Ur Epithelial Cells Few Amorphous Sediment Few Urine Bacteria Few Urine Mucus Not seen Urine Opiates Screen Negative (NEGATIVE) Ur Oxycodone Screen Negative (NEGATIVE) Urine Methadone Screen Negative (NEGATIVE) Ur Propoxyphene Screen Negative (NEGATIVE) Ur Barbiturates Screen Negative (NEGATIVE) Ur Tricyclics Screen Negative (NEGATIVE) Ur Phencyclidine Scrn Negative (NEGATIVE) Ur Amphetamine Screen Negative (NEGATIVE) U Methamphetamines Scrn Negative (NEGATIVE) Urine MDMA Screen Negative (NEGATIVE) U Benzodiazepines Scrn Negative (NEGATIVE) U Cocaine Metab Screen Negative (NEGATIVE) U Marijuana (THC) Screen Negative (NEGATIVE) Ethyl Alcohol mg/dL 04/25/20 04/25/20 Range/Units 04:55 04:55 WBC (4.5-11.0) K/uL RBC (4.30-5.90) M/uL Hgb (12.0-15.0) g/dL Hct (40.0-54.0) % MCV (80-98) fL MCH (27-31) pg MCHC (32-36) % Plt Count (150-400) K/uL Neut % (Auto) (36-66) % Lymph % (Auto) (24-44) % Ramsey % (Auto) (2-6) % Eos % (Auto) (2-4) % Baso % (Auto) (0-1) % Sodium 130 L (140-148) mmol/L Potassium 4.3 (3.6-5.2) mmol/L Chloride 91 L (100-108) mmol/L Carbon Dioxide 15 L D (21-32) mmol/L Anion Gap 28.3 H (5.0-14.0) mmol/L BUN 17 D (7-18) mg/dL Creatinine 1.0 (0.8-1.3) mg/dL Est Cr Clr Drug Dosing TNP Estimated GFR (MDRD) > 60 (>60) Glucose 270 H (74-106) mg/dL Calcium 8.1 L (8.5-10.1) mg/dL Total Bilirubin 0.5 D (0.2-1.0) mg/dL AST 32 (15-37) U/L ALT 37 (12-78) U/L Alkaline Phosphatase 75 (46-116) U/L Total Protein 7.3 (6.4-8.2) g/dL Albumin 3.6 (3.4-5.0) g/dL Globulin 3.7 H (2.3-3.5) g/dL Albumin/Globulin Ratio 1.0 L (1.2-2.2) Urine Color (YELLOW) Urine Appearance (CLEAR) Urine pH (5.0-8.0) Ur Specific [place] (1.008-1.030) Urine Protein (NEGATIVE) mg/dL Urine Glucose (UA) (NEGATIVE) mg/dL Urine Ketones (NEGATIVE) mg/dL Urine Occult Blood (NEGATIVE) Urine Nitrite (NEGATIVE) Urine Bilirubin (NEGATIVE) Urine Urobilinogen (0.2-1.0) EU/dL Ur Leukocyte Esterase (NEGATIVE) Urine RBC (0-5) Urine WBC (0-5) Ur Epithelial Cells Amorphous Sediment Urine Bacteria Urine Mucus Urine Opiates Screen (NEGATIVE) Ur Oxycodone Screen (NEGATIVE) Urine Methadone Screen (NEGATIVE) Ur Propoxyphene Screen (NEGATIVE) Ur Barbiturates Screen (NEGATIVE) Ur Tricyclics Screen (NEGATIVE) Ur Phencyclidine Scrn (NEGATIVE) Ur Amphetamine Screen (NEGATIVE) U Methamphetamines Scrn (NEGATIVE) Urine MDMA Screen (NEGATIVE) U Benzodiazepines Scrn (NEGATIVE) U Cocaine Metab Screen (NEGATIVE) U Marijuana (THC) Screen (NEGATIVE) Ethyl Alcohol 296 mg/dL Medications Discontinued Medications Generic Name Dose Route Start Last Admin Trade Name Freq PRN Reason Stop Dose Admin Sodium Chloride 1,000 mls @ 999 mls/hr 04/25/20 04:45 04/25/20 05:12 Normal Saline IV 999 mls/hr ASDIRECTED RIKKI Administration Medical Clearance: 04/25/20 05:56 pt has a neg drug screen and a etoh of .296. Departure - Departure Time of Disposition: 06:55 Disposition: DC/Tfer to Psych Hosp/Unit [facility] Condition: Fair Clinical Impression: Intoxication, ETOH abuse - Discharge Information Instructions: Alcohol Use Disorder Referrals: PCP,None [Primary Care Provider] - Forms: ED Department Discharge Care Plan Goals: discharge to [facility]. Sepsis Event Note (ED) - Evaluation Sepsis Screening Result: No Definite Risk
[2020-04-25 06:51] VITALS: BP 168/84; PULSE 116
== END 2020-04-25 06:40 ==
LOC: JP.ED 04:22
DX: F10.129 Alcohol abuse with intoxication, unspecified (principal); Y90.8 Blood alcohol level of 240 mg/100 ml or more; I10 Essential (primary) hypertension; J45.909 Unspecified asthma, uncomplicated; F41.9 Anxiety disorder, unspecified; F32.9 Major depressive disorder, single episode, unspecified; E11.9 Type 2 diabetes mellitus without complications; R00.0 Tachycardia, unspecified; Z79.4 Long term (current) use of insulin; Z88.8 Allergy status to other drugs, medicaments and biological substances; Z79.899 Other long term (current) drug therapy; Z79.82 Long term (current) use of aspirin
CPT/HCPCS: 36415; 80053; 80305-QW; 80307; 81001; 85025; 96360; 99285-25; J7030